=== PATIENT | male | born 1970 | race Caucasian/White ===

== ENCOUNTER 2018-08-07 02:50 | Inpatient (IN) ==
[2018-08-07] MEDS ORDERED: Dextrose 50% in Water Syringe 50 ML ONE ×6 (02:55→18:10)
[2018-08-07] MEDS ORDERED: Dextrose 50% in Water 50 ML Vial IV.PUSH ONE (02:56)
[2018-08-07] MEDS: Dextrose 5%/NaCl 0.9% Inj 1,000 ML IV.SIG SCH ×3 (03:00→18:09)
[2018-08-07] MEDS ORDERED: Propofol 1000 mg/100 ml Inj 1,000 MG/100 ML BOTTLE ONE (03:05)
[2018-08-07 03:17] LABS: ABG Base Excess 0.8 mmol/L (-2-2); ABG PCO2 49 mmHg (38-42); ABG PO2 417 mmHg (61-120); Baso # (Auto) 0.1 th/mm3 (0.0-0.2); Baso % (Auto) 0.4 % (0.0-2.0); Eos % (Auto) 0.1 % (0.0-4.0); Hematocrit 39.5 % (39.0-51.0); Hemoglobin 13.7 gm/dL (13.0-17.0); Lymph # (Auto) 0.9 th/mm3 (1.0-4.8); Lymph % (Auto) 4.7 % (9.0-44.0); Mean Corpuscular HGB Conc 34.7 % (32.0-36.0); Mean Corpuscular Hemoglobin 34.9 pg (27.0-34.0); Mean Corpuscular Volume 100.6 fL (80.0-100.0); Mean Platelet Volume 7.6 fL (7.0-11.0); Mono # (Auto) 1.9 th/mm3 (0.0-0.9); Mono % (Auto) 10.1 % (0.0-8.0); Neut # (Auto) 15.8 th/mm3 (1.8-7.7); Neut % (Auto) 84.7 % (16.0-70.0); Platelet Count 362 th/mm3 (150-450); Red Blood Count 3.93 mil/mm3 (4.50-5.90); Red Cell Distribution Width 12.7 % (11.6-17.2); White Blood Count 18.6 th/mm3 (4.0-11.0)
[2018-08-07 03:29] LABS: Prothrombin Time 9.9 sec (9.8-11.6)
--- NOTE | 2018-08-07 03:35 | XR ---
EXAM DATE: 08/07/2018 3:28 AM EST AGE/SEX: 89 years / Male INDICATIONS: ET tube placement. CLINICAL DATA: This is the patient's initial encounter. Patient reports that signs and symptoms have been present for 1 day and indicates a pain score of Nonresponsive. MEDICAL/SURGICAL HISTORY: Non-responsive. Non-responsive. COMPARISON: No prior exams available for comparison. FINDINGS: Single AP view the chest. Endotracheal tube is in place with the tip 4 to 5 cm above the justin. Naso gastric tube is in place with the tip in the proximal stomach. Lungs are clear. Cardiomediastinal rafael houette is within normal limits. No evidence of pleural effusion or pneumothorax. CONCLUSION: Endotracheal tube and nasogastric tube in place. No acute cardiopulmonary disease identified. Electronically signed by: Bala Caban MD 08/07/2018 3:34 AM EST
[2018-08-07 03:37] LABS: Alanine Aminotransferase 24 U/L (12-78); Albumin 3.4 g/dL (3.4-5.0); Alkaline Phosphatase 57 U/L (45-117); Anion Gap 11 meq/L (5-15); Aspartate Aminotransferase 20 U/L (15-37); Blood Urea Nitrogen 19 mg/dL (7-18); Calcium 8.8 mg/dL (8.5-10.1); Carbon Dioxide 26.8 meq/L (21.0-32.0); Chloride 104 meq/L (98-107); Glomerular Filtration Rate 55 mL/min (>89); Magnesium 1.8 mg/dL (1.5-2.5); Sodium 142 meq/L (136-145); Total Protein 7.3 g/dL (6.4-8.2)
[2018-08-07] MEDS ORDERED: Piperacil/Tazo 4.5 GM Premix 4.5 GM/100 ML BAG IV.SIG ONE (03:41)
[2018-08-07 03:42] LABS: Potassium 2.8 meq/L (3.5-5.1)
[2018-08-07] MEDS ORDERED: Vancomycin Inj 1,000 MG in Sodium Chlor 0.9% Inj 250 ML IV.SIG ONE (03:42)
--- NOTE | 2018-08-07 03:42 | CT ---
EXAM DATE: 08/07/2018 3:27 AM EST AGE/SEX: 89 years / Male INDICATIONS: Found unresponsive. CLINICAL DATA: This is the patient's initial encounter. Patient reports that signs and symptoms have been present for 1 day and indicates a pain score of Nonresponsive. MEDICAL/SURGICAL HISTORY: Non-responsive. Non-responsive. RADIATION DOSE: 56.34 CTDI (mGy) COMPARISON: No prior exams available for comparison. TECHNIQUE: CT of the head without contrast. Using automated exposure control and adjustment of the mA and/or kV according to patient size, radiation dose was kept as low as reasonably achievable to ob tain optimal diagnostic quality images. DICOM format image data is available electronically for revi ew and comparison. FINDINGS: Cerebrum: Mild motion artifact noted. The flores matter-white matter differentiation of the cerebral h emispheres is somewhat decreased diffusely. No focal mass lesion or acute intracranial hemorrhage george ntified. No extra-axial fluid collections. Posterior Fossa: The cerebellum and brainstem are intact. The 4th ventricle is midline. The cerebe llopontine angle is unremarkable. Extracranial: The visualized portion of the orbits is intact. Skull: The calvaria is intact. No evidence of skull fracture. CONCLUSION: 1. Somewhat decreased flores matter-white matter differentiation diffusely. This finding can be seen w ith diffuse anoxic/hypoxic injury. 2. Motion artifact. . Electronically signed by: Bala Caban MD 08/07/2018 3:40 AM EST
[2018-08-07 03:43] LABS: Glucose,Random 27 mg/dL (74-106)
[2018-08-07] MEDS ORDERED: Potassium Chlor 20 mEq Premix 20 MEQ/100 ML PIGGYBACK IV.SIG ONE (03:43)
--- NOTE | 2018-08-07 03:49 | ED ---
HPI General Chief Complaint: Diabetic Stated Complaint: Medical Time Seen by Provider: 08/07/18 02:56 Source: EMS Mode of arrival: EMS Limitations: altered mental status and other (Intubated) History of Present Illness HPI narrative: Patient of unknown identity was brought in by EMS emergently. [place] him. Blood sugar was checked and it was 14. Patient was given 1 amp of D50 but did not wake up. He was given IV Narcan with no change. Patient was intubated at the scene by EMS. He was brought in being bagged by positive pressure ventilation. As per EMS patient never lost his pulse. Vital signs were otherwise stable. Upon arrival patient had no purposeful movement and was obviously no condition to give any meaningful history. Blood sugar upon arrival was 38. Related Data Home Medications Medication Instructions Recorded Confirmed Unable to Obtain Home Meds 08/07/18 08/07/18 Allergies Allergy/AdvReac Type Severity Reaction Status Date / Time No Known Allergies Allergy Verified 08/07/18 03:43 Review of Systems ROS Unobtainable ROS Unobtainable: unobtainable due to endotracheal tube and unobtainable due to mental status ROS: all other systems reviewed are negative PMFSH History History Provided By: Mask Design Engineer / EMT Medical History Medical History Medical history unknown (Acute) Surgical history unknown (Acute) Social History Social History Smoking Status: Unknown if ever smoked How Often Do You Have a Drink Containing Alcohol: Unable to Obtain Recent Travel in [facility] within the Last 8 Weeks: No Recent Out of Country Travel within the Last 8 Weeks: No Exam Narrative Exam Narrative: GENERAL: Intubated, unresponsive SKIN: Focused skin assessment warm/dry. Covered in sand HEAD: Atraumatic. Normocephalic. EYES: Right pupil is 4 mm in left 3 mm. No scleral icterus. No injection or drainage. ENT: No nasal bleeding or discharge. Mucous membranes pink and moist. NECK: Trachea midline. No JVD. ET tube CARDIOVASCULAR: Regular rate and rhythm. No murmur appreciated. RESPIRATORY: No accessory muscle use. Clear to auscultation. Breath sounds equal bilaterally. GASTROINTESTINAL: Abdomen soft, non-tender, nondistended. Hepatic and splenic margins not palpable. MUSCULOSKELETAL: No obvious deformities. No clubbing. No cyanosis. No edema. NEUROLOGICAL: GCS of 3 PSYCHIATRIC: Unable to assess Course Initial Documented Vital Signs Temperature 95.8 F L 08/07/18 02:50 Pulse Rate 107 H 08/07/18 02:50 Respiratory Rate 14 08/07/18 02:50 Blood Pressure 176/80 H 08/07/18 02:50 Pulse Oximetry 100 08/07/18 02:50 Last Documented Vital Signs Temperature 97.9 F 08/10/18 05:00 Pulse Rate 81 08/10/18 06:59 Respiratory Rate 21 08/10/18 06:59 Blood Pressure 186/96 H 08/10/18 06:59 Pulse Oximetry 99 08/10/18 06:59 Critical Care Time Critical Care Time: Yes Total Critical Care Time: 60 Attestation: Aggregate critical care time was 60 minutes. Time to perform other separately billable procedures was not included in the critical care time. My time did not include minutes spent treating any other patients simultaneously or on activities that did not directly contribute to the patient's treatment. The services I provided to this patient were to treat and/or prevent clinically significant deterioration that could result in: Unresponsive, respiratory failure, intubated, persistent hypoglycemia I provided critical care services requiring my management, as noted below: Chart data review, documentation time, medication orders and management, vital sign assessments/reviewing monitor data, ordering and reviewing lab tests, ordering and interpreting/reviewing x-rays and diagnostic studies, care of the patient and discussion of the patient with the admitting physicians. Medical Decision Making MDM Narrative Medical decision making narrative: 3:56 AM patient was given an amp of D50 followed by D5 normal saline drip at 150 cc an hour. Head CT was negative. Chest x-ray shows the ET tube in the OG tube in good position. Lactic acid is elevated. I have ordered an robotic as per sepsis protocol. Repeat blood glucose is 48 and another amp of D50 has been ordered. I just discussed the case with Dr. Tony from ICU who was admitted the patient Medical Screen Exam Complete: Yes Emergency Medical Condition: Yes Lab Data Result diagrams: 08/10/18 04:33 08/10/18 04:33 Lab Results 08/07/18 08/07/18 08/07/18 Range/Units 02:54 03:05 03:05 WBC 18.6 H (4.0-11.0) th/mm3 RBC 3.93 L (4.50-5.90) mil/mm3 Hgb 13.7 (13.0-17.0) gm/dL Hct 39.5 (39.0-51.0) % MCV 100.6 H (80.0-100.0) fL MCH 34.9 H (27.0-34.0) pg MCHC 34.7 (32.0-36.0) % RDW 12.7 (11.6-17.2) % Plt Count 362 (150-450) th/mm3 MPV 7.6 (7.0-11.0) fL Neut % (Auto) 84.7 H (16.0-70.0) % Lymph % (Auto) 4.7 L (9.0-44.0) % [place] % (Auto) 10.1 H (0.0-8.0) % Eos % (Auto) 0.1 (0.0-4.0) % Baso % (Auto) 0.4 (0.0-2.0) % Neut # (Auto) 15.8 H (1.8-7.7) th/mm3 Lymph # (Auto) 0.9 L (1.0-4.8) th/mm3 [place] # (Auto) 1.9 H (0.0-0.9) th/mm3 Eos # (Auto) 0.0 (0.0-0.4) th/mm3 Baso # (Auto) 0.1 (0.0-0.2) th/mm3 WBC Differential . Differential Comment Auto diff final PT (9.8-11.6) sec INR Ratio APTT (23.4-31.7) sec Puncture Site Patient Temperature O2 Saturation (90-100) % ABG pH (7.380-7.420) ABG pCO2 (38-42) mmHg ABG pO2 (61-120) mmHg ABG HCO3 (22-26) mmol/L ABG O2 Content (12.0-20.0) Vol % ABG Base Excess (-2-2) mmol/L ABG Methemoglobin (0-2) % Long Test Hemoglobin (12.0-16.0) G/DL Carboxyhemoglobin (0-4) % O2 Delivery Device Liter Flow L/M Vent Setting Inspired O2 % Critical Value Sodium 142 (136-145) meq/L Potassium 2.8 L* (3.5-5.1) meq/L Chloride 104 (98-107) meq/L Carbon Dioxide 26.8 (21.0-32.0) meq/L Anion Gap 11 (5-15) meq/L BUN 19 H (7-18) mg/dL Creatinine 1.14 (0.60-1.30) mg/dL Estimated GFR 55 L (>89) mL/min POC Glucose 32 L* (68-110) mg/dl Random Glucose 27 L* (74-106) mg/dL Lactic Acid (0.4-2.0) mmol/L Calcium 8.8 (8.5-10.1) mg/dL Phosphorus (2.5-4.9) mg/dL Magnesium 1.8 (1.5-2.5) mg/dL Total Bilirubin 0.3 (0.2-1.0) mg/dL AST 20 (15-37) U/L ALT 24 (12-78) U/L Alkaline Phosphatase 57 (45-117) U/L Ammonia (11-32) mcmol/L Troponin I Less than 0.02 L (0.02-0.05) ng/mL Total Protein 7.3 (6.4-8.2) g/dL Albumin 3.4 (3.4-5.0) g/dL Prealbumin (20-40) mg/dL Urine Color (Yellw/Straw) Urine Clarity (Clear) Urine pH (5.0-8.5) Ur Specific [place] (1.002-1.035) Urine Protein (Neg-Trace) mg/dL Urine Glucose (UA) (Negative) mg/dL Urine Ketones (Negative) mg/dL Urine Occult Blood (Negative) Urine Nitrate (Negative) Urine Bilirubin (Negative) Urine Urobilinogen (Less than 2) mg/dL Ur Leukocyte Esterase (Negative) Urine RBC (0-3) /hpf Urine WBC (0-5) /hpf Ur Squamous Epith Cells (0-5) /hpf Hyaline Casts (0-3) /lpf Urine Mucus (Occasional) /lpf Micro UA Comment Ur Microscopic Review Urine Culture Comments Nasal Screen MRSA (PCR) (Negative) Urine Opiates Screen (Neg) Ur Barbiturates Screen (Neg) Ur Amphetamines Screen (Neg) U Benzodiazepines Scrn (Neg) Urine Cocaine Screen (Neg) U Cannabinoids Screen (Neg) 08/07/18 08/07/18 08/07/18 Range/Units 03:05 03:05 03:05 WBC (4.0-11.0) th/mm3 RBC (4.50-5.90) mil/mm3 Hgb (13.0-17.0) gm/dL Hct (39.0-51.0) % MCV (80.0-100.0) fL MCH (27.0-34.0) pg MCHC (32.0-36.0) % RDW (11.6-17.2) % Plt Count (150-450) th/mm3 MPV (7.0-11.0) fL Neut % (Auto) (16.0-70.0) % Lymph % (Auto) (9.0-44.0) % [place] % (Auto) (0.0-8.0) % Eos % (Auto) (0.0-4.0) % Baso % (Auto) (0.0-2.0) % Neut # (Auto) (1.8-7.7) th/mm3 Lymph # (Auto) (1.0-4.8) th/mm3 [place] # (Auto) (0.0-0.9) th/mm3 Eos # (Auto) (0.0-0.4) th/mm3 Baso # (Auto) (0.0-0.2) th/mm3 WBC Differential Differential Comment PT 9.9 (9.8-11.6) sec INR 1.0 Ratio APTT (23.4-31.7) sec Puncture Site Patient Temperature O2 Saturation (90-100) % ABG pH (7.380-7.420) ABG pCO2 (38-42) mmHg ABG pO2 (61-120) mmHg ABG HCO3 (22-26) mmol/L ABG O2 Content (12.0-20.0) Vol % ABG Base Excess (-2-2) mmol/L ABG Methemoglobin (0-2) % Long Test Hemoglobin (12.0-16.0) G/DL Carboxyhemoglobin (0-4) % O2 Delivery Device Liter Flow L/M Vent Setting Inspired O2 % Critical Value Sodium (136-145) meq/L Potassium (3.5-5.1) meq/L Chloride (98-107) meq/L Carbon Dioxide (21.0-32.0) meq/L Anion Gap (5-15) meq/L BUN (7-18) mg/dL Creatinine (0.60-1.30) mg/dL Estimated GFR (>89) mL/min POC Glucose (68-110) mg/dl Random Glucose (74-106) mg/dL Lactic Acid 3.8 H (0.4-2.0) mmol/L Calcium (8.5-10.1) mg/dL Phosphorus (2.5-4.9) mg/dL Magnesium (1.5-2.5) mg/dL Total Bilirubin (0.2-1.0) mg/dL AST (15-37) U/L ALT (12-78) U/L Alkaline Phosphatase (45-117) U/L Ammonia 36 H (11-32) mcmol/L Troponin I (0.02-0.05) ng/mL Total Protein (6.4-8.2) g/dL Albumin (3.4-5.0) g/dL Prealbumin (20-40) mg/dL Urine Color (Yellw/Straw) Urine Clarity (Clear) Urine pH (5.0-8.5) Ur Specific [place] (1.002-1.035) Urine Protein (Neg-Trace) mg/dL Urine Glucose (UA) (Negative) mg/dL Urine Ketones (Negative) mg/dL Urine Occult Blood (Negative) Urine Nitrate (Negative) Urine Bilirubin (Negative) Urine Urobilinogen (Less than 2) mg/dL Ur Leukocyte Esterase (Negative) Urine RBC (0-3) /hpf Urine WBC (0-5) /hpf Ur Squamous Epith Cells (0-5) /hpf Hyaline Casts (0-3) /lpf Urine Mucus (Occasional) /lpf Micro UA Comment Ur Microscopic Review Urine Culture Comments Nasal Screen MRSA (PCR) (Negative) Urine Opiates Screen (Neg) Ur Barbiturates Screen (Neg) Ur Amphetamines Screen (Neg) U Benzodiazepines Scrn (Neg) Urine Cocaine Screen (Neg) U Cannabinoids Screen (Neg) 08/07/18 08/07/18 08/07/18 Range/Units 03:05 03:09 03:50 WBC (4.0-11.0) th/mm3 RBC (4.50-5.90) mil/mm3 Hgb (13.0-17.0) gm/dL Hct (39.0-51.0) % MCV (80.0-100.0) fL MCH (27.0-34.0) pg MCHC (32.0-36.0) % RDW (11.6-17.2) % Plt Count (150-450) th/mm3 MPV (7.0-11.0) fL Neut % (Auto) (16.0-70.0) % Lymph % (Auto) (9.0-44.0) % [place] % (Auto) (0.0-8.0) % Eos % (Auto) (0.0-4.0) % Baso % (Auto) (0.0-2.0) % Neut # (Auto) (1.8-7.7) th/mm3 Lymph # (Auto) (1.0-4.8) th/mm3 [place] # (Auto) (0.0-0.9) th/mm3 Eos # (Auto) (0.0-0.4) th/mm3 Baso # (Auto) (0.0-0.2) th/mm3 WBC Differential Differential Comment PT (9.8-11.6) sec INR Ratio APTT (23.4-31.7) sec Puncture Site Right radial Patient Temperature 98.6 O2 Saturation 98 (90-100) % ABG pH 7.35 L (7.380-7.420) ABG pCO2 49 H (38-42) mmHg ABG pO2 417 H (61-120) mmHg ABG HCO3 26 (22-26) mmol/L ABG O2 Content 19.3 (12.0-20.0) Vol % ABG Base Excess 0.8 (-2-2) mmol/L ABG Methemoglobin 0.7 (0-2) % Long Test Present Hemoglobin 13.2 (12.0-16.0) G/DL Carboxyhemoglobin 1.2 (0-4) % O2 Delivery Device Ambu bag Liter Flow 15.00 L/M Vent Setting Inspired O2 100 % Critical Value No Sodium (136-145) meq/L Potassium (3.5-5.1) meq/L Chloride (98-107) meq/L Carbon Dioxide (21.0-32.0) meq/L Anion Gap (5-15) meq/L BUN (7-18) mg/dL Creatinine (0.60-1.30) mg/dL Estimated GFR (>89) mL/min POC Glucose 148 H 46 L* (68-110) mg/dl Random Glucose (74-106) mg/dL Lactic Acid (0.4-2.0) mmol/L Calcium (8.5-10.1) mg/dL Phosphorus (2.5-4.9) mg/dL Magnesium (1.5-2.5) mg/dL Total Bilirubin (0.2-1.0) mg/dL AST (15-37) U/L ALT (12-78) U/L Alkaline Phosphatase (45-117) U/L Ammonia (11-32) mcmol/L Troponin I (0.02-0.05) ng/mL Total Protein (6.4-8.2) g/dL Albumin (3.4-5.0) g/dL Prealbumin (20-40) mg/dL Urine Color (Yellw/Straw) Urine Clarity (Clear) Urine pH (5.0-8.5) Ur Specific [place] (1.002-1.035) Urine Protein (Neg-Trace) mg/dL Urine Glucose (UA) (Negative) mg/dL Urine Ketones (Negative) mg/dL Urine Occult Blood (Negative) Urine Nitrate (Negative) Urine Bilirubin (Negative) Urine Urobilinogen (Less than 2) mg/dL Ur Leukocyte Esterase (Negative) Urine RBC (0-3) /hpf Urine WBC (0-5) /hpf Ur Squamous Epith Cells (0-5) /hpf Hyaline Casts (0-3) /lpf Urine Mucus (Occasional) /lpf Micro UA Comment Ur Microscopic Review Urine Culture Comments Nasal Screen MRSA (PCR) (Negative) Urine Opiates Screen (Neg) Ur Barbiturates Screen (Neg) Ur Amphetamines Screen (Neg) U Benzodiazepines Scrn (Neg) Urine Cocaine Screen (Neg) U Cannabinoids Screen (Neg) 08/07/18 08/07/18 08/07/18 Range/Units 04:16 04:16 04:45 WBC (4.0-11.0) th/mm3 RBC (4.50-5.90) mil/mm3 Hgb (13.0-17.0) gm/dL Hct (39.0-51.0) % MCV (80.0-100.0) fL MCH (27.0-34.0) pg MCHC (32.0-36.0) % RDW (11.6-17.2) % Plt Count (150-450) th/mm3 MPV (7.0-11.0) fL Neut % (Auto) (16.0-70.0) % Lymph % (Auto) (9.0-44.0) % [place] % (Auto) (0.0-8.0) % Eos % (Auto) (0.0-4.0) % Baso % (Auto) (0.0-2.0) % Neut # (Auto) (1.8-7.7) th/mm3 Lymph # (Auto) (1.0-4.8) th/mm3 [place] # (Auto) (0.0-0.9) th/mm3 Eos # (Auto) (0.0-0.4) th/mm3 Baso # (Auto) (0.0-0.2) th/mm3 WBC Differential Differential Comment PT (9.8-11.6) sec INR Ratio APTT (23.4-31.7) sec Puncture Site Right radial Patient Temperature 98.6 O2 Saturation 97 (90-100) % ABG pH 7.40 (7.380-7.420) ABG pCO2 45 H (38-42) mmHg ABG pO2 110 (61-120) mmHg ABG HCO3 27 H (22-26) mmol/L ABG O2 Content 18.6 (12.0-20.0) Vol % ABG Base Excess 2.9 H (-2-2) mmol/L ABG Methemoglobin 0.7 (0-2) % Long Test Present Hemoglobin 13.6 (12.0-16.0) G/DL Carboxyhemoglobin 1.0 (0-4) % O2 Delivery Device Ventilator Liter Flow L/M Vent Setting Prvc / ac / Inspired O2 80 % Critical Value No Sodium (136-145) meq/L Potassium (3.5-5.1) meq/L Chloride (98-107) meq/L Carbon Dioxide (21.0-32.0) meq/L Anion Gap (5-15) meq/L BUN (7-18) mg/dL Creatinine (0.60-1.30) mg/dL Estimated GFR (>89) mL/min POC Glucose (68-110) mg/dl Random Glucose (74-106) mg/dL Lactic Acid (0.4-2.0) mmol/L Calcium (8.5-10.1) mg/dL Phosphorus (2.5-4.9) mg/dL Magnesium (1.5-2.5) mg/dL Total Bilirubin (0.2-1.0) mg/dL AST (15-37) U/L ALT (12-78) U/L Alkaline Phosphatase (45-117) U/L Ammonia (11-32) mcmol/L Troponin I (0.02-0.05) ng/mL Total Protein (6.4-8.2) g/dL Albumin (3.4-5.0) g/dL Prealbumin (20-40) mg/dL Urine Color Yellow (Yellw/Straw) Urine Clarity Hazy H (Clear) Urine pH 6.0 (5.0-8.5) Ur Specific [place] 1.022 (1.002-1.035) Urine Protein 30 H (Neg-Trace) mg/dL Urine Glucose (UA) 500 or greater (Negative) mg/dL Urine Ketones 20 (Negative) mg/dL Urine Occult Blood Large H (Negative) Urine Nitrate Negative (Negative) Urine Bilirubin Negative (Negative) Urine Urobilinogen Less than 2 (Less than 2) mg/dL Ur Leukocyte Esterase Negative (Negative) Urine RBC 29 H (0-3) /hpf Urine WBC 6 H (0-5) /hpf Ur Squamous Epith Cells <1 (0-5) /hpf Hyaline Casts 8 (0-3) /lpf Urine Mucus Few H (Occasional) /lpf Micro UA Comment Cath-culture not ind Ur Microscopic Review Not Reportable Urine Culture Comments Cath-cult not ind Nasal Screen MRSA (PCR) (Negative) Urine Opiates Screen Neg (Neg) Ur Barbiturates Screen Neg (Neg) Ur Amphetamines Screen Neg (Neg) U Benzodiazepines Scrn Pos H (Neg) Urine Cocaine Screen Pos H (Neg) U Cannabinoids Screen Pos H (Neg) 08/07/18 08/07/18 08/07/18 Range/Units 04:53 06:00 06:40 WBC (4.0-11.0) th/mm3 RBC (4.50-5.90) mil/mm3 Hgb (13.0-17.0) gm/dL Hct (39.0-51.0) % MCV (80.0-100.0) fL MCH (27.0-34.0) pg MCHC (32.0-36.0) % RDW (11.6-17.2) % Plt Count (150-450) th/mm3 MPV (7.0-11.0) fL Neut % (Auto) (16.0-70.0) % Lymph % (Auto) (9.0-44.0) % [place] % (Auto) (0.0-8.0) % Eos % (Auto) (0.0-4.0) % Baso % (Auto) (0.0-2.0) % Neut # (Auto) (1.8-7.7) th/mm3 Lymph # (Auto) (1.0-4.8) th/mm3 [place] # (Auto) (0.0-0.9) th/mm3 Eos # (Auto) (0.0-0.4) th/mm3 Baso # (Auto) (0.0-0.2) th/mm3 WBC Differential Differential Comment PT (9.8-11.6) sec INR Ratio APTT (23.4-31.7) sec Puncture Site Patient Temperature O2 Saturation (90-100) % ABG pH (7.380-7.420) ABG pCO2 (38-42) mmHg ABG pO2 (61-120) mmHg ABG HCO3 (22-26) mmol/L ABG O2 Content (12.0-20.0) Vol % ABG Base Excess (-2-2) mmol/L ABG Methemoglobin (0-2) % Long Test Hemoglobin (12.0-16.0) G/DL Carboxyhemoglobin (0-4) % O2 Delivery Device Liter Flow L/M Vent Setting Inspired O2 % Critical Value Sodium (136-145) meq/L Potassium (3.5-5.1) meq/L Chloride (98-107) meq/L Carbon Dioxide (21.0-32.0) meq/L Anion Gap (5-15) meq/L BUN (7-18) mg/dL Creatinine (0.60-1.30) mg/dL Estimated GFR (>89) mL/min POC Glucose 101 21 L* (68-110) mg/dl Random Glucose (74-106) mg/dL Lactic Acid (0.4-2.0) mmol/L Calcium (8.5-10.1) mg/dL Phosphorus (2.5-4.9) mg/dL Magnesium (1.5-2.5) mg/dL Total Bilirubin (0.2-1.0) mg/dL AST (15-37) U/L ALT (12-78) U/L Alkaline Phosphatase (45-117) U/L Ammonia (11-32) mcmol/L Troponin I (0.02-0.05) ng/mL Total Protein (6.4-8.2) g/dL Albumin (3.4-5.0) g/dL Prealbumin (20-40) mg/dL Urine Color (Yellw/Straw) Urine Clarity (Clear) Urine pH (5.0-8.5) Ur Specific [place] (1.002-1.035) Urine Protein (Neg-Trace) mg/dL Urine Glucose (UA) (Negative) mg/dL Urine Ketones (Negative) mg/dL Urine Occult Blood (Negative) Urine Nitrate (Negative) Urine Bilirubin (Negative) Urine Urobilinogen (Less than 2) mg/dL Ur Leukocyte Esterase (Negative) Urine RBC (0-3) /hpf Urine WBC (0-5) /hpf Ur Squamous Epith Cells (0-5) /hpf Hyaline Casts (0-3) /lpf Urine Mucus (Occasional) /lpf Micro UA Comment Ur Microscopic Review Urine Culture Comments Nasal Screen MRSA (PCR) Not detected (Negative) Urine Opiates Screen (Neg) Ur Barbiturates Screen (Neg) Ur Amphetamines Screen (Neg) U Benzodiazepines Scrn (Neg) Urine Cocaine Screen (Neg) U Cannabinoids Screen (Neg) 08/07/18 08/07/18 08/07/18 Range/Units 07:23 09:20 09:22 WBC (4.0-11.0) th/mm3 RBC (4.50-5.90) mil/mm3 Hgb (13.0-17.0) gm/dL Hct (39.0-51.0) % MCV (80.0-100.0) fL MCH (27.0-34.0) pg MCHC (32.0-36.0) % RDW (11.6-17.2) % Plt Count (150-450) th/mm3 MPV (7.0-11.0) fL Neut % (Auto) (16.0-70.0) % Lymph % (Auto) (9.0-44.0) % [place] % (Auto) (0.0-8.0) % Eos % (Auto) (0.0-4.0) % Baso % (Auto) (0.0-2.0) % Neut # (Auto) (1.8-7.7) th/mm3 Lymph # (Auto) (1.0-4.8) th/mm3 [place] # (Auto) (0.0-0.9) th/mm3 Eos # (Auto) (0.0-0.4) th/mm3 Baso # (Auto) (0.0-0.2) th/mm3 WBC Differential Differential Comment PT (9.8-11.6) sec INR Ratio APTT (23.4-31.7) sec Puncture Site Patient Temperature O2 Saturation (90-100) % ABG pH (7.380-7.420) ABG pCO2 (38-42) mmHg ABG pO2 (61-120) mmHg ABG HCO3 (22-26) mmol/L ABG O2 Content (12.0-20.0) Vol % ABG Base Excess (-2-2) mmol/L ABG Methemoglobin (0-2) % Long Test Hemoglobin (12.0-16.0) G/DL Carboxyhemoglobin (0-4) % O2 Delivery Device Liter Flow L/M Vent Setting Inspired O2 % Critical Value Sodium (136-145) meq/L Potassium (3.5-5.1) meq/L Chloride (98-107) meq/L Carbon Dioxide (21.0-32.0) meq/L Anion Gap (5-15) meq/L BUN (7-18) mg/dL Creatinine (0.60-1.30) mg/dL Estimated GFR (>89) mL/min POC Glucose 173 H 21 L* 20 L* (68-110) mg/dl Random Glucose (74-106) mg/dL Lactic Acid (0.4-2.0) mmol/L Calcium (8.5-10.1) mg/dL Phosphorus (2.5-4.9) mg/dL Magnesium (1.5-2.5) mg/dL Total Bilirubin (0.2-1.0) mg/dL AST (15-37) U/L ALT (12-78) U/L Alkaline Phosphatase (45-117) U/L Ammonia (11-32) mcmol/L Troponin I (0.02-0.05) ng/mL Total Protein (6.4-8.2) g/dL Albumin (3.4-5.0) g/dL Prealbumin (20-40) mg/dL Urine Color (Yellw/Straw) Urine Clarity (Clear) Urine pH (5.0-8.5) Ur Specific [place] (1.002-1.035) Urine Protein (Neg-Trace) mg/dL Urine Glucose (UA) (Negative) mg/dL Urine Ketones (Negative) mg/dL Urine Occult Blood (Negative) Urine Nitrate (Negative) Urine Bilirubin (Negative) Urine Urobilinogen (Less than 2) mg/dL Ur Leukocyte Esterase (Negative) Urine RBC (0-3) /hpf Urine WBC (0-5) /hpf Ur Squamous Epith Cells (0-5) /hpf Hyaline Casts (0-3) /lpf Urine Mucus (Occasional) /lpf Micro UA Comment Ur Microscopic Review Urine Culture Comments Nasal Screen MRSA (PCR) (Negative) Urine Opiates Screen (Neg) Ur Barbiturates Screen (Neg) Ur Amphetamines Screen (Neg) U Benzodiazepines Scrn (Neg) Urine Cocaine Screen (Neg) U Cannabinoids Screen (Neg) 08/07/18 08/07/18 08/07/18 Range/Units 09:33 10:15 11:16 WBC (4.0-11.0) th/mm3 RBC (4.50-5.90) mil/mm3 Hgb (13.0-17.0) gm/dL Hct (39.0-51.0) % MCV (80.0-100.0) fL MCH (27.0-34.0) pg MCHC (32.0-36.0) % RDW (11.6-17.2) % Plt Count (150-450) th/mm3 MPV (7.0-11.0) fL Neut % (Auto) (16.0-70.0) % Lymph % (Auto) (9.0-44.0) % [place] % (Auto) (0.0-8.0) % Eos % (Auto) (0.0-4.0) % Baso % (Auto) (0.0-2.0) % Neut # (Auto) (1.8-7.7) th/mm3 Lymph # (Auto) (1.0-4.8) th/mm3 [place] # (Auto) (0.0-0.9) th/mm3 Eos # (Auto) (0.0-0.4) th/mm3 Baso # (Auto) (0.0-0.2) th/mm3 WBC Differential Differential Comment PT (9.8-11.6) sec INR Ratio APTT (23.4-31.7) sec Puncture Site Patient Temperature O2 Saturation (90-100) % ABG pH (7.380-7.420) ABG pCO2 (38-42) mmHg ABG pO2 (61-120) mmHg ABG HCO3 (22-26) mmol/L ABG O2 Content (12.0-20.0) Vol % ABG Base Excess (-2-2) mmol/L ABG Methemoglobin (0-2) % Long Test Hemoglobin (12.0-16.0) G/DL Carboxyhemoglobin (0-4) % O2 Delivery Device Liter Flow L/M Vent Setting Inspired O2 % Critical Value Sodium (136-145) meq/L Potassium (3.5-5.1) meq/L Chloride (98-107) meq/L Carbon Dioxide (21.0-32.0) meq/L Anion Gap (5-15) meq/L BUN (7-18) mg/dL Creatinine (0.60-1.30) mg/dL Estimated GFR (>89) mL/min POC Glucose 133 H 43 L* 66 L (68-110) mg/dl Random Glucose (74-106) mg/dL Lactic Acid (0.4-2.0) mmol/L Calcium (8.5-10.1) mg/dL Phosphorus (2.5-4.9) mg/dL Magnesium (1.5-2.5) mg/dL Total Bilirubin (0.2-1.0) mg/dL AST (15-37) U/L ALT (12-78) U/L Alkaline Phosphatase (45-117) U/L Ammonia (11-32) mcmol/L Troponin I (0.02-0.05) ng/mL Total Protein (6.4-8.2) g/dL Albumin (3.4-5.0) g/dL Prealbumin (20-40) mg/dL Urine Color (Yellw/Straw) Urine Clarity (Clear) Urine pH (5.0-8.5) Ur Specific [place] (1.002-1.035) Urine Protein (Neg-Trace) mg/dL Urine Glucose (UA) (Negative) mg/dL Urine Ketones (Negative) mg/dL Urine Occult Blood (Negative) Urine Nitrate (Negative) Urine Bilirubin (Negative) Urine Urobilinogen (Less than 2) mg/dL Ur Leukocyte Esterase (Negative) Urine RBC (0-3) /hpf Urine WBC (0-5) /hpf Ur Squamous Epith Cells (0-5) /hpf Hyaline Casts (0-3) /lpf Urine Mucus (Occasional) /lpf Micro UA Comment Ur Microscopic Review Urine Culture Comments Nasal Screen MRSA (PCR) (Negative) Urine Opiates Screen (Neg) Ur Barbiturates Screen (Neg) Ur Amphetamines Screen (Neg) U Benzodiazepines Scrn (Neg) Urine Cocaine Screen (Neg) U Cannabinoids Screen (Neg) 08/07/18 08/07/18 08/07/18 Range/Units 11:41 11:41 11:51 WBC (4.0-11.0) th/mm3 RBC (4.50-5.90) mil/mm3 Hgb (13.0-17.0) gm/dL Hct (39.0-51.0) % MCV (80.0-100.0) fL MCH (27.0-34.0) pg MCHC (32.0-36.0) % RDW (11.6-17.2) % Plt Count (150-450) th/mm3 MPV (7.0-11.0) fL Neut % (Auto) (16.0-70.0) % Lymph % (Auto) (9.0-44.0) % [place] % (Auto) (0.0-8.0) % Eos % (Auto) (0.0-4.0) % Baso % (Auto) (0.0-2.0) % Neut # (Auto) (1.8-7.7) th/mm3 Lymph # (Auto) (1.0-4.8) th/mm3 [place] # (Auto) (0.0-0.9) th/mm3 Eos # (Auto) (0.0-0.4) th/mm3 Baso # (Auto) (0.0-0.2) th/mm3 WBC Differential Differential Comment PT (9.8-11.6) sec INR Ratio APTT (23.4-31.7) sec Puncture Site Patient Temperature O2 Saturation (90-100) % ABG pH (7.380-7.420) ABG pCO2 (38-42) mmHg ABG pO2 (61-120) mmHg ABG HCO3 (22-26) mmol/L ABG O2 Content (12.0-20.0) Vol % ABG Base Excess (-2-2) mmol/L ABG Methemoglobin (0-2) % Long Test Hemoglobin (12.0-16.0) G/DL Carboxyhemoglobin (0-4) % O2 Delivery Device Liter Flow L/M Vent Setting Inspired O2 % Critical Value Sodium 140 (136-145) meq/L Potassium 3.2 L (3.5-5.1) meq/L Chloride 101 (98-107) meq/L Carbon Dioxide 26.6 (21.0-32.0) meq/L Anion Gap 12 (5-15) meq/L BUN 16 (7-18) mg/dL Creatinine 1.06 (0.60-1.30) mg/dL Estimated GFR 60 L (>89) mL/min POC Glucose 163 H (68-110) mg/dl Random Glucose 182 H D (74-106) mg/dL Lactic Acid (0.4-2.0) mmol/L Calcium 8.3 L (8.5-10.1) mg/dL Phosphorus (2.5-4.9) mg/dL Magnesium (1.5-2.5) mg/dL Total Bilirubin 0.7 (0.2-1.0) mg/dL AST 25 (15-37) U/L ALT 20 (12-78) U/L Alkaline Phosphatase 50 (45-117) U/L Ammonia (11-32) mcmol/L Troponin I Less than 0.02 L (0.02-0.05) ng/mL Total Protein 6.6 D (6.4-8.2) g/dL Albumin 3.2 L (3.4-5.0) g/dL Prealbumin (20-40) mg/dL Urine Color (Yellw/Straw) Urine Clarity (Clear) Urine pH (5.0-8.5) Ur Specific [place] (1.002-1.035) Urine Protein (Neg-Trace) mg/dL Urine Glucose (UA) (Negative) mg/dL Urine Ketones (Negative) mg/dL Urine Occult Blood (Negative) Urine Nitrate (Negative) Urine Bilirubin (Negative) Urine Urobilinogen (Less than 2) mg/dL Ur Leukocyte Esterase (Negative) Urine RBC (0-3) /hpf Urine WBC (0-5) /hpf Ur Squamous Epith Cells (0-5) /hpf Hyaline Casts (0-3) /lpf Urine Mucus (Occasional) /lpf Micro UA Comment Ur Microscopic Review Urine Culture Comments Nasal Screen MRSA (PCR) (Negative) Urine Opiates Screen (Neg) Ur Barbiturates Screen (Neg) Ur Amphetamines Screen (Neg) U Benzodiazepines Scrn (Neg) Urine Cocaine Screen (Neg) U Cannabinoids Screen (Neg) 08/07/18 08/07/18 08/07/18 Range/Units 12:25 13:19 14:04 WBC 19.9 H (4.0-11.0) th/mm3 RBC 3.87 L (4.50-5.90) mil/mm3 Hgb 13.7 (13.0-17.0) gm/dL Hct 39.5 (39.0-51.0) % MCV 101.9 H (80.0-100.0) fL MCH 35.3 H (27.0-34.0) pg MCHC 34.7 (32.0-36.0) % RDW 13.1 (11.6-17.2) % Plt Count 309 (150-450) th/mm3 MPV 7.5 (7.0-11.0) fL Neut % (Auto) (16.0-70.0) % Lymph % (Auto) (9.0-44.0) % [place] % (Auto) (0.0-8.0) % Eos % (Auto) (0.0-4.0) % Baso % (Auto) (0.0-2.0) % Neut # (Auto) (1.8-7.7) th/mm3 Lymph # (Auto) (1.0-4.8) th/mm3 [place] # (Auto) (0.0-0.9) th/mm3 Eos # (Auto) (0.0-0.4) th/mm3 Baso # (Auto) (0.0-0.2) th/mm3 WBC Differential Differential Comment PT (9.8-11.6) sec INR Ratio APTT (23.4-31.7) sec Puncture Site Patient Temperature O2 Saturation (90-100) % ABG pH (7.380-7.420) ABG pCO2 (38-42) mmHg ABG pO2 (61-120) mmHg ABG HCO3 (22-26) mmol/L ABG O2 Content (12.0-20.0) Vol % ABG Base Excess (-2-2) mmol/L ABG Methemoglobin (0-2) % Long Test Hemoglobin (12.0-16.0) G/DL Carboxyhemoglobin (0-4) % O2 Delivery Device Liter Flow L/M Vent Setting Inspired O2 % Critical Value Sodium (136-145) meq/L Potassium (3.5-5.1) meq/L Chloride (98-107) meq/L Carbon Dioxide (21.0-32.0) meq/L Anion Gap (5-15) meq/L BUN (7-18) mg/dL Creatinine (0.60-1.30) mg/dL Estimated GFR (>89) mL/min POC Glucose 128 H 52 L (68-110) mg/dl Random Glucose (74-106) mg/dL Lactic Acid (0.4-2.0) mmol/L Calcium (8.5-10.1) mg/dL Phosphorus (2.5-4.9) mg/dL Magnesium (1.5-2.5) mg/dL Total Bilirubin (0.2-1.0) mg/dL AST (15-37) U/L ALT (12-78) U/L Alkaline Phosphatase (45-117) U/L Ammonia (11-32) mcmol/L Troponin I (0.02-0.05) ng/mL Total Protein (6.4-8.2) g/dL Albumin (3.4-5.0) g/dL Prealbumin (20-40) mg/dL Urine Color (Yellw/Straw) Urine Clarity (Clear) Urine pH (5.0-8.5) Ur Specific [place] (1.002-1.035) Urine Protein (Neg-Trace) mg/dL Urine Glucose (UA) (Negative) mg/dL Urine Ketones (Negative) mg/dL Urine Occult Blood (Negative) Urine Nitrate (Negative) Urine Bilirubin (Negative) Urine Urobilinogen (Less than 2) mg/dL Ur Leukocyte Esterase (Negative) Urine RBC (0-3) /hpf Urine WBC (0-5) /hpf Ur Squamous Epith Cells (0-5) /hpf Hyaline Casts (0-3) /lpf Urine Mucus (Occasional) /lpf Micro UA Comment Ur Microscopic Review Urine Culture Comments Nasal Screen MRSA (PCR) (Negative) Urine Opiates Screen (Neg) Ur Barbiturates Screen (Neg) Ur Amphetamines Screen (Neg) U Benzodiazepines Scrn (Neg) Urine Cocaine Screen (Neg) U Cannabinoids Screen (Neg) 08/07/18 08/07/18 08/07/18 Range/Units 14:33 15:42 15:44 WBC (4.0-11.0) th/mm3 RBC (4.50-5.90) mil/mm3 Hgb (13.0-17.0) gm/dL Hct (39.0-51.0) % MCV (80.0-100.0) fL MCH (27.0-34.0) pg MCHC (32.0-36.0) % RDW (11.6-17.2) % Plt Count (150-450) th/mm3 MPV (7.0-11.0) fL Neut % (Auto) (16.0-70.0) % Lymph % (Auto) (9.0-44.0) % [place] % (Auto) (0.0-8.0) % Eos % (Auto) (0.0-4.0) % Baso % (Auto) (0.0-2.0) % Neut # (Auto) (1.8-7.7) th/mm3 Lymph # (Auto) (1.0-4.8) th/mm3 [place] # (Auto) (0.0-0.9) th/mm3 Eos # (Auto) (0.0-0.4) th/mm3 Baso # (Auto) (0.0-0.2) th/mm3 WBC Differential Differential Comment PT (9.8-11.6) sec INR Ratio APTT (23.4-31.7) sec Puncture Site Patient Temperature O2 Saturation (90-100) % ABG pH (7.380-7.420) ABG pCO2 (38-42) mmHg ABG pO2 (61-120) mmHg ABG HCO3 (22-26) mmol/L ABG O2 Content (12.0-20.0) Vol % ABG Base Excess (-2-2) mmol/L ABG Methemoglobin (0-2) % Long Test Hemoglobin (12.0-16.0) G/DL Carboxyhemoglobin (0-4) % O2 Delivery Device Liter Flow L/M Vent Setting Inspired O2 % Critical Value Sodium (136-145) meq/L Potassium (3.5-5.1) meq/L Chloride (98-107) meq/L Carbon Dioxide (21.0-32.0) meq/L Anion Gap (5-15) meq/L BUN (7-18) mg/dL Creatinine (0.60-1.30) mg/dL Estimated GFR (>89) mL/min POC Glucose 141 H 36 L* 41 L* (68-110) mg/dl Random Glucose (74-106) mg/dL Lactic Acid (0.4-2.0) mmol/L Calcium (8.5-10.1) mg/dL Phosphorus (2.5-4.9) mg/dL Magnesium (1.5-2.5) mg/dL Total Bilirubin (0.2-1.0) mg/dL AST (15-37) U/L ALT (12-78) U/L Alkaline Phosphatase (45-117) U/L Ammonia (11-32) mcmol/L Troponin I (0.02-0.05) ng/mL Total Protein (6.4-8.2) g/dL Albumin (3.4-5.0) g/dL Prealbumin (20-40) mg/dL Urine Color (Yellw/Straw) Urine Clarity (Clear) Urine pH (5.0-8.5) Ur Specific [place] (1.002-1.035) Urine Protein (Neg-Trace) mg/dL Urine Glucose (UA) (Negative) mg/dL Urine Ketones (Negative) mg/dL Urine Occult Blood (Negative) Urine Nitrate (Negative) Urine Bilirubin (Negative) Urine Urobilinogen (Less than 2) mg/dL Ur Leukocyte Esterase (Negative) Urine RBC (0-3) /hpf Urine WBC (0-5) /hpf Ur Squamous Epith Cells (0-5) /hpf Hyaline Casts (0-3) /lpf Urine Mucus (Occasional) /lpf Micro UA Comment Ur Microscopic Review Urine Culture Comments Nasal Screen MRSA (PCR) (Negative) Urine Opiates Screen (Neg) Ur Barbiturates Screen (Neg) Ur Amphetamines Screen (Neg) U Benzodiazepines Scrn (Neg) Urine Cocaine Screen (Neg) U Cannabinoids Screen (Neg) 08/07/18 08/07/18 08/07/18 Range/Units 17:09 17:11 17:35 WBC (4.0-11.0) th/mm3 RBC (4.50-5.90) mil/mm3 Hgb (13.0-17.0) gm/dL Hct (39.0-51.0) % MCV (80.0-100.0) fL MCH (27.0-34.0) pg MCHC (32.0-36.0) % RDW (11.6-17.2) % Plt Count (150-450) th/mm3 MPV (7.0-11.0) fL Neut % (Auto) (16.0-70.0) % Lymph % (Auto) (9.0-44.0) % [place] % (Auto) (0.0-8.0) % Eos % (Auto) (0.0-4.0) % Baso % (Auto) (0.0-2.0) % Neut # (Auto) (1.8-7.7) th/mm3 Lymph # (Auto) (1.0-4.8) th/mm3 [place] # (Auto) (0.0-0.9) th/mm3 Eos # (Auto) (0.0-0.4) th/mm3 Baso # (Auto) (0.0-0.2) th/mm3 WBC Differential Differential Comment PT (9.8-11.6) sec INR Ratio APTT (23.4-31.7) sec Puncture Site Patient Temperature O2 Saturation (90-100) % ABG pH (7.380-7.420) ABG pCO2 (38-42) mmHg ABG pO2 (61-120) mmHg ABG HCO3 (22-26) mmol/L ABG O2 Content (12.0-20.0) Vol % ABG Base Excess (-2-2) mmol/L ABG Methemoglobin (0-2) % Long Test Hemoglobin (12.0-16.0) G/DL Carboxyhemoglobin (0-4) % O2 Delivery Device Liter Flow L/M Vent Setting Inspired O2 % Critical Value Sodium (136-145) meq/L Potassium (3.5-5.1) meq/L Chloride (98-107) meq/L Carbon Dioxide (21.0-32.0) meq/L Anion Gap (5-15) meq/L BUN (7-18) mg/dL Creatinine (0.60-1.30) mg/dL Estimated GFR (>89) mL/min POC Glucose 74 76 (68-110) mg/dl Random Glucose (74-106) mg/dL Lactic Acid (0.4-2.0) mmol/L Calcium (8.5-10.1) mg/dL Phosphorus (2.5-4.9) mg/dL Magnesium (1.5-2.5) mg/dL Total Bilirubin (0.2-1.0) mg/dL AST (15-37) U/L ALT (12-78) U/L Alkaline Phosphatase (45-117) U/L Ammonia (11-32) mcmol/L Troponin I Less than 0.02 L (0.02-0.05) ng/mL Total Protein (6.4-8.2) g/dL Albumin (3.4-5.0) g/dL Prealbumin (20-40) mg/dL Urine Color (Yellw/Straw) Urine Clarity (Clear) Urine pH (5.0-8.5) Ur Specific [place] (1.002-1.035) Urine Protein (Neg-Trace) mg/dL Urine Glucose (UA) (Negative) mg/dL Urine Ketones (Negative) mg/dL Urine Occult Blood (Negative) Urine Nitrate (Negative) Urine Bilirubin (Negative) Urine Urobilinogen (Less than 2) mg/dL Ur Leukocyte Esterase (Negative) Urine RBC (0-3) /hpf Urine WBC (0-5) /hpf Ur Squamous Epith Cells (0-5) /hpf Hyaline Casts (0-3) /lpf Urine Mucus (Occasional) /lpf Micro UA Comment Ur Microscopic Review Urine Culture Comments Nasal Screen MRSA (PCR) (Negative) Urine Opiates Screen (Neg) Ur Barbiturates Screen (Neg) Ur Amphetamines Screen (Neg) U Benzodiazepines Scrn (Neg) Urine Cocaine Screen (Neg) U Cannabinoids Screen (Neg) 08/07/18 08/07/18 08/07/18 Range/Units 18:05 19:02 19:50 WBC (4.0-11.0) th/mm3 RBC (4.50-5.90) mil/mm3 Hgb (13.0-17.0) gm/dL Hct (39.0-51.0) % MCV (80.0-100.0) fL MCH (27.0-34.0) pg MCHC (32.0-36.0) % RDW (11.6-17.2) % Plt Count (150-450) th/mm3 MPV (7.0-11.0) fL Neut % (Auto) (16.0-70.0) % Lymph % (Auto) (9.0-44.0) % [place] % (Auto) (0.0-8.0) % Eos % (Auto) (0.0-4.0) % Baso % (Auto) (0.0-2.0) % Neut # (Auto) (1.8-7.7) th/mm3 Lymph # (Auto) (1.0-4.8) th/mm3 [place] # (Auto) (0.0-0.9) th/mm3 Eos # (Auto) (0.0-0.4) th/mm3 Baso # (Auto) (0.0-0.2) th/mm3 WBC Differential Differential Comment PT (9.8-11.6) sec INR Ratio APTT (23.4-31.7) sec Puncture Site Patient Temperature O2 Saturation (90-100) % ABG pH (7.380-7.420) ABG pCO2 (38-42) mmHg ABG pO2 (61-120) mmHg ABG HCO3 (22-26) mmol/L ABG O2 Content (12.0-20.0) Vol % ABG Base Excess (-2-2) mmol/L ABG Methemoglobin (0-2) % Long Test Hemoglobin (12.0-16.0) G/DL Carboxyhemoglobin (0-4) % O2 Delivery Device Liter Flow L/M Vent Setting Inspired O2 % Critical Value Sodium (136-145) meq/L Potassium (3.5-5.1) meq/L Chloride (98-107) meq/L Carbon Dioxide (21.0-32.0) meq/L Anion Gap (5-15) meq/L BUN (7-18) mg/dL Creatinine (0.60-1.30) mg/dL Estimated GFR (>89) mL/min POC Glucose 68 137 H 117 H (68-110) mg/dl Random Glucose (74-106) mg/dL Lactic Acid (0.4-2.0) mmol/L Calcium (8.5-10.1) mg/dL Phosphorus (2.5-4.9) mg/dL Magnesium (1.5-2.5) mg/dL Total Bilirubin (0.2-1.0) mg/dL AST (15-37) U/L ALT (12-78) U/L Alkaline Phosphatase (45-117) U/L Ammonia (11-32) mcmol/L Troponin I (0.02-0.05) ng/mL Total Protein (6.4-8.2) g/dL Albumin (3.4-5.0) g/dL Prealbumin (20-40) mg/dL Urine Color (Yellw/Straw) Urine Clarity (Clear) Urine pH (5.0-8.5) Ur Specific [place] (1.002-1.035) Urine Protein (Neg-Trace) mg/dL Urine Glucose (UA) (Negative) mg/dL Urine Ketones (Negative) mg/dL Urine Occult Blood (Negative) Urine Nitrate (Negative) Urine Bilirubin (Negative) Urine Urobilinogen (Less than 2) mg/dL Ur Leukocyte Esterase (Negative) Urine RBC (0-3) /hpf Urine WBC (0-5) /hpf Ur Squamous Epith Cells (0-5) /hpf Hyaline Casts (0-3) /lpf Urine Mucus (Occasional) /lpf Micro UA Comment Ur Microscopic Review Urine Culture Comments Nasal Screen MRSA (PCR) (Negative) Urine Opiates Screen (Neg) Ur Barbiturates Screen (Neg) Ur Amphetamines Screen (Neg) U Benzodiazepines Scrn (Neg) Urine Cocaine Screen (Neg) U Cannabinoids Screen (Neg) 08/07/18 08/07/18 08/07/18 Range/Units 21:10 22:19 23:00 WBC (4.0-11.0) th/mm3 RBC (4.50-5.90) mil/mm3 Hgb (13.0-17.0) gm/dL Hct (39.0-51.0) % MCV (80.0-100.0) fL MCH (27.0-34.0) pg MCHC (32.0-36.0) % RDW (11.6-17.2) % Plt Count (150-450) th/mm3 MPV (7.0-11.0) fL Neut % (Auto) (16.0-70.0) % Lymph % (Auto) (9.0-44.0) % [place] % (Auto) (0.0-8.0) % Eos % (Auto) (0.0-4.0) % Baso % (Auto) (0.0-2.0) % Neut # (Auto) (1.8-7.7) th/mm3 Lymph # (Auto) (1.0-4.8) th/mm3 [place] # (Auto) (0.0-0.9) th/mm3 Eos # (Auto) (0.0-0.4) th/mm3 Baso # (Auto) (0.0-0.2) th/mm3 WBC Differential Differential Comment PT (9.8-11.6) sec INR Ratio APTT (23.4-31.7) sec Puncture Site Patient Temperature O2 Saturation (90-100) % ABG pH (7.380-7.420) ABG pCO2 (38-42) mmHg ABG pO2 (61-120) mmHg ABG HCO3 (22-26) mmol/L ABG O2 Content (12.0-20.0) Vol % ABG Base Excess (-2-2) mmol/L ABG Methemoglobin (0-2) % Long Test Hemoglobin (12.0-16.0) G/DL Carboxyhemoglobin (0-4) % O2 Delivery Device Liter Flow L/M Vent Setting Inspired O2 % Critical Value Sodium (136-145) meq/L Potassium (3.5-5.1) meq/L Chloride (98-107) meq/L Carbon Dioxide (21.0-32.0) meq/L Anion Gap (5-15) meq/L BUN (7-18) mg/dL Creatinine (0.60-1.30) mg/dL Estimated GFR (>89) mL/min POC Glucose 106 150 H 142 H (68-110) mg/dl Random Glucose (74-106) mg/dL Lactic Acid (0.4-2.0) mmol/L Calcium (8.5-10.1) mg/dL Phosphorus (2.5-4.9) mg/dL Magnesium (1.5-2.5) mg/dL Total Bilirubin (0.2-1.0) mg/dL AST (15-37) U/L ALT (12-78) U/L Alkaline Phosphatase (45-117) U/L Ammonia (11-32) mcmol/L Troponin I (0.02-0.05) ng/mL Total Protein (6.4-8.2) g/dL Albumin (3.4-5.0) g/dL Prealbumin (20-40) mg/dL Urine Color (Yellw/Straw) Urine Clarity (Clear) Urine pH (5.0-8.5) Ur Specific [place] (1.002-1.035) Urine Protein (Neg-Trace) mg/dL Urine Glucose (UA) (Negative) mg/dL Urine Ketones (Negative) mg/dL Urine Occult Blood (Negative) Urine Nitrate (Negative) Urine Bilirubin (Negative) Urine Urobilinogen (Less than 2) mg/dL Ur Leukocyte Esterase (Negative) Urine RBC (0-3) /hpf Urine WBC (0-5) /hpf Ur Squamous Epith Cells (0-5) /hpf Hyaline Casts (0-3) /lpf Urine Mucus (Occasional) /lpf Micro UA Comment Ur Microscopic Review Urine Culture Comments Nasal Screen MRSA (PCR) (Negative) Urine Opiates Screen (Neg) Ur Barbiturates Screen (Neg) Ur Amphetamines Screen (Neg) U Benzodiazepines Scrn (Neg) Urine Cocaine Screen (Neg) U Cannabinoids Screen (Neg) 08/08/18 08/08/18 08/08/18 Range/Units 00:00 00:51 01:56 WBC (4.0-11.0) th/mm3 RBC (4.50-5.90) mil/mm3 Hgb (13.0-17.0) gm/dL Hct (39.0-51.0) % MCV (80.0-100.0) fL MCH (27.0-34.0) pg MCHC (32.0-36.0) % RDW (11.6-17.2) % Plt Count (150-450) th/mm3 MPV (7.0-11.0) fL Neut % (Auto) (16.0-70.0) % Lymph % (Auto) (9.0-44.0) % [place] % (Auto) (0.0-8.0) % Eos % (Auto) (0.0-4.0) % Baso % (Auto) (0.0-2.0) % Neut # (Auto) (1.8-7.7) th/mm3 Lymph # (Auto) (1.0-4.8) th/mm3 [place] # (Auto) (0.0-0.9) th/mm3 Eos # (Auto) (0.0-0.4) th/mm3 Baso # (Auto) (0.0-0.2) th/mm3 WBC Differential Differential Comment PT (9.8-11.6) sec INR Ratio APTT (23.4-31.7) sec Puncture Site Patient Temperature O2 Saturation (90-100) % ABG pH (7.380-7.420) ABG pCO2 (38-42) mmHg ABG pO2 (61-120) mmHg ABG HCO3 (22-26) mmol/L ABG O2 Content (12.0-20.0) Vol % ABG Base Excess (-2-2) mmol/L ABG Methemoglobin (0-2) % Long Test Hemoglobin (12.0-16.0) G/DL Carboxyhemoglobin (0-4) % O2 Delivery Device Liter Flow L/M Vent Setting Inspired O2 % Critical Value Sodium (136-145) meq/L Potassium (3.5-5.1) meq/L Chloride (98-107) meq/L Carbon Dioxide (21.0-32.0) meq/L Anion Gap (5-15) meq/L BUN (7-18) mg/dL Creatinine (0.60-1.30) mg/dL Estimated GFR (>89) mL/min POC Glucose 171 H 179 H 210 H (68-110) mg/dl Random Glucose (74-106) mg/dL Lactic Acid (0.4-2.0) mmol/L Calcium (8.5-10.1) mg/dL Phosphorus (2.5-4.9) mg/dL Magnesium (1.5-2.5) mg/dL Total Bilirubin (0.2-1.0) mg/dL AST (15-37) U/L ALT (12-78) U/L Alkaline Phosphatase (45-117) U/L Ammonia (11-32) mcmol/L Troponin I (0.02-0.05) ng/mL Total Protein (6.4-8.2) g/dL Albumin (3.4-5.0) g/dL Prealbumin (20-40) mg/dL Urine Color (Yellw/Straw) Urine Clarity (Clear) Urine pH (5.0-8.5) Ur Specific [place] (1.002-1.035) Urine Protein (Neg-Trace) mg/dL Urine Glucose (UA) (Negative) mg/dL Urine Ketones (Negative) mg/dL Urine Occult Blood (Negative) Urine Nitrate (Negative) Urine Bilirubin (Negative) Urine Urobilinogen (Less than 2) mg/dL Ur Leukocyte Esterase (Negative) Urine RBC (0-3) /hpf Urine WBC (0-5) /hpf Ur Squamous Epith Cells (0-5) /hpf Hyaline Casts (0-3) /lpf Urine Mucus (Occasional) /lpf Micro UA Comment Ur Microscopic Review Urine Culture Comments Nasal Screen MRSA (PCR) (Negative) Urine Opiates Screen (Neg) Ur Barbiturates Screen (Neg) Ur Amphetamines Screen (Neg) U Benzodiazepines Scrn (Neg) Urine Cocaine Screen (Neg) U Cannabinoids Screen (Neg) 08/08/18 08/08/18 08/08/18 Range/Units 03:02 04:11 05:13 WBC (4.0-11.0) th/mm3 RBC (4.50-5.90) mil/mm3 Hgb (13.0-17.0) gm/dL Hct (39.0-51.0) % MCV (80.0-100.0) fL MCH (27.0-34.0) pg MCHC (32.0-36.0) % RDW (11.6-17.2) % Plt Count (150-450) th/mm3 MPV (7.0-11.0) fL Neut % (Auto) (16.0-70.0) % Lymph % (Auto) (9.0-44.0) % [place] % (Auto) (0.0-8.0) % Eos % (Auto) (0.0-4.0) % Baso % (Auto) (0.0-2.0) % Neut # (Auto) (1.8-7.7) th/mm3 Lymph # (Auto) (1.0-4.8) th/mm3 [place] # (Auto) (0.0-0.9) th/mm3 Eos # (Auto) (0.0-0.4) th/mm3 Baso # (Auto) (0.0-0.2) th/mm3 WBC Differential Differential Comment PT (9.8-11.6) sec INR Ratio APTT (23.4-31.7) sec Puncture Site Patient Temperature O2 Saturation (90-100) % ABG pH (7.380-7.420) ABG pCO2 (38-42) mmHg ABG pO2 (61-120) mmHg ABG HCO3 (22-26) mmol/L ABG O2 Content (12.0-20.0) Vol % ABG Base Excess (-2-2) mmol/L ABG Methemoglobin (0-2) % Long Test Hemoglobin (12.0-16.0) G/DL Carboxyhemoglobin (0-4) % O2 Delivery Device Liter Flow L/M Vent Setting Inspired O2 % Critical Value Sodium (136-145) meq/L Potassium (3.5-5.1) meq/L Chloride (98-107) meq/L Carbon Dioxide (21.0-32.0) meq/L Anion Gap (5-15) meq/L BUN (7-18) mg/dL Creatinine (0.60-1.30) mg/dL Estimated GFR (>89) mL/min POC Glucose 286 H 327 H 356 H (68-110) mg/dl Random Glucose (74-106) mg/dL Lactic Acid (0.4-2.0) mmol/L Calcium (8.5-10.1) mg/dL Phosphorus (2.5-4.9) mg/dL Magnesium (1.5-2.5) mg/dL Total Bilirubin (0.2-1.0) mg/dL AST (15-37) U/L ALT (12-78) U/L Alkaline Phosphatase (45-117) U/L Ammonia (11-32) mcmol/L Troponin I (0.02-0.05) ng/mL Total Protein (6.4-8.2) g/dL Albumin (3.4-5.0) g/dL Prealbumin (20-40) mg/dL Urine Color (Yellw/Straw) Urine Clarity (Clear) Urine pH (5.0-8.5) Ur Specific [place] (1.002-1.035) Urine Protein (Neg-Trace) mg/dL Urine Glucose (UA) (Negative) mg/dL Urine Ketones (Negative) mg/dL Urine Occult Blood (Negative) Urine Nitrate (Negative) Urine Bilirubin (Negative) Urine Urobilinogen (Less than 2) mg/dL Ur Leukocyte Esterase (Negative) Urine RBC (0-3) /hpf Urine WBC (0-5) /hpf Ur Squamous Epith Cells (0-5) /hpf Hyaline Casts (0-3) /lpf Urine Mucus (Occasional) /lpf Micro UA Comment Ur Microscopic Review Urine Culture Comments Nasal Screen MRSA (PCR) (Negative) Urine Opiates Screen (Neg) Ur Barbiturates Screen (Neg) Ur Amphetamines Screen (Neg) U Benzodiazepines Scrn (Neg) Urine Cocaine Screen (Neg) U Cannabinoids Screen (Neg) 08/08/18 08/08/18 08/08/18 Range/Units 06:17 06:39 06:39 WBC 15.6 H (4.0-11.0) th/mm3 RBC 3.91 L (4.50-5.90) mil/mm3 Hgb 13.7 (13.0-17.0) gm/dL Hct 40.2 (39.0-51.0) % MCV 102.9 H (80.0-100.0) fL MCH 35.0 H (27.0-34.0) pg MCHC 34.0 (32.0-36.0) % RDW 12.9 (11.6-17.2) % Plt Count 273 (150-450) th/mm3 MPV 8.8 (7.0-11.0) fL Neut % (Auto) 90.6 H (16.0-70.0) % Lymph % (Auto) 3.4 L (9.0-44.0) % [place] % (Auto) 6.0 (0.0-8.0) % Eos % (Auto) 0.0 (0.0-4.0) % Baso % (Auto) 0.0 (0.0-2.0) % Neut # (Auto) 14.1 H (1.8-7.7) th/mm3 Lymph # (Auto) 0.5 L (1.0-4.8) th/mm3 [place] # (Auto) 0.9 (0.0-0.9) th/mm3 Eos # (Auto) 0.0 (0.0-0.4) th/mm3 Baso # (Auto) 0.0 (0.0-0.2) th/mm3 WBC Differential . Differential Comment Auto diff final PT 10.0 (9.8-11.6) sec INR 1.0 Ratio APTT 29.4 (23.4-31.7) sec Puncture Site Patient Temperature O2 Saturation (90-100) % ABG pH (7.380-7.420) ABG pCO2 (38-42) mmHg ABG pO2 (61-120) mmHg ABG HCO3 (22-26) mmol/L ABG O2 Content (12.0-20.0) Vol % ABG Base Excess (-2-2) mmol/L ABG Methemoglobin (0-2) % Long Test Hemoglobin (12.0-16.0) G/DL Carboxyhemoglobin (0-4) % O2 Delivery Device Liter Flow L/M Vent Setting Inspired O2 % Critical Value Sodium (136-145) meq/L Potassium (3.5-5.1) meq/L Chloride (98-107) meq/L Carbon Dioxide (21.0-32.0) meq/L Anion Gap (5-15) meq/L BUN (7-18) mg/dL Creatinine (0.60-1.30) mg/dL Estimated GFR (>89) mL/min POC Glucose 332 H (68-110) mg/dl Random Glucose (74-106) mg/dL Lactic Acid (0.4-2.0) mmol/L Calcium (8.5-10.1) mg/dL Phosphorus (2.5-4.9) mg/dL Magnesium (1.5-2.5) mg/dL Total Bilirubin (0.2-1.0) mg/dL AST (15-37) U/L ALT (12-78) U/L Alkaline Phosphatase (45-117) U/L Ammonia (11-32) mcmol/L Troponin I (0.02-0.05) ng/mL Total Protein (6.4-8.2) g/dL Albumin (3.4-5.0) g/dL Prealbumin (20-40) mg/dL Urine Color (Yellw/Straw) Urine Clarity (Clear) Urine pH (5.0-8.5) Ur Specific [place] (1.002-1.035) Urine Protein (Neg-Trace) mg/dL Urine Glucose (UA) (Negative) mg/dL Urine Ketones (Negative) mg/dL Urine Occult Blood (Negative) Urine Nitrate (Negative) Urine Bilirubin (Negative) Urine Urobilinogen (Less than 2) mg/dL Ur Leukocyte Esterase (Negative) Urine RBC (0-3) /hpf Urine WBC (0-5) /hpf Ur Squamous Epith Cells (0-5) /hpf Hyaline Casts (0-3) /lpf Urine Mucus (Occasional) /lpf Micro UA Comment Ur Microscopic Review Urine Culture Comments Nasal Screen MRSA (PCR) (Negative) Urine Opiates Screen (Neg) Ur Barbiturates Screen (Neg) Ur Amphetamines Screen (Neg) U Benzodiazepines Scrn (Neg) Urine Cocaine Screen (Neg) U Cannabinoids Screen (Neg) 08/08/18 08/08/18 08/08/18 Range/Units 06:39 06:41 08:12 WBC (4.0-11.0) th/mm3 RBC (4.50-5.90) mil/mm3 Hgb (13.0-17.0) gm/dL Hct (39.0-51.0) % MCV (80.0-100.0) fL MCH (27.0-34.0) pg MCHC (32.0-36.0) % RDW (11.6-17.2) % Plt Count (150-450) th/mm3 MPV (7.0-11.0) fL Neut % (Auto) (16.0-70.0) % Lymph % (Auto) (9.0-44.0) % [place] % (Auto) (0.0-8.0) % Eos % (Auto) (0.0-4.0) % Baso % (Auto) (0.0-2.0) % Neut # (Auto) (1.8-7.7) th/mm3 Lymph # (Auto) (1.0-4.8) th/mm3 [place] # (Auto) (0.0-0.9) th/mm3 Eos # (Auto) (0.0-0.4) th/mm3 Baso # (Auto) (0.0-0.2) th/mm3 WBC Differential Differential Comment PT (9.8-11.6) sec INR Ratio APTT (23.4-31.7) sec Puncture Site Patient Temperature O2 Saturation (90-100) % ABG pH (7.380-7.420) ABG pCO2 (38-42) mmHg ABG pO2 (61-120) mmHg ABG HCO3 (22-26) mmol/L ABG O2 Content (12.0-20.0) Vol % ABG Base Excess (-2-2) mmol/L ABG Methemoglobin (0-2) % Long Test Hemoglobin (12.0-16.0) G/DL Carboxyhemoglobin (0-4) % O2 Delivery Device Liter Flow L/M Vent Setting Inspired O2 % Critical Value Sodium 137 (136-145) meq/L Potassium 4.8 D (3.5-5.1) meq/L Chloride 102 (98-107) meq/L Carbon Dioxide 23.0 (21.0-32.0) meq/L Anion Gap 12 (5-15) meq/L BUN 11 (7-18) mg/dL Creatinine 1.18 (0.60-1.30) mg/dL Estimated GFR 66 L (>89) mL/min POC Glucose 358 H 381 H (68-110) mg/dl Random Glucose 352 H D (74-106) mg/dL Lactic Acid (0.4-2.0) mmol/L Calcium 9.2 D (8.5-10.1) mg/dL Phosphorus 2.4 L (2.5-4.9) mg/dL Magnesium 1.7 (1.5-2.5) mg/dL Total Bilirubin 0.4 (0.2-1.0) mg/dL AST 34 (15-37) U/L ALT 21 (12-78) U/L Alkaline Phosphatase 67 (45-117) U/L Ammonia (11-32) mcmol/L Troponin I (0.02-0.05) ng/mL Total Protein 7.7 D (6.4-8.2) g/dL Albumin 3.3 L (3.4-5.0) g/dL Prealbumin (20-40) mg/dL Urine Color (Yellw/Straw) Urine Clarity (Clear) Urine pH (5.0-8.5) Ur Specific [place] (1.002-1.035) Urine Protein (Neg-Trace) mg/dL Urine Glucose (UA) (Negative) mg/dL Urine Ketones (Negative) mg/dL Urine Occult Blood (Negative) Urine Nitrate (Negative) Urine Bilirubin (Negative) Urine Urobilinogen (Less than 2) mg/dL Ur Leukocyte Esterase (Negative) Urine RBC (0-3) /hpf Urine WBC (0-5) /hpf Ur Squamous Epith Cells (0-5) /hpf Hyaline Casts (0-3) /lpf Urine Mucus (Occasional) /lpf Micro UA Comment Ur Microscopic Review Urine Culture Comments Nasal Screen MRSA (PCR) (Negative) Urine Opiates Screen (Neg) Ur Barbiturates Screen (Neg) Ur Amphetamines Screen (Neg) U Benzodiazepines Scrn (Neg) Urine Cocaine Screen (Neg) U Cannabinoids Screen (Neg) 08/08/18 08/08/1818 Range/Units 09:14 11:21 13:04 WBC (4.0-11.0) th/mm3 RBC (4.50-5.90) mil/mm3 Hgb (13.0-17.0) gm/dL Hct (39.0-51.0) % MCV (80.0-100.0) fL MCH (27.0-34.0) pg MCHC (32.0-36.0) % RDW (11.6-17.2) % Plt Count (150-450) th/mm3 MPV (7.0-11.0) fL Neut % (Auto) (16.0-70.0) % Lymph % (Auto) (9.0-44.0) % [place] % (Auto) (0.0-8.0) % Eos % (Auto) (0.0-4.0) % Baso % (Auto) (0.0-2.0) % Neut # (Auto) (1.8-7.7) th/mm3 Lymph # (Auto) (1.0-4.8) th/mm3 [place] # (Auto) (0.0-0.9) th/mm3 Eos # (Auto) (0.0-0.4) th/mm3 Baso # (Auto) (0.0-0.2) th/mm3 WBC Differential Differential Comment PT (9.8-11.6) sec INR Ratio APTT (23.4-31.7) sec Puncture Site Patient Temperature O2 Saturation (90-100) % ABG pH (7.380-7.420) ABG pCO2 (38-42) mmHg ABG pO2 (61-120) mmHg ABG HCO3 (22-26) mmol/L ABG O2 Content (12.0-20.0) Vol % ABG Base Excess (-2-2) mmol/L ABG Methemoglobin (0-2) % Long Test Hemoglobin (12.0-16.0) G/DL Carboxyhemoglobin (0-4) % O2 Delivery Device Liter Flow L/M Vent Setting Inspired O2 % Critical Value Sodium (136-145) meq/L Potassium (3.5-5.1) meq/L Chloride (98-107) meq/L Carbon Dioxide (21.0-32.0) meq/L Anion Gap (5-15) meq/L BUN (7-18) mg/dL Creatinine (0.60-1.30) mg/dL Estimated GFR (>89) mL/min POC Glucose 399 H 442 H 305 H (68-110) mg/dl Random Glucose (74-106) mg/dL Lactic Acid (0.4-2.0) mmol/L Calcium (8.5-10.1) mg/dL Phosphorus (2.5-4.9) mg/dL Magnesium (1.5-2.5) mg/dL Total Bilirubin (0.2-1.0) mg/dL AST (15-37) U/L ALT (12-78) U/L Alkaline Phosphatase (45-117) U/L Ammonia (11-32) mcmol/L Troponin I (0.02-0.05) ng/mL Total Protein (6.4-8.2) g/dL Albumin (3.4-5.0) g/dL Prealbumin (20-40) mg/dL Urine Color (Yellw/Straw) Urine Clarity (Clear) Urine pH (5.0-8.5) Ur Specific [place] (1.002-1.035) Urine Protein (Neg-Trace) mg/dL Urine Glucose (UA) (Negative) mg/dL Urine Ketones (Negative) mg/dL Urine Occult Blood (Negative) Urine Nitrate (Negative) Urine Bilirubin (Negative) Urine Urobilinogen (Less than 2) mg/dL Ur Leukocyte Esterase (Negative) Urine RBC (0-3) /hpf Urine WBC (0-5) /hpf Ur Squamous Epith Cells (0-5) /hpf Hyaline Casts (0-3) /lpf Urine Mucus (Occasional) /lpf Micro UA Comment Ur Microscopic Review Urine Culture Comments Nasal Screen MRSA (PCR) (Negative) Urine Opiates Screen (Neg) Ur Barbiturates Screen (Neg) Ur Amphetamines Screen (Neg) U Benzodiazepines Scrn (Neg) Urine Cocaine Screen (Neg) U Cannabinoids Screen (Neg) 08/08/18 08/08/18 08/08/18 Range/Units 17:07 19:53 21:02 WBC (4.0-11.0) th/mm3 RBC (4.50-5.90) mil/mm3 Hgb (13.0-17.0) gm/dL Hct (39.0-51.0) % MCV (80.0-100.0) fL MCH (27.0-34.0) pg MCHC (32.0-36.0) % RDW (11.6-17.2) % Plt Count (150-450) th/mm3 MPV (7.0-11.0) fL Neut % (Auto) (16.0-70.0) % Lymph % (Auto) (9.0-44.0) % [place] % (Auto) (0.0-8.0) % Eos % (Auto) (0.0-4.0) % Baso % (Auto) (0.0-2.0) % Neut # (Auto) (1.8-7.7) th/mm3 Lymph # (Auto) (1.0-4.8) th/mm3 [place] # (Auto) (0.0-0.9) th/mm3 Eos # (Auto) (0.0-0.4) th/mm3 Baso # (Auto) (0.0-0.2) th/mm3 WBC Differential Differential Comment PT (9.8-11.6) sec INR Ratio APTT (23.4-31.7) sec Puncture Site Patient Temperature O2 Saturation (90-100) % ABG pH (7.380-7.420) ABG pCO2 (38-42) mmHg ABG pO2 (61-120) mmHg ABG HCO3 (22-26) mmol/L ABG O2 Content (12.0-20.0) Vol % ABG Base Excess (-2-2) mmol/L ABG Methemoglobin (0-2) % Long Test Hemoglobin (12.0-16.0) G/DL Carboxyhemoglobin (0-4) % O2 Delivery Device Liter Flow L/M Vent Setting Inspired O2 % Critical Value Sodium (136-145) meq/L Potassium (3.5-5.1) meq/L Chloride (98-107) meq/L Carbon Dioxide (21.0-32.0) meq/L Anion Gap (5-15) meq/L BUN (7-18) mg/dL Creatinine (0.60-1.30) mg/dL Estimated GFR (>89) mL/min POC Glucose 150 H 331 H 298 H (68-110) mg/dl Random Glucose (74-106) mg/dL Lactic Acid (0.4-2.0) mmol/L Calcium (8.5-10.1) mg/dL Phosphorus (2.5-4.9) mg/dL Magnesium (1.5-2.5) mg/dL Total Bilirubin (0.2-1.0) mg/dL AST (15-37) U/L ALT (12-78) U/L Alkaline Phosphatase (45-117) U/L Ammonia (11-32) mcmol/L Troponin I (0.02-0.05) ng/mL Total Protein (6.4-8.2) g/dL Albumin (3.4-5.0) g/dL Prealbumin (20-40) mg/dL Urine Color (Yellw/Straw) Urine Clarity (Clear) Urine pH (5.0-8.5) Ur Specific [place] (1.002-1.035) Urine Protein (Neg-Trace) mg/dL Urine Glucose (UA) (Negative) mg/dL Urine Ketones (Negative) mg/dL Urine Occult Blood (Negative) Urine Nitrate (Negative) Urine Bilirubin (Negative) Urine Urobilinogen (Less than 2) mg/dL Ur Leukocyte Esterase (Negative) Urine RBC (0-3) /hpf Urine WBC (0-5) /hpf Ur Squamous Epith Cells (0-5) /hpf Hyaline Casts (0-3) /lpf Urine Mucus (Occasional) /lpf Micro UA Comment Ur Microscopic Review Urine Culture Comments Nasal Screen MRSA (PCR) (Negative) Urine Opiates Screen (Neg) Ur Barbiturates Screen (Neg) Ur Amphetamines Screen (Neg) U Benzodiazepines Scrn (Neg) Urine Cocaine Screen (Neg) U Cannabinoids Screen (Neg) 08/08/18 08/09/18 08/09/18 Range/Units 23:15 00:59 02:57 WBC (4.0-11.0) th/mm3 RBC (4.50-5.90) mil/mm3 Hgb (13.0-17.0) gm/dL Hct (39.0-51.0) % MCV (80.0-100.0) fL MCH (27.0-34.0) pg MCHC (32.0-36.0) % RDW (11.6-17.2) % Plt Count (150-450) th/mm3 MPV (7.0-11.0) fL Neut % (Auto) (16.0-70.0) % Lymph % (Auto) (9.0-44.0) % [place] % (Auto) (0.0-8.0) % Eos % (Auto) (0.0-4.0) % Baso % (Auto) (0.0-2.0) % Neut # (Auto) (1.8-7.7) th/mm3 Lymph # (Auto) (1.0-4.8) th/mm3 [place] # (Auto) (0.0-0.9) th/mm3 Eos # (Auto) (0.0-0.4) th/mm3 Baso # (Auto) (0.0-0.2) th/mm3 WBC Differential Differential Comment PT (9.8-11.6) sec INR Ratio APTT (23.4-31.7) sec Puncture Site Patient Temperature O2 Saturation (90-100) % ABG pH (7.380-7.420) ABG pCO2 (38-42) mmHg ABG pO2 (61-120) mmHg ABG HCO3 (22-26) mmol/L ABG O2 Content (12.0-20.0) Vol % ABG Base Excess (-2-2) mmol/L ABG Methemoglobin (0-2) % Long Test Hemoglobin (12.0-16.0) G/DL Carboxyhemoglobin (0-4) % O2 Delivery Device Liter Flow L/M Vent Setting Inspired O2 % Critical Value Sodium (136-145) meq/L Potassium (3.5-5.1) meq/L Chloride (98-107) meq/L Carbon Dioxide (21.0-32.0) meq/L Anion Gap (5-15) meq/L BUN (7-18) mg/dL Creatinine (0.60-1.30) mg/dL Estimated GFR (>89) mL/min POC Glucose 222 H 204 H 154 H (68-110) mg/dl Random Glucose (74-106) mg/dL Lactic Acid (0.4-2.0) mmol/L Calcium (8.5-10.1) mg/dL Phosphorus (2.5-4.9) mg/dL Magnesium (1.5-2.5) mg/dL Total Bilirubin (0.2-1.0) mg/dL AST (15-37) U/L ALT (12-78) U/L Alkaline Phosphatase (45-117) U/L Ammonia (11-32) mcmol/L Troponin I (0.02-0.05) ng/mL Total Protein (6.4-8.2) g/dL Albumin (3.4-5.0) g/dL Prealbumin (20-40) mg/dL Urine Color (Yellw/Straw) Urine Clarity (Clear) Urine pH (5.0-8.5) Ur Specific [place] (1.002-1.035) Urine Protein (Neg-Trace) mg/dL Urine Glucose (UA) (Negative) mg/dL Urine Ketones (Negative) mg/dL Urine Occult Blood (Negative) Urine Nitrate (Negative) Urine Bilirubin (Negative) Urine Urobilinogen (Less than 2) mg/dL Ur Leukocyte Esterase (Negative) Urine RBC (0-3) /hpf Urine WBC (0-5) /hpf Ur Squamous Epith Cells (0-5) /hpf Hyaline Casts (0-3) /lpf Urine Mucus (Occasional) /lpf Micro UA Comment Ur Microscopic Review Urine Culture Comments Nasal Screen MRSA (PCR) (Negative) Urine Opiates Screen (Neg) Ur Barbiturates Screen (Neg) Ur Amphetamines Screen (Neg) U Benzodiazepines Scrn (Neg) Urine Cocaine Screen (Neg) U Cannabinoids Screen (Neg) 08/09/18 08/09/18 08/09/18 Range/Units 04:53 06:21 06:21 WBC 8.5 (4.0-11.0) th/mm3 RBC 3.68 L (4.50-5.90) mil/mm3 Hgb 13.1 (13.0-17.0) gm/dL Hct 38.4 L (39.0-51.0) % MCV 104.2 H (80.0-100.0) fL MCH 35.5 H (27.0-34.0) pg MCHC 34.0 (32.0-36.0) % RDW 13.3 (11.6-17.2) % Plt Count 226 (150-450) th/mm3 MPV 9.0 (7.0-11.0) fL Neut % (Auto) 76.8 H (16.0-70.0) % Lymph % (Auto) 13.8 (9.0-44.0) % [place] % (Auto) 8.7 H (0.0-8.0) % Eos % (Auto) 0.3 (0.0-4.0) % Baso % (Auto) 0.4 (0.0-2.0) % Neut # (Auto) 6.5 (1.8-7.7) th/mm3 Lymph # (Auto) 1.2 (1.0-4.8) th/mm3 [place] # (Auto) 0.7 (0.0-0.9) th/mm3 Eos # (Auto) 0.0 (0.0-0.4) th/mm3 Baso # (Auto) 0.0 (0.0-0.2) th/mm3 WBC Differential . Differential Comment Auto diff final PT (9.8-11.6) sec INR Ratio APTT (23.4-31.7) sec Puncture Site Patient Temperature O2 Saturation (90-100) % ABG pH (7.380-7.420) ABG pCO2 (38-42) mmHg ABG pO2 (61-120) mmHg ABG HCO3 (22-26) mmol/L ABG O2 Content (12.0-20.0) Vol % ABG Base Excess (-2-2) mmol/L ABG Methemoglobin (0-2) % Long Test Hemoglobin (12.0-16.0) G/DL Carboxyhemoglobin (0-4) % O2 Delivery Device Liter Flow L/M Vent Setting Inspired O2 % Critical Value Sodium 147 H D (136-145) meq/L Potassium 4.0 D (3.5-5.1) meq/L Chloride 113 H D (98-107) meq/L Carbon Dioxide 26.4 (21.0-32.0) meq/L Anion Gap 8 (5-15) meq/L BUN 21 H (7-18) mg/dL Creatinine 0.89 (0.60-1.30) mg/dL Estimated GFR Greater than 89 (>89) mL/min POC Glucose 82 (68-110) mg/dl Random Glucose 86 D (74-106) mg/dL Lactic Acid (0.4-2.0) mmol/L Calcium 9.1 (8.5-10.1) mg/dL Phosphorus 3.2 (2.5-4.9) mg/dL Magnesium 2.1 (1.5-2.5) mg/dL Total Bilirubin 0.4 (0.2-1.0) mg/dL AST 25 (15-37) U/L ALT 21 (12-78) U/L Alkaline Phosphatase 63 (45-117) U/L Ammonia (11-32) mcmol/L Troponin I (0.02-0.05) ng/mL Total Protein 6.7 D (6.4-8.2) g/dL Albumin 2.5 L D (3.4-5.0) g/dL Prealbumin (20-40) mg/dL Urine Color (Yellw/Straw) Urine Clarity (Clear) Urine pH (5.0-8.5) Ur Specific [place] (1.002-1.035) Urine Protein (Neg-Trace) mg/dL Urine Glucose (UA) (Negative) mg/dL Urine Ketones (Negative) mg/dL Urine Occult Blood (Negative) Urine Nitrate (Negative) Urine Bilirubin (Negative) Urine Urobilinogen (Less than 2) mg/dL Ur Leukocyte Esterase (Negative) Urine RBC (0-3) /hpf Urine WBC (0-5) /hpf Ur Squamous Epith Cells (0-5) /hpf Hyaline Casts (0-3) /lpf Urine Mucus (Occasional) /lpf Micro UA Comment Ur Microscopic Review Urine Culture Comments Nasal Screen MRSA (PCR) (Negative) Urine Opiates Screen (Neg) Ur Barbiturates Screen (Neg) Ur Amphetamines Screen (Neg) U Benzodiazepines Scrn (Neg) Urine Cocaine Screen (Neg) U Cannabinoids Screen (Neg) 08/09/18 08/09/18 08/09/18 Range/Units 06:45 08:02 10:27 WBC (4.0-11.0) th/mm3 RBC (4.50-5.90) mil/mm3 Hgb (13.0-17.0) gm/dL Hct (39.0-51.0) % MCV (80.0-100.0) fL MCH (27.0-34.0) pg MCHC (32.0-36.0) % RDW (11.6-17.2) % Plt Count (150-450) th/mm3 MPV (7.0-11.0) fL Neut % (Auto) (16.0-70.0) % Lymph % (Auto) (9.0-44.0) % [place] % (Auto) (0.0-8.0) % Eos % (Auto) (0.0-4.0) % Baso % (Auto) (0.0-2.0) % Neut # (Auto) (1.8-7.7) th/mm3 Lymph # (Auto) (1.0-4.8) th/mm3 [place] # (Auto) (0.0-0.9) th/mm3 Eos # (Auto) (0.0-0.4) th/mm3 Baso # (Auto) (0.0-0.2) th/mm3 WBC Differential Differential Comment PT (9.8-11.6) sec INR Ratio APTT (23.4-31.7) sec Puncture Site Patient Temperature O2 Saturation (90-100) % ABG pH (7.380-7.420) ABG pCO2 (38-42) mmHg ABG pO2 (61-120) mmHg ABG HCO3 (22-26) mmol/L ABG O2 Content (12.0-20.0) Vol % ABG Base Excess (-2-2) mmol/L ABG Methemoglobin (0-2) % Long Test Hemoglobin (12.0-16.0) G/DL Carboxyhemoglobin (0-4) % O2 Delivery Device Liter Flow L/M Vent Setting Inspired O2 % Critical Value Sodium (136-145) meq/L Potassium (3.5-5.1) meq/L Chloride (98-107) meq/L Carbon Dioxide (21.0-32.0) meq/L Anion Gap (5-15) meq/L BUN (7-18) mg/dL Creatinine (0.60-1.30) mg/dL Estimated GFR (>89) mL/min POC Glucose 106 165 H 364 H (68-110) mg/dl Random Glucose (74-106) mg/dL Lactic Acid (0.4-2.0) mmol/L Calcium (8.5-10.1) mg/dL Phosphorus (2.5-4.9) mg/dL Magnesium (1.5-2.5) mg/dL Total Bilirubin (0.2-1.0) mg/dL AST (15-37) U/L ALT (12-78) U/L Alkaline Phosphatase (45-117) U/L Ammonia (11-32) mcmol/L Troponin I (0.02-0.05) ng/mL Total Protein (6.4-8.2) g/dL Albumin (3.4-5.0) g/dL Prealbumin (20-40) mg/dL Urine Color (Yellw/Straw) Urine Clarity (Clear) Urine pH (5.0-8.5) Ur Specific [place] (1.002-1.035) Urine Protein (Neg-Trace) mg/dL Urine Glucose (UA) (Negative) mg/dL Urine Ketones (Negative) mg/dL Urine Occult Blood (Negative) Urine Nitrate (Negative) Urine Bilirubin (Negative) Urine Urobilinogen (Less than 2) mg/dL Ur Leukocyte Esterase (Negative) Urine RBC (0-3) /hpf Urine WBC (0-5) /hpf Ur Squamous Epith Cells (0-5) /hpf Hyaline Casts (0-3) /lpf Urine Mucus (Occasional) /lpf Micro UA Comment Ur Microscopic Review Urine Culture Comments Nasal Screen MRSA (PCR) (Negative) Urine Opiates Screen (Neg) Ur Barbiturates Screen (Neg) Ur Amphetamines Screen (Neg) U Benzodiazepines Scrn (Neg) Urine Cocaine Screen (Neg) U Cannabinoids Screen (Neg) 08/09/18 08/09/18 08/09/18 Range/Units 11:44 14:47 17:40 WBC (4.0-11.0) th/mm3 RBC (4.50-5.90) mil/mm3 Hgb (13.0-17.0) gm/dL Hct (39.0-51.0) % MCV (80.0-100.0) fL MCH (27.0-34.0) pg MCHC (32.0-36.0) % RDW (11.6-17.2) % Plt Count (150-450) th/mm3 MPV (7.0-11.0) fL Neut % (Auto) (16.0-70.0) % Lymph % (Auto) (9.0-44.0) % [place] % (Auto) (0.0-8.0) % Eos % (Auto) (0.0-4.0) % Baso % (Auto) (0.0-2.0) % Neut # (Auto) (1.8-7.7) th/mm3 Lymph # (Auto) (1.0-4.8) th/mm3 [place] # (Auto) (0.0-0.9) th/mm3 Eos # (Auto) (0.0-0.4) th/mm3 Baso # (Auto) (0.0-0.2) th/mm3 WBC Differential Differential Comment PT (9.8-11.6) sec INR Ratio APTT (23.4-31.7) sec Puncture Site Patient Temperature O2 Saturation (90-100) % ABG pH (7.380-7.420) ABG pCO2 (38-42) mmHg ABG pO2 (61-120) mmHg ABG HCO3 (22-26) mmol/L ABG O2 Content (12.0-20.0) Vol % ABG Base Excess (-2-2) mmol/L ABG Methemoglobin (0-2) % Long Test Hemoglobin (12.0-16.0) G/DL Carboxyhemoglobin (0-4) % O2 Delivery Device Liter Flow L/M Vent Setting Inspired O2 % Critical Value Sodium (136-145) meq/L Potassium (3.5-5.1) meq/L Chloride (98-107) meq/L Carbon Dioxide (21.0-32.0) meq/L Anion Gap (5-15) meq/L BUN (7-18) mg/dL Creatinine (0.60-1.30) mg/dL Estimated GFR (>89) mL/min POC Glucose 363 H 139 H 130 H (68-110) mg/dl Random Glucose (74-106) mg/dL Lactic Acid (0.4-2.0) mmol/L Calcium (8.5-10.1) mg/dL Phosphorus (2.5-4.9) mg/dL Magnesium (1.5-2.5) mg/dL Total Bilirubin (0.2-1.0) mg/dL AST (15-37) U/L ALT (12-78) U/L Alkaline Phosphatase (45-117) U/L Ammonia (11-32) mcmol/L Troponin I (0.02-0.05) ng/mL Total Protein (6.4-8.2) g/dL Albumin (3.4-5.0) g/dL Prealbumin (20-40) mg/dL Urine Color (Yellw/Straw) Urine Clarity (Clear) Urine pH (5.0-8.5) Ur Specific [place] (1.002-1.035) Urine Protein (Neg-Trace) mg/dL Urine Glucose (UA) (Negative) mg/dL Urine Ketones (Negative) mg/dL Urine Occult Blood (Negative) Urine Nitrate (Negative) Urine Bilirubin (Negative) Urine Urobilinogen (Less than 2) mg/dL Ur Leukocyte Esterase (Negative) Urine RBC (0-3) /hpf Urine WBC (0-5) /hpf Ur Squamous Epith Cells (0-5) /hpf Hyaline Casts (0-3) /lpf Urine Mucus (Occasional) /lpf Micro UA Comment Ur Microscopic Review Urine Culture Comments Nasal Screen MRSA (PCR) (Negative) Urine Opiates Screen (Neg) Ur Barbiturates Screen (Neg) Ur Amphetamines Screen (Neg) U Benzodiazepines Scrn (Neg) Urine Cocaine Screen (Neg) U Cannabinoids Screen (Neg) 08/09/18 08/09/18 08/09/18 Range/Units 19:35 21:18 23:03 WBC (4.0-11.0) th/mm3 RBC (4.50-5.90) mil/mm3 Hgb (13.0-17.0) gm/dL Hct (39.0-51.0) % MCV (80.0-100.0) fL MCH (27.0-34.0) pg MCHC (32.0-36.0) % RDW (11.6-17.2) % Plt Count (150-450) th/mm3 MPV (7.0-11.0) fL Neut % (Auto) (16.0-70.0) % Lymph % (Auto) (9.0-44.0) % [place] % (Auto) (0.0-8.0) % Eos % (Auto) (0.0-4.0) % Baso % (Auto) (0.0-2.0) % Neut # (Auto) (1.8-7.7) th/mm3 Lymph # (Auto) (1.0-4.8) th/mm3 [place] # (Auto) (0.0-0.9) th/mm3 Eos # (Auto) (0.0-0.4) th/mm3 Baso # (Auto) (0.0-0.2) th/mm3 WBC Differential Differential Comment PT (9.8-11.6) sec INR Ratio APTT (23.4-31.7) sec Puncture Site Patient Temperature O2 Saturation (90-100) % ABG pH (7.380-7.420) ABG pCO2 (38-42) mmHg ABG pO2 (61-120) mmHg ABG HCO3 (22-26) mmol/L ABG O2 Content (12.0-20.0) Vol % ABG Base Excess (-2-2) mmol/L ABG Methemoglobin (0-2) % Long Test Hemoglobin (12.0-16.0) G/DL Carboxyhemoglobin (0-4) % O2 Delivery Device Liter Flow L/M Vent Setting Inspired O2 % Critical Value Sodium (136-145) meq/L Potassium (3.5-5.1) meq/L Chloride (98-107) meq/L Carbon Dioxide (21.0-32.0) meq/L Anion Gap (5-15) meq/L BUN (7-18) mg/dL Creatinine (0.60-1.30) mg/dL Estimated GFR (>89) mL/min POC Glucose 271 H 257 H 278 H (68-110) mg/dl Random Glucose (74-106) mg/dL Lactic Acid (0.4-2.0) mmol/L Calcium (8.5-10.1) mg/dL Phosphorus (2.5-4.9) mg/dL Magnesium (1.5-2.5) mg/dL Total Bilirubin (0.2-1.0) mg/dL AST (15-37) U/L ALT (12-78) U/L Alkaline Phosphatase (45-117) U/L Ammonia (11-32) mcmol/L Troponin I (0.02-0.05) ng/mL Total Protein (6.4-8.2) g/dL Albumin (3.4-5.0) g/dL Prealbumin (20-40) mg/dL Urine Color (Yellw/Straw) Urine Clarity (Clear) Urine pH (5.0-8.5) Ur Specific [place] (1.002-1.035) Urine Protein (Neg-Trace) mg/dL Urine Glucose (UA) (Negative) mg/dL Urine Ketones (Negative) mg/dL Urine Occult Blood (Negative) Urine Nitrate (Negative) Urine Bilirubin (Negative) Urine Urobilinogen (Less than 2) mg/dL Ur Leukocyte Esterase (Negative) Urine RBC (0-3) /hpf Urine WBC (0-5) /hpf Ur Squamous Epith Cells (0-5) /hpf Hyaline Casts (0-3) /lpf Urine Mucus (Occasional) /lpf Micro UA Comment Ur Microscopic Review Urine Culture Comments Nasal Screen MRSA (PCR) (Negative) Urine Opiates Screen (Neg) Ur Barbiturates Screen (Neg) Ur Amphetamines Screen (Neg) U Benzodiazepines Scrn (Neg) Urine Cocaine Screen (Neg) U Cannabinoids Screen (Neg) 08/10/18 08/10/18 08/10/18 Range/Units 01:09 03:04 04:33 WBC (4.0-11.0) th/mm3 RBC (4.50-5.90) mil/mm3 Hgb (13.0-17.0) gm/dL Hct (39.0-51.0) % MCV (80.0-100.0) fL MCH (27.0-34.0) pg MCHC (32.0-36.0) % RDW (11.6-17.2) % Plt Count (150-450) th/mm3 MPV (7.0-11.0) fL Neut % (Auto) (16.0-70.0) % Lymph % (Auto) (9.0-44.0) % [place] % (Auto) (0.0-8.0) % Eos % (Auto) (0.0-4.0) % Baso % (Auto) (0.0-2.0) % Neut # (Auto) (1.8-7.7) th/mm3 Lymph # (Auto) (1.0-4.8) th/mm3 [place] # (Auto) (0.0-0.9) th/mm3 Eos # (Auto) (0.0-0.4) th/mm3 Baso # (Auto) (0.0-0.2) th/mm3 WBC Differential Differential Comment PT (9.8-11.6) sec INR Ratio APTT (23.4-31.7) sec Puncture Site Patient Temperature O2 Saturation (90-100) % ABG pH (7.380-7.420) ABG pCO2 (38-42) mmHg ABG pO2 (61-120) mmHg ABG HCO3 (22-26) mmol/L ABG O2 Content (12.0-20.0) Vol % ABG Base Excess (-2-2) mmol/L ABG Methemoglobin (0-2) % Long Test Hemoglobin (12.0-16.0) G/DL Carboxyhemoglobin (0-4) % O2 Delivery Device Liter Flow L/M Vent Setting Inspired O2 % Critical Value Sodium 147 H (136-145) meq/L Potassium 3.6 (3.5-5.1) meq/L Chloride 111 H (98-107) meq/L Carbon Dioxide 27.6 (21.0-32.0) meq/L Anion Gap 8 (5-15) meq/L BUN 26 H (7-18) mg/dL Creatinine 0.82 (0.60-1.30) mg/dL Estimated GFR Greater than 89 (>89) mL/min POC Glucose 192 H 186 H (68-110) mg/dl Random Glucose 262 H D (74-106) mg/dL Lactic Acid (0.4-2.0) mmol/L Calcium 9.7 (8.5-10.1) mg/dL Phosphorus 3.6 (2.5-4.9) mg/dL Magnesium 1.9 (1.5-2.5) mg/dL Total Bilirubin 0.4 (0.2-1.0) mg/dL AST 20 (15-37) U/L ALT 20 (12-78) U/L Alkaline Phosphatase 73 (45-117) U/L Ammonia (11-32) mcmol/L Troponin I (0.02-0.05) ng/mL Total Protein 6.9 (6.4-8.2) g/dL Albumin 2.5 L (3.4-5.0) g/dL Prealbumin 16 L (20-40) mg/dL Urine Color (Yellw/Straw) Urine Clarity (Clear) Urine pH (5.0-8.5) Ur Specific [place] (1.002-1.035) Urine Protein (Neg-Trace) mg/dL Urine Glucose (UA) (Negative) mg/dL Urine Ketones (Negative) mg/dL Urine Occult Blood (Negative) Urine Nitrate (Negative) Urine Bilirubin (Negative) Urine Urobilinogen (Less than 2) mg/dL Ur Leukocyte Esterase (Negative) Urine RBC (0-3) /hpf Urine WBC (0-5) /hpf Ur Squamous Epith Cells (0-5) /hpf Hyaline Casts (0-3) /lpf Urine Mucus (Occasional) /lpf Micro UA Comment Ur Microscopic Review Urine Culture Comments Nasal Screen MRSA (PCR) (Negative) Urine Opiates Screen (Neg) Ur Barbiturates Screen (Neg) Ur Amphetamines Screen (Neg) U Benzodiazepines Scrn (Neg) Urine Cocaine Screen (Neg) U Cannabinoids Screen (Neg) 08/10/18 08/10/18 08/10/18 Range/Units 04:33 05:07 06:57 WBC 8.8 (4.0-11.0) th/mm3 RBC 3.81 L (4.50-5.90) mil/mm3 Hgb 13.1 (13.0-17.0) gm/dL Hct 39.4 (39.0-51.0) % MCV 103.2 H (80.0-100.0) fL MCH 34.5 H (27.0-34.0) pg MCHC 33.4 (32.0-36.0) % RDW 12.8 (11.6-17.2) % Plt Count 240 (150-450) th/mm3 MPV 8.7 (7.0-11.0) fL Neut % (Auto) 79.7 H (16.0-70.0) % Lymph % (Auto) 11.3 (9.0-44.0) % [place] % (Auto) 8.2 H (0.0-8.0) % Eos % (Auto) 0.3 (0.0-4.0) % Baso % (Auto) 0.5 (0.0-2.0) % Neut # (Auto) 7.0 (1.8-7.7) th/mm3 Lymph # (Auto) 1.0 (1.0-4.8) th/mm3 [place] # (Auto) 0.7 (0.0-0.9) th/mm3 Eos # (Auto) 0.0 (0.0-0.4) th/mm3 Baso # (Auto) 0.0 (0.0-0.2) th/mm3 WBC Differential . Differential Comment Auto diff final PT (9.8-11.6) sec INR Ratio APTT (23.4-31.7) sec Puncture Site Patient Temperature O2 Saturation (90-100) % ABG pH (7.380-7.420) ABG pCO2 (38-42) mmHg ABG pO2 (61-120) mmHg ABG HCO3 (22-26) mmol/L ABG O2 Content (12.0-20.0) Vol % ABG Base Excess (-2-2) mmol/L ABG Methemoglobin (0-2) % Long Test Hemoglobin (12.0-16.0) G/DL Carboxyhemoglobin (0-4) % O2 Delivery Device Liter Flow L/M Vent Setting Inspired O2 % Critical Value Sodium (136-145) meq/L Potassium (3.5-5.1) meq/L Chloride (98-107) meq/L Carbon Dioxide (21.0-32.0) meq/L Anion Gap (5-15) meq/L BUN (7-18) mg/dL Creatinine (0.60-1.30) mg/dL Estimated GFR (>89) mL/min POC Glucose 261 H 295 H (68-110) mg/dl Random Glucose (74-106) mg/dL Lactic Acid (0.4-2.0) mmol/L Calcium (8.5-10.1) mg/dL Phosphorus (2.5-4.9) mg/dL Magnesium (1.5-2.5) mg/dL Total Bilirubin (0.2-1.0) mg/dL AST (15-37) U/L ALT (12-78) U/L Alkaline Phosphatase (45-117) U/L Ammonia (11-32) mcmol/L Troponin I (0.02-0.05) ng/mL Total Protein (6.4-8.2) g/dL Albumin (3.4-5.0) g/dL Prealbumin (20-40) mg/dL Urine Color (Yellw/Straw) Urine Clarity (Clear) Urine pH (5.0-8.5) Ur Specific [place] (1.002-1.035) Urine Protein (Neg-Trace) mg/dL Urine Glucose (UA) (Negative) mg/dL Urine Ketones (Negative) mg/dL Urine Occult Blood (Negative) Urine Nitrate (Negative) Urine Bilirubin (Negative) Urine Urobilinogen (Less than 2) mg/dL Ur Leukocyte Esterase (Negative) Urine RBC (0-3) /hpf Urine WBC (0-5) /hpf Ur Squamous Epith Cells (0-5) /hpf Hyaline Casts (0-3) /lpf Urine Mucus (Occasional) /lpf Micro UA Comment Ur Microscopic Review Urine Culture Comments Nasal Screen MRSA (PCR) (Negative) Urine Opiates Screen (Neg) Ur Barbiturates Screen (Neg) Ur Amphetamines Screen (Neg) U Benzodiazepines Scrn (Neg) Urine Cocaine Screen (Neg) U Cannabinoids Screen (Neg) Imaging Data Radiologist's impression: Chest X-Ray 08/07/18 02:56 CONCLUSION: Endotracheal tube and nasogastric tube in place. No acute cardiopulmonary disease identified. Head CT 08/07/18 02:56 CONCLUSION: 1. Somewhat decreased flores matter-white matter differentiation diffusely. This finding can be seen with diffuse anoxic/hypoxic injury. 2. Motion artifact. . Head MRI 08/07/18 09:53 CONCLUSION: 1. Minimal increased signal in the flores matter of the cerebral cortex seen on the diffusion imaging could be subtle evidence for anoxia. 2. No other significant amount is appreciated. Chest X-Ray 08/10/18 05:00 CONCLUSION: Stable appearance with no acute cardiopulmonary disease. ECG Data Attestation: I personally reviewed and interpreted this ECG as follows: Interpretation: Twelve-lead EKG was reviewed by me. Normal sinus rhythm, left axis deviation, tachycardia,thick ST-T wave changes. Heart rate of 103 bpm Discharge Plan Discharge Disposition Patient Disposition: 30 Still Patient Physicians Team ED Provider: Anam Chin Primary Care Provider: UNKNOWN, Attending Provider: Elbert Tony Other Providers: Anita Weir ; Debora Zamudio Status ED Status: Left Department Discharge Information Discharge Date/Time: 08/07/18 06:34
[2018-08-07 04:53] LABS: Bilirubin,Urine Negative (Negative); Clarity,Urine Hazy (Clear); Color,Urine Yellow (Yellw/Straw); Glucose,Urine (UA) 500 or Greater mg/dL (Negative); Hyaline Casts,Urine 8 /lpf (0-3); Leukocyte Esterase,Urine Negative (Negative); Mucus,Urine Few /lpf (Occasional); Nitrite,Urine Negative (Negative); Specific Gravity,Urine 1.022 (1.002-1.035); Squamous Epithelial Cell,Urine <1 /hpf (0-5)
[2018-08-07 05:12] LABS: ABG Base Excess 2.9 mmol/L (-2-2); ABG PCO2 45 mmHg (38-42); ABG PO2 110 mmHg (61-120)
[2018-08-07] MEDS ORDERED: Morphine Sulfate Inj 2 MG/ML Vial IV.PUSH PRN (05:22)
[2018-08-07] MEDS ORDERED: Bisacodyl 10 MG Supp RECTAL PRN (05:22)
[2018-08-07] MEDS ORDERED: Dextrose 50% in Water 50 ML Vial IV.PUSH PRN ×2 (05:27→16:47)
[2018-08-07] MEDS ORDERED: Potassium Phosphate Inj 30 MMOL in Sodium Chlor 0.9% Inj 250 ML IV.SIG PRN (05:42)
[2018-08-07] MEDS ORDERED: Potassium Chlor 20 mEq Premix 20 MEQ/100 ML PIGGYBACK IV.SIG PRN (05:42)
[2018-08-07] MEDS ORDERED: Potassium Chloride 25 MEQ Effervescent Tablet PO PRN (05:42)
[2018-08-07] MEDS ORDERED: Magnesium Oxide 400 MG Tablet PO PRN (05:42)
[2018-08-07] MEDS ORDERED: Potassium Chlor 40 mEq Premix 40 MEQ/100 ML PIGGYBACK IV.SIG PRN ×2 (05:42)
[2018-08-07] MEDS ORDERED: Magnesium Sulfate Inj 4 GM in Sodium Chlor 0.9% Inj 92 ML IV.SIG PRN (05:42)
[2018-08-07] MEDS ORDERED: Sodium Phosphate Inj 30 MMOL in Sodium Chlor 0.9% Inj 250 ML IV.SIG PRN (05:42)
[2018-08-07] MEDS ORDERED: Potassium Phosphate 500 MG Soluble Tablet PO PRN ×2 (05:42)
[2018-08-07] MEDS ORDERED: Magnesium Sulfate Inj 2 GM in Sodium Chlor 0.9% Inj 96 ML IV.SIG PRN (05:42)
--- NOTE | 2018-08-07 05:49 | P.HPCC ---
History of Present Illness Primary Care Physician: UNKNOWN History of Present Illness: Late 30s/early [id number] patient of unknown identity was brought in by EMS emergently. [place] him. Blood sugar was checked and it was 14. Patient was given 1 amp of D50 but did not wake up. He was given IV Narcan with no change. Patient was intubated at the scene by EMS for an airway protection. He was brought in being bagged by positive pressure ventilation. As per EMS patient never lost his pulse. Vital signs were otherwise stable. Upon arrival patient had no purposeful movement and was obviously no condition to give any meaningful history. Blood sugar upon arrival was 38. Inpatient Certification: I certify that the inpatient services were ordered in accordance with Medicare regulations governing the order. This includes certification that hospital inpatient services are reasonable and necessary and in the case of services not specified as inpatient-only under 42 CFR 419.22(n), that they are appropriately provided as inpatient services in accordance to with the 2-midnight benchmark under 43 CFR 412.3(e) Estimated Total Length of Stay (Days): 5 Plans for Post Hospital Care: Not yet determined Review of Systems unobtainable due to endotracheal tube, unobtainable due to mental condition PMFSH - History History Provided By: [employer] Analyst / EMT - Medical / Surgical Hx Neg / Unobtainable Medical Problems Denied: Unable to Obtain - Medical History Medical History: Medical History (Last Updated 08/07/18 @ 03:52 by Eve Griffith) Medical history unknown Surgical history unknown - Tobacco History Smoking Status: Unknown if ever smoked - Alcohol History How Often Do You Have a Drink Containing Alcohol: Unable to Obtain - Travel History Recent Travel in the [place] Within the Last 8 Weeks: No Recent Travel Out of the Country Within the Last 8 Weeks: No - Immunization History Tetanus Immunization: Unable to Assess Medications and Allergies Active Medications: Active Medications Acetaminophen (Tylenol) 650 mg PO Q6H PRN PRN Reason: PAIN 1-10 AND/OR FEVER >101F Al Hydroxide/Mg Hydroxide (Milk Of Magnesia Liq) 30 ml PO Q12H PRN PRN Reason: Mild Constipation Albuterol (Duoneb Neb (Prn)) 1 ampul NEB Q2HR NEB PRN PRN Reason: WHEEZING Bisacodyl (Dulcolax Supp) 10 mg RECTAL DAILY PRN PRN Reason: SEVERE CONSITIPATION Chlorhexidine Gluconate (Peridex 0.12% Oral Kit) 15 ml OROPHARYNG BID@0800, 2000 [facility] Chlorhexidine Gluconate (Chlorhexidine 2% Cloth) 3 pack TOPICAL DAILY@0400 MAGDA Stop: 08/13/18 03:59 Chlorhexidine Gluconate (Chlorhexidine 2% Cloth) 3 pack TOPICAL DAILY@0400 PRN PRN Reason: Extra cloth needed Stop: 08/13/18 03:59 Dextrose (D50w Vial) 50 ml IV.PUSH UNSCH PRN PRN Reason: PER HYPOGLYCEMIA PROTOCOL Famotidine (Pepcid) 20 mg PO BID [facility] Famotidine (Pepcid Pf Inj) 20 mg IV.PUSH Q12HR [facility] Glucagon (Glucagon Inj) 1 mg OTHER PRN PRN PRN Reason: for Hypoglycemia Protocol Heparin Sodium (Porcine) (Heparin Inj) 5,000 units SQ Q8H [facility] Dextrose/Sodium Chloride (D5w/Normal Saline Inj) 1,000 mls @ 150 mls/hr IV.SIG .Q6H40M [facility] Last Admin: 08/07/18 03:00 Dose: 150 mls/hr Propofol (Diprivan 1000 Mg/100 Ml Inj) 1,000 mg in 100 mls @ 1.905 mls/hr IV.CONT TITRATE PRN; Protocol PRN Reason: Per Protocol Dextrose/Sodium Chloride (D5w/1/2 Ns Inj) 1,000 mls @ 100 mls/hr IV.CONT .Q10H [facility] Magnesium Sulfate 4 gm/ Sodium (Chloride) 100 mls @ 50 mls/hr IV.SIG UNSCH PRN PRN Reason: For Magnesium 0.9 - 1.1 mg/dL Magnesium Sulfate 2 gm/ Sodium (Chloride) 100 mls @ 50 mls/hr IV.SIG UNSCH PRN PRN Reason: For Magnesium 1.2 - 1.6 mg/dL Potassium Chloride (Kcl 40 Meq Premix Inj) 40 meq in 100 mls @ 25 mls/hr IV.SIG Q2H PRN PRN Reason: For Potassium 2.8 - 3.2 mEq/L Potassium Chloride (Kcl 20 Meq Premix Inj) 20 meq in 100 mls @ 50 mls/hr IV.SIG Q2H PRN PRN Reason: For Potassium 3.3 - 3.5 mEq/L Potassium Chloride (Kcl 40 Meq Premix Inj) 40 meq in 100 mls @ 25 mls/hr IV.SIG UNSCH PRN PRN Reason: For Potassium 3.3 - 3.5 mEq/L Potassium Chloride (Kcl 20 Meq Premix Inj) 20 meq in 100 mls @ 50 mls/hr IV.SIG Q2H PRN PRN Reason: For Potassium 2.8 - 3.2 mEq/L Potassium Phosphate 30 mmol/ (Sodium Chloride) 260 mls @ 42 mls/hr IV.SIG UNSCH PRN PRN Reason: SEE LABEL COMMENTS Sodium Phosphate 30 mmol/ (Sodium Chloride) 260 mls @ 42 mls/hr IV.SIG UNSCH PRN PRN Reason: For Phosphorus < 2.5 mg/dL Lactulose (Lactulose Liq) 30 ml PO DAILY PRN PRN Reason: SEVERE CONSITIPATION Magnesium Oxide (Mag-Ox) 800 mg PO UNSCH PRN PRN Reason: For Magnesium 1.2 - 1.6 mg/dL Miscellaneous Medication () 1 each OROPHARYNG 0000,0400,1200,1600 MAGDA Morphine Sulfate (Morphine Inj) 2 mg IV.PUSH Q2H PRN PRN Reason: PAIN SCALE 6 TO 10 Ondansetron HCl (Zofran Inj) 4 mg IV.PUSH Q6H PRN PRN Reason: NAUSEA OR VOMITING Potassium Bicarb/Potassium Chloride (K-Lyte Cl Eff) 50 meq PO UNSCH PRN PRN Reason: For Potassium 3.3 - 3.5 mEq/L Potassium Phosphate (K-Phos Original) 2,000 mg PO Q4H PRN PRN Reason: Phosphorus Less Than 2.5 mg/dL Potassium Phosphate (K-Phos Original) 2,000 mg PO UNSCH PRN PRN Reason: SEE LABEL COMMENTS Senna/Docusate Sodium (Marleny-Colace) 1 tab PO BID [facility] Sennosides (Senokot) 17.2 mg PO Q12H PRN PRN Reason: Moderate Constipation Sodium Chloride (Ns Flush) 2 ml IV.FLUSH PRN PRN PRN Reason: FLUSH AFTER USING IV ACCESS Sodium Chloride (Ns Flush) 2 ml IV.FLUSH BID MAGDA Sodium Chloride (Ns Flush) 2 ml IV.FLUSH PRN PRN PRN Reason: FLUSH AFTER USING IV ACCESS Allergies Allergy/AdvReac Type Severity Reaction Status Date / Time No Known Allergies Allergy Verified 11/12/18 03:43 Home Medications Medication Instructions Recorded Confirmed Type Unable to Obtain Home Meds 08/07/18 08/07/18 History Results - Labs CBC & Chem 7: 08/07/18 13:19 08/07/18 11:41 Labs: Short CBC 08/07/18 Range/Units 03:05 WBC 18.6 H (4.0-11.0) th/mm3 Hgb 13.7 (13.0-17.0) gm/dL Hct 39.5 (39.0-51.0) % Plt Count 362 (150-450) th/mm3 BMP 08/07/18 03:05 Sodium 142 Potassium 2.8 L* Chloride 104 Carbon Dioxide 26.8 BUN 19 H Creatinine 1.14 Calcium 8.8 Cardiac Enzymes 08/07/18 Range/Units 03:05 Troponin I Less than 0.02 L (0.02-0.05) ng/mL Liver Function 08/07/18 Range/Units 03:05 Total Bilirubin 0.3 (0.2-1.0) mg/dL AST 20 (15-37) U/L ALT 24 (12-78) U/L Alkaline Phosphatase 57 (45-117) U/L Albumin 3.4 (3.4-5.0) g/dL Urine 08/07/18 Range/Units 04:16 Urine Color Yellow (Yellw/Straw) Urine Clarity Hazy H (Clear) Urine pH 6.0 (5.0-8.5) Ur Specific [place] 1.022 (1.002-1.035) Urine Protein 30 H (Neg-Trace) mg/dL Urine Glucose (UA) 500 or greater (Negative) mg/dL - Imaging Impressions Chest X-Ray 08/07/18 02:56 CONCLUSION: Endotracheal tube and nasogastric tube in place. No acute cardiopulmonary disease identified. Head CT 08/07/18 02:56 CONCLUSION: 1. Somewhat decreased flores matter-white matter differentiation diffusely. This finding can be seen with diffuse anoxic/hypoxic injury. 2. Motion artifact. . Exam Vital signs: Vital Signs 08/07/18 02:50 08/07/18 02:56 08/07/18 03:00 Temperature 95.8 F L Pulse Rate 107 H 107 H 100 H Respiratory Rate 14 16 Blood Pressure 176/80 H 170/95 H Pulse Oximetry 100 100 100 11/12/18 03:15 08/07/18 03:30 08/07/18 03:40 Temperature Pulse Rate 112 H 110 H 100 H Respiratory Rate 16 16 16 Blood Pressure 168/97 H 202/112 H 146/88 H Pulse Oximetry 100 100 100 08/07/18 04:00 08/07/18 04:10 08/07/18 05:00 Temperature 96.4 F L Pulse Rate 102 H 102 H 102 H Respiratory Rate 16 16 16 Blood Pressure 139/80 140/84 146/88 H Pulse Oximetry 100 100 99 Intake & Output 08/06/18 08/06/18 08/07/18 06:59 18:59 06:59 Intake Total 150 / 150 Balance 150 / 150 Weight 63.503 kg Intake: IV 150 / 150 D50W Syringe 50 ML @ 0 mls/hr . 50 / 50 ROUTE .STK-MED ONE Rx#:[id number] Zosyn 4.5 GM Premix 4.5 gm In 100 / 100 100 ml @ 200 mls/hr IV.SIG ONCE ONE Rx#:[id number] - Constitutional moderate distress - Routine HEENT Exam Head: Present: normocephalic Eye: Absent: scleral injection ENT: Present: mucous membranes moist - Routine Neck Exam Absent: JVD, carotid bruit - Routine Respiratory Exam Present: patient mechanically ventilated. Absent: accessory muscle use, rhonchi , stridor, wheezes - Routine Cardiovascular Exam Present: RRR, S1, S2. Absent: murmur, gallop, rubs - Routine Abdominal Exam Present: soft, normoactive bowel sounds. Absent: tenderness, distended - Routine Extremities Exam Absent: cyanosis, clubbing, edema - Routine Skin Exam Present: intact. Absent: cyanosis, erythema - Routine Neurological Exam Present: altered mental status - Detailed Neurological Exam: Coma Scale Eye Opening: None Verbal Response: None Motor Response: None [place] Coma Scale Total: 3 Septic Shock Reassessment Septic shock perfusion: reassessment completed Caprini VTE Risk Assessment Caprini VTE Risk Assessment: Moderate/High Risk (score >= 2) Caprini Risk Assessment Model: Point Value = 1 Point Value = 2 Point Value = 3 Point Value = 5 Age 41-60 Minor surgery BMI > 25 kg/m2 Swollen legs Varicose veins or History of unexplained or recurrent spontaneous Oral contraceptives or hormone replacement Sepsis (< 1 month) Serious lung disease, including pneumonia (< 1 month) Abnormal pulmonary function Acute myocardial infarction Congestive heart failure (< 1 month) History of inflammatory bowel disease Medical patient at bed rest Age 61-74 Arthroscopic surgery Major open surgery (> 45 min) Laparoscopic surgery (> 45 min) Malignancy Confined to bed (> 72 hours) Immobilizing plaster cast Central venous access Age >= 75 History of VTE Family history of VTE Factor V Leiden Prothrombin [id number] Lupus anticoagulant Anticardiolipin antibodies Elevated serum homocysteine Heparin-induced thrombocytopenia Other congenital or acquired thrombophilia Stroke (< 1 month) Elective arthroplasty Hip, pelvis, or leg fracture Acute spinal cord injury (< 1 month) Prophylaxis Regimen: Total Risk Factor Score Risk Level Prophylaxis Regimen 0-1 Low Early ambulation 2 Moderate Order ONE of the following: *Sequential Compression Device (SCD) *Heparin 5000 units SQ BID 3-4 Higher Order ONE of the following medications: *Heparin 5000 units SQ TID *Enoxaparin/Lovenox 40 mg SQ daily (WT < 150 kg, CrCl > 30 mL/min) *Enoxaparin/Lovenox 30 mg SQ daily (WT < 150 kg, CrCl > 10-29 mL/min) *Enoxaparin/Lovenox 30 mg SQ BID (WT < 150 kg, CrCl > 30 mL/min) AND/OR *Sequential Compression Device (SCD) 5 or more Highest Order ONE of the following medications: *Heparin 5000 units SQ TID (Preferred with Epidurals) *Enoxaparin/Lovenox 40 mg SQ daily (WT < 150 kg, CrCl > 30 mL/min) *Enoxaparin/Lovenox 30 mg SQ daily (WT < 150 kg, CrCl > 10-29 mL/min) *Enoxaparin/Lovenox 30 mg SQ BID (WT < 150 kg, CrCl > 30 mL/min) AND *Sequential Compression Device (SCD) Assessment and Plan - Assessment and Plan Plan: Respiratory failure -Intubated for an airway protection -No weaning until neurologically improve -Mechanical ventilation -Vent bundle Altered mental status -CT head suspicious for anoxic/hypoglycemic brain damage -EEG pending -Urine drug screen pending -Neurology consultation -Consider MRI Hypoglycemia -Questionable intentional insulin overdose -D5W infusion -D50 if indicated per hypoglycemia protocol Hypokalemia -Electrolyte replacement per ICU protocol DVT GI prophylaxis -Teds SCDs -Subcu heparin -Pepcid 35 minutes of critical care
[2018-08-07] MEDS: Dextrose 5%/NaCl 0.45% Inj 1,000 ML IV.CONT SCH ×2 (06:29→15:53)
[2018-08-07] MEDS: Heparin - SQ 10,000 UNITS/ML Vial SQ SCH ×3 (06:30→20:57)
[2018-08-07] MEDS: Famotidine PF Inj 20 MG/2 ML Vial IV.PUSH SCH ×2 (08:11→20:57)
[2018-08-07 08:29] LABS: Amphetamine Screen,Urine Neg (Neg); Barbiturate Screen,Urine Neg (Neg); Cannabinoid Screen,Urine Pos (Neg); Cocaine Screen,Urine Pos (Neg)
[2018-08-07 08:32] LABS: Opiate Screen,Urine Neg (Neg)
[2018-08-07] MEDS ORDERED: Famotidine PF Inj 20 MG/2 ML Vial IV.PUSH SCH (09:00)
[2018-08-07] MEDS: Chlorhexidine 0.12% Oral Kit 15 ML UDC OROPHARYNG SCH ×2 (09:07→20:57)
[2018-08-07] MEDS: Famotidine 20 MG Tablet PO SCH ×2 (09:07→20:56)
[2018-08-07] MEDS: Senna/Docusate Sodium 8.6/50 MG Tablet PO SCH ×2 (09:08→20:57)
--- NOTE | 2018-08-07 10:25 | MB ---
cc: Anita Weir MD DATE: 08/07/2018 HISTORY OF PRESENT ILLNESS: The patient is a middle-aged gentleman with unknown identity comes in to the ER via EMS emergently, [place] insulin and syringe next to him. Blood sugar was checked there. It was 14. Given an amp of D50. He did not wake up. Given some Narcan, no change. Intubated on the scene, currently on Diprivan. PAST MEDICAL HISTORY, SOCIAL HISTORY, FAMILY HISTORY, ALLERGIES, MEDICATIONS: Unknown. PHYSICAL EXAMINATION: VITAL SIGNS: His temperature is 98.1, heart rate 114, respiratory rate 25, blood pressure 120/95, saturating 100%. NEUROLOGIC: He is intubated on a ventilator. His pupils are reactive. There is no gaze preference. Face looks symmetrical. Tone is decreased. He does not withdraw to any painful stimuli. He does not follow any commands. DTRs are trace to absent. Toes are silent. Again, no withdrawal in any extremities to pain. LABORATORY DATA: White count 18.6, MCV 100.6, platelets 362,000. Coag panel is unremarkable. Chemistries: His glucose is 133 currently, but he was as low as 21. Sodium is 142, potassium is 2.8, CO2 is 26.8, creatinine is 1.14, GFR is 55. Lactic acid 3.8. ALT 24, AST 20. His ammonia 36. Albumin 3.4. Urine hazy, 30 protein, large blood, 500 or more glucose, WBC 6. Tox screen positive for benzos, cocaine, and cannabinoids. IMAGING: CT head did show some decrease in the flores-white matter, possibly seen with anoxic hypoxic injury. This was performed on this morning at 2:56 a.m. Chest x-ray: No acute disease. ET tube and NG tube in place. IMPRESSION: Middle-aged man found to be severely hypoglycemic with altered mental status. CT suspicious for possible hypoglycemic anoxic injury. Recommend getting an EEG. Hold sedation during that study if possible. Also, I will repeat another CT tomorrow. Consider an MRI; however, will need to be MRI cleared and that would probably be better at this point if possible. Continue current care and further recommendations will be made accordingly. EEG is already in order, so I will not order that. As far as medications, unless we see any signs of epileptic activity, I would not put him on any antiseizure medication at this point. MD ETELVINA Molina/randall , 09:44 AM , 09:51 AM
[2018-08-07] MEDS: Dextrose 10% in Water Inj 1,000 ML IV.CONT SCH ×2 (10:26→20:40)
--- NOTE | 2018-08-07 12:14 | ECG ---
Date Performed: 08/07/2018 Time Performed: 03:03:55 PTAGE: 89 years EKG: SINUS TACHYCARDIA LEFT ANTERIOR FASCICULAR BLOCK ABNORMAL ECG NO PREVIOUS TRACING DOCTOR: Roger Gomez Interpretating Date/Time 08/07/2018 12:09:17
[2018-08-07 12:51] LABS: Alanine Aminotransferase 20 U/L (12-78); Albumin 3.2 g/dL (3.4-5.0); Alkaline Phosphatase 50 U/L (45-117); Anion Gap 12 meq/L (5-15); Aspartate Aminotransferase 25 U/L (15-37); Blood Urea Nitrogen 16 mg/dL (7-18); Calcium 8.3 mg/dL (8.5-10.1); Carbon Dioxide 26.6 meq/L (21.0-32.0); Chloride 101 meq/L (98-107); Glomerular Filtration Rate 60 mL/min (>89); Glucose,Random 182 mg/dL (74-106); Potassium 3.2 meq/L (3.5-5.1); Sodium 140 meq/L (136-145); Total Protein 6.6 g/dL (6.4-8.2)
--- NOTE | 2018-08-07 12:52 | P.DIET ---
Nutritional Evaluation Type of nutrition evaluation: initial Nutrition consult regarding: Tube Feeding Screening comments: TF review Objective - Diagnosis unresponsive, respiratory failure, hypoglycemia - Objective Body Mass Index: 19.5 % IBW: 82 (IBW = 160lb) Body Weight Used for Calculations: Actual Energy Needs - Lower Range (kCal/kg): 30 Energy Needs - Upper Range (kCal/kg): 35 Lower Limit kCal/kg (kCals): 1,797 Upper Limit kCal/kg (kCals): 2,097 Lower Limit Protein Factor (Grams per Kg): 1.2 Upper Limit Protein Factor (Grams per Kg): 1.5 Lower Protein Needs (Protein): 72 Upper Protein Needs (Protein): 90 Dietitian Reviewed in Medical Record: Current diet, Curent medications, Intake & Output, Labs, Medical history Diet Order: NPO, TF Objective Comments: PMH: unknown Labs: K 2.8, BUN 19, GFR 55, POC glucose 163 Assessment Assessment: Pt currently intubated, sedated w/ propofol and on mech vent. Pt receiving TF Glucerna 1.5 @ 50mL/hr. RD agree w/ TF Glucerna 1.5 @ 50mL/hr to provide 1800kcal, 99g of protien, and 911 mL of free water to meet pts assessed nutritional needs. Additional kcal (1.1 kcal/mL) provided by propofol when running. Monitor TF tolerance and glucose labs. Labs reviewed, dietitian following. Recommendations: 1. RD agree w/ TF Glucerna 1.5 @ 50mL/hr to meet pts assessed nutritional needs 2. Additional kcal (1.1 kcal/mL) provided by propofol when running 3. Monitor TF tolerance and glucose labs 4. Dietitian following Dietitian to Monitor: Lab values, Glucose level, Intake & Output, Tube feeding tolerance, Medical course
[2018-08-07] MEDS: Hydrocortisone Sod Succinate 100 MG Vial IV.PUSH SCH ×2 (13:07→18:07)
[2018-08-07] MEDS: Oral Hygiene Kit OROPHARYNG SCH ×2 (13:08→16:02)
[2018-08-07 13:39] LABS: Hematocrit 39.5 % (39.0-51.0); Hemoglobin 13.7 gm/dL (13.0-17.0); Mean Corpuscular HGB Conc 34.7 % (32.0-36.0); Mean Corpuscular Hemoglobin 35.3 pg (27.0-34.0); Mean Corpuscular Volume 101.9 fL (80.0-100.0); Mean Platelet Volume 7.5 fL (7.0-11.0); Platelet Count 309 th/mm3 (150-450); Red Blood Count 3.87 mil/mm3 (4.50-5.90); Red Cell Distribution Width 13.1 % (11.6-17.2); White Blood Count 19.9 th/mm3 (4.0-11.0)
--- NOTE | 2018-08-07 15:42 | MR ---
EXAM DATE: 08/07/2018 3:30 PM EST AGE/SEX: 47 years / Male INDICATIONS: . Anoxic injury CLINICAL DATA: This is the patient's initial encounter. Patient reports that signs and symptoms have been present for 1 day and indicates a pain score of Nonresponsive. MEDICAL/SURGICAL HISTORY: Diabetes mellitus type II. None. [place] [facility] [place]. . TECHNIQUE: Multiplanar, multisequence examination of the brain was performed without contrast. FINDINGS: Cerebrum: Mild periventricular white matter changes. Ventricles are of normal size. There is no pare nchymal hemorrhage. There are no extra-axial fluid collections appreciated. There is very minimal inc reased signal in the cortical flores matter of both hemispheres on the diffusion imaging. This can be e vidence for anoxia Posterior Fossa: The cerebellum and brainstem are intact. The 4th ventricle is midline. The cerebel lopontine angle is unremarkable. The cerebellar tonsils are normal in position. Extracranial: The visualized portions of the orbits and paranasal sinuses are unremarkable. CONCLUSION: 1. Minimal increased signal in the flores matter of the cerebral cortex seen on the diffusion imaging could be subtle evidence for anoxia. 2. No other significant amount is appreciated. Electronically signed by: Marito Gil MD 08/07/2018 3:40 PM EST
[2018-08-07] MEDS: Potassium Chlor 20 mEq Premix 20 MEQ/100 ML PIGGYBACK IV.SIG PRN ×2 (18:06→20:59)
--- NOTE | 2018-08-07 20:46 | MG ---
cc: Santosh Maguire MD ELECTROENCEPHALOGRAM RECORD NUMBER: [id number] DESCRIPTION: A generalized 1-3 Hz delta activity noted, 10-30 microvolts with a lot of frontal myogenic artifact. Some theta bursts. A lot of frontal artifact and almost continuous throughout the recording. Limited driving with photic stimulation. Single-lead EKG showing sinus rhythm. INTERPRETATION: Moderate encephalopathy with frontal myogenic artifact. Clinical correlation. MD REHANA Munoz/lv , 08:03 PM , 08:09 PM
[2018-08-07] MEDS: Insulin NovoLOG Aspart Correctional Sugar Inj SQ SCH (21:41)
[2018-08-07] MEDS: Propofol 1000 mg/100 ml Inj 1,000 MG/100 ML BOTTLE IV.CONT PRN (22:49)
[2018-08-08] MEDS: Oral Hygiene Kit OROPHARYNG SCH ×5 (00:09→23:27)
[2018-08-08] MEDS: Dextrose 5%/NaCl 0.9% Inj 1,000 ML IV.SIG SCH ×2 (00:10→07:08)
[2018-08-08] MEDS: Dextrose 5%/NaCl 0.45% Inj 1,000 ML IV.CONT SCH ×3 (00:54→21:14)
[2018-08-08] MEDS: Potassium Chlor 20 mEq Premix 20 MEQ/100 ML PIGGYBACK IV.SIG PRN ×2 (00:55→03:13)
[2018-08-08] MEDS: Hydrocortisone Sod Succinate 100 MG Vial IV.PUSH SCH (02:06)
[2018-08-08] MEDS: Chlorhexidine Gluconate 2% 1 Pack (2 Cloths) TOPICAL SCH (03:14)
[2018-08-08] MEDS ORDERED: Chlorhexidine Gluconate 2% 1 Pack (2 Cloths) TOPICAL PRN (04:00)
[2018-08-08] MEDS: Heparin - SQ 10,000 UNITS/ML Vial SQ SCH ×3 (04:58→21:14)
[2018-08-08] MEDS: Propofol 1000 mg/100 ml Inj 1,000 MG/100 ML BOTTLE IV.CONT PRN (06:38)
[2018-08-08 08:34] LABS: Activated Partial Thrombo Time 29.4 sec (23.4-31.7)
[2018-08-08 08:44] LABS: Hematocrit 40.2 % (39.0-51.0); Hemoglobin 13.7 gm/dL (13.0-17.0); Lymph # (Auto) 0.5 th/mm3 (1.0-4.8); Lymph % (Auto) 3.4 % (9.0-44.0); Mean Corpuscular Volume 102.9 fL (80.0-100.0); Mean Platelet Volume 8.8 fL (7.0-11.0); Mono # (Auto) 0.9 th/mm3 (0.0-0.9); Neut # (Auto) 14.1 th/mm3 (1.8-7.7); Neut % (Auto) 90.6 % (16.0-70.0); Platelet Count 273 th/mm3 (150-450); Red Blood Count 3.91 mil/mm3 (4.50-5.90); Red Cell Distribution Width 12.9 % (11.6-17.2); White Blood Count 15.6 th/mm3 (4.0-11.0)
[2018-08-08 09:03] LABS: Alanine Aminotransferase 21 U/L (12-78); Albumin 3.3 g/dL (3.4-5.0); Alkaline Phosphatase 67 U/L (45-117); Anion Gap 12 meq/L (5-15); Aspartate Aminotransferase 34 U/L (15-37); Blood Urea Nitrogen 11 mg/dL (7-18); Calcium 9.2 mg/dL (8.5-10.1); Chloride 102 meq/L (98-107); Glomerular Filtration Rate 66 mL/min (>89); Glucose,Random 352 mg/dL (74-106); Magnesium 1.7 mg/dL (1.5-2.5); Phosphorus 2.4 mg/dL (2.5-4.9); Potassium 4.8 meq/L (3.5-5.1); Sodium 137 meq/L (136-145); Total Protein 7.7 g/dL (6.4-8.2)
[2018-08-08] MEDS ORDERED: Dextrose 50% in Water 50 ML Vial IV.PUSH PRN (09:07)
--- NOTE | 2018-08-08 09:09 | P.PNCC ---
Subjective Subjective Remarks/Hospital Course: Late 30s/early [id number] patient of unknown identity was brought in by EMS emergently. [place]. Blood sugar was checked and it was 14. Patient was given 1 amp of D50 but did not wake up. He was given IV Narcan with no change. Patient was intubated at the scene by EMS for an airway protection. He was brought in being bagged by positive pressure ventilation. As per EMS patient never lost his pulse. Vital signs were otherwise stable. Upon arrival patient had no purposeful movement and was obviously no condition to give any meaningful history. Blood sugar upon arrival was 38. 08/08 Patient remains sedated and intubated. Afebrile. Objective Vital Signs / I&O: Vital Signs 08/07/18 09:00 08/07/18 09:15 08/07/18 09:30 Temperature 98.2 F 98.4 F 98.4 F Pulse Rate 111 H 103 H 100 H Respiratory Rate 16 16 17 Blood Pressure 132/76 104/63 102/62 Pulse Oximetry 100 100 99 08/07/18 09:45 08/07/18 10:00 08/07/18 10:15 Temperature 98.4 F 98.6 F 98.4 F Pulse Rate 95 H 111 H 116 H Respiratory Rate 16 16 29 H Blood Pressure 104/65 135/83 150/86 H Pulse Oximetry 100 99 93 L 08/07/18 10:30 08/07/18 10:45 08/07/18 11:00 Temperature 98.4 F 98.4 F 98.4 F Pulse Rate 99 H 117 H 123 H Respiratory Rate 19 27 H 26 H Blood Pressure 120/71 152/97 H 153/99 H Pulse Oximetry 98 78 L 86 L 08/07/18 11:16 08/07/18 11:30 08/07/18 11:45 Temperature 98.8 F 99.0 F 99.1 F Pulse Rate 120 H 123 H 125 H Respiratory Rate 26 H 47 H 24 Blood Pressure 121/78 152/86 H 142/71 H Pulse Oximetry 71 L 97 70 L 08/07/18 12:00 08/07/18 12:15 08/07/18 12:30 Temperature 99.5 F 99.7 F H 99.5 F Pulse Rate 109 H 103 H 104 H Respiratory Rate 23 19 20 Blood Pressure 102/61 108/69 111/66 Pulse Oximetry 98 99 99 08/07/18 12:45 08/07/18 13:00 08/07/18 13:15 Temperature 99.5 F 99.5 F 99.5 F Pulse Rate 111 H 114 H 114 H Respiratory Rate 31 H 20 22 Blood Pressure 107/71 110/69 115/71 Pulse Oximetry 100 100 100 08/07/18 13:16 08/07/18 13:30 08/07/18 13:45 Temperature 99.5 F 99.5 F Pulse Rate 113 H 115 H Respiratory Rate 22 21 22 Blood Pressure 121/73 112/72 Pulse Oximetry 99 100 99 08/07/18 14:00 08/07/18 14:15 08/07/18 14:30 Temperature 99.7 F H 99.5 F 99.5 F Pulse Rate 115 H 101 H 100 H Respiratory Rate 20 18 18 Blood Pressure 122/76 96/52 L 96/59 L Pulse Oximetry 100 98 99 08/07/18 15:33 08/07/18 15:45 08/07/18 16:00 Temperature 99.3 F 99.3 F Pulse Rate 110 H 101 H Respiratory Rate 21 Blood Pressure 125/82 Pulse Oximetry 100 100 94 L 08/07/18 16:10 08/07/18 17:00 08/07/18 18:00 Temperature 99.3 F 99.3 F Pulse Rate 92 H 109 H Respiratory Rate 17 16 16 Blood Pressure Pulse Oximetry 94 L 94 L 99 08/07/18 19:00 08/07/18 19:27 08/07/18 19:30 Temperature 99.7 F H 99.7 F H 99.5 F Pulse Rate 104 H 104 H 107 H Respiratory Rate 16 16 16 Blood Pressure 101/70 105/74 Pulse Oximetry 96 97 97 08/07/18 20:00 08/07/18 20:21 08/07/18 20:30 Temperature 99.5 F 99.3 F Pulse Rate 101 H 106 H Respiratory Rate 16 16 16 Blood Pressure 99/68 L 113/79 Pulse Oximetry 97 98 100 08/07/18 21:00 08/07/18 21:30 08/07/18 22:00 Temperature 99.7 F H 99.7 F H 99.5 F Pulse Rate 104 H 101 H 105 H Respiratory Rate 16 16 16 Blood Pressure 109/74 101/72 111/78 Pulse Oximetry 100 100 100 08/07/18 22:30 08/07/18 23:00 08/07/18 23:30 Temperature 99.3 F 99.3 F 99.1 F Pulse Rate 94 H 93 H 101 H Respiratory Rate 16 16 16 Blood Pressure 95/65 L 101/69 120/83 Pulse Oximetry 100 100 100 08/08/18 00:00 08/08/18 00:11 08/08/18 00:30 Temperature 99.3 F 99.3 F Pulse Rate 91 H 102 H Respiratory Rate 16 16 16 Blood Pressure 114/76 117/81 Pulse Oximetry 100 100 100 08/08/18 01:00 08/08/18 01:30 08/08/18 02:00 Temperature 99.7 F H 99.7 F H 99.7 F H Pulse Rate 97 H 95 H 100 H Respiratory Rate 16 16 16 Blood Pressure 106/69 109/72 115/77 Pulse Oximetry 100 100 100 08/08/18 02:30 08/08/18 03:00 08/08/18 03:30 Temperature 99.7 F H 99.9 F H 99.9 F H Pulse Rate 104 H 107 H 92 H Respiratory Rate 16 16 16 Blood Pressure 112/71 123/77 97/68 L Pulse Oximetry 100 100 99 08/08/18 03:35 08/08/18 03:59 08/08/18 04:00 Temperature 99.9 F H 99.9 F H Pulse Rate 90 90 Respiratory Rate 16 16 16 Blood Pressure 104/71 Pulse Oximetry 99 100 99 08/08/18 04:30 08/08/18 05:00 08/08/18 05:02 Temperature 99.5 F 99.1 F 99.1 F Pulse Rate 104 H 124 H 125 H Respiratory Rate 35 H 31 H 61 H Blood Pressure 138/96 H 146/84 H Pulse Oximetry 97 96 93 L 08/08/18 05:30 08/08/18 06:00 08/08/18 07:31 Temperature 99.3 F 99.3 F Pulse Rate 108 H 103 H Respiratory Rate 22 24 22 Blood Pressure 114/73 113/68 Pulse Oximetry 89 L 92 L 94 L Intake & Output 08/07/18 08/08/18 08/08/18 18:59 06:59 18:59 Intake Total 850 / 850 1750 / 1750 774 / 774 Output Total 2250 / 2250 Balance 850 / 850 -500 / -500 774 / 774 Intake: IV 850 / 850 1400 / 1400 774 / 774 D50W Syringe 50 ML @ 0 mls/hr . 250 / 250 ROUTE .STK-MED ONE Rx#:[id number] Diprivan 1000 mg/100 ml Inj 1, 100 / 100 000 mg In 100 ml @ 0 mls/hr . ROUTE .STK-MED ONE Rx#:[id number] D10W Inj 1,000 ML @ 50 mls/hr 1000 / 1000 774 / 774 IV.CONT .Q20H MAGDA Rx#:[id number] D5W/1/2 NS Inj 1,000 ML @ 100 500 / 500 mls/hr IV.CONT .Q10H MAGDA Rx#: [id number] KCl 20 mEq Premix Inj 20 meq In 400 / 400 100 ml @ 50 mls/hr IV.SIG Q2H PRN Rx#:[id number] Tube Feeding 290 / 290 Tube Irrigant 60 / 60 Output: Urine Amount (Catheter) 2250 / 2250 Indwelling Temp Sensing 2250 / 2250 Catheter Result Diagrams: 08/08/18 06:39 08/08/18 06:39 Other Results: Laboratory Results - last 12 hr 08/07/18 08/07/18 08/07/18 21:10 22:19 23:00 WBC RBC Hgb Hct MCV MCH MCHC RDW Plt Count MPV Neut % (Auto) Lymph % (Auto) Mitchell % (Auto) Eos % (Auto) Baso % (Auto) Neut # (Auto) Lymph # (Auto) Mitchell # (Auto) Eos # (Auto) Baso # (Auto) WBC Differential Differential Comment PT INR APTT POC Glucose 106 150 H 142 H 08/08/18 08/08/18 08/08/18 00:00 00:51 01:56 WBC RBC Hgb Hct MCV MCH MCHC RDW Plt Count MPV Neut % (Auto) Lymph % (Auto) Mitchell % (Auto) Eos % (Auto) Baso % (Auto) Neut # (Auto) Lymph # (Auto) Mitchell # (Auto) Eos # (Auto) Baso # (Auto) WBC Differential Differential Comment PT INR APTT POC Glucose 171 H 179 H 210 H 1108/08/18 08/08/18 03:02 04:11 05:13 WBC RBC Hgb Hct MCV MCH MCHC RDW Plt Count MPV Neut % (Auto) Lymph % (Auto) Mitchell % (Auto) Eos % (Auto) Baso % (Auto) Neut # (Auto) Lymph # (Auto) Mitchell # (Auto) Eos # (Auto) Baso # (Auto) WBC Differential Differential Comment PT INR APTT POC Glucose 286 H 327 H 356 H 08/08/18 08/08/18 08/08/18 06:17 06:39 06:39 WBC 15.6 H RBC 3.91 L Hgb 13.7 Hct 40.2 MCV 102.9 H MCH 35.0 H MCHC 34.0 RDW 12.9 Plt Count 273 MPV 8.8 Neut % (Auto) 90.6 H Lymph % (Auto) 3.4 L Mitchell % (Auto) 6.0 Eos % (Auto) 0.0 Baso % (Auto) 0.0 Neut # (Auto) 14.1 H Lymph # (Auto) 0.5 L Mitchell # (Auto) 0.9 Eos # (Auto) 0.0 Baso # (Auto) 0.0 WBC Differential . Differential Comment Auto diff final PT 10.0 INR 1.0 APTT 29.4 POC Glucose 332 H 08/08/18 08/08/18 06:41 08:12 WBC RBC Hgb Hct MCV MCH MCHC RDW Plt Count MPV Neut % (Auto) Lymph % (Auto) Mitchell % (Auto) Eos % (Auto) Baso % (Auto) Neut # (Auto) Lymph # (Auto) Mitchell # (Auto) Eos # (Auto) Baso # (Auto) WBC Differential Differential Comment PT INR APTT POC Glucose 358 H 381 H Imaging: Chest X-Ray 08/07/18 02:56 CONCLUSION: Endotracheal tube and nasogastric tube in place. No acute cardiopulmonary disease identified. Head CT 08/07/18 02:56 CONCLUSION: 1. Somewhat decreased flores matter-white matter differentiation diffusely. This finding can be seen with diffuse anoxic/hypoxic injury. 2. Motion artifact. . Head MRI 08/07/18 09:53 CONCLUSION: 1. Minimal increased signal in the flores matter of the cerebral cortex seen on the diffusion imaging could be subtle evidence for anoxia. 2. No other significant amount is appreciated. Objective Remarks: GENERAL: Patient is 47 yo intubated and sedated SKIN: Warm and dry. HEAD: Normocephalic. EYES: No scleral icterus. No injection or drainage. NECK: Supple, trachea midline. No JVD or lymphadenopathy. CARDIOVASCULAR: Regular rate and rhythm without murmurs, gallops, or rubs. RESPIRATORY: Breath sounds equal bilaterally. No accessory muscle use. GASTROINTESTINAL: Abdomen soft, non-tender, nondistended. MUSCULOSKELETAL: No cyanosis, or edema. Neuro: Sedated, intubated Assessment and Plan - Assessment and Plan Plan: VDRF Encephalopathy Likely Anoxic brain injury Suicide attempt Hypoglycemic episodes Polysubstance abuse (UDS + Cocaine, cannabinoids, Benzo) Leukocytosis Plan Neuro: On Diprivan infusion for sedation. Daily sedation vacation. MRI brain: Minimal increased signal in the flores matter of the cerebral cortex seen on the diffusion imaging could be subtle evidence for anoxia. No other significant amount is appreciated. CT brain: Somewhat decreased flores matter-white matter differentiation diffusely. This finding can be seen with diffuse anoxic/hypoxic injury. EEG: Moderate encephalopathy Neuro is following Dr. eDstin Bee: Continue with vent support keep sats >92% Bronchodilators, ICU vent bundle. CV: Monitor HR and BP keep MAP>65mmHg : Monitor renal function, electrolytes replacement as needed GI: On Pepcid for GI prophylaxis Continue tube feeds- Glucerna 1.5@50ml/hr ID: Place on Vanco 1gram Iv Q12. Monitor for signs of infections ( fever, WBC) BC 11/12: GPR, check BC x 2sets today Endo: SSI with accuchecks d/c steroids and D5NS as his BS now in high 300's. Patient was hypoglycemic yesterday. Heme: Monitor CBC DVT GI prophylaxis -Teds SCDs -Subcu heparin -Pepcid Palliative care eval to asses with goals of care Level 3
[2018-08-08] MEDS: Chlorhexidine 0.12% Oral Kit 15 ML UDC OROPHARYNG SCH ×2 (09:12→20:10)
[2018-08-08] MEDS: Senna/Docusate Sodium 8.6/50 MG Tablet PO SCH ×2 (09:12→20:11)
[2018-08-08] MEDS ORDERED: Hydrocortisone Sod Succinate 100 MG Vial IV.PUSH SCH (10:00)
[2018-08-08] MEDS: Insulin NovoLIN Regular Correctional Sugar Inj SQ SCH ×8 (10:23→23:27)
[2018-08-08] MEDS: Famotidine PF Inj 20 MG/2 ML Vial IV.PUSH SCH ×2 (10:24→20:11)
[2018-08-08] MEDS: Insulin NovoLOG Aspart Correctional Sugar Inj SQ SCH (10:52)
[2018-08-08] MEDS: Famotidine 20 MG Tablet PO SCH (10:52)
--- NOTE | 2018-08-08 10:55 | P.CONPAL ---
Consult Service: Palliative Care Requesting Physician: Slime Calabrese Reason for Consult: a. To assist with evaluation and management of symptoms including: Encephalopathy, pain b. To assist medical decision maker(s) with: better understanding of current medical conditions; weighing benefits/burdens of medical treatment options; making medical treatment decisions. Primary Care Provider: UNKNOWN History of Present Illness History of Present Illness: This is a 47-year old male [place] in by EMS [place] him. Blood sugar at the time was 14 and he was given 1 amp of D50 with no change in mentation. He was then given IV Narcan with no change in mentation. He was emergently intubated at the scene by EMS for airway protection and brought in being bagged by positive pressure ventilation. No cardiac arrest was noted. Vital signs were stable. Presenting blood sugar at the ED was 38. He was admitted as a Roger Hernandez under hospital record number [id number], however after being identified as Jeremy Murrieta a previous record was located under . Neurology consultation was obtained recommending MRI of the brain, EEG. He was empirically placed on vancomycin, 1 g IV every 12 after blood cultures were drawn. Diagnostic data on admission * WBC 15.6, Hgb 13.7, HCT 40.2, platelets 273, PT 10.0, INR 1.0, APTT 29.4, sodium 142, potassium 2.8 BUN 19, creatinine 1.14, normal transaminase, troponin less than 0.02, lactic acid 3.8, ammonia 36. * ABG pH 7.35, PCO2 49 PaO2 417, HCO3 26, base excess is +0.8 on 15 L ambu bag. * Urinalysis shows a hazy yellow specimen with a pH of 6.0, specific gravity of 1.022, urine protein 30, urine glucose 500 or greater, large occult blood, culture not indicated. * Urine toxicology is positive for benzodiazepines, cocaine and cannabinoids. * Chest x-ray shows ET tube and NG tube appropriately placed with no acute cardiopulmonary disease. * Head CT shows somewhat decreased flores matter-white matter differentiation diffusely. This finding can be seen with diffuse anoxic/hypoxic injury, motion artifact. * Head MRI shows minimal increased signal in the flores matter of the cerebral cortex seen on the diffusion imaging which could be subtle evidence for anoxia. * EEG showed moderate encephalopathy with frontal myogenic artifact. * EKG shows sinus tachycardia with left anterior fascicular block. He was seen in [place] January 25, 2018 under a Thomas act after [place] while intoxicated with alcohol. He was admitted to psychiatry and subsequently referred to [facility]. He had a history of medical noncompliance with therapy, complicated by a poor social situation. He was approaching homelessness when his cousin, Alberto, allowed him to stay at his home, with the caveat of no drug abuse. Alberto states that he did fairly well for about 18 months before relapsing. Per my discussion with his cousin, Alberto, the insulin syringe he was [place] with on the beach was a long acting insulin syringe of Alberto's. The patient had been using 70/30 insulin due to financial constraints making him unable to afford his Lantus. He is seen in the intensive medical care unit, intubated, on a sedation vacation, spontaneous movement seen, none to command. Positive reflexes noted were pupil, corneal, gag and withdrawal to pain. In spite of ventilator support, he is exhibiting Kussmaul's respiration pattern and breathing over the vent. He is not following commands nor opening his eyes spontaneously. Past medical history IDDM type I Diabetic gastroparesis Diabetic neuropathy Bipolar disorder Polysubstance abuse Hepatitis C GERD Esophagitis Generalized anxiety disorder Depression with suicidal ideation Kidney stones Hypertension Recurrent DKA Past surgical history EGD Past social history Positive for polysubstance abuse Positive for tobacco abuse Positive for alcohol abuse Positive for both prescription and illicit substance abuse. Past family history Mother is with a history of bipolar disorder and diabetes. Father's history is unknown. Sister with history of bipolar disorder, current status unknown, missing over 10 years. Positive for heart disease. . 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 This is an acute physical decline. He does have a long history of mental illness to include bipolar disorder, depression and anxiety these had been worsening according to his cousin. . Review of Systems Patient is nonverbal and unable to provide their own ROS. A 12 part ROS taken as best as possible from medical record and available family. Neurologic: Reports other (Encephalopathy) Psychiatric: Reports anxiety, Reports depression PMFSH - History History Provided By: Multifocal Lens Assembler / EMT - Medical / Surgical Hx Neg / Unobtainable Medical Problems Denied: Unable to Obtain - Medical History Medical History: Medical History (Last Updated 08/07/18 @ 03:52 by Eve Griffith) Medical history unknown Surgical history unknown - Tobacco History Smoking Status: Unknown if ever smoked - Alcohol History How Often Do You Have a Drink Containing Alcohol: Unable to Obtain - Travel History Recent Travel in the [place] Within the Last 8 Weeks: No Recent Travel Out of the Country Within the Last 8 Weeks: No - Immunization History Tetanus Immunization: Unable to Assess Medications and Allergies Active Medications: Active Medications Acetaminophen (Tylenol) 650 mg PO Q6H PRN PRN Reason: PAIN 1-10 AND/OR FEVER >101F Al Hydroxide/Mg Hydroxide (Milk Of [place]) 30 ml PO Q12H PRN PRN Reason: Mild Constipation Albuterol (Duoneb Neb (Prn)) 1 ampul NEB Q2HR NEB PRN PRN Reason: WHEEZING Bisacodyl (Dulcolax Supp) 10 mg RECTAL DAILY PRN PRN Reason: SEVERE CONSITIPATION Chlorhexidine Gluconate (Peridex 0.12% Oral Kit) 15 ml OROPHARYNG BID@0800, 2000 [facility] Last Admin: 08/08/18 09:12 Dose: 15 ml Chlorhexidine Gluconate (Chlorhexidine 2% Cloth) 3 pack TOPICAL DAILY@0400 MAGDA Stop: 08/13/18 03:59 Last Admin: 08/08/18 03:14 Dose: 3 pack Chlorhexidine Gluconate (Chlorhexidine 2% Cloth) 3 pack TOPICAL DAILY@0400 PRN PRN Reason: Extra cloth needed Stop: 08/13/18 03:59 Dextrose (D50w Vial) 50 ml IV.PUSH UNSCH PRN PRN Reason: PER HYPOGLYCEMIA PROTOCOL Last Admin: 08/07/18 06:50 Dose: 50 ml Dextrose (D50w Vial) 50 ml IV.PUSH UNSCH PRN PRN Reason: PER HYPOGLYCEMIA PROTOCOL Famotidine (Pepcid Pf Inj) 20 mg IV.PUSH Q12HR [facility] Last Admin: 08/08/18 10:24 Dose: 20 mg Glucagon (Glucagon Inj) 1 mg OTHER PRN PRN PRN Reason: for Hypoglycemia Protocol Glucagon (Glucagon Inj) 1 mg OTHER PRN PRN PRN Reason: for Hypoglycemia Protocol Heparin Sodium (Porcine) (Heparin Inj) 5,000 units SQ Q8H [facility] Last Admin: 08/08/18 04:58 Dose: 5,000 units Hydrocortisone Sodium Succinate (Solucortef Inj) 50 mg IV.PUSH Q6H [facility] Last Admin: 08/08/18 10:24 Dose: 50 mg Dextrose/Sodium Chloride (D5w/Normal Saline Inj) 1,000 mls @ 75 mls/hr IV.SIG .[id number] [facility] Last Admin: 08/08/18 07:08 Dose: 75 mls/hr Propofol (Diprivan 1000 Mg/100 Ml Inj) 1,000 mg in 100 mls @ 1.905 mls/hr IV.CONT TITRATE PRN; Protocol PRN Reason: Per Protocol Last Admin: 08/08/18 06:38 Dose: 30 mcg/kg/min, 11.43 mls/hr Dextrose/Sodium Chloride (D5w/1/2 Ns Inj) 1,000 mls @ 100 mls/hr IV.CONT .Q10H [facility] Last Admin: 08/08/18 00:54 Dose: Not Given Magnesium Sulfate 4 gm/ Sodium (Chloride) 100 mls @ 50 mls/hr IV.SIG UNSCH PRN PRN Reason: For Magnesium 0.9 - 1.1 mg/dL Magnesium Sulfate 2 gm/ Sodium (Chloride) 100 mls @ 50 mls/hr IV.SIG UNSCH PRN PRN Reason: For Magnesium 1.2 - 1.6 mg/dL Potassium Chloride (Kcl 40 Meq Premix Inj) 40 meq in 100 mls @ 25 mls/hr IV.SIG Q2H PRN PRN Reason: For Potassium 2.8 - 3.2 mEq/L Potassium Chloride (Kcl 20 Meq Premix Inj) 20 meq in 100 mls @ 50 mls/hr IV.SIG Q2H PRN PRN Reason: For Potassium 3.3 - 3.5 mEq/L Potassium Chloride (Kcl 40 Meq Premix Inj) 40 meq in 100 mls @ 25 mls/hr IV.SIG UNSCH PRN PRN Reason: For Potassium 3.3 - 3.5 mEq/L Potassium Chloride (Kcl 20 Meq Premix Inj) 20 meq in 100 mls @ 50 mls/hr IV.SIG Q2H PRN PRN Reason: For Potassium 2.8 - 3.2 mEq/L Last Infusion: 08/08/18 05:26 Dose: Infused Potassium Phosphate 30 mmol/ (Sodium Chloride) 260 mls @ 42 mls/hr IV.SIG UNSCH PRN PRN Reason: SEE LABEL COMMENTS Sodium Phosphate 30 mmol/ (Sodium Chloride) 260 mls @ 42 mls/hr IV.SIG UNSCH PRN PRN Reason: For Phosphorus < 2.5 mg/dL Vancomycin HCl 1,000 mg/ (Sodium Chloride) 250 mls @ 250 mls/hr IV.SIG Q12H MAGDA Insulin Human Regular (Novolin R Correctional Sugar Inj) 0 units SQ Q2H MAGDA; Protocol Last Admin: 08/08/18 10:23 Dose: 9 units Lactulose (Lactulose Liq) 30 ml PO DAILY PRN PRN Reason: SEVERE CONSITIPATION Magnesium Oxide (Mag-Ox) 800 mg PO UNSCH PRN PRN Reason: For Magnesium 1.2 - 1.6 mg/dL Miscellaneous Medication () 1 each OROPHARYNG 0000,0400,1200,1600 [facility] Last Admin: 08/08/18 03:13 Dose: 1 each Morphine Sulfate (Morphine Inj) 2 mg IV.PUSH Q2H PRN PRN Reason: PAIN SCALE 6 TO 10 Ondansetron HCl (Zofran Inj) 4 mg IV.PUSH Q6H PRN PRN Reason: NAUSEA OR VOMITING Potassium Bicarb/Potassium Chloride (K-Lyte Cl Eff) 50 meq PO UNSCH PRN PRN Reason: For Potassium 3.3 - 3.5 mEq/L Potassium Phosphate (K-Phos Original) 2,000 mg PO Q4H PRN PRN Reason: Phosphorus Less Than 2.5 mg/dL Potassium Phosphate (K-Phos Original) 2,000 mg PO UNSCH PRN PRN Reason: SEE LABEL COMMENTS Senna/Docusate Sodium (Marleny-Colace) 1 tab PO BID [facility] Last Admin: 08/08/18 09:12 Dose: Not Given Sennosides (Senokot) 17.2 mg PO Q12H PRN PRN Reason: Moderate Constipation Sodium Chloride (Ns Flush) 2 ml IV.FLUSH BID [facility] Last Admin: 08/08/18 09:12 Dose: 2 ml Sodium Chloride (Ns Flush) 2 ml IV.FLUSH PRN PRN PRN Reason: FLUSH AFTER USING IV ACCESS Allergies Allergy/AdvReac Type Severity Reaction Status Date / Time No Known Allergies Allergy Verified 08/07/18 03:43 Home Medications Medication Instructions Recorded Confirmed Type Unable to Obtain Home Meds 08/07/18 08/07/18 History Advance Directives Living Will: No Healthcare Surrogate: No Power of Pin Drafting Machine Tender: No Physical Exam Vital Signs: Vital Signs - 24 hr 08/07/18 10:45 08/07/18 11:00 08/07/18 11:16 Temperature 98.4 F 98.4 F 98.8 F Pulse Rate 117 H 123 H 120 H Respiratory Rate 27 H 26 H 26 H Blood Pressure 152/97 H 153/99 H 121/78 Pulse Oximetry 78 L 86 L 71 L 08/07/18 11:30 08/07/18 11:45 08/07/18 12:00 Temperature 99.0 F 99.1 F 99.5 F Pulse Rate 123 H 125 H 109 H Respiratory Rate 47 H 24 23 Blood Pressure 152/86 H 142/71 H 102/61 Pulse Oximetry 97 70 L 98 08/07/18 12:15 08/07/18 12:30 08/07/18 12:45 Temperature 99.7 F H 99.5 F 99.5 F Pulse Rate 103 H 104 H 111 H Respiratory Rate 19 20 31 H Blood Pressure 108/69 111/66 107/71 Pulse Oximetry 99 99 100 08/07/18 13:00 08/07/18 13:15 08/07/18 13:16 Temperature 99.5 F 99.5 F Pulse Rate 114 H 114 H Respiratory Rate 20 22 22 Blood Pressure 110/69 115/71 Pulse Oximetry 100 100 99 08/07/18 13:30 08/07/18 13:45 08/07/18 14:00 Temperature 99.5 F 99.5 F 99.7 F H Pulse Rate 113 H 115 H 115 H Respiratory Rate 21 22 20 Blood Pressure 121/73 112/72 122/76 Pulse Oximetry 100 99 100 08/07/18 14:15 08/07/18 14:30 08/07/18 15:33 Temperature 99.5 F 99.5 F 99.3 F Pulse Rate 101 H 100 H 110 H Respiratory Rate 18 18 Blood Pressure 96/52 L 96/59 L Pulse Oximetry 98 99 100 08/07/18 15:45 08/07/18 16:00 08/07/18 16:10 Temperature 99.3 F Pulse Rate 101 H Respiratory Rate 21 17 Blood Pressure 125/82 Pulse Oximetry 100 94 L 94 L 08/07/18 17:00 08/07/18 18:00 08/07/18 19:00 Temperature 99.3 F 99.3 F 99.7 F H Pulse Rate 92 H 109 H 104 H Respiratory Rate 16 16 16 Blood Pressure Pulse Oximetry 94 L 99 96 08/07/18 19:27 08/07/18 19:30 08/07/18 20:00 Temperature 99.7 F H 99.5 F 99.5 F Pulse Rate 104 H 107 H 101 H Respiratory Rate 16 16 16 Blood Pressure 101/70 105/74 99/68 L Pulse Oximetry 97 97 97 08/07/18 20:21 08/07/18 20:30 08/07/18 21:00 Temperature 99.3 F 99.7 F H Pulse Rate 106 H 104 H Respiratory Rate 16 16 16 Blood Pressure 113/79 109/74 Pulse Oximetry 98 100 100 08/07/18 21:30 08/07/18 22:00 08/07/18 22:30 Temperature 99.7 F H 99.5 F 99.3 F Pulse Rate 101 H 105 H 94 H Respiratory Rate 16 16 16 Blood Pressure 101/72 111/78 95/65 L Pulse Oximetry 100 100 100 08/07/18 23:00 08/07/18 23:30 08/08/18 00:00 Temperature 99.3 F 99.1 F 99.3 F Pulse Rate 93 H 101 H 91 H Respiratory Rate 16 16 16 Blood Pressure 101/69 120/83 114/76 Pulse Oximetry 100 100 100 08/08/18 00:11 08/08/18 00:30 08/08/18 01:00 Temperature 99.3 F 99.7 F H Pulse Rate 102 H 97 H Respiratory Rate 16 16 16 Blood Pressure 117/81 106/69 Pulse Oximetry 100 100 100 08/08/18 01:30 08/08/18 02:00 08/08/18 02:30 Temperature 99.7 F H 99.7 F H 99.7 F H Pulse Rate 95 H 100 H 104 H Respiratory Rate 16 16 16 Blood Pressure 109/72 115/77 112/71 Pulse Oximetry 100 100 100 08/08/18 03:00 08/08/18 03:30 08/08/18 03:35 Temperature 99.9 F H 99.9 F H Pulse Rate 107 H 92 H Respiratory Rate 16 16 16 Blood Pressure 123/77 97/68 L Pulse Oximetry 100 99 99 08/08/18 03:59 08/08/18 04:00 08/08/18 04:30 Temperature 99.9 F H 99.9 F H 99.5 F Pulse Rate 90 90 104 H Respiratory Rate 16 16 35 H Blood Pressure 104/71 138/96 H Pulse Oximetry 100 99 97 08/08/18 05:00 08/08/18 05:02 08/08/18 05:30 Temperature 99.1 F 99.1 F 99.3 F Pulse Rate 124 H 125 H 108 H Respiratory Rate 31 H 61 H 22 Blood Pressure 146/84 H 114/73 Pulse Oximetry 96 93 L 89 L 08/08/18 06:00 08/08/18 07:31 Temperature 99.3 F Pulse Rate 103 H Respiratory Rate 24 22 Blood Pressure 113/68 Pulse Oximetry 92 L 94 L I&O: Intake & Output 08/06/18 08/07/18 08/08/18 08/09/18 06:59 06:59 06:59 06:59 Intake Total 1000 / 1000 2600 / 2600 774 / 774 Output Total 780 / 780 2250 / 2250 Balance 220 / 220 350 / 350 774 / 774 Weight 132 lb 0.91 oz Physical Exam: CONSTITUTIONAL/GENERAL: This is an adequately nourished patient, intubated, off sedation, in mild distress. TUBES/LINES/DRAINS: Left IJ, PIV x2, ETT, OGT, Caro, SKIN: No jaundice, rashes, or lesions. Ecchymoses on upper extremities. No wounds seen anteriorly. Skin temperature appropriate. Not diaphoretic. HEAD: Atraumatic. Normocephalic. EYES: Pupils equal and round and reactive. No scleral icterus. No injection or drainage. Fundi not examined. ENT: Hearing cannot be assessed. Nose without bleeding or purulent drainage. Orally intubated. NECK: Trachea midline. Supple, nontender. No palpable thyroid enlargement or nodularity. CARDIOVASCULAR: S1, S2, tachycardic rate, regular rhythm without murmurs, gallops, or rubs. No JVD. Peripheral pulses symmetric. RESPIRATORY/CHEST: Lung sounds coarse throughout all lung hurst, symmetric expansion, Kussmal's respiration pattern. GASTROINTESTINAL: Abdomen soft, non-tender, nondistended. No hepato-splenomegaly , or palpable masses. No guarding. Bowel sounds present. GENITOURINARY: Without palpable bladder distension. Caro catheter in place. MUSCULOSKELETAL: Extremities without clubbing, cyanosis, or edema. No joint tenderness or effusion noted. No calf tenderness. No mottling or clubbing. LYMPHATICS: No palpable cervical or supraclavicular adenopathy. NEUROLOGICAL:Moves all extremities spontaneously, not to command. Not opening eyes spontaneously, positive pupillary, corneal, gag, withdrawal to pain, no posturing seen. PSYCHIATRIC: Agitated on vent, off sedation. . Diagnostic Tests Laboratory: Laboratory Results - last 72 hr 08/07/18 08/07/18 08/07/18 02:54 03:05 03:05 WBC 18.6 H RBC 3.93 L Hgb 13.7 Hct 39.5 MCV 100.6 H MCH 34.9 H MCHC 34.7 RDW 12.7 Plt Count 362 MPV 7.6 Neut % (Auto) 84.7 H Lymph % (Auto) 4.7 L [place] % (Auto) 10.1 H Eos % (Auto) 0.1 Baso % (Auto) 0.4 Neut # (Auto) 15.8 H Lymph # (Auto) 0.9 L [place] # (Auto) 1.9 H Eos # (Auto) 0.0 Baso # (Auto) 0.1 WBC Differential . Differential Comment Auto diff final PT INR APTT Puncture Site Patient Temperature O2 Saturation ABG pH ABG pCO2 ABG pO2 ABG HCO3 ABG O2 Content ABG Base Excess ABG Methemoglobin Long Test Hemoglobin Carboxyhemoglobin O2 Delivery Device Liter Flow Vent Setting Inspired O2 Critical Value Sodium 142 Potassium 2.8 L* Chloride 104 Carbon Dioxide 26.8 Anion Gap 11 BUN 19 H Creatinine 1.14 Estimated GFR 55 L POC Glucose 32 L* Random Glucose 27 L* Lactic Acid Calcium 8.8 Phosphorus Magnesium 1.8 Total Bilirubin 0.3 AST 20 ALT 24 Alkaline Phosphatase 57 Ammonia Troponin I Less than 0.02 L Total Protein 7.3 Albumin 3.4 Urine Color Urine Clarity Urine pH Ur Specific [place] Urine Protein Urine Glucose (UA) Urine Ketones Urine Occult Blood Urine Nitrate Urine Bilirubin Urine Urobilinogen Ur Leukocyte Esterase Urine RBC Urine WBC Ur Squamous Epith Cells Hyaline Casts Urine Mucus Micro UA Comment Ur Microscopic Review Urine Culture Comments Nasal Screen MRSA (PCR) Urine Opiates Screen Ur Barbiturates Screen Ur Amphetamines Screen U Benzodiazepines Scrn Urine Cocaine Screen U Cannabinoids Screen 08/07/18 08/07/18 08/07/18 03:05 03:05 03:05 WBC RBC Hgb Hct MCV MCH MCHC RDW Plt Count MPV Neut % (Auto) Lymph % (Auto) [place] % (Auto) Eos % (Auto) Baso % (Auto) Neut # (Auto) Lymph # (Auto) [place] # (Auto) Eos # (Auto) Baso # (Auto) WBC Differential Differential Comment PT 9.9 INR 1.0 APTT Puncture Site Patient Temperature O2 Saturation ABG pH ABG pCO2 ABG pO2 ABG HCO3 ABG O2 Content ABG Base Excess ABG Methemoglobin Long Test Hemoglobin Carboxyhemoglobin O2 Delivery Device Liter Flow Vent Setting Inspired O2 Critical Value Sodium Potassium Chloride Carbon Dioxide Anion Gap BUN Creatinine Estimated GFR POC Glucose Random Glucose Lactic Acid 3.8 H Calcium Phosphorus Magnesium Total Bilirubin AST ALT Alkaline Phosphatase Ammonia 36 H Troponin I Total Protein Albumin Urine Color Urine Clarity Urine pH Ur Specific [place] Urine Protein Urine Glucose (UA) Urine Ketones Urine Occult Blood Urine Nitrate Urine Bilirubin Urine Urobilinogen Ur Leukocyte Esterase Urine RBC Urine WBC Ur Squamous Epith Cells Hyaline Casts Urine Mucus Micro UA Comment Ur Microscopic Review Urine Culture Comments Nasal Screen MRSA (PCR) Urine Opiates Screen Ur Barbiturates Screen Ur Amphetamines Screen U Benzodiazepines Scrn Urine Cocaine Screen U Cannabinoids Screen 08/07/18 08/07/18 08/07/18 03:05 03:09 03:50 WBC RBC Hgb Hct MCV MCH MCHC RDW Plt Count MPV Neut % (Auto) Lymph % (Auto) [place] % (Auto) Eos % (Auto) Baso % (Auto) Neut # (Auto) Lymph # (Auto) [place] # (Auto) Eos # (Auto) Baso # (Auto) WBC Differential Differential Comment PT INR APTT Puncture Site Right radial Patient Temperature 98.6 O2 Saturation 98 ABG pH 7.35 L ABG pCO2 49 H ABG pO2 417 H ABG HCO3 26 ABG O2 Content 19.3 ABG Base Excess 0.8 ABG Methemoglobin 0.7 Long Test Present Hemoglobin 13.2 Carboxyhemoglobin 1.2 O2 Delivery Device Ambu bag Liter Flow 15.00 Vent Setting Inspired O2 100 Critical Value No Sodium Potassium Chloride Carbon Dioxide Anion Gap BUN Creatinine Estimated GFR POC Glucose 148 H 46 L* Random Glucose Lactic Acid Calcium Phosphorus Magnesium Total Bilirubin AST ALT Alkaline Phosphatase Ammonia Troponin I Total Protein Albumin Urine Color Urine Clarity Urine pH Ur Specific [place] Urine Protein Urine Glucose (UA) Urine Ketones Urine Occult Blood Urine Nitrate Urine Bilirubin Urine Urobilinogen Ur Leukocyte Esterase Urine RBC Urine WBC Ur Squamous Epith Cells Hyaline Casts Urine Mucus Micro UA Comment Ur Microscopic Review Urine Culture Comments Nasal Screen MRSA (PCR) Urine Opiates Screen Ur Barbiturates Screen Ur Amphetamines Screen U Benzodiazepines Scrn Urine Cocaine Screen U Cannabinoids Screen 08/07/18 08/07/18 08/07/18 04:16 04:16 04:45 WBC RBC Hgb Hct MCV MCH MCHC RDW Plt Count MPV Neut % (Auto) Lymph % (Auto) [place] % (Auto) Eos % (Auto) Baso % (Auto) Neut # (Auto) Lymph # (Auto) [place] # (Auto) Eos # (Auto) Baso # (Auto) WBC Differential Differential Comment PT INR APTT Puncture Site Right radial Patient Temperature 98.6 O2 Saturation 97 ABG pH 7.40 ABG pCO2 45 H ABG pO2 110 ABG HCO3 27 H ABG O2 Content 18.6 ABG Base Excess 2.9 H ABG Methemoglobin 0.7 Long Test Present Hemoglobin 13.6 Carboxyhemoglobin 1.0 O2 Delivery Device Ventilator Liter Flow Vent Setting Prvc / ac / Inspired O2 80 Critical Value No Sodium Potassium Chloride Carbon Dioxide Anion Gap BUN Creatinine Estimated GFR POC Glucose Random Glucose Lactic Acid Calcium Phosphorus Magnesium Total Bilirubin AST ALT Alkaline Phosphatase Ammonia Troponin I Total Protein Albumin Urine Color Yellow Urine Clarity Hazy H Urine pH 6.0 Ur Specific [place] 1.022 Urine Protein 30 H Urine Glucose (UA) 500 or greater Urine Ketones 20 Urine Occult Blood Large H Urine Nitrate Negative Urine Bilirubin Negative Urine Urobilinogen Less than 2 Ur Leukocyte Esterase Negative Urine RBC 29 H Urine WBC 6 H Ur Squamous Epith Cells <1 Hyaline Casts 8 Urine Mucus Few H Micro UA Comment Cath-culture not ind Ur Microscopic Review Not Reportable Urine Culture Comments Cath-cult not ind Nasal Screen MRSA (PCR) Urine Opiates Screen Neg Ur Barbiturates Screen Neg Ur Amphetamines Screen Neg U Benzodiazepines Scrn Pos H Urine Cocaine Screen Pos H U Cannabinoids Screen Pos H 08/07/18 08/07/18 08/07/18 04:53 06:00 06:40 WBC RBC Hgb Hct MCV MCH MCHC RDW Plt Count MPV Neut % (Auto) Lymph % (Auto) [place] % (Auto) Eos % (Auto) Baso % (Auto) Neut # (Auto) Lymph # (Auto) [place] # (Auto) Eos # (Auto) Baso # (Auto) WBC Differential Differential Comment PT INR APTT Puncture Site Patient Temperature O2 Saturation ABG pH ABG pCO2 ABG pO2 ABG HCO3 ABG O2 Content ABG Base Excess ABG Methemoglobin Long Test Hemoglobin Carboxyhemoglobin O2 Delivery Device Liter Flow Vent Setting Inspired O2 Critical Value Sodium Potassium Chloride Carbon Dioxide Anion Gap BUN Creatinine Estimated GFR POC Glucose 101 21 L* Random Glucose Lactic Acid Calcium Phosphorus Magnesium Total Bilirubin AST ALT Alkaline Phosphatase Ammonia Troponin I Total Protein Albumin Urine Color Urine Clarity Urine pH Ur Specific [place] Urine Protein Urine Glucose (UA) Urine Ketones Urine Occult Blood Urine Nitrate Urine Bilirubin Urine Urobilinogen Ur Leukocyte Esterase Urine RBC Urine WBC Ur Squamous Epith Cells Hyaline Casts Urine Mucus Micro UA Comment Ur Microscopic Review Urine Culture Comments Nasal Screen MRSA (PCR) Not detected Urine Opiates Screen Ur Barbiturates Screen Ur Amphetamines Screen U Benzodiazepines Scrn Urine Cocaine Screen U Cannabinoids Screen 08/07/18 08/07/18 08/07/18 07:23 09:20 09:22 WBC RBC Hgb Hct MCV MCH MCHC RDW Plt Count MPV Neut % (Auto) Lymph % (Auto) [place] % (Auto) Eos % (Auto) Baso % (Auto) Neut # (Auto) Lymph # (Auto) [place] # (Auto) Eos # (Auto) Baso # (Auto) WBC Differential Differential Comment PT INR APTT Puncture Site Patient Temperature O2 Saturation ABG pH ABG pCO2 ABG pO2 ABG HCO3 ABG O2 Content ABG Base Excess ABG Methemoglobin Long Test Hemoglobin Carboxyhemoglobin O2 Delivery Device Liter Flow Vent Setting Inspired O2 Critical Value Sodium Potassium Chloride Carbon Dioxide Anion Gap BUN Creatinine Estimated GFR POC Glucose 173 H 21 L* 20 L* Random Glucose Lactic Acid Calcium Phosphorus Magnesium Total Bilirubin AST ALT Alkaline Phosphatase Ammonia Troponin I Total Protein Albumin Urine Color Urine Clarity Urine pH Ur Specific [place] Urine Protein Urine Glucose (UA) Urine Ketones Urine Occult Blood Urine Nitrate Urine Bilirubin Urine Urobilinogen Ur Leukocyte Esterase Urine RBC Urine WBC Ur Squamous Epith Cells Hyaline Casts Urine Mucus Micro UA Comment Ur Microscopic Review Urine Culture Comments Nasal Screen MRSA (PCR) Urine Opiates Screen Ur Barbiturates Screen Ur Amphetamines Screen U Benzodiazepines Scrn Urine Cocaine Screen U Cannabinoids Screen 08/07/18 08/07/18 08/07/18 09:33 10:15 11:16 WBC RBC Hgb Hct MCV MCH MCHC RDW Plt Count MPV Neut % (Auto) Lymph % (Auto) [place] % (Auto) Eos % (Auto) Baso % (Auto) Neut # (Auto) Lymph # (Auto) [place] # (Auto) Eos # (Auto) Baso # (Auto) WBC Differential Differential Comment PT INR APTT Puncture Site Patient Temperature O2 Saturation ABG pH ABG pCO2 ABG pO2 ABG HCO3 ABG O2 Content ABG Base Excess ABG Methemoglobin Long Test Hemoglobin Carboxyhemoglobin O2 Delivery Device Liter Flow Vent Setting Inspired O2 Critical Value Sodium Potassium Chloride Carbon Dioxide Anion Gap BUN Creatinine Estimated GFR POC Glucose 133 H 43 L* 66 L Random Glucose Lactic Acid Calcium Phosphorus Magnesium Total Bilirubin AST ALT Alkaline Phosphatase Ammonia Troponin I Total Protein Albumin Urine Color Urine Clarity Urine pH Ur Specific [place] Urine Protein Urine Glucose (UA) Urine Ketones Urine Occult Blood Urine Nitrate Urine Bilirubin Urine Urobilinogen Ur Leukocyte Esterase Urine RBC Urine WBC Ur Squamous Epith Cells Hyaline Casts Urine Mucus Micro UA Comment Ur Microscopic Review Urine Culture Comments Nasal Screen MRSA (PCR) Urine Opiates Screen Ur Barbiturates Screen Ur Amphetamines Screen U Benzodiazepines Scrn Urine Cocaine Screen U Cannabinoids Screen 08/07/18 08/07/18 08/07/18 11:41 11:41 11:51 WBC RBC Hgb Hct MCV MCH MCHC RDW Plt Count MPV Neut % (Auto) Lymph % (Auto) [place] % (Auto) Eos % (Auto) Baso % (Auto) Neut # (Auto) Lymph # (Auto) [place] # (Auto) Eos # (Auto) Baso # (Auto) WBC Differential Differential Comment PT INR APTT Puncture Site Patient Temperature O2 Saturation ABG pH ABG pCO2 ABG pO2 ABG HCO3 ABG O2 Content ABG Base Excess ABG Methemoglobin Long Test Hemoglobin Carboxyhemoglobin O2 Delivery Device Liter Flow Vent Setting Inspired O2 Critical Value Sodium 140 Potassium 3.2 L Chloride 101 Carbon Dioxide 26.6 Anion Gap 12 BUN 16 Creatinine 1.06 Estimated GFR 60 L POC Glucose 163 H Random Glucose 182 H D Lactic Acid Calcium 8.3 L Phosphorus Magnesium Total Bilirubin 0.7 AST 25 ALT 20 Alkaline Phosphatase 50 Ammonia Troponin I Less than 0.02 L Total Protein 6.6 D Albumin 3.2 L Urine Color Urine Clarity Urine pH Ur Specific [place] Urine Protein Urine Glucose (UA) Urine Ketones Urine Occult Blood Urine Nitrate Urine Bilirubin Urine Urobilinogen Ur Leukocyte Esterase Urine RBC Urine WBC Ur Squamous Epith Cells Hyaline Casts Urine Mucus Micro UA Comment Ur Microscopic Review Urine Culture Comments Nasal Screen MRSA (PCR) Urine Opiates Screen Ur Barbiturates Screen Ur Amphetamines Screen U Benzodiazepines Scrn Urine Cocaine Screen U Cannabinoids Screen 08/07/18 08/07/18 08/07/18 12:25 13:19 14:04 WBC 19.9 H RBC 3.87 L Hgb 13.7 Hct 39.5 MCV 101.9 H MCH 35.3 H MCHC 34.7 RDW 13.1 Plt Count 309 MPV 7.5 Neut % (Auto) Lymph % (Auto) [place] % (Auto) Eos % (Auto) Baso % (Auto) Neut # (Auto) Lymph # (Auto) [place] # (Auto) Eos # (Auto) Baso # (Auto) WBC Differential Differential Comment PT INR APTT Puncture Site Patient Temperature O2 Saturation ABG pH ABG pCO2 ABG pO2 ABG HCO3 ABG O2 Content ABG Base Excess ABG Methemoglobin Long Test Hemoglobin Carboxyhemoglobin O2 Delivery Device Liter Flow Vent Setting Inspired O2 Critical Value Sodium Potassium Chloride Carbon Dioxide Anion Gap BUN Creatinine Estimated GFR POC Glucose 128 H 52 L Random Glucose Lactic Acid Calcium Phosphorus Magnesium Total Bilirubin AST ALT Alkaline Phosphatase Ammonia Troponin I Total Protein Albumin Urine Color Urine Clarity Urine pH Ur Specific [place] Urine Protein Urine Glucose (UA) Urine Ketones Urine Occult Blood Urine Nitrate Urine Bilirubin Urine Urobilinogen Ur Leukocyte Esterase Urine RBC Urine WBC Ur Squamous Epith Cells Hyaline Casts Urine Mucus Micro UA Comment Ur Microscopic Review Urine Culture Comments Nasal Screen MRSA (PCR) Urine Opiates Screen Ur Barbiturates Screen Ur Amphetamines Screen U Benzodiazepines Scrn Urine Cocaine Screen U Cannabinoids Screen 08/07/18 08/07/18 08/07/18 14:33 15:42 15:44 WBC RBC Hgb Hct MCV MCH MCHC RDW Plt Count MPV Neut % (Auto) Lymph % (Auto) [place] % (Auto) Eos % (Auto) Baso % (Auto) Neut # (Auto) Lymph # (Auto) [place] # (Auto) Eos # (Auto) Baso # (Auto) WBC Differential Differential Comment PT INR APTT Puncture Site Patient Temperature O2 Saturation ABG pH ABG pCO2 ABG pO2 ABG HCO3 ABG O2 Content ABG Base Excess ABG Methemoglobin Long Test Hemoglobin Carboxyhemoglobin O2 Delivery Device Liter Flow Vent Setting Inspired O2 Critical Value Sodium Potassium Chloride Carbon Dioxide Anion Gap BUN Creatinine Estimated GFR POC Glucose 141 H 36 L* 41 L* Random Glucose Lactic Acid Calcium Phosphorus Magnesium Total Bilirubin AST ALT Alkaline Phosphatase Ammonia Troponin I Total Protein Albumin Urine Color Urine Clarity Urine pH Ur Specific [place] Urine Protein Urine Glucose (UA) Urine Ketones Urine Occult Blood Urine Nitrate Urine Bilirubin Urine Urobilinogen Ur Leukocyte Esterase Urine RBC Urine WBC Ur Squamous Epith Cells Hyaline Casts Urine Mucus Micro UA Comment Ur Microscopic Review Urine Culture Comments Nasal Screen MRSA (PCR) Urine Opiates Screen Ur Barbiturates Screen Ur Amphetamines Screen U Benzodiazepines Scrn Urine Cocaine Screen U Cannabinoids Screen 08/07/18 08/07/18 08/07/18 17:09 17:11 17:35 WBC RBC Hgb Hct MCV MCH MCHC RDW Plt Count MPV Neut % (Auto) Lymph % (Auto) [place] % (Auto) Eos % (Auto) Baso % (Auto) Neut # (Auto) Lymph # (Auto) [place] # (Auto) Eos # (Auto) Baso # (Auto) WBC Differential Differential Comment PT INR APTT Puncture Site Patient Temperature O2 Saturation ABG pH ABG pCO2 ABG pO2 ABG HCO3 ABG O2 Content ABG Base Excess ABG Methemoglobin Long Test Hemoglobin Carboxyhemoglobin O2 Delivery Device Liter Flow Vent Setting Inspired O2 Critical Value Sodium Potassium Chloride Carbon Dioxide Anion Gap BUN Creatinine Estimated GFR POC Glucose 74 76 Random Glucose Lactic Acid Calcium Phosphorus Magnesium Total Bilirubin AST ALT Alkaline Phosphatase Ammonia Troponin I Less than 0.02 L Total Protein Albumin Urine Color Urine Clarity Urine pH Ur Specific [place] Urine Protein Urine Glucose (UA) Urine Ketones Urine Occult Blood Urine Nitrate Urine Bilirubin Urine Urobilinogen Ur Leukocyte Esterase Urine RBC Urine WBC Ur Squamous Epith Cells Hyaline Casts Urine Mucus Micro UA Comment Ur Microscopic Review Urine Culture Comments Nasal Screen MRSA (PCR) Urine Opiates Screen Ur Barbiturates Screen Ur Amphetamines Screen U Benzodiazepines Scrn Urine Cocaine Screen U Cannabinoids Screen 08/07/18 08/07/18 08/07/18 18:05 19:02 19:50 WBC RBC Hgb Hct MCV MCH MCHC RDW Plt Count MPV Neut % (Auto) Lymph % (Auto) [place] % (Auto) Eos % (Auto) Baso % (Auto) Neut # (Auto) Lymph # (Auto) [place] # (Auto) Eos # (Auto) Baso # (Auto) WBC Differential Differential Comment PT INR APTT Puncture Site Patient Temperature O2 Saturation ABG pH ABG pCO2 ABG pO2 ABG HCO3 ABG O2 Content ABG Base Excess ABG Methemoglobin Long Test Hemoglobin Carboxyhemoglobin O2 Delivery Device Liter Flow Vent Setting Inspired O2 Critical Value Sodium Potassium Chloride Carbon Dioxide Anion Gap BUN Creatinine Estimated GFR POC Glucose 68 137 H 117 H Random Glucose Lactic Acid Calcium Phosphorus Magnesium Total Bilirubin AST ALT Alkaline Phosphatase Ammonia Troponin I Total Protein Albumin Urine Color Urine Clarity Urine pH Ur Specific [place] Urine Protein Urine Glucose (UA) Urine Ketones Urine Occult Blood Urine Nitrate Urine Bilirubin Urine Urobilinogen Ur Leukocyte Esterase Urine RBC Urine WBC Ur Squamous Epith Cells Hyaline Casts Urine Mucus Micro UA Comment Ur Microscopic Review Urine Culture Comments Nasal Screen MRSA (PCR) Urine Opiates Screen Ur Barbiturates Screen Ur Amphetamines Screen U Benzodiazepines Scrn Urine Cocaine Screen U Cannabinoids Screen 08/07/18 08/07/18 08/07/18 21:10 22:19 23:00 WBC RBC Hgb Hct MCV MCH MCHC RDW Plt Count MPV Neut % (Auto) Lymph % (Auto) [place] % (Auto) Eos % (Auto) Baso % (Auto) Neut # (Auto) Lymph # (Auto) [place] # (Auto) Eos # (Auto) Baso # (Auto) WBC Differential Differential Comment PT INR APTT Puncture Site Patient Temperature O2 Saturation ABG pH ABG pCO2 ABG pO2 ABG HCO3 ABG O2 Content ABG Base Excess ABG Methemoglobin Long Test Hemoglobin Carboxyhemoglobin O2 Delivery Device Liter Flow Vent Setting Inspired O2 Critical Value Sodium Potassium Chloride Carbon Dioxide Anion Gap BUN Creatinine Estimated GFR POC Glucose 106 150 H 142 H Random Glucose Lactic Acid Calcium Phosphorus Magnesium Total Bilirubin AST ALT Alkaline Phosphatase Ammonia Troponin I Total Protein Albumin Urine Color Urine Clarity Urine pH Ur Specific [place] Urine Protein Urine Glucose (UA) Urine Ketones Urine Occult Blood Urine Nitrate Urine Bilirubin Urine Urobilinogen Ur Leukocyte Esterase Urine RBC Urine WBC Ur Squamous Epith Cells Hyaline Casts Urine Mucus Micro UA Comment Ur Microscopic Review Urine Culture Comments Nasal Screen MRSA (PCR) Urine Opiates Screen Ur Barbiturates Screen Ur Amphetamines Screen U Benzodiazepines Scrn Urine Cocaine Screen U Cannabinoids Screen 1108/08/18 08/08/18 00:00 00:51 01:56 WBC RBC Hgb Hct MCV MCH MCHC RDW Plt Count MPV Neut % (Auto) Lymph % (Auto) [place] % (Auto) Eos % (Auto) Baso % (Auto) Neut # (Auto) Lymph # (Auto) [place] # (Auto) Eos # (Auto) Baso # (Auto) WBC Differential Differential Comment PT INR APTT Puncture Site Patient Temperature O2 Saturation ABG pH ABG pCO2 ABG pO2 ABG HCO3 ABG O2 Content ABG Base Excess ABG Methemoglobin Long Test Hemoglobin Carboxyhemoglobin O2 Delivery Device Liter Flow Vent Setting Inspired O2 Critical Value Sodium Potassium Chloride Carbon Dioxide Anion Gap BUN Creatinine Estimated GFR POC Glucose 171 H 179 H 210 H Random Glucose Lactic Acid Calcium Phosphorus Magnesium Total Bilirubin AST ALT Alkaline Phosphatase Ammonia Troponin I Total Protein Albumin Urine Color Urine Clarity Urine pH Ur Specific [place] Urine Protein Urine Glucose (UA) Urine Ketones Urine Occult Blood Urine Nitrate Urine Bilirubin Urine Urobilinogen Ur Leukocyte Esterase Urine RBC Urine WBC Ur Squamous Epith Cells Hyaline Casts Urine Mucus Micro UA Comment Ur Microscopic Review Urine Culture Comments Nasal Screen MRSA (PCR) Urine Opiates Screen Ur Barbiturates Screen Ur Amphetamines Screen U Benzodiazepines Scrn Urine Cocaine Screen U Cannabinoids Screen 08/08/18 08/08/18 08/08/18 03:02 04:11 05:13 WBC RBC Hgb Hct MCV MCH MCHC RDW Plt Count MPV Neut % (Auto) Lymph % (Auto) [place] % (Auto) Eos % (Auto) Baso % (Auto) Neut # (Auto) Lymph # (Auto) [place] # (Auto) Eos # (Auto) Baso # (Auto) WBC Differential Differential Comment PT INR APTT Puncture Site Patient Temperature O2 Saturation ABG pH ABG pCO2 ABG pO2 ABG HCO3 ABG O2 Content ABG Base Excess ABG Methemoglobin Long Test Hemoglobin Carboxyhemoglobin O2 Delivery Device Liter Flow Vent Setting Inspired O2 Critical Value Sodium Potassium Chloride Carbon Dioxide Anion Gap BUN Creatinine Estimated GFR POC Glucose 286 H 327 H 356 H Random Glucose Lactic Acid Calcium Phosphorus Magnesium Total Bilirubin AST ALT Alkaline Phosphatase Ammonia Troponin I Total Protein Albumin Urine Color Urine Clarity Urine pH Ur Specific [place] Urine Protein Urine Glucose (UA) Urine Ketones Urine Occult Blood Urine Nitrate Urine Bilirubin Urine Urobilinogen Ur Leukocyte Esterase Urine RBC Urine WBC Ur Squamous Epith Cells Hyaline Casts Urine Mucus Micro UA Comment Ur Microscopic Review Urine Culture Comments Nasal Screen MRSA (PCR) Urine Opiates Screen Ur Barbiturates Screen Ur Amphetamines Screen U Benzodiazepines Scrn Urine Cocaine Screen U Cannabinoids Screen 08/08/18 08/08/18 08/08/18 06:17 06:39 06:39 WBC 15.6 H RBC 3.91 L Hgb 13.7 Hct 40.2 MCV 102.9 H MCH 35.0 H MCHC 34.0 RDW 12.9 Plt Count 273 MPV 8.8 Neut % (Auto) 90.6 H Lymph % (Auto) 3.4 L [place] % (Auto) 6.0 Eos % (Auto) 0.0 Baso % (Auto) 0.0 Neut # (Auto) 14.1 H Lymph # (Auto) 0.5 L [place] # (Auto) 0.9 Eos # (Auto) 0.0 Baso # (Auto) 0.0 WBC Differential . Differential Comment Auto diff final PT 10.0 INR 1.0 APTT 29.4 Puncture Site Patient Temperature O2 Saturation ABG pH ABG pCO2 ABG pO2 ABG HCO3 ABG O2 Content ABG Base Excess ABG Methemoglobin Long Test Hemoglobin Carboxyhemoglobin O2 Delivery Device Liter Flow Vent Setting Inspired O2 Critical Value Sodium Potassium Chloride Carbon Dioxide Anion Gap BUN Creatinine Estimated GFR POC Glucose 332 H Random Glucose Lactic Acid Calcium Phosphorus Magnesium Total Bilirubin AST ALT Alkaline Phosphatase Ammonia Troponin I Total Protein Albumin Urine Color Urine Clarity Urine pH Ur Specific [place] Urine Protein Urine Glucose (UA) Urine Ketones Urine Occult Blood Urine Nitrate Urine Bilirubin Urine Urobilinogen Ur Leukocyte Esterase Urine RBC Urine WBC Ur Squamous Epith Cells Hyaline Casts Urine Mucus Micro UA Comment Ur Microscopic Review Urine Culture Comments Nasal Screen MRSA (PCR) Urine Opiates Screen Ur Barbiturates Screen Ur Amphetamines Screen U Benzodiazepines Scrn Urine Cocaine Screen U Cannabinoids Screen 08/08/18 08/08/18 08/08/18 06:39 06:41 08:12 WBC RBC Hgb Hct MCV MCH MCHC RDW Plt Count MPV Neut % (Auto) Lymph % (Auto) [place] % (Auto) Eos % (Auto) Baso % (Auto) Neut # (Auto) Lymph # (Auto) [place] # (Auto) Eos # (Auto) Baso # (Auto) WBC Differential Differential Comment PT INR APTT Puncture Site Patient Temperature O2 Saturation ABG pH ABG pCO2 ABG pO2 ABG HCO3 ABG O2 Content ABG Base Excess ABG Methemoglobin Long Test Hemoglobin Carboxyhemoglobin O2 Delivery Device Liter Flow Vent Setting Inspired O2 Critical Value Sodium 137 Potassium 4.8 D Chloride 102 Carbon Dioxide 23.0 Anion Gap 12 BUN 11 Creatinine 1.18 Estimated GFR 66 L POC Glucose 358 H 381 H Random Glucose 352 H D Lactic Acid Calcium 9.2 D Phosphorus 2.4 L Magnesium 1.7 Total Bilirubin 0.4 AST 34 ALT 21 Alkaline Phosphatase 67 Ammonia Troponin I Total Protein 7.7 D Albumin 3.3 L Urine Color Urine Clarity Urine pH Ur Specific [place] Urine Protein Urine Glucose (UA) Urine Ketones Urine Occult Blood Urine Nitrate Urine Bilirubin Urine Urobilinogen Ur Leukocyte Esterase Urine RBC Urine WBC Ur Squamous Epith Cells Hyaline Casts Urine Mucus Micro UA Comment Ur Microscopic Review Urine Culture Comments Nasal Screen MRSA (PCR) Urine Opiates Screen Ur Barbiturates Screen Ur Amphetamines Screen U Benzodiazepines Scrn Urine Cocaine Screen U Cannabinoids Screen 08/08/18 09:14 WBC RBC Hgb Hct MCV MCH MCHC RDW Plt Count MPV Neut % (Auto) Lymph % (Auto) [place] % (Auto) Eos % (Auto) Baso % (Auto) Neut # (Auto) Lymph # (Auto) [place] # (Auto) Eos # (Auto) Baso # (Auto) WBC Differential Differential Comment PT INR APTT Puncture Site Patient Temperature O2 Saturation ABG pH ABG pCO2 ABG pO2 ABG HCO3 ABG O2 Content ABG Base Excess ABG Methemoglobin Long Test Hemoglobin Carboxyhemoglobin O2 Delivery Device Liter Flow Vent Setting Inspired O2 Critical Value Sodium Potassium Chloride Carbon Dioxide Anion Gap BUN Creatinine Estimated GFR POC Glucose 399 H Random Glucose Lactic Acid Calcium Phosphorus Magnesium Total Bilirubin AST ALT Alkaline Phosphatase Ammonia Troponin I Total Protein Albumin Urine Color Urine Clarity Urine pH Ur Specific [place] Urine Protein Urine Glucose (UA) Urine Ketones Urine Occult Blood Urine Nitrate Urine Bilirubin Urine Urobilinogen Ur Leukocyte Esterase Urine RBC Urine WBC Ur Squamous Epith Cells Hyaline Casts Urine Mucus Micro UA Comment Ur Microscopic Review Urine Culture Comments Nasal Screen MRSA (PCR) Urine Opiates Screen Ur Barbiturates Screen Ur Amphetamines Screen U Benzodiazepines Scrn Urine Cocaine Screen U Cannabinoids Screen Result Diagrams: 08/08/18 06:39 08/08/18 06:39 Microbiology: Microbiology 08/07/18 03:06 Aerobic Blood Culture - Preliminary Blood - Peripheral gram positive rods Imaging: Chest X-Ray 08/07/18 02:56 CONCLUSION: Endotracheal tube and nasogastric tube in place. No acute cardiopulmonary disease identified. Head CT 08/07/18 02:56 CONCLUSION: 1. Somewhat decreased flores matter-white matter differentiation diffusely. This finding can be seen with diffuse anoxic/hypoxic injury. 2. Motion artifact. . Head MRI 08/07/18 09:53 CONCLUSION: 1. Minimal increased signal in the flores matter of the cerebral cortex seen on the diffusion imaging could be subtle evidence for anoxia. 2. No other significant amount is appreciated. Procedures: 08/07: Intubation in the field. . Patient/Family Conference Present at Family Conference: Spoke with patient's cousin, Alberto, at length. Explored other family connections to determine appropriate decision maker. Patient's mother is , as are her siblings. Patient's father is unknown but reportedly has had no connection with the patient since he was a very young child. Patient has 1 sister who has been on a missing persons list for over 10 years. Patient has never been and has no known children. Patient and his cousin grew up together and have been close lifelong friends. His cousin has been providing him support to prevent him from becoming homeless. Discussed palliative care purpose and focus as well as the below listed items. Reviewed patient's early prognosis pending further workup. Reviewed CODE STATUS decisions which will need to be addressed as well as goals of care. As cousin appears to be the only living relative at this time, is readily available and willing to serve, at this time he will be the patient's healthcare decision maker, pending completion of [employer], Internet search and due diligence in attempting to locate his father and sister. . Family Conference Location: Telephone Issues Discussed: * Palliative care role, purpose, approach * Additional medical, psychosocial, and spiritual history * Patients general health, functional status, and cognitive changes in the months leading up to the current hospitalization * Patient/family understanding of the current medical problems * Patient/family understanding of prognosis * Patients goals of care as best understood from advance directives and/or conversations and/or values * Current medical treatment options and benefits/burdens of those options * Likely scenarios comparing ongoing aggressive care with a transition to comfort measures only * Questions answered to the best of my ability * Palliative care contact information provided Assessment and Plan Pertinent Non-Medical Issues: Psychosocial: He was born in [place] but moved to [place] as a young child with his mother. He began attending college to earn his degree in [x+1] , however never completed that. He has not been nor had any known children. Spiritual: Raised in the Taoist shyla but was exploring conversion to Catholicism at one time. 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 Legal: No advance directive paperwork completed. Ethical issues impacting care: Patient's only known family is his cousin, who will serve as his decision maker, pending completion of other modalities to attempt to locate family. . Important Contacts: Cousin: Alberto Rey . Prognosis: Prognosis is guarded. This is a 47-year-old [place] blood sugar of 14 and an insulin needle lying next to him. It appeared he had injected himself with an entire syringe of long-acting insulin which she had taken from his cousin. He had an unknown downtime. Urine toxicology was positive for benzodiazepines, cocaine and cannabinoids. His presenting blood sugar at the hospital was 38. He remains encephalopathic. Imaging studies are indicative of a possible anoxic brain injury. He is at elevated risk for continued complications and decline. . . Code Status: Full Code (By default) Plan: PLAN: Legal decision maker: The patient at this time is not capacitated for decision-making as he is unresponsive on a ventilator. [employer] has been initiated to try to locate his sister, who has been missing for at least 10 years, and his father, who has had no contact with the patient since he was a very young child. At this time his cousin, Alberto, is readily available and willing to serve and to his knowledge the only remaining family member. Goals: To be determined CODE STATUS: FULL CODE (by default) SYMPTOMS: * Encephalopathy: Multifactorial to include likely hypoxic and hypoglycemic injury, metabolic acidosis, extended downtime without cardiac arrest. Imaging studies initially indicate likely an anoxic/hypoxic brain injury. Attempted sedation vacation was unsuccessful due to patient agitation, tachycardia, tachypnea, thrashing and hypertension. we will continue to discuss goals of care with his cousin. * Pain: Multifactorial to include chronic disease, peripheral neuropathy, history of gastroparesis, previous injuries, bedbound status, invasive lines and tubes. Currently patient on Precedex, however does have morphine available if needed. Attempting to minimize sedation for neurological evaluation SUMMARY This is a 47-year-old [place] with a blood sugar of 14, unresponsive for an unknown length of time. He was emergently intubated in the field but has not regained consciousness. Suspect severe anoxic injury. At this time he is agitated off sedation, but not following commands. Cousin is currently his healthcare proxy decision-maker pending further investigation with [employer] and Google search for any other family members. At this time the patient is considered to have an anoxic injury and would be at elevated risk of continued complications and decline. Palliative care will continue to follow the patient during hospital course as condition evolves, to assist patient/decision-maker with understanding of their medical conditions, weighing benefits/burdens of treatment options, for clarification of goals of treatment. Additionally will assist with any symptoms of palliative concern. . Appreciation Thank you for the opportunity to participate in the care of Jeremy Murrieta. Attestation Attestation: To help prompt me to consider important information that might be impacting today's encounter and assessment, information from prior notes written by myself or my colleagues may have been "brought forward" into today's note. My signature on this note, however, is an attestation that I personally performed the exam, history, and/or decision-making noted today, and, unless otherwise indicated, the interactions with patient, family, and staff as well as the review of records all occurred today. I also attest that the listed assessment and stated plan reflect my best clinical judgment today based on the combination of historical information, prior notes, and today's exam/ interactions. When time spent is documented, it refers only to time spent today by the signer, or if indicated, combined time spent today by collaborating physician/nurse practitioner. .
[2018-08-08] MEDS: Dexmedetomidine Inj 200 MCG in Sodium Chlor 0.9% Inj 48 ML IV.CONT PRN ×2 (12:17→20:12)
--- NOTE | 2018-08-08 12:54 | ECG ---
Date Performed: 08/07/2018 Time Performed: 12:20:15 PTAGE: 89 years EKG: SINUS TACHYCARDIA MARKED LEFT AXIS DEVIATION POSSIBLE RIGHT VENTRICULAR CONDUCTION DELAY SE PTAL MYOCARDIAL INFARCTION , PROBABLY OLD ABNORMAL ECG Since the PREVIOUS TRACING , no significant change noted PREVIOUS TRACIN08/07/2018 03.03 DOCTOR: Jasmyne Rosas Interpretating Date/Time 08/08/2018 12:50:53
[2018-08-08] MEDS: Vancomycin Inj 1,000 MG in Sodium Chlor 0.9% Inj 250 ML IV.SIG SCH (17:46)
[2018-08-09] MEDS: Insulin NovoLIN Regular Correctional Sugar Inj SQ SCH ×12 (01:17→23:10)
[2018-08-09] MEDS: Dexmedetomidine Inj 200 MCG in Sodium Chlor 0.9% Inj 48 ML IV.CONT PRN ×2 (01:26→08:27)
[2018-08-09] MEDS: Chlorhexidine Gluconate 2% 1 Pack (2 Cloths) TOPICAL SCH (03:20)
[2018-08-09] MEDS: Oral Hygiene Kit OROPHARYNG SCH ×4 (03:20→23:10)
[2018-08-09] MEDS: Vancomycin Inj 1,000 MG in Sodium Chlor 0.9% Inj 250 ML IV.SIG SCH ×2 (03:21→16:30)
[2018-08-09] MEDS: Heparin - SQ 10,000 UNITS/ML Vial SQ SCH ×3 (04:57→21:30)
[2018-08-09 08:02] LABS: Baso % (Auto) 0.4 % (0.0-2.0); Eos % (Auto) 0.3 % (0.0-4.0); Hematocrit 38.4 % (39.0-51.0); Hemoglobin 13.1 gm/dL (13.0-17.0); Lymph # (Auto) 1.2 th/mm3 (1.0-4.8); Lymph % (Auto) 13.8 % (9.0-44.0); Mean Corpuscular Hemoglobin 35.5 pg (27.0-34.0); Mean Corpuscular Volume 104.2 fL (80.0-100.0); Mono # (Auto) 0.7 th/mm3 (0.0-0.9); Mono % (Auto) 8.7 % (0.0-8.0); Neut # (Auto) 6.5 th/mm3 (1.8-7.7); Neut % (Auto) 76.8 % (16.0-70.0); Platelet Count 226 th/mm3 (150-450); Red Blood Count 3.68 mil/mm3 (4.50-5.90); Red Cell Distribution Width 13.3 % (11.6-17.2); White Blood Count 8.5 th/mm3 (4.0-11.0)
[2018-08-09] MEDS: Dextrose 5%/NaCl 0.45% Inj 1,000 ML IV.CONT SCH ×2 (08:29→17:37)
[2018-08-09] MEDS: Chlorhexidine 0.12% Oral Kit 15 ML UDC OROPHARYNG SCH ×2 (08:30→20:04)
[2018-08-09 08:36] LABS: Alanine Aminotransferase 21 U/L (12-78); Albumin 2.5 g/dL (3.4-5.0); Alkaline Phosphatase 63 U/L (45-117); Anion Gap 8 meq/L (5-15); Aspartate Aminotransferase 25 U/L (15-37); Blood Urea Nitrogen 21 mg/dL (7-18); Calcium 9.1 mg/dL (8.5-10.1); Carbon Dioxide 26.4 meq/L (21.0-32.0); Chloride 113 meq/L (98-107); Glomerular Filtration Rate Greater Than 89 mL/min (>89); Glucose,Random 86 mg/dL (74-106); Magnesium 2.1 mg/dL (1.5-2.5); Phosphorus 3.2 mg/dL (2.5-4.9); Sodium 147 meq/L (136-145); Total Protein 6.7 g/dL (6.4-8.2)
[2018-08-09] MEDS: Senna/Docusate Sodium 8.6/50 MG Tablet PO SCH ×2 (10:06→20:12)
--- NOTE | 2018-08-09 10:34 | P.PNPAL ---
[employer] results obtained. Possible father, Jeremy Kumar [Tanski] no phone number, address [address] [place] [address]. Left message with [employer] [employer]- police officer booking Jona for wellness check to determine if this is patient's father and if he still lives at this address. Awaiting call back. Possible relative to Jeremy Kumar, Anival Ellsworth, no phone number. At this time patient's cousin remains only reachable and confirmed family, would proceed with utilizing him as health care proxy until other family identified/confirmed. Cousin: Alberto Rey
[2018-08-09] MEDS: Famotidine PF Inj 20 MG/2 ML Vial IV.PUSH SCH ×2 (10:35→20:11)
--- NOTE | 2018-08-09 12:27 | P.PNCC ---
Subjective Subjective Remarks/Hospital Course: Late 30s/early [id number] patient of unknown identity was brought in by EMS emergently. [place]. Blood sugar was checked and it was 14. Patient was given 1 amp of D50 but did not wake up. He was given IV Narcan with no change. Patient was intubated at the scene by EMS for an airway protection. He was brought in being bagged by positive pressure ventilation. As per EMS patient never lost his pulse. Vital signs were otherwise stable. Upon arrival patient had no purposeful movement and was obviously no condition to give any meaningful history. Blood sugar upon arrival was 38. 08/08 Patient remains sedated and intubated. Afebrile. 08/09: neuro exam extremely poor. MRI suggestive of anoxic injury secondary to profound hypoglycemia. prognosis very poor for meaningful neurologic recovery. on precedex to facilitate vent synchrony. appears to posture with the upper extremities. blood sugar has now stabilized out. Objective Vital Signs / I&O: Vital Signs 08/08/18 12:30 08/08/18 13:00 08/08/18 13:30 Temperature 37.2 C 37.0 C 37.2 C Pulse Rate 95 H 96 H 105 H Respiratory Rate 21 34 H 23 Blood Pressure 102/68 123/86 115/84 Pulse Oximetry 98 100 100 08/08/18 14:00 08/08/18 14:30 08/08/18 15:00 Temperature 37.4 C 37.6 C H 37.4 C Pulse Rate 101 H 97 H 104 H Respiratory Rate 22 21 19 Blood Pressure 102/69 102/66 105/75 Pulse Oximetry 99 98 99 08/08/18 15:30 08/08/18 16:00 08/08/18 16:11 Temperature 37.4 C 37.4 C 37.3 C Pulse Rate 92 H 90 103 H Respiratory Rate 21 21 29 H Blood Pressure 97/60 L 91/63 L 135/81 Pulse Oximetry 97 97 100 08/08/18 16:27 08/08/18 16:30 08/08/18 17:00 Temperature 37.4 C 37.4 C Pulse Rate 86 84 Respiratory Rate 18 19 19 Blood Pressure 95/63 L 96/65 L Pulse Oximetry 99 99 100 08/08/18 17:21 08/08/18 17:30 08/08/18 18:00 Temperature 37.3 C 37.3 C 37.4 C Pulse Rate 80 80 79 Respiratory Rate 19 19 19 Blood Pressure 109/75 86/57 L 90/63 L Pulse Oximetry 100 99 99 08/08/18 18:30 08/08/18 19:00 08/08/18 19:30 Temperature 37.3 C 37.2 C 37.2 C Pulse Rate 75 74 72 Respiratory Rate 19 18 18 Blood Pressure 95/63 L 96/62 L 97/63 L Pulse Oximetry 99 99 99 08/08/18 19:56 08/08/18 20:00 08/08/18 20:30 Temperature 37.1 C 37.1 C Pulse Rate 73 71 Respiratory Rate 16 16 16 Blood Pressure 98/65 L 102/67 Pulse Oximetry 99 99 99 08/08/18 21:00 08/08/18 21:30 08/08/18 22:00 Temperature 37.1 C 37.1 C 37.2 C Pulse Rate 75 74 74 Respiratory Rate 17 17 16 Blood Pressure 105/72 103/74 105/75 Pulse Oximetry 100 99 99 08/08/18 22:30 08/08/18 23:00 08/08/18 23:30 Temperature 37.2 C 37.2 C 37.2 C Pulse Rate 74 71 72 Respiratory Rate 16 16 16 Blood Pressure 117/83 116/79 121/82 Pulse Oximetry 100 100 100 08/09/18 00:00 08/09/18 00:30 08/09/18 00:53 Temperature 37.2 C 37.2 C Pulse Rate 68 67 Respiratory Rate 16 16 16 Blood Pressure 108/74 109/75 Pulse Oximetry 100 100 100 08/09/18 01:00 08/09/18 01:30 08/09/18 02:00 Temperature 37.2 C 37.1 C 37.0 C Pulse Rate 67 66 67 Respiratory Rate 16 16 16 Blood Pressure 110/76 107/73 102/70 Pulse Oximetry 100 100 100 08/09/18 02:30 08/09/18 03:00 08/09/18 03:30 Temperature 36.9 C 36.9 C 36.9 C Pulse Rate 79 67 75 Respiratory Rate 16 16 17 Blood Pressure 111/81 100/68 130/86 Pulse Oximetry 100 100 100 08/09/18 04:00 08/09/18 04:30 08/09/18 04:47 Temperature 36.9 C 36.9 C Pulse Rate 69 68 Respiratory Rate 16 16 16 Blood Pressure 88/61 L 90/64 L Pulse Oximetry 100 100 100 08/09/18 05:00 08/09/18 05:30 08/09/18 06:00 Temperature 36.8 C 36.7 C 36.9 C Pulse Rate 69 69 75 Respiratory Rate 16 16 16 Blood Pressure 91/66 L 93/64 L 87/60 L Pulse Oximetry 100 100 100 08/09/18 06:30 08/09/18 07:00 08/09/18 07:30 Temperature 36.5 C 37.0 C 37.2 C Pulse Rate 73 69 71 Respiratory Rate 16 16 16 Blood Pressure 92/63 L 106/72 110/76 Pulse Oximetry 100 100 100 08/09/18 07:49 08/09/18 11:11 Temperature Pulse Rate Respiratory Rate 16 17 Blood Pressure Pulse Oximetry 99 99 Intake & Output 08/08/18 08/09/18 08/09/18 18:59 06:59 18:59 Intake Total 2660 / 2660 98 / 98 896 / 896 Output Total 4030 / 4030 350 / 350 Balance -1370 / -1370 98 / 98 546 / 546 Intake: IV 1574 / 1574 98 / 98 300 / 300 Precedex Inj 200 MCG In NS Inj 98 / 98 50 / 50 48 ML @ 0.2 MCG/KG/HR 2.99 mls/ hr IV.CONT TITRATE PRN Rx#: [id number] D10W Inj 1,000 ML @ 50 mls/hr 774 / 774 IV.CONT .Q20H [facility] Rx#:[id number] Diprivan 1000 mg/100 ml Inj 1, 50 / 50 000 mg In 100 ml @ 5 MCG/KG/MIN 1.905 mls/hr IV.CONT TITRATE PRN Rx#:[id number] D5W/Normal Saline Inj 1,000 ML 500 / 500 @ 75 mls/hr IV.SIG .[id number] [facility] Rx#:[id number] Vancomycin Inj 1,000 MG In NS 250 / 250 250 / 250 Inj 250 ML @ 250 mls/hr IV.SIG Q12H [facility] Rx#:[id number] Tube Feeding 966 / 966 536 / 536 Tube Irrigant 120 / 120 60 / 60 Output: Urine 1600 / 1600 Urine Amount (Catheter) 2250 / 2250 350 / 350 Indwelling Temp Sensing 2250 / 2250 350 / 350 Catheter Gastric Drainage 180 / 180 Orogastric Tube 180 / 180 Other: Date of Last Bowel Movement 08/08/18 08/09/18 # Bowel Movements 1 # Incontinent Bowel Movements 1 Result Diagrams: 08/09/18 06:21 08/09/18 06:21 Objective Remarks: GENERAL: middle aged male, lying in bed, intubated, critically ill. SKIN: Warm and dry. HEAD: Normocephalic. EYES: No scleral icterus. No injection or drainage. NECK: trachea midline. No JVD CARDIOVASCULAR: normal rate, regular rhythm. sinus. RESPIRATORY: Equal chest rise. fio2 40%. peep 5. GASTROINTESTINAL: Abdomen soft, non-tender, nondistended. no guarding. MUSCULOSKELETAL: No cyanosis, or edema. Neuro: pupils are 3mm, conjugate, equal, reactive. intermittent roving eye movements. +cough. +gag. extensor posturing of the bilateral upper extremities. the bilateral lower extremities move spontaneously, but do not withdraw to pain or follow commands. not purposeful. appears to have myoclonus with ventilator firing. Assessment and Plan - Assessment and Plan Plan: Assessment: 47yM s/p long-acting insulin overdose with associated severe hypoxic /ischemic encephalopathy. Tomorrow will be 72h post-event, and if we do not have return of at least purposeful/localizing movements by then, it is unlikely he will ever have meaningful neurologic recovery. remains critically ill. Closest relative is cousin as best as we can tell-- palliative involved and continued discussions over long-term goals of care. If family wishes to be aggressive, then early trach/peg to facilitate weaning from sedation is most appropriate. Plan Neuro: Hypoxic-Ischemic Encephalopathy Overdose of long-acting insulin Suicide Attempt Polysubstance abuse - secondary to profound hypoglycemia - frequent neuro - precedex for vent synchrony. goal RASS -1/-2. - Daily sedation vacation. - MRI brain: Minimal increased signal in the flores matter of the cerebral cortex seen on the diffusion imaging could be subtle evidence for anoxia. - CT brain: Somewhat decreased flores matter-white matter differentiation diffusely. This finding can be seen with diffuse anoxic/hypoxic injury. - EEG: Moderate encephalopathy - Neuro is following Dr. Destin Thomas Act and psych consult if any return of neurologic function. - UDS + cocaine, cannabinoids, benzos Pulm: Acute Hypoxic and Hypercarbic Respiratory Failure - no weaning of mechanical ventilation until neurologic exam improves - wean fio2 for goal spo2 > 90% - prn nebs - hob elevated - vent bundle CV: - keep on telemetry - goal map > 65 mmHg : - no indication for freitas catheter - daily bmp - strict i/o's GI: Acute protein calorie malnutrition- moderate - tube feeds - OG tube - daily bmp,mg,phos - On Pepcid for GI prophylaxis - Continue tube feeds- Glucerna 1.5@50ml/hr ID: Bacteremia Leukocytosis - on vanc - BC 08/07: GPR - daily cbc Endo: Intentional long-acting insulin overdose Profound hypoglycemia- resolving - SSI with accuchecks - s/p steroids and D5NS as his BS now in high 300's. Patient was hypoglycemic . Heme: - Monitor CBC DVT GI prophylaxis -Teds SCDs -Subcu heparin -Pepcid Palliative care eval to asses with goals of care Critical care time: 32 minutes, exclusive of separately billable procedures.
[2018-08-09] MEDS: Dexmedetomidine Inj 1,000 MCG in Sodium Chlor 0.9% Inj 240 ML IV.CONT PRN (15:55)
[2018-08-09] MEDS: Acetaminophen 325 MG Tablet PO PRN (16:30)
--- NOTE | 2018-08-09 19:21 | P.PNPAL ---
Reason for Visit Reason for visit: a. To assist with evaluation and management of symptoms including: Encephalopathy, pain b. To assist medical decision maker(s) with: better understanding of current medical conditions; weighing benefits/burdens of medical treatment options; making medical treatment decisions. Subjective Subjective/Interval History: Patient seen and examined in ICU. Discussed with Dr. Hooks and nursing staff. Patient remains on mechanical ventilation, on Precedex to facilitate vent synchrony. Unresponsive to voice, exam or painful stimuli. No evidence of neurologic improvement. MRI suggestive of anoxic injury secondary to profound hypoglycemia. Prognosis poor for meaningful neurologic recovery. Posturing noted with upper extremity painful stimuli. . Family/Friend Interactions: Will attempt to meet with cousinAlberto on 08/10/18 to further clarify goals of medical treatment. Advance Directives Health Care Surrogate Name and Number: At this time patient's cousinAlberto is the only identified family. Documented care wishes:: No known written advanced directives. Significant change in goals:: Will attempt to meet/ discuss with cousin Alberto Rey on 08/10/18 to further clarify goals of medical treatment. Objective Vital Signs: Vital Signs 08/08/18 19:30 08/08/18 19:56 08/08/18 20:00 Temperature 99.0 F 98.8 F Pulse Rate 72 73 Respiratory Rate 18 16 16 Blood Pressure 97/63 L 98/65 L Pulse Oximetry 99 99 99 08/08/18 20:30 08/08/18 21:00 08/08/18 21:30 Temperature 98.8 F 98.8 F 98.8 F Pulse Rate 71 75 74 Respiratory Rate 16 17 17 Blood Pressure 102/67 105/72 103/74 Pulse Oximetry 99 100 99 08/08/18 22:00 08/08/18 22:30 08/08/18 23:00 Temperature 99.0 F 99.0 F 99.0 F Pulse Rate 74 74 71 Respiratory Rate 16 16 16 Blood Pressure 105/75 117/83 116/79 Pulse Oximetry 99 100 100 08/08/18 23:30 08/09/18 00:00 08/09/18 00:30 Temperature 99.0 F 99.0 F 99.0 F Pulse Rate 72 68 67 Respiratory Rate 16 16 16 Blood Pressure 121/82 108/74 109/75 Pulse Oximetry 100 100 100 08/09/18 00:53 08/09/18 01:00 08/09/18 01:30 Temperature 99.0 F 98.8 F Pulse Rate 67 66 Respiratory Rate 16 16 16 Blood Pressure 110/76 107/73 Pulse Oximetry 100 100 100 08/09/18 02:00 08/09/18 02:30 08/09/18 03:00 Temperature 98.6 F 98.4 F 98.4 F Pulse Rate 67 79 67 Respiratory Rate 16 16 16 Blood Pressure 102/70 111/81 100/68 Pulse Oximetry 100 100 100 08/09/18 03:30 08/09/18 04:00 08/09/18 04:30 Temperature 98.4 F 98.4 F 98.4 F Pulse Rate 75 69 68 Respiratory Rate 17 16 16 Blood Pressure 130/86 88/61 L 90/64 L Pulse Oximetry 100 100 100 08/09/18 04:47 08/09/18 05:00 08/09/18 05:30 Temperature 98.2 F 98.1 F Pulse Rate 69 69 Respiratory Rate 16 16 16 Blood Pressure 91/66 L 93/64 L Pulse Oximetry 100 100 100 08/09/18 06:00 08/09/18 06:30 08/09/18 07:00 Temperature 98.4 F 97.7 F 98.6 F Pulse Rate 75 73 69 Respiratory Rate 16 16 16 Blood Pressure 87/60 L 92/63 L 106/72 Pulse Oximetry 100 100 100 08/09/18 07:30 08/09/18 07:49 08/09/18 08:00 Temperature 99.0 F 99.3 F Pulse Rate 71 79 Respiratory Rate 16 16 16 Blood Pressure 110/76 110/68 Pulse Oximetry 100 99 99 08/09/18 08:30 08/09/18 09:00 08/09/18 09:30 Temperature 98.8 F 99.7 F H 99.9 F H Pulse Rate 82 71 90 Respiratory Rate 18 16 17 Blood Pressure 110/76 116/74 120/70 Pulse Oximetry 100 100 100 08/09/18 10:00 08/09/18 10:30 08/09/18 11:00 Temperature 99.7 F H 99.9 F H 99.7 F H Pulse Rate 75 93 H 115 H Respiratory Rate 16 19 37 H Blood Pressure 133/81 137/84 Pulse Oximetry 99 100 100 08/09/18 11:01 08/09/18 11:11 08/09/18 11:30 Temperature 99.7 F H 99.9 F H Pulse Rate 112 H 86 Respiratory Rate 45 H 17 18 Blood Pressure 170/98 H 130/85 Pulse Oximetry 100 99 100 08/09/18 12:00 08/09/18 12:30 08/09/18 13:00 Temperature 100.0 F H 100.0 F H 99.9 F H Pulse Rate 84 84 100 H Respiratory Rate 18 18 18 Blood Pressure 132/86 139/89 109/75 Pulse Oximetry 100 99 97 08/09/18 13:30 08/09/18 13:46 08/09/18 14:00 Temperature 100.0 F H 100.0 F H 100.0 F H Pulse Rate 87 86 83 Respiratory Rate 16 16 16 Blood Pressure 114/82 121/83 130/87 Pulse Oximetry 99 08/09/18 14:30 08/09/18 15:00 08/09/18 15:11 Temperature 100.2 F H 100.2 F H Pulse Rate 79 77 Respiratory Rate 16 16 16 Blood Pressure 141/90 H 150/92 H Pulse Oximetry 100 100 100 08/09/18 15:30 08/09/18 16:00 08/09/18 16:30 Temperature 100.2 F H 100.4 F H 100.6 F H Pulse Rate 78 71 71 Respiratory Rate 16 16 16 Blood Pressure 151/94 H 152/93 H 158/96 H Pulse Oximetry 100 100 100 08/09/18 17:00 08/09/18 17:30 08/09/18 18:00 Temperature 100.6 F H 100.9 F H 100.9 F H Pulse Rate 68 67 83 Respiratory Rate 16 16 28 H Blood Pressure 161/96 H 164/95 H 144/87 H Pulse Oximetry 100 100 92 L 08/09/18 18:30 Temperature 100.8 F H Pulse Rate 72 Respiratory Rate 16 Blood Pressure 150/98 H Pulse Oximetry 100 Intake & Output 08/09/18 08/09/18 08/10/18 06:59 18:59 06:59 Intake Total 98 / 98 1792 / 1792 Output Total 2480 / 2480 Balance 98 / -688 / -688 Intake: IV 98 / 98 600 / 600 Precedex Inj 200 MCG In NS Inj 98 100 / 100 48 ML @ 0.2 MCG/KG/HR 2.99 mls/ hr IV.CONT TITRATE PRN Rx#: [id number] Vancomycin Inj 1,000 MG In NS 500 / 500 Inj 250 ML @ 250 mls/hr IV.SIG Q12H MAGDA Rx#:[id number] Tube Feeding 1072 / 1072 Tube Irrigant 120 / 120 Output: Urine 1600 / 1600 Urine Amount (Catheter) 700 / 700 Indwelling Temp Sensing 700 / 700 Catheter Gastric Drainage 180 / 180 Orogastric Tube 180 / 180 Other: Date of Last Bowel Movement 08/09/18 08/09/18 # Bowel Movements 1 1 # Incontinent Bowel Movements 1 1 Physical Exam: CONSTITUTIONAL/GENERAL: This is an adequately nourished patient, intubated, off sedation, in mild distress. TUBES/LINES/DRAINS: Left IJ, PIV x2, ETT, OGT, Caro, SKIN: No jaundice, rashes, or lesions. Ecchymoses on upper extremities. No wounds seen anteriorly. Skin temperature appropriate. Not diaphoretic. ENT: Hearing cannot be assessed. Nose without bleeding or purulent drainage. Orally intubated. NECK: Trachea midline. Supple, nontender. No palpable thyroid enlargement or nodularity. CARDIOVASCULAR: S1, S2, tachycardic rate, regular rhythm without murmurs. RESPIRATORY/CHEST: Lung sounds coarse throughout all lung hurst. GASTROINTESTINAL: Abdomen soft, nondistended. No guarding. Bowel sounds present. GENITOURINARY: Without palpable bladder distension. Caro catheter in place. MUSCULOSKELETAL: Extremities without clubbing, cyanosis, or edema. No joint tenderness or effusion noted. No calf tenderness. No mottling or clubbing. NEUROLOGICAL: Not following commands. No purposeful movements noted. Not opening eyes spontaneously, positive pupillary, corneal, gag, extensor posturing of bilateral upper extremities to pain. PSYCHIATRIC: On Precedex for vent synchrony. . Diagnostic Tests Laboratory: Laboratory Results - last 72 hr 08/07/18 08/07/18 08/07/18 02:54 03:05 03:05 WBC 18.6 H RBC 3.93 L Hgb 13.7 Hct 39.5 MCV 100.6 H MCH 34.9 H MCHC 34.7 RDW 12.7 Plt Count 362 MPV 7.6 Neut % (Auto) 84.7 H Lymph % (Auto) 4.7 L [place] % (Auto) 10.1 H Eos % (Auto) 0.1 Baso % (Auto) 0.4 Neut # (Auto) 15.8 H Lymph # (Auto) 0.9 L [place] # (Auto) 1.9 H Eos # (Auto) 0.0 Baso # (Auto) 0.1 WBC Differential . Differential Comment Auto diff final PT INR APTT Puncture Site Patient Temperature O2 Saturation ABG pH ABG pCO2 ABG pO2 ABG HCO3 ABG O2 Content ABG Base Excess ABG Methemoglobin Long Test Hemoglobin Carboxyhemoglobin O2 Delivery Device Liter Flow Vent Setting Inspired O2 Critical Value Sodium 142 Potassium 2.8 L* Chloride 104 Carbon Dioxide 26.8 Anion Gap 11 BUN 19 H Creatinine 1.14 Estimated GFR 55 L POC Glucose 32 L* Random Glucose 27 L* Lactic Acid Calcium 8.8 Phosphorus Magnesium 1.8 Total Bilirubin 0.3 AST 20 ALT 24 Alkaline Phosphatase 57 Ammonia Troponin I Less than 0.02 L Total Protein 7.3 Albumin 3.4 Urine Color Urine Clarity Urine pH Ur Specific [place] Urine Protein Urine Glucose (UA) Urine Ketones Urine Occult Blood Urine Nitrate Urine Bilirubin Urine Urobilinogen Ur Leukocyte Esterase Urine RBC Urine WBC Ur Squamous Epith Cells Hyaline Casts Urine Mucus Micro UA Comment Ur Microscopic Review Urine Culture Comments Nasal Screen MRSA (PCR) Urine Opiates Screen Ur Barbiturates Screen Ur Amphetamines Screen U Benzodiazepines Scrn Urine Cocaine Screen U Cannabinoids Screen 08/07/18 08/07/18 08/07/18 03:05 03:05 03:05 WBC RBC Hgb Hct MCV MCH MCHC RDW Plt Count MPV Neut % (Auto) Lymph % (Auto) [place] % (Auto) Eos % (Auto) Baso % (Auto) Neut # (Auto) Lymph # (Auto) [place] # (Auto) Eos # (Auto) Baso # (Auto) WBC Differential Differential Comment PT 9.9 INR 1.0 APTT Puncture Site Patient Temperature O2 Saturation ABG pH ABG pCO2 ABG pO2 ABG HCO3 ABG O2 Content ABG Base Excess ABG Methemoglobin Long Test Hemoglobin Carboxyhemoglobin O2 Delivery Device Liter Flow Vent Setting Inspired O2 Critical Value Sodium Potassium Chloride Carbon Dioxide Anion Gap BUN Creatinine Estimated GFR POC Glucose Random Glucose Lactic Acid 3.8 H Calcium Phosphorus Magnesium Total Bilirubin AST ALT Alkaline Phosphatase Ammonia 36 H Troponin I Total Protein Albumin Urine Color Urine Clarity Urine pH Ur Specific [place] Urine Protein Urine Glucose (UA) Urine Ketones Urine Occult Blood Urine Nitrate Urine Bilirubin Urine Urobilinogen Ur Leukocyte Esterase Urine RBC Urine WBC Ur Squamous Epith Cells Hyaline Casts Urine Mucus Micro UA Comment Ur Microscopic Review Urine Culture Comments Nasal Screen MRSA (PCR) Urine Opiates Screen Ur Barbiturates Screen Ur Amphetamines Screen U Benzodiazepines Scrn Urine Cocaine Screen U Cannabinoids Screen 08/07/18 08/07/18 08/07/18 03:05 03:09 03:50 WBC RBC Hgb Hct MCV MCH MCHC RDW Plt Count MPV Neut % (Auto) Lymph % (Auto) [place] % (Auto) Eos % (Auto) Baso % (Auto) Neut # (Auto) Lymph # (Auto) [place] # (Auto) Eos # (Auto) Baso # (Auto) WBC Differential Differential Comment PT INR APTT Puncture Site Right radial Patient Temperature 98.6 O2 Saturation 98 ABG pH 7.35 L ABG pCO2 49 H ABG pO2 417 H ABG HCO3 26 ABG O2 Content 19.3 ABG Base Excess 0.8 ABG Methemoglobin 0.7 Long Test Present Hemoglobin 13.2 Carboxyhemoglobin 1.2 O2 Delivery Device Ambu bag Liter Flow 15.00 Vent Setting Inspired O2 100 Critical Value No Sodium Potassium Chloride Carbon Dioxide Anion Gap BUN Creatinine Estimated GFR POC Glucose 148 H 46 L* Random Glucose Lactic Acid Calcium Phosphorus Magnesium Total Bilirubin AST ALT Alkaline Phosphatase Ammonia Troponin I Total Protein Albumin Urine Color Urine Clarity Urine pH Ur Specific [place] Urine Protein Urine Glucose (UA) Urine Ketones Urine Occult Blood Urine Nitrate Urine Bilirubin Urine Urobilinogen Ur Leukocyte Esterase Urine RBC Urine WBC Ur Squamous Epith Cells Hyaline Casts Urine Mucus Micro UA Comment Ur Microscopic Review Urine Culture Comments Nasal Screen MRSA (PCR) Urine Opiates Screen Ur Barbiturates Screen Ur Amphetamines Screen U Benzodiazepines Scrn Urine Cocaine Screen U Cannabinoids Screen 08/07/18 08/07/18 08/07/18 04:16 04:16 04:45 WBC RBC Hgb Hct MCV MCH MCHC RDW Plt Count MPV Neut % (Auto) Lymph % (Auto) [place] % (Auto) Eos % (Auto) Baso % (Auto) Neut # (Auto) Lymph # (Auto) [place] # (Auto) Eos # (Auto) Baso # (Auto) WBC Differential Differential Comment PT INR APTT Puncture Site Right radial Patient Temperature 98.6 O2 Saturation 97 ABG pH 7.40 ABG pCO2 45 H ABG pO2 110 ABG HCO3 27 H ABG O2 Content 18.6 ABG Base Excess 2.9 H ABG Methemoglobin 0.7 Long Test Present Hemoglobin 13.6 Carboxyhemoglobin 1.0 O2 Delivery Device Ventilator Liter Flow Vent Setting Prvc / ac / Inspired O2 80 Critical Value No Sodium Potassium Chloride Carbon Dioxide Anion Gap BUN Creatinine Estimated GFR POC Glucose Random Glucose Lactic Acid Calcium Phosphorus Magnesium Total Bilirubin AST ALT Alkaline Phosphatase Ammonia Troponin I Total Protein Albumin Urine Color Yellow Urine Clarity Hazy H Urine pH 6.0 Ur Specific [place] 1.022 Urine Protein 30 H Urine Glucose (UA) 500 or greater Urine Ketones 20 Urine Occult Blood Large H Urine Nitrate Negative Urine Bilirubin Negative Urine Urobilinogen Less than 2 Ur Leukocyte Esterase Negative Urine RBC 29 H Urine WBC 6 H Ur Squamous Epith Cells <1 Hyaline Casts 8 Urine Mucus Few H Micro UA Comment Cath-culture not ind Ur Microscopic Review Not Reportable Urine Culture Comments Cath-cult not ind Nasal Screen MRSA (PCR) Urine Opiates Screen Neg Ur Barbiturates Screen Neg Ur Amphetamines Screen Neg U Benzodiazepines Scrn Pos H Urine Cocaine Screen Pos H U Cannabinoids Screen Pos H 08/07/18 08/07/18 08/07/18 04:53 06:00 06:40 WBC RBC Hgb Hct MCV MCH MCHC RDW Plt Count MPV Neut % (Auto) Lymph % (Auto) [place] % (Auto) Eos % (Auto) Baso % (Auto) Neut # (Auto) Lymph # (Auto) [place] # (Auto) Eos # (Auto) Baso # (Auto) WBC Differential Differential Comment PT INR APTT Puncture Site Patient Temperature O2 Saturation ABG pH ABG pCO2 ABG pO2 ABG HCO3 ABG O2 Content ABG Base Excess ABG Methemoglobin Long Test Hemoglobin Carboxyhemoglobin O2 Delivery Device Liter Flow Vent Setting Inspired O2 Critical Value Sodium Potassium Chloride Carbon Dioxide Anion Gap BUN Creatinine Estimated GFR POC Glucose 101 21 L* Random Glucose Lactic Acid Calcium Phosphorus Magnesium Total Bilirubin AST ALT Alkaline Phosphatase Ammonia Troponin I Total Protein Albumin Urine Color Urine Clarity Urine pH Ur Specific [place] Urine Protein Urine Glucose (UA) Urine Ketones Urine Occult Blood Urine Nitrate Urine Bilirubin Urine Urobilinogen Ur Leukocyte Esterase Urine RBC Urine WBC Ur Squamous Epith Cells Hyaline Casts Urine Mucus Micro UA Comment Ur Microscopic Review Urine Culture Comments Nasal Screen MRSA (PCR) Not detected Urine Opiates Screen Ur Barbiturates Screen Ur Amphetamines Screen U Benzodiazepines Scrn Urine Cocaine Screen U Cannabinoids Screen 08/07/18 08/07/18 08/07/18 07:23 09:20 09:22 WBC RBC Hgb Hct MCV MCH MCHC RDW Plt Count MPV Neut % (Auto) Lymph % (Auto) [place] % (Auto) Eos % (Auto) Baso % (Auto) Neut # (Auto) Lymph # (Auto) [place] # (Auto) Eos # (Auto) Baso # (Auto) WBC Differential Differential Comment PT INR APTT Puncture Site Patient Temperature O2 Saturation ABG pH ABG pCO2 ABG pO2 ABG HCO3 ABG O2 Content ABG Base Excess ABG Methemoglobin Long Test Hemoglobin Carboxyhemoglobin O2 Delivery Device Liter Flow Vent Setting Inspired O2 Critical Value Sodium Potassium Chloride Carbon Dioxide Anion Gap BUN Creatinine Estimated GFR POC Glucose 173 H 21 L* 20 L* Random Glucose Lactic Acid Calcium Phosphorus Magnesium Total Bilirubin AST ALT Alkaline Phosphatase Ammonia Troponin I Total Protein Albumin Urine Color Urine Clarity Urine pH Ur Specific [place] Urine Protein Urine Glucose (UA) Urine Ketones Urine Occult Blood Urine Nitrate Urine Bilirubin Urine Urobilinogen Ur Leukocyte Esterase Urine RBC Urine WBC Ur Squamous Epith Cells Hyaline Casts Urine Mucus Micro UA Comment Ur Microscopic Review Urine Culture Comments Nasal Screen MRSA (PCR) Urine Opiates Screen Ur Barbiturates Screen Ur Amphetamines Screen U Benzodiazepines Scrn Urine Cocaine Screen U Cannabinoids Screen 08/07/18 08/07/18 08/07/18 09:33 10:15 11:16 WBC RBC Hgb Hct MCV MCH MCHC RDW Plt Count MPV Neut % (Auto) Lymph % (Auto) [place] % (Auto) Eos % (Auto) Baso % (Auto) Neut # (Auto) Lymph # (Auto) [place] # (Auto) Eos # (Auto) Baso # (Auto) WBC Differential Differential Comment PT INR APTT Puncture Site Patient Temperature O2 Saturation ABG pH ABG pCO2 ABG pO2 ABG HCO3 ABG O2 Content ABG Base Excess ABG Methemoglobin Long Test Hemoglobin Carboxyhemoglobin O2 Delivery Device Liter Flow Vent Setting Inspired O2 Critical Value Sodium Potassium Chloride Carbon Dioxide Anion Gap BUN Creatinine Estimated GFR POC Glucose 133 H 43 L* 66 L Random Glucose Lactic Acid Calcium Phosphorus Magnesium Total Bilirubin AST ALT Alkaline Phosphatase Ammonia Troponin I Total Protein Albumin Urine Color Urine Clarity Urine pH Ur Specific [place] Urine Protein Urine Glucose (UA) Urine Ketones Urine Occult Blood Urine Nitrate Urine Bilirubin Urine Urobilinogen Ur Leukocyte Esterase Urine RBC Urine WBC Ur Squamous Epith Cells Hyaline Casts Urine Mucus Micro UA Comment Ur Microscopic Review Urine Culture Comments Nasal Screen MRSA (PCR) Urine Opiates Screen Ur Barbiturates Screen Ur Amphetamines Screen U Benzodiazepines Scrn Urine Cocaine Screen U Cannabinoids Screen 08/07/18 08/07/18 08/07/18 11:41 11:41 11:51 WBC RBC Hgb Hct MCV MCH MCHC RDW Plt Count MPV Neut % (Auto) Lymph % (Auto) [place] % (Auto) Eos % (Auto) Baso % (Auto) Neut # (Auto) Lymph # (Auto) [place] # (Auto) Eos # (Auto) Baso # (Auto) WBC Differential Differential Comment PT INR APTT Puncture Site Patient Temperature O2 Saturation ABG pH ABG pCO2 ABG pO2 ABG HCO3 ABG O2 Content ABG Base Excess ABG Methemoglobin Long Test Hemoglobin Carboxyhemoglobin O2 Delivery Device Liter Flow Vent Setting Inspired O2 Critical Value Sodium 140 Potassium 3.2 L Chloride 101 Carbon Dioxide 26.6 Anion Gap 12 BUN 16 Creatinine 1.06 Estimated GFR 60 L POC Glucose 163 H Random Glucose 182 H D Lactic Acid Calcium 8.3 L Phosphorus Magnesium Total Bilirubin 0.7 AST 25 ALT 20 Alkaline Phosphatase 50 Ammonia Troponin I Less than 0.02 L Total Protein 6.6 D Albumin 3.2 L Urine Color Urine Clarity Urine pH Ur Specific [place] Urine Protein Urine Glucose (UA) Urine Ketones Urine Occult Blood Urine Nitrate Urine Bilirubin Urine Urobilinogen Ur Leukocyte Esterase Urine RBC Urine WBC Ur Squamous Epith Cells Hyaline Casts Urine Mucus Micro UA Comment Ur Microscopic Review Urine Culture Comments Nasal Screen MRSA (PCR) Urine Opiates Screen Ur Barbiturates Screen Ur Amphetamines Screen U Benzodiazepines Scrn Urine Cocaine Screen U Cannabinoids Screen 08/07/18 08/07/18 08/07/18 12:25 13:19 14:04 WBC 19.9 H RBC 3.87 L Hgb 13.7 Hct 39.5 MCV 101.9 H MCH 35.3 H MCHC 34.7 RDW 13.1 Plt Count 309 MPV 7.5 Neut % (Auto) Lymph % (Auto) [place] % (Auto) Eos % (Auto) Baso % (Auto) Neut # (Auto) Lymph # (Auto) [place] # (Auto) Eos # (Auto) Baso # (Auto) WBC Differential Differential Comment PT INR APTT Puncture Site Patient Temperature O2 Saturation ABG pH ABG pCO2 ABG pO2 ABG HCO3 ABG O2 Content ABG Base Excess ABG Methemoglobin Long Test Hemoglobin Carboxyhemoglobin O2 Delivery Device Liter Flow Vent Setting Inspired O2 Critical Value Sodium Potassium Chloride Carbon Dioxide Anion Gap BUN Creatinine Estimated GFR POC Glucose 128 H 52 L Random Glucose Lactic Acid Calcium Phosphorus Magnesium Total Bilirubin AST ALT Alkaline Phosphatase Ammonia Troponin I Total Protein Albumin Urine Color Urine Clarity Urine pH Ur Specific [place] Urine Protein Urine Glucose (UA) Urine Ketones Urine Occult Blood Urine Nitrate Urine Bilirubin Urine Urobilinogen Ur Leukocyte Esterase Urine RBC Urine WBC Ur Squamous Epith Cells Hyaline Casts Urine Mucus Micro UA Comment Ur Microscopic Review Urine Culture Comments Nasal Screen MRSA (PCR) Urine Opiates Screen Ur Barbiturates Screen Ur Amphetamines Screen U Benzodiazepines Scrn Urine Cocaine Screen U Cannabinoids Screen 08/07/18 08/07/18 08/07/18 14:33 15:42 15:44 WBC RBC Hgb Hct MCV MCH MCHC RDW Plt Count MPV Neut % (Auto) Lymph % (Auto) [place] % (Auto) Eos % (Auto) Baso % (Auto) Neut # (Auto) Lymph # (Auto) [place] # (Auto) Eos # (Auto) Baso # (Auto) WBC Differential Differential Comment PT INR APTT Puncture Site Patient Temperature O2 Saturation ABG pH ABG pCO2 ABG pO2 ABG HCO3 ABG O2 Content ABG Base Excess ABG Methemoglobin Long Test Hemoglobin Carboxyhemoglobin O2 Delivery Device Liter Flow Vent Setting Inspired O2 Critical Value Sodium Potassium Chloride Carbon Dioxide Anion Gap BUN Creatinine Estimated GFR POC Glucose 141 H 36 L* 41 L* Random Glucose Lactic Acid Calcium Phosphorus Magnesium Total Bilirubin AST ALT Alkaline Phosphatase Ammonia Troponin I Total Protein Albumin Urine Color Urine Clarity Urine pH Ur Specific [place] Urine Protein Urine Glucose (UA) Urine Ketones Urine Occult Blood Urine Nitrate Urine Bilirubin Urine Urobilinogen Ur Leukocyte Esterase Urine RBC Urine WBC Ur Squamous Epith Cells Hyaline Casts Urine Mucus Micro UA Comment Ur Microscopic Review Urine Culture Comments Nasal Screen MRSA (PCR) Urine Opiates Screen Ur Barbiturates Screen Ur Amphetamines Screen U Benzodiazepines Scrn Urine Cocaine Screen U Cannabinoids Screen 08/07/18 08/07/18 08/07/18 17:09 17:11 17:35 WBC RBC Hgb Hct MCV MCH MCHC RDW Plt Count MPV Neut % (Auto) Lymph % (Auto) [place] % (Auto) Eos % (Auto) Baso % (Auto) Neut # (Auto) Lymph # (Auto) [place] # (Auto) Eos # (Auto) Baso # (Auto) WBC Differential Differential Comment PT INR APTT Puncture Site Patient Temperature O2 Saturation ABG pH ABG pCO2 ABG pO2 ABG HCO3 ABG O2 Content ABG Base Excess ABG Methemoglobin Long Test Hemoglobin Carboxyhemoglobin O2 Delivery Device Liter Flow Vent Setting Inspired O2 Critical Value Sodium Potassium Chloride Carbon Dioxide Anion Gap BUN Creatinine Estimated GFR POC Glucose 74 76 Random Glucose Lactic Acid Calcium Phosphorus Magnesium Total Bilirubin AST ALT Alkaline Phosphatase Ammonia Troponin I Less than 0.02 L Total Protein Albumin Urine Color Urine Clarity Urine pH Ur Specific [place] Urine Protein Urine Glucose (UA) Urine Ketones Urine Occult Blood Urine Nitrate Urine Bilirubin Urine Urobilinogen Ur Leukocyte Esterase Urine RBC Urine WBC Ur Squamous Epith Cells Hyaline Casts Urine Mucus Micro UA Comment Ur Microscopic Review Urine Culture Comments Nasal Screen MRSA (PCR) Urine Opiates Screen Ur Barbiturates Screen Ur Amphetamines Screen U Benzodiazepines Scrn Urine Cocaine Screen U Cannabinoids Screen 08/07/18 08/07/18 08/07/18 18:05 19:02 19:50 WBC RBC Hgb Hct MCV MCH MCHC RDW Plt Count MPV Neut % (Auto) Lymph % (Auto) [place] % (Auto) Eos % (Auto) Baso % (Auto) Neut # (Auto) Lymph # (Auto) [place] # (Auto) Eos # (Auto) Baso # (Auto) WBC Differential Differential Comment PT INR APTT Puncture Site Patient Temperature O2 Saturation ABG pH ABG pCO2 ABG pO2 ABG HCO3 ABG O2 Content ABG Base Excess ABG Methemoglobin Long Test Hemoglobin Carboxyhemoglobin O2 Delivery Device Liter Flow Vent Setting Inspired O2 Critical Value Sodium Potassium Chloride Carbon Dioxide Anion Gap BUN Creatinine Estimated GFR POC Glucose 68 137 H 117 H Random Glucose Lactic Acid Calcium Phosphorus Magnesium Total Bilirubin AST ALT Alkaline Phosphatase Ammonia Troponin I Total Protein Albumin Urine Color Urine Clarity Urine pH Ur Specific [place] Urine Protein Urine Glucose (UA) Urine Ketones Urine Occult Blood Urine Nitrate Urine Bilirubin Urine Urobilinogen Ur Leukocyte Esterase Urine RBC Urine WBC Ur Squamous Epith Cells Hyaline Casts Urine Mucus Micro UA Comment Ur Microscopic Review Urine Culture Comments Nasal Screen MRSA (PCR) Urine Opiates Screen Ur Barbiturates Screen Ur Amphetamines Screen U Benzodiazepines Scrn Urine Cocaine Screen U Cannabinoids Screen 08/07/18 08/07/18 08/07/18 21:10 22:19 23:00 WBC RBC Hgb Hct MCV MCH MCHC RDW Plt Count MPV Neut % (Auto) Lymph % (Auto) [place] % (Auto) Eos % (Auto) Baso % (Auto) Neut # (Auto) Lymph # (Auto) [place] # (Auto) Eos # (Auto) Baso # (Auto) WBC Differential Differential Comment PT INR APTT Puncture Site Patient Temperature O2 Saturation ABG pH ABG pCO2 ABG pO2 ABG HCO3 ABG O2 Content ABG Base Excess ABG Methemoglobin Long Test Hemoglobin Carboxyhemoglobin O2 Delivery Device Liter Flow Vent Setting Inspired O2 Critical Value Sodium Potassium Chloride Carbon Dioxide Anion Gap BUN Creatinine Estimated GFR POC Glucose 106 150 H 142 H Random Glucose Lactic Acid Calcium Phosphorus Magnesium Total Bilirubin AST ALT Alkaline Phosphatase Ammonia Troponin I Total Protein Albumin Urine Color Urine Clarity Urine pH Ur Specific [place] Urine Protein Urine Glucose (UA) Urine Ketones Urine Occult Blood Urine Nitrate Urine Bilirubin Urine Urobilinogen Ur Leukocyte Esterase Urine RBC Urine WBC Ur Squamous Epith Cells Hyaline Casts Urine Mucus Micro UA Comment Ur Microscopic Review Urine Culture Comments Nasal Screen MRSA (PCR) Urine Opiates Screen Ur Barbiturates Screen Ur Amphetamines Screen U Benzodiazepines Scrn Urine Cocaine Screen U Cannabinoids Screen 08/08/18 08/08/18 08/08/18 00:00 00:51 01:56 WBC RBC Hgb Hct MCV MCH MCHC RDW Plt Count MPV Neut % (Auto) Lymph % (Auto) [place] % (Auto) Eos % (Auto) Baso % (Auto) Neut # (Auto) Lymph # (Auto) Trinity # (Auto) Eos # (Auto) Baso # (Auto) WBC Differential Differential Comment PT INR APTT Puncture Site Patient Temperature O2 Saturation ABG pH ABG pCO2 ABG pO2 ABG HCO3 ABG O2 Content ABG Base Excess ABG Methemoglobin Long Test Hemoglobin Carboxyhemoglobin O2 Delivery Device Liter Flow Vent Setting Inspired O2 Critical Value Sodium Potassium Chloride Carbon Dioxide Anion Gap BUN Creatinine Estimated GFR POC Glucose 171 H 179 H 210 H Random Glucose Lactic Acid Calcium Phosphorus Magnesium Total Bilirubin AST ALT Alkaline Phosphatase Ammonia Troponin I Total Protein Albumin Urine Color Urine Clarity Urine pH Ur Specific [place] Urine Protein Urine Glucose (UA) Urine Ketones Urine Occult Blood Urine Nitrate Urine Bilirubin Urine Urobilinogen Ur Leukocyte Esterase Urine RBC Urine WBC Ur Squamous Epith Cells Hyaline Casts Urine Mucus Micro UA Comment Ur Microscopic Review Urine Culture Comments Nasal Screen MRSA (PCR) Urine Opiates Screen Ur Barbiturates Screen Ur Amphetamines Screen U Benzodiazepines Scrn Urine Cocaine Screen U Cannabinoids Screen 08/08/18 08/08/18 08/08/18 03:02 04:11 05:13 WBC RBC Hgb Hct MCV MCH MCHC RDW Plt Count MPV Neut % (Auto) Lymph % (Auto) Trinity % (Auto) Eos % (Auto) Baso % (Auto) Neut # (Auto) Lymph # (Auto) Trinity # (Auto) Eos # (Auto) Baso # (Auto) WBC Differential Differential Comment PT INR APTT Puncture Site Patient Temperature O2 Saturation ABG pH ABG pCO2 ABG pO2 ABG HCO3 ABG O2 Content ABG Base Excess ABG Methemoglobin Long Test Hemoglobin Carboxyhemoglobin O2 Delivery Device Liter Flow Vent Setting Inspired O2 Critical Value Sodium Potassium Chloride Carbon Dioxide Anion Gap BUN Creatinine Estimated GFR POC Glucose 286 H 327 H 356 H Random Glucose Lactic Acid Calcium Phosphorus Magnesium Total Bilirubin AST ALT Alkaline Phosphatase Ammonia Troponin I Total Protein Albumin Urine Color Urine Clarity Urine pH Ur Specific [place] Urine Protein Urine Glucose (UA) Urine Ketones Urine Occult Blood Urine Nitrate Urine Bilirubin Urine Urobilinogen Ur Leukocyte Esterase Urine RBC Urine WBC Ur Squamous Epith Cells Hyaline Casts Urine Mucus Micro UA Comment Ur Microscopic Review Urine Culture Comments Nasal Screen MRSA (PCR) Urine Opiates Screen Ur Barbiturates Screen Ur Amphetamines Screen U Benzodiazepines Scrn Urine Cocaine Screen U Cannabinoids Screen 08/08/18 08/08/18 08/08/18 06:17 06:39 06:39 WBC 15.6 H RBC 3.91 L Hgb 13.7 Hct 40.2 MCV 102.9 H MCH 35.0 H MCHC 34.0 RDW 12.9 Plt Count 273 MPV 8.8 Neut % (Auto) 90.6 H Lymph % (Auto) 3.4 L Trinity % (Auto) 6.0 Eos % (Auto) 0.0 Baso % (Auto) 0.0 Neut # (Auto) 14.1 H Lymph # (Auto) 0.5 L Trinity # (Auto) 0.9 Eos # (Auto) 0.0 Baso # (Auto) 0.0 WBC Differential . Differential Comment Auto diff final PT 10.0 INR 1.0 APTT 29.4 Puncture Site Patient Temperature O2 Saturation ABG pH ABG pCO2 ABG pO2 ABG HCO3 ABG O2 Content ABG Base Excess ABG Methemoglobin Long Test Hemoglobin Carboxyhemoglobin O2 Delivery Device Liter Flow Vent Setting Inspired O2 Critical Value Sodium Potassium Chloride Carbon Dioxide Anion Gap BUN Creatinine Estimated GFR POC Glucose 332 H Random Glucose Lactic Acid Calcium Phosphorus Magnesium Total Bilirubin AST ALT Alkaline Phosphatase Ammonia Troponin I Total Protein Albumin Urine Color Urine Clarity Urine pH Ur Specific [place] Urine Protein Urine Glucose (UA) Urine Ketones Urine Occult Blood Urine Nitrate Urine Bilirubin Urine Urobilinogen Ur Leukocyte Esterase Urine RBC Urine WBC Ur Squamous Epith Cells Hyaline Casts Urine Mucus Micro UA Comment Ur Microscopic Review Urine Culture Comments Nasal Screen MRSA (PCR) Urine Opiates Screen Ur Barbiturates Screen Ur Amphetamines Screen U Benzodiazepines Scrn Urine Cocaine Screen U Cannabinoids Screen 08/08/18 08/08/18 08/08/18 06:39 06:41 08:12 WBC RBC Hgb Hct MCV MCH MCHC RDW Plt Count MPV Neut % (Auto) Lymph % (Auto) Trinity % (Auto) Eos % (Auto) Baso % (Auto) Neut # (Auto) Lymph # (Auto) Trinity # (Auto) Eos # (Auto) Baso # (Auto) WBC Differential Differential Comment PT INR APTT Puncture Site Patient Temperature O2 Saturation ABG pH ABG pCO2 ABG pO2 ABG HCO3 ABG O2 Content ABG Base Excess ABG Methemoglobin Long Test Hemoglobin Carboxyhemoglobin O2 Delivery Device Liter Flow Vent Setting Inspired O2 Critical Value Sodium 137 Potassium 4.8 D Chloride 102 Carbon Dioxide 23.0 Anion Gap 12 BUN 11 Creatinine 1.18 Estimated GFR 66 L POC Glucose 358 H 381 H Random Glucose 352 H D Lactic Acid Calcium 9.2 D Phosphorus 2.4 L Magnesium 1.7 Total Bilirubin 0.4 AST 34 ALT 21 Alkaline Phosphatase 67 Ammonia Troponin I Total Protein 7.7 D Albumin 3.3 L Urine Color Urine Clarity Urine pH Ur Specific [place] Urine Protein Urine Glucose (UA) Urine Ketones Urine Occult Blood Urine Nitrate Urine Bilirubin Urine Urobilinogen Ur Leukocyte Esterase Urine RBC Urine WBC Ur Squamous Epith Cells Hyaline Casts Urine Mucus Micro UA Comment Ur Microscopic Review Urine Culture Comments Nasal Screen MRSA (PCR) Urine Opiates Screen Ur Barbiturates Screen Ur Amphetamines Screen U Benzodiazepines Scrn Urine Cocaine Screen U Cannabinoids Screen 08/08/18 08/08/18 08/08/18 09:14 11:21 13:04 WBC RBC Hgb Hct MCV MCH MCHC RDW Plt Count MPV Neut % (Auto) Lymph % (Auto) Trinity % (Auto) Eos % (Auto) Baso % (Auto) Neut # (Auto) Lymph # (Auto) Trinity # (Auto) Eos # (Auto) Baso # (Auto) WBC Differential Differential Comment PT INR APTT Puncture Site Patient Temperature O2 Saturation ABG pH ABG pCO2 ABG pO2 ABG HCO3 ABG O2 Content ABG Base Excess ABG Methemoglobin Long Test Hemoglobin Carboxyhemoglobin O2 Delivery Device Liter Flow Vent Setting Inspired O2 Critical Value Sodium Potassium Chloride Carbon Dioxide Anion Gap BUN Creatinine Estimated GFR POC Glucose 399 H 442 H 305 H Random Glucose Lactic Acid Calcium Phosphorus Magnesium Total Bilirubin AST ALT Alkaline Phosphatase Ammonia Troponin I Total Protein Albumin Urine Color Urine Clarity Urine pH Ur Specific [place] Urine Protein Urine Glucose (UA) Urine Ketones Urine Occult Blood Urine Nitrate Urine Bilirubin Urine Urobilinogen Ur Leukocyte Esterase Urine RBC Urine WBC Ur Squamous Epith Cells Hyaline Casts Urine Mucus Micro UA Comment Ur Microscopic Review Urine Culture Comments Nasal Screen MRSA (PCR) Urine Opiates Screen Ur Barbiturates Screen Ur Amphetamines Screen U Benzodiazepines Scrn Urine Cocaine Screen U Cannabinoids Screen 08/08/18 08/08/18 08/08/18 17:07 19:53 21:02 WBC RBC Hgb Hct MCV MCH MCHC RDW Plt Count MPV Neut % (Auto) Lymph % (Auto) Trinity % (Auto) Eos % (Auto) Baso % (Auto) Neut # (Auto) Lymph # (Auto) Trinity # (Auto) Eos # (Auto) Baso # (Auto) WBC Differential Differential Comment PT INR APTT Puncture Site Patient Temperature O2 Saturation ABG pH ABG pCO2 ABG pO2 ABG HCO3 ABG O2 Content ABG Base Excess ABG Methemoglobin Long Test Hemoglobin Carboxyhemoglobin O2 Delivery Device Liter Flow Vent Setting Inspired O2 Critical Value Sodium Potassium Chloride Carbon Dioxide Anion Gap BUN Creatinine Estimated GFR POC Glucose 150 H 331 H 298 H Random Glucose Lactic Acid Calcium Phosphorus Magnesium Total Bilirubin AST ALT Alkaline Phosphatase Ammonia Troponin I Total Protein Albumin Urine Color Urine Clarity Urine pH Ur Specific [place] Urine Protein Urine Glucose (UA) Urine Ketones Urine Occult Blood Urine Nitrate Urine Bilirubin Urine Urobilinogen Ur Leukocyte Esterase Urine RBC Urine WBC Ur Squamous Epith Cells Hyaline Casts Urine Mucus Micro UA Comment Ur Microscopic Review Urine Culture Comments Nasal Screen MRSA (PCR) Urine Opiates Screen Ur Barbiturates Screen Ur Amphetamines Screen U Benzodiazepines Scrn Urine Cocaine Screen U Cannabinoids Screen 08/08/18 08/09/18 08/09/18 23:15 00:59 02:57 WBC RBC Hgb Hct MCV MCH MCHC RDW Plt Count MPV Neut % (Auto) Lymph % (Auto) Trinity % (Auto) Eos % (Auto) Baso % (Auto) Neut # (Auto) Lymph # (Auto) Trinity # (Auto) Eos # (Auto) Baso # (Auto) WBC Differential Differential Comment PT INR APTT Puncture Site Patient Temperature O2 Saturation ABG pH ABG pCO2 ABG pO2 ABG HCO3 ABG O2 Content ABG Base Excess ABG Methemoglobin Long Test Hemoglobin Carboxyhemoglobin O2 Delivery Device Liter Flow Vent Setting Inspired O2 Critical Value Sodium Potassium Chloride Carbon Dioxide Anion Gap BUN Creatinine Estimated GFR POC Glucose 222 H 204 H 154 H Random Glucose Lactic Acid Calcium Phosphorus Magnesium Total Bilirubin AST ALT Alkaline Phosphatase Ammonia Troponin I Total Protein Albumin Urine Color Urine Clarity Urine pH Ur Specific [place] Urine Protein Urine Glucose (UA) Urine Ketones Urine Occult Blood Urine Nitrate Urine Bilirubin Urine Urobilinogen Ur Leukocyte Esterase Urine RBC Urine WBC Ur Squamous Epith Cells Hyaline Casts Urine Mucus Micro UA Comment Ur Microscopic Review Urine Culture Comments Nasal Screen MRSA (PCR) Urine Opiates Screen Ur Barbiturates Screen Ur Amphetamines Screen U Benzodiazepines Scrn Urine Cocaine Screen U Cannabinoids Screen 08/09/18 08/09/18 08/09/18 04:53 06:21 06:21 WBC 8.5 RBC 3.68 L Hgb 13.1 Hct 38.4 L MCV 104.2 H MCH 35.5 H MCHC 34.0 RDW 13.3 Plt Count 226 MPV 9.0 Neut % (Auto) 76.8 H Lymph % (Auto) 13.8 Trinity % (Auto) 8.7 H Eos % (Auto) 0.3 Baso % (Auto) 0.4 Neut # (Auto) 6.5 Lymph # (Auto) 1.2 Trinity # (Auto) 0.7 Eos # (Auto) 0.0 Baso # (Auto) 0.0 WBC Differential . Differential Comment Auto diff final PT INR APTT Puncture Site Patient Temperature O2 Saturation ABG pH ABG pCO2 ABG pO2 ABG HCO3 ABG O2 Content ABG Base Excess ABG Methemoglobin Long Test Hemoglobin Carboxyhemoglobin O2 Delivery Device Liter Flow Vent Setting Inspired O2 Critical Value Sodium 147 H D Potassium 4.0 D Chloride 113 H D Carbon Dioxide 26.4 Anion Gap 8 BUN 21 H Creatinine 0.89 Estimated GFR Greater than 89 POC Glucose 82 Random Glucose 86 D Lactic Acid Calcium 9.1 Phosphorus 3.2 Magnesium 2.1 Total Bilirubin 0.4 AST 25 ALT 21 Alkaline Phosphatase 63 Ammonia Troponin I Total Protein 6.7 D Albumin 2.5 L D Urine Color Urine Clarity Urine pH Ur Specific [place] Urine Protein Urine Glucose (UA) Urine Ketones Urine Occult Blood Urine Nitrate Urine Bilirubin Urine Urobilinogen Ur Leukocyte Esterase Urine RBC Urine WBC Ur Squamous Epith Cells Hyaline Casts Urine Mucus Micro UA Comment Ur Microscopic Review Urine Culture Comments Nasal Screen MRSA (PCR) Urine Opiates Screen Ur Barbiturates Screen Ur Amphetamines Screen U Benzodiazepines Scrn Urine Cocaine Screen U Cannabinoids Screen 08/09/18 08/09/18 08/09/18 06:45 08:02 10:27 WBC RBC Hgb Hct MCV MCH MCHC RDW Plt Count MPV Neut % (Auto) Lymph % (Auto) Trinity % (Auto) Eos % (Auto) Baso % (Auto) Neut # (Auto) Lymph # (Auto) Trinity # (Auto) Eos # (Auto) Baso # (Auto) WBC Differential Differential Comment PT INR APTT Puncture Site Patient Temperature O2 Saturation ABG pH ABG pCO2 ABG pO2 ABG HCO3 ABG O2 Content ABG Base Excess ABG Methemoglobin Long Test Hemoglobin Carboxyhemoglobin O2 Delivery Device Liter Flow Vent Setting Inspired O2 Critical Value Sodium Potassium Chloride Carbon Dioxide Anion Gap BUN Creatinine Estimated GFR POC Glucose 106 165 H 364 H Random Glucose Lactic Acid Calcium Phosphorus Magnesium Total Bilirubin AST ALT Alkaline Phosphatase Ammonia Troponin I Total Protein Albumin Urine Color Urine Clarity Urine pH Ur Specific [place] Urine Protein Urine Glucose (UA) Urine Ketones Urine Occult Blood Urine Nitrate Urine Bilirubin Urine Urobilinogen Ur Leukocyte Esterase Urine RBC Urine WBC Ur Squamous Epith Cells Hyaline Casts Urine Mucus Micro UA Comment Ur Microscopic Review Urine Culture Comments Nasal Screen MRSA (PCR) Urine Opiates Screen Ur Barbiturates Screen Ur Amphetamines Screen U Benzodiazepines Scrn Urine Cocaine Screen U Cannabinoids Screen 08/09/18 08/09/18 08/09/18 11:44 14:47 17:40 WBC RBC Hgb Hct MCV MCH MCHC RDW Plt Count MPV Neut % (Auto) Lymph % (Auto) Trinity % (Auto) Eos % (Auto) Baso % (Auto) Neut # (Auto) Lymph # (Auto) Trinity # (Auto) Eos # (Auto) Baso # (Auto) WBC Differential Differential Comment PT INR APTT Puncture Site Patient Temperature O2 Saturation ABG pH ABG pCO2 ABG pO2 ABG HCO3 ABG O2 Content ABG Base Excess ABG Methemoglobin Long Test Hemoglobin Carboxyhemoglobin O2 Delivery Device Liter Flow Vent Setting Inspired O2 Critical Value Sodium Potassium Chloride Carbon Dioxide Anion Gap BUN Creatinine Estimated GFR POC Glucose 363 H 139 H 130 H Random Glucose Lactic Acid Calcium Phosphorus Magnesium Total Bilirubin AST ALT Alkaline Phosphatase Ammonia Troponin I Total Protein Albumin Urine Color Urine Clarity Urine pH Ur Specific [place] Urine Protein Urine Glucose (UA) Urine Ketones Urine Occult Blood Urine Nitrate Urine Bilirubin Urine Urobilinogen Ur Leukocyte Esterase Urine RBC Urine WBC Ur Squamous Epith Cells Hyaline Casts Urine Mucus Micro UA Comment Ur Microscopic Review Urine Culture Comments Nasal Screen MRSA (PCR) Urine Opiates Screen Ur Barbiturates Screen Ur Amphetamines Screen U Benzodiazepines Scrn Urine Cocaine Screen U Cannabinoids Screen Result Diagrams: 08/09/18 06:21 08/09/18 06:21 Microbiology: Microbiology 08/08/18 11:27 Aerobic Blood Culture - Preliminary Blood - Peripheral No growth in 1 day Anaerobic Blood Culture - Final QNS - See aerobic report. 08/08/18 11:17 Aerobic Blood Culture - Preliminary Blood - Peripheral No growth in 1 day Anaerobic Blood Culture - Preliminary No growth in 1 day 08/07/18 03:01 Aerobic Blood Culture - Preliminary Blood - Peripheral Corynebacterium species gram positive cocci Anaerobic Blood Culture - Preliminary No growth in 2 days 08/07/18 03:06 Aerobic Blood Culture - Final Blood - Peripheral Bacillus species not anthracis Anaerobic Blood Culture - Preliminary No growth in 2 days Imaging: Chest X-Ray 08/07/18 02:56 CONCLUSION: Endotracheal tube and nasogastric tube in place. No acute cardiopulmonary disease identified. Head CT 08/07/18 02:56 CONCLUSION: 1. Somewhat decreased flores matter-white matter differentiation diffusely. This finding can be seen with diffuse anoxic/hypoxic injury. 2. Motion artifact. . Head MRI 08/07/18 09:53 CONCLUSION: 1. Minimal increased signal in the flores matter of the cerebral cortex seen on the diffusion imaging could be subtle evidence for anoxia. 2. No other significant amount is appreciated. Procedures: 08/07: Intubation in the field. . Assessment and Plan Pertinent Non-Medical Issues: Psychosocial: He was born in [place] but moved to [place] as a young child with his mother. He began attending college to earn his degree in architecture , however never completed that. He has not been nor had any known children. Spiritual: Raised in the Church shyla but was exploring conversion to Catholicism at one time. 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 Legal: No advance directive paperwork completed. Ethical issues impacting care: Patient's only known family is his cousin, who will serve as his decision maker, pending completion of other modalities to attempt to locate family. . Important Contacts: Cousin: Alberto Rey . Prognosis: Prognosis is guarded. This is a 47-year-old [place] blood sugar of 14 and an insulin needle lying next to him. It appeared he had injected himself with an entire syringe of long-acting insulin which she had taken from his cousin. He had an unknown downtime. Urine toxicology was positive for benzodiazepines, cocaine and cannabinoids. His presenting blood sugar at the hospital was 38. He remains encephalopathic. Imaging studies are indicative of a possible anoxic brain injury. He is at elevated risk for continued complications and decline. . . Code Status: Full Code (By default) Plan: * Legal decision maker: The patient at this time is not capacitated for decision -making as he is unresponsive on a ventilator. Accurints has been initiated to try to locate his sister, who has been missing for at least 10 years, and his father, who has had no contact with the patient since he was a very young child. At this time his cousin, Alberto, is readily available and willing to serve and to his knowledge the only remaining family member. * Accurint results obtained. Possible father, Jeremy Kumar [Glenny] no phone number, address [address] [place] [address]. Left message with [place] [employer]- chief sales officer Jona for wellness check to determine if this is patient's father and if he still lives at this address. Awaiting call back. * Goals: Will atetmpt to speak with cousin Alberto on 08/10/18 to further clarify goals of medical treatment as this will be 72 hours. * CODE STATUS: FULL CODE (by default) SYMPTOMS: * Encephalopathy: Multifactorial to include likely hypoxic and hypoglycemic injury, metabolic acidosis, extended downtime without cardiac arrest. Imaging studies initially indicate likely an anoxic/hypoxic brain injury. Attempted sedation vacation was unsuccessful due to patient agitation, tachycardia, tachypnea, thrashing and hypertension. we will continue to discuss goals of care with his cousin. * Pain: Multifactorial to include chronic disease, peripheral neuropathy, history of gastroparesis, previous injuries, bedbound status, invasive lines and tubes. Currently patient on Precedex, however does have morphine available if needed. Attempting to minimize sedation for neurological evaluation * Palliative care will continue to follow the patient during hospital course as condition evolves, to assist patient/decision-maker with understanding of their medical conditions, weighing benefits/burdens of treatment options, for clarification of goals of treatment. Additionally will assist with any symptoms of palliative concern. . Attestation Attestation: To help prompt me to consider important information that might be impacting today's encounter and assessment, information from prior notes written by myself or my colleagues may have been "brought forward" into today's note. My signature on this note, however, is an attestation that I personally performed the exam, history, and/or decision-making noted today, and, unless otherwise indicated, the interactions with patient, family, and staff as well as the review of records all occurred today. I also attest that the listed assessment and stated plan reflect my best clinical judgment today based on the combination of historical information, prior notes, and today's exam/ interactions. When time spent is documented, it refers only to time spent today by the signer, or if indicated, combined time spent today by collaborating physician/nurse practitioner.
[2018-08-09] MEDS ORDERED: *Labetalol HCl Inj 100 MG/20 ML Vial PERIprocedural Use ONLY IV.PUSH PRN (20:44)
[2018-08-09] MEDS ORDERED: Labetalol HCl Inj 100 MG/20 ML Vial IV.PUSH PRN (20:51)
[2018-08-09] MEDS: hydrALAZINE HCl Inj 20 MG/ML Vial IV.PUSH PRN (21:12)
[2018-08-10] MEDS: Insulin NovoLIN Regular Correctional Sugar Inj SQ SCH ×8 (01:25→17:16)
[2018-08-10] MEDS: Dextrose 5%/NaCl 0.45% Inj 1,000 ML IV.CONT SCH (04:46)
[2018-08-10] MEDS: Dexmedetomidine Inj 1,000 MCG in Sodium Chlor 0.9% Inj 240 ML IV.CONT PRN (04:47)
--- NOTE | 2018-08-10 04:55 | XR ---
EXAM DATE: 08/10/2018 4:17 AM EST AGE/SEX: 47 years / Male INDICATIONS: Shortness of breath, painful respirations. CLINICAL DATA: This is the patient's subsequent encounter. Patient reports that signs and symptoms h ave been present for 4 - 6 days and indicates a pain score of Nonresponsive. MEDICAL/SURGICAL HISTORY: Non-responsive. Non-responsive. COMPARISON: [facility] [place] 1V SINGLE AP, 08/07/2018. . FINDINGS: A single AP view of the chest demonstrates the lungs to be symmetrically aerated without evidence of mass, infiltrate or effusion. The cardiomediastinal contours are unremarkable. Osseous structures a re intact. The endotracheal tube remains in place with tip 3 cm above the justin. A nasogastric tube is again seen coursing through the esophagus into the stomach. CONCLUSION: Stable appearance with no acute cardiopulmonary disease. Electronically signed by: Elia Kathleen MD 08/10/2018 4:53 AM EST
[2018-08-10] MEDS: Chlorhexidine Gluconate 2% 1 Pack (2 Cloths) TOPICAL SCH (05:09)
[2018-08-10] MEDS: Vancomycin Inj 1,000 MG in Sodium Chlor 0.9% Inj 250 ML IV.SIG SCH ×2 (05:09→16:15)
[2018-08-10] MEDS: Oral Hygiene Kit OROPHARYNG SCH ×3 (05:09→16:16)
[2018-08-10] MEDS: Heparin - SQ 10,000 UNITS/ML Vial SQ SCH ×3 (05:10→21:12)
[2018-08-10 05:18] LABS: Baso % (Auto) 0.5 % (0.0-2.0); Eos % (Auto) 0.3 % (0.0-4.0); Hematocrit 39.4 % (39.0-51.0); Hemoglobin 13.1 gm/dL (13.0-17.0); Lymph % (Auto) 11.3 % (9.0-44.0); Mean Corpuscular HGB Conc 33.4 % (32.0-36.0); Mean Corpuscular Hemoglobin 34.5 pg (27.0-34.0); Mean Corpuscular Volume 103.2 fL (80.0-100.0); Mean Platelet Volume 8.7 fL (7.0-11.0); Mono # (Auto) 0.7 th/mm3 (0.0-0.9); Mono % (Auto) 8.2 % (0.0-8.0); Neut % (Auto) 79.7 % (16.0-70.0); Platelet Count 240 th/mm3 (150-450); Red Blood Count 3.81 mil/mm3 (4.50-5.90); Red Cell Distribution Width 12.8 % (11.6-17.2); White Blood Count 8.8 th/mm3 (4.0-11.0)
[2018-08-10 05:54] LABS: Alanine Aminotransferase 20 U/L (12-78); Albumin 2.5 g/dL (3.4-5.0); Alkaline Phosphatase 73 U/L (45-117); Anion Gap 8 meq/L (5-15); Aspartate Aminotransferase 20 U/L (15-37); Blood Urea Nitrogen 26 mg/dL (7-18); Calcium 9.7 mg/dL (8.5-10.1); Carbon Dioxide 27.6 meq/L (21.0-32.0); Chloride 111 meq/L (98-107); Glomerular Filtration Rate Greater Than 89 mL/min (>89); Glucose,Random 262 mg/dL (74-106); Magnesium 1.9 mg/dL (1.5-2.5); Phosphorus 3.6 mg/dL (2.5-4.9); Potassium 3.6 meq/L (3.5-5.1); Prealbumin 16 mg/dL (20-40); Sodium 147 meq/L (136-145); Total Protein 6.9 g/dL (6.4-8.2)
[2018-08-10] MEDS: Famotidine PF Inj 20 MG/2 ML Vial IV.PUSH SCH ×2 (08:47→21:11)
[2018-08-10] MEDS: Senna/Docusate Sodium 8.6/50 MG Tablet PO SCH ×2 (08:47→21:12)
[2018-08-10] MEDS: Chlorhexidine 0.12% Oral Kit 15 ML UDC OROPHARYNG SCH ×2 (08:48→21:11)
--- NOTE | 2018-08-10 13:01 | P.PNPAL ---
Spoke with police department non-emergent dispatch [phone] option 5. They will conduct "attempt to contact"/wellness check. Palliative care number provided should father be found at [address] [place] [address]. Palliative care will continue to follow throughout hospitalization.
--- NOTE | 2018-08-10 13:28 | P.PNCC ---
Subjective Subjective Remarks/Hospital Course: Late 30s/early [id number] patient of unknown identity was brought in by EMS emergently. [place]. Blood sugar was checked and it was 14. Patient was given 1 amp of D50 but did not wake up. He was given IV Narcan with no change. Patient was intubated at the scene by EMS for an airway protection. He was brought in being bagged by positive pressure ventilation. As per EMS patient never lost his pulse. Vital signs were otherwise stable. Upon arrival patient had no purposeful movement and was obviously no condition to give any meaningful history. Blood sugar upon arrival was 38. 08/08 Patient remains sedated and intubated. Afebrile. 08/09: neuro exam extremely poor. MRI suggestive of anoxic injury secondary to profound hypoglycemia. prognosis very poor for meaningful neurologic recovery. on precedex to facilitate vent synchrony. appears to posture with the upper extremities. blood sugar has now stabilized out. 08/10: Remains encephalopathic, no purposeful movements during my exam today but RN reports that the patient has spontaneously moved his legs earlier today. Objective Vital Signs / I&O: Vital Signs 08/09/18 13:30 08/09/18 13:46 08/09/18 14:00 Temperature 100.0 F H 100.0 F H 100.0 F H Pulse Rate 87 86 83 Respiratory Rate 16 16 16 Blood Pressure 114/82 121/83 130/87 Pulse Oximetry 99 08/09/18 14:30 08/09/18 15:00 08/09/18 15:11 Temperature 100.2 F H 100.2 F H Pulse Rate 79 77 Respiratory Rate 16 16 16 Blood Pressure 141/90 H 150/92 H Pulse Oximetry 100 100 100 08/09/18 15:30 08/09/18 16:00 08/09/18 16:30 Temperature 100.2 F H 100.4 F H 100.6 F H Pulse Rate 78 71 71 Respiratory Rate 16 16 16 Blood Pressure 151/94 H 152/93 H 158/96 H Pulse Oximetry 100 100 100 08/09/18 17:00 08/09/18 17:30 08/09/18 18:00 Temperature 100.6 F H 100.9 F H 100.9 F H Pulse Rate 68 67 83 Respiratory Rate 16 16 28 H Blood Pressure 161/96 H 164/95 H 144/87 H Pulse Oximetry 100 100 92 L 08/09/18 18:30 08/09/18 19:00 08/09/18 19:39 Temperature 100.8 F H 98.7 F Pulse Rate 72 68 Respiratory Rate 16 16 16 Blood Pressure 150/98 H 166/98 H Pulse Oximetry 100 100 100 08/09/18 20:00 08/09/18 21:00 08/09/18 22:00 Temperature 98.7 F 101.3 F H 100.9 F H Pulse Rate 64 67 81 Respiratory Rate 22 21 16 Blood Pressure 171/100 H 207/98 H 114/60 Pulse Oximetry 100 100 99 08/09/18 22:30 08/09/18 23:00 08/09/18 23:30 Temperature 100.6 F H 100.6 F H 100.2 F H Pulse Rate 80 79 78 Respiratory Rate 16 16 16 Blood Pressure 131/71 126/67 130/69 Pulse Oximetry 100 100 100 08/10/18 00:00 08/10/18 00:30 08/10/18 01:00 Temperature 100.2 F H 100.4 F H 100.4 F H Pulse Rate 74 76 75 Respiratory Rate 16 16 16 Blood Pressure 148/75 H 147/71 H 149/71 H Pulse Oximetry 100 100 100 08/10/18 01:14 08/10/18 01:30 08/10/18 02:00 Temperature 100.2 F H 99.9 F H Pulse Rate 76 77 Respiratory Rate 16 16 16 Blood Pressure 152/74 H 119/57 L Pulse Oximetry 100 100 100 08/10/18 02:30 08/10/18 03:00 08/10/18 03:30 Temperature 100.2 F H 100.2 F H 100.0 F H Pulse Rate 76 79 79 Respiratory Rate 16 15 16 Blood Pressure 130/70 134/67 135/69 Pulse Oximetry 100 100 100 08/10/18 04:00 08/10/18 04:30 08/10/18 04:53 Temperature 100.4 F H 100.4 F H Pulse Rate 76 83 Respiratory Rate 16 16 16 Blood Pressure 150/77 H 149/71 H Pulse Oximetry 100 100 100 08/10/18 05:00 08/10/18 05:30 08/10/18 06:00 Temperature 100.8 F H 100.8 F H 100.8 F H Pulse Rate 74 78 81 Respiratory Rate 16 16 21 Blood Pressure 181/86 H 162/74 H 169/122 H Pulse Oximetry 100 100 99 08/10/18 06:08 08/10/18 06:30 08/10/18 06:59 Temperature 100.9 F H 100.8 F H Pulse Rate 71 74 81 Respiratory Rate 32 H 23 21 Blood Pressure 174/85 H 186/96 H 186/96 H Pulse Oximetry 100 100 99 08/10/18 07:00 08/10/18 07:30 08/10/18 08:00 Temperature 100.9 F H 100.9 F H 100.9 F H Pulse Rate 72 81 70 Respiratory Rate 16 16 16 Blood Pressure 181/92 H 165/90 H 183/95 H Pulse Oximetry 100 100 100 08/10/18 08:30 08/10/18 09:00 08/10/18 09:30 Temperature 101.1 F H 101.1 F H 101.1 F H Pulse Rate 81 80 83 Respiratory Rate 16 16 16 Blood Pressure 144/82 H 161/85 H 159/83 H Pulse Oximetry 100 100 100 08/10/18 09:45 08/10/18 10:00 08/10/18 10:30 Temperature 101.1 F H 101.1 F H Pulse Rate 81 80 Respiratory Rate 16 16 16 Blood Pressure 153/76 H 182/90 H Pulse Oximetry 100 100 100 08/10/18 11:00 08/10/18 11:30 08/10/18 12:00 Temperature 101.1 F H 100.9 F H 101.1 F H Pulse Rate 79 79 Respiratory Rate 17 16 16 Blood Pressure 185/84 H 176/87 H 177/84 H Pulse Oximetry 100 100 100 08/10/18 12:30 08/10/18 13:00 Temperature 101.3 F H 101.3 F H Pulse Rate 80 77 Respiratory Rate 16 16 Blood Pressure 167/82 H 179/87 H Pulse Oximetry 100 100 Intake & Output 08/09/18 08/10/18 08/10/18 18:59 06:59 18:59 Intake Total 1792 / 1792 850 / 850 250 / 250 Output Total 2480 / 2480 750 / 750 Balance -688 / -688 100 / 100 250 / 250 Weight 58.5 kg Intake: IV 600 / 600 250 / 250 250 / 250 Precedex Inj 1,000 MCG In NS 250 / 250 Inj 240 ML @ 0.2 MCG/KG/HR 2.99 mls/hr IV.CONT TITRATE PRN Rx# :[id number] Precedex Inj 200 MCG In NS Inj 100 / 100 48 ML @ 0.2 MCG/KG/HR 2.99 mls/ hr IV.CONT TITRATE PRN Rx#: [id number] Vancomycin Inj 1,000 MG In NS 500 / 500 250 / 250 Inj 250 ML @ 250 mls/hr IV.SIG Q12H MAGDA Rx#:[id number] Oral 0 / 0 Tube Feeding 1072 / 1072 600 / 600 Tube Irrigant 120 / 120 Output: Urine 1600 / 1600 Stool 0 / 0 Urine/Stool Mix 0 / 0 Urine Amount (Catheter) 700 / 700 750 / 750 Indwelling Temp Sensing 700 / 700 750 / 750 Catheter Gastric Drainage 180 / 180 Orogastric Tube 180 / 180 Other: Date of Last Bowel Movement 08/09/18 08/09/18 08/09/18 # Bowel Movements 1 0 # Incontinent Bowel Movements 1 0 Result Diagrams: 08/10/18 04:33 08/10/18 04:33 Objective Remarks: GENERAL: middle aged male, lying in bed, intubated, critically ill. SKIN: Warm and dry. HEAD: Normocephalic. EYES: Pupils 2 mm and minimally reactive NECK: trachea midline. No JVD CARDIOVASCULAR: normal rate, regular rhythm. sinus. RESPIRATORY: Equal chest rise. fio2 40%. peep 5. GASTROINTESTINAL: Abdomen soft, non-tender, nondistended. no guarding. MUSCULOSKELETAL: No cyanosis, or edema. Neuro: pupils are 2mm, conjugate, equal, minimally reactive. +cough. +gag. No posturing or spontaneous movements noted during my exam. Assessment and Plan - Assessment and Plan Plan: Assessment: 47yM s/p long-acting insulin overdose with associated severe hypoxic /ischemic encephalopathy. The patient is now 72h post-event, and as he has not had return of at least purposeful/localizing movements by now, it is unlikely he will ever have meaningful neurologic recovery. remains critically ill. Closest relative is cousin as best as we can tell (? wellness check requested to find patient's father)-- palliative involved and continued discussions over long-term goals of care. If family wishes to be aggressive, then early trach/ peg to facilitate weaning from sedation is most appropriate. Plan Neuro: Hypoxic-Ischemic Encephalopathy Overdose of long-acting insulin Suicide Attempt Polysubstance abuse - secondary to profound hypoglycemia - frequent neuro checks - precedex for vent synchrony. goal RASS -1/-2. - Daily sedation vacation. - MRI brain: Minimal increased signal in the flores matter of the cerebral cortex seen on the diffusion imaging could be subtle evidence for anoxia. - CT brain: Somewhat decreased flores matter-white matter differentiation diffusely. This finding can be seen with diffuse anoxic/hypoxic injury. - EEG: Moderate encephalopathy - Neuro is following Dr. Destin Thomas Act and psych consult if any return of neurologic function. - UDS + cocaine, cannabinoids, benzos Pulm: Acute Hypoxic and Hypercarbic Respiratory Failure - no weaning of mechanical ventilation until neurologic exam improves - wean fio2 for goal spo2 > 90% - prn nebs - hob elevated - vent bundle CV: - keep on telemetry - goal map > 65 mmHg : - no indication for freitas catheter - daily bmp - strict i/o's GI: Acute protein calorie malnutrition- moderate - tube feeds - OG tube - daily bmp,mg,phos - On Pepcid for GI prophylaxis - Continue tube feeds- Glucerna 1.5@50ml/hr - Add free H2O flushes ID: Bacteremia Leukocytosis - on vanc - BC 08/07: GPR - daily cbc Endo: Intentional long-acting insulin overdose Profound hypoglycemia- resolving - SSI with accuchecks - s/p steroids and D5NS as his BS now in high 300's. Patient was hypoglycemic . Heme: - Monitor CBC DVT GI prophylaxis -Teds SCDs -Subcu heparin -Pepcid Palliative care team attempting to find next of kin. Counseling/ Coordination of Care: This patient is critically ill with impairment of one or more vital organ systems with a high probability of imminent or life-threatening deterioration. High-complexity medical decision making was required to support vital organ function and/ or prevent deterioration in the patient's condition. Total critical care time spent is 35 minutes giving full attention to this patient. This includes examining the patient, gathering history from someone other than the patient (i.e. chart review), discussing the patient's care with other providers, managing the patient's blood pressure and ventilator settings, ordering and interpreting radiologic studies, ordering and interpreting laboratory values, managing the patient's sedation requirements, and documentation. Amount of time is separate from teaching, counseling the patient and/or family, and exclusive of procedures. To help prompt me to consider important information that might be impacting today's encounter and assessment, information from prior notes written by myself or my colleagues may have been "brought forward" into today's note. My signature on this note, however, is an attestation that I personally performed the exam, history, and/or decision-making noted today, and, unless otherwise indicated, the interactions with patient, family, and staff as well as the review of records all occurred today. I also attest that the listed assessment and stated plan reflect my best clinical judgment today based on the combination of historical information, prior notes, and today's exam/ interactions.
[2018-08-10] MEDS ORDERED: Dextrose 50% in Water 50 ML Vial IV.PUSH PRN (13:41)
[2018-08-10] MEDS: Acetaminophen 325 MG Tablet PO PRN (14:56)
--- NOTE | 2018-08-10 17:47 | P.PNPAL ---
Reason for Visit Reason for visit: a. To assist with evaluation and management of symptoms including: Encephalopathy, pain, dyspnea. b. To assist medical decision maker(s) with: better understanding of current medical conditions; weighing benefits/burdens of medical treatment options; making medical treatment decisions. Subjective Subjective/Interval History: Patient seen and examined in ICU. Discussed with Dr. Patten and nursing staff. Patient remains on mechanical ventilation. He is more responsive today. He opens eyes to voice on command. Squeezes hand on command, though slight delay in response noted. No obvious signs of pain. Still lethargic, slow to respond. Spoke with cousin and a friend at bedside. Medical update provided. We agreed to continue to monitor over the coming days to reevaluate neurologic status as he appears to have had some neurologic improvement in the past 24 hours. . Family/Friend Interactions: See interval note. Advance Directives Health Care Surrogate Name and Number: At this time patient's cousin, Alberto Rey is the only identified family. Documented care wishes:: No known written advanced directives. Significant change in goals:: FULL CODE. Goals remain aggressive at this time. Objective Vital Signs: Vital Signs 08/09/18 18:00 08/09/18 18:30 08/09/18 19:00 Temperature 100.9 F H 100.8 F H 98.7 F Pulse Rate 83 72 68 Respiratory Rate 28 H 16 16 Blood Pressure 144/87 H 150/98 H 166/98 H Pulse Oximetry 92 L 100 100 08/09/18 19:39 08/09/18 20:00 08/09/18 21:00 Temperature 98.7 F 101.3 F H Pulse Rate 64 67 Respiratory Rate 16 22 21 Blood Pressure 171/100 H 207/98 H Pulse Oximetry 100 100 100 08/09/18 22:00 08/09/18 22:30 08/09/18 23:00 Temperature 100.9 F H 100.6 F H 100.6 F H Pulse Rate 81 80 79 Respiratory Rate 16 16 16 Blood Pressure 114/60 131/71 126/67 Pulse Oximetry 99 100 100 08/09/18 23:30 08/10/18 00:00 08/10/18 00:30 Temperature 100.2 F H 100.2 F H 100.4 F H Pulse Rate 78 74 76 Respiratory Rate 16 16 16 Blood Pressure 130/69 148/75 H 147/71 H Pulse Oximetry 100 100 100 08/10/18 01:00 08/10/18 01:14 08/10/18 01:30 Temperature 100.4 F H 100.2 F H Pulse Rate 75 76 Respiratory Rate 16 16 16 Blood Pressure 149/71 H 152/74 H Pulse Oximetry 100 100 100 08/10/18 02:00 08/10/18 02:30 08/10/18 03:00 Temperature 99.9 F H 100.2 F H 100.2 F H Pulse Rate 77 76 79 Respiratory Rate 16 16 15 Blood Pressure 119/57 L 130/70 134/67 Pulse Oximetry 100 100 100 08/10/18 03:30 08/10/18 04:00 08/10/18 04:30 Temperature 100.0 F H 100.4 F H 100.4 F H Pulse Rate 79 76 83 Respiratory Rate 16 16 16 Blood Pressure 135/69 150/77 H 149/71 H Pulse Oximetry 100 100 100 08/10/18 04:53 08/10/18 05:00 08/10/18 05:30 Temperature 100.8 F H 100.8 F H Pulse Rate 74 78 Respiratory Rate 16 16 16 Blood Pressure 181/86 H 162/74 H Pulse Oximetry 100 100 100 08/10/18 06:00 08/10/18 06:08 08/10/18 06:30 Temperature 100.8 F H 100.9 F H 100.8 F H Pulse Rate 81 71 74 Respiratory Rate 21 32 H 23 Blood Pressure 169/122 H 174/85 H 186/96 H Pulse Oximetry 99 100 100 08/10/18 06:59 08/10/18 07:00 08/10/18 07:30 Temperature 100.9 F H 100.9 F H Pulse Rate 81 72 81 Respiratory Rate 21 16 16 Blood Pressure 186/96 H 181/92 H 165/90 H Pulse Oximetry 99 100 100 08/10/18 08:00 08/10/18 08:30 08/10/18 09:00 Temperature 100.9 F H 101.1 F H 101.1 F H Pulse Rate 70 81 80 Respiratory Rate 16 16 16 Blood Pressure 183/95 H 144/82 H 161/85 H Pulse Oximetry 100 100 100 08/10/18 09:30 08/10/18 09:45 08/10/18 10:00 Temperature 101.1 F H 101.1 F H Pulse Rate 83 81 Respiratory Rate 16 16 16 Blood Pressure 159/83 H 153/76 H Pulse Oximetry 100 100 100 08/10/18 10:30 08/10/18 11:00 08/10/18 11:30 Temperature 101.1 F H 101.1 F H 100.9 F H Pulse Rate 80 79 Respiratory Rate 16 17 16 Blood Pressure 182/90 H 185/84 H 176/87 H Pulse Oximetry 100 100 100 08/10/18 12:00 08/10/18 12:30 08/10/18 13:00 Temperature 101.1 F H 101.3 F H 101.3 F H Pulse Rate 79 80 77 Respiratory Rate 16 16 16 Blood Pressure 177/84 H 167/82 H 179/87 H Pulse Oximetry 100 100 100 08/10/18 13:30 08/10/18 14:00 08/10/18 14:30 Temperature 101.3 F H 101.1 F H 100.9 F H Pulse Rate 75 86 82 Respiratory Rate 16 16 16 Blood Pressure 169/79 H 140/61 175/78 H Pulse Oximetry 100 100 100 08/10/18 15:00 Temperature 100.9 F H Pulse Rate 80 Respiratory Rate 16 Blood Pressure 157/77 H Pulse Oximetry 100 Intake & Output 08/09/18 08/10/18 08/10/18 18:59 06:59 18:59 Intake Total 1792 / 1792 850 / 850 250 / 250 Output Total 2480 / 2480 750 / 750 Balance -688 / -688 100 / 100 250 / 250 Weight 58.5 kg Intake: IV 600 / 600 250 / 250 250 / 250 Precedex Inj 1,000 MCG In NS 250 / 250 Inj 240 ML @ 0.2 MCG/KG/HR 2.99 mls/hr IV.CONT TITRATE PRN Rx# :[id number] Precedex Inj 200 MCG In NS Inj 100 / 100 48 ML @ 0.2 MCG/KG/HR 2.99 mls/ hr IV.CONT TITRATE PRN Rx#: [id number] Vancomycin Inj 1,000 MG In NS 500 / 500 250 / 250 Inj 250 ML @ 250 mls/hr IV.SIG Q12H MAGDA Rx#:[id number] Oral 0 / 0 Tube Feeding 1072 / 1072 600 / 600 Tube Irrigant 120 / 120 Output: Urine 1600 / 1600 Stool 0 / 0 Urine/Stool Mix 0 / 0 Urine Amount (Catheter) 700 / 700 750 / 750 Indwelling Temp Sensing 700 / 700 750 / 750 Catheter Gastric Drainage 180 / 180 Orogastric Tube 180 / 180 Other: Date of Last Bowel Movement 08/09/18 08/09/18 08/09/18 # Bowel Movements 1 0 # Incontinent Bowel Movements 1 0 Physical Exam: CONSTITUTIONAL/GENERAL: This is an adequately nourished patient, intubated, off sedation, in mild distress. TUBES/LINES/DRAINS: Left IJ, PIV x2, ETT, OGT, Caro, SKIN: No jaundice, rashes, or lesions. Ecchymoses on upper extremities. No wounds seen anteriorly. Skin temperature appropriate. Not diaphoretic. ENT: Hearing cannot be assessed. Nose without bleeding or purulent drainage. Orally intubated. NECK: Trachea midline. Supple, nontender. No palpable thyroid enlargement or nodularity. CARDIOVASCULAR: S1, S2, tachycardic rate, regular rhythm without murmurs. RESPIRATORY/CHEST: Lung sounds coarse throughout all lung hurst. GASTROINTESTINAL: Abdomen soft, nondistended. No guarding. Bowel sounds present. GENITOURINARY: Without palpable bladder distension. Caro catheter in place. MUSCULOSKELETAL: Extremities without clubbing, cyanosis, or edema. No joint tenderness or effusion noted. No calf tenderness. No mottling or clubbing. NEUROLOGICAL: Not following commands. No purposeful movements noted. Not opening eyes spontaneously, positive pupillary, corneal, gag, extensor posturing of bilateral upper extremities to pain. PSYCHIATRIC: On Precedex for vent synchrony. . Diagnostic Tests Laboratory: Laboratory Results - last 72 hr 08/07/18 08/07/18 08/07/18 17:35 18:05 19:02 WBC RBC Hgb Hct MCV MCH MCHC RDW Plt Count MPV Neut % (Auto) Lymph % (Auto) S[place]ent % (Auto) Eos % (Auto) Baso % (Auto) Neut # (Auto) Lymph # (Auto) Sargent # (Auto) Eos # (Auto) Baso # (Auto) WBC Differential Differential Comment PT INR APTT Sodium Potassium Chloride Carbon Dioxide Anion Gap BUN Creatinine Estimated GFR POC Glucose 68 137 H Random Glucose Calcium Phosphorus Magnesium Total Bilirubin AST ALT Alkaline Phosphatase Troponin I Less than 0.02 L Total Protein Albumin Prealbumin 08/07/18 08/07/18 08/07/18 19:50 21:10 22:19 WBC RBC Hgb Hct MCV MCH MCHC RDW Plt Count MPV Neut % (Auto) Lymph % (Auto) S[place]ent % (Auto) Eos % (Auto) Baso % (Auto) Neut # (Auto) Lymph # (Auto) S[place]ent # (Auto) Eos # (Auto) Baso # (Auto) WBC Differential Differential Comment PT INR APTT Sodium Potassium Chloride Carbon Dioxide Anion Gap BUN Creatinine Estimated GFR POC Glucose 117 H 106 150 H Random Glucose Calcium Phosphorus Magnesium Total Bilirubin AST ALT Alkaline Phosphatase Troponin I Total Protein Albumin Prealbumin 08/07/18 08/08/18 08/08/18 23:00 00:00 00:51 WBC RBC Hgb Hct MCV MCH MCHC RDW Plt Count MPV Neut % (Auto) Lymph % (Auto) Sargent % (Auto) Eos % (Auto) Baso % (Auto) Neut # (Auto) Lymph # (Auto) S[place]ent # (Auto) Eos # (Auto) Baso # (Auto) WBC Differential Differential Comment PT INR APTT Sodium Potassium Chloride Carbon Dioxide Anion Gap BUN Creatinine Estimated GFR POC Glucose 142 H 171 H 179 H Random Glucose Calcium Phosphorus Magnesium Total Bilirubin AST ALT Alkaline Phosphatase Troponin I Total Protein Albumin Prealbumin 08/08/18 08/08/18 08/08/18 01:56 03:02 04:11 WBC RBC Hgb Hct MCV MCH MCHC RDW Plt Count MPV Neut % (Auto) Lymph % (Auto) Sargent % (Auto) Eos % (Auto) Baso % (Auto) Neut # (Auto) Lymph # (Auto) S[place]ent # (Auto) Eos # (Auto) Baso # (Auto) WBC Differential Differential Comment PT INR APTT Sodium Potassium Chloride Carbon Dioxide Anion Gap BUN Creatinine Estimated GFR POC Glucose 210 H 286 H 327 H Random Glucose Calcium Phosphorus Magnesium Total Bilirubin AST ALT Alkaline Phosphatase Troponin I Total Protein Albumin Prealbumin 08/08/18 08/08/18 08/08/18 05:13 06:17 06:39 WBC 15.6 H RBC 3.91 L Hgb 13.7 Hct 40.2 MCV 102.9 H MCH 35.0 H MCHC 34.0 RDW 12.9 Plt Count 273 MPV 8.8 Neut % (Auto) 90.6 H Lymph % (Auto) 3.4 L Sargent % (Auto) 6.0 Eos % (Auto) 0.0 Baso % (Auto) 0.0 Neut # (Auto) 14.1 H Lymph # (Auto) 0.5 L Sargent # (Auto) 0.9 Eos # (Auto) 0.0 Baso # (Auto) 0.0 WBC Differential . Differential Comment Auto diff final PT INR APTT Sodium Potassium Chloride Carbon Dioxide Anion Gap BUN Creatinine Estimated GFR POC Glucose 356 H 332 H Random Glucose Calcium Phosphorus Magnesium Total Bilirubin AST ALT Alkaline Phosphatase Troponin I Total Protein Albumin Prealbumin 08/08/18 08/08/18 08/08/18 06:39 06:39 06:41 WBC RBC Hgb Hct MCV MCH MCHC RDW Plt Count MPV Neut % (Auto) Lymph % (Auto) Sargent % (Auto) Eos % (Auto) Baso % (Auto) Neut # (Auto) Lymph # (Auto) Sargent # (Auto) Eos # (Auto) Baso # (Auto) WBC Differential Differential Comment PT 10.0 INR 1.0 APTT 29.4 Sodium 137 Potassium 4.8 D Chloride 102 Carbon Dioxide 23.0 Anion Gap 12 BUN 11 Creatinine 1.18 Estimated GFR 66 L POC Glucose 358 H Random Glucose 352 H D Calcium 9.2 D Phosphorus 2.4 L Magnesium 1.7 Total Bilirubin 0.4 AST 34 ALT 21 Alkaline Phosphatase 67 Troponin I Total Protein 7.7 D Albumin 3.3 L Prealbumin 08/08/18 08/08/18 08/08/18 08:12 09:14 11:21 WBC RBC Hgb Hct MCV MCH MCHC RDW Plt Count MPV Neut % (Auto) Lymph % (Auto) Sargent % (Auto) Eos % (Auto) Baso % (Auto) Neut # (Auto) Lymph # (Auto) Sargent # (Auto) Eos # (Auto) Baso # (Auto) WBC Differential Differential Comment PT INR APTT Sodium Potassium Chloride Carbon Dioxide Anion Gap BUN Creatinine Estimated GFR POC Glucose 381 H 399 H 442 H Random Glucose Calcium Phosphorus Magnesium Total Bilirubin AST ALT Alkaline Phosphatase Troponin I Total Protein Albumin Prealbumin 08/08/18 08/08/18 08/08/18 13:04 17:07 19:53 WBC RBC Hgb Hct MCV MCH MCHC RDW Plt Count MPV Neut % (Auto) Lymph % (Auto) Sargent % (Auto) Eos % (Auto) Baso % (Auto) Neut # (Auto) Lymph # (Auto) Sargent # (Auto) Eos # (Auto) Baso # (Auto) WBC Differential Differential Comment PT INR APTT Sodium Potassium Chloride Carbon Dioxide Anion Gap BUN Creatinine Estimated GFR POC Glucose 305 H 150 H 331 H Random Glucose Calcium Phosphorus Magnesium Total Bilirubin AST ALT Alkaline Phosphatase Troponin I Total Protein Albumin Prealbumin 08/08/18 08/08/18 08/09/18 21:02 23:15 00:59 WBC RBC Hgb Hct MCV MCH MCHC RDW Plt Count MPV Neut % (Auto) Lymph % (Auto) Sargent % (Auto) Eos % (Auto) Baso % (Auto) Neut # (Auto) Lymph # (Auto) Sargent # (Auto) Eos # (Auto) Baso # (Auto) WBC Differential Differential Comment PT INR APTT Sodium Potassium Chloride Carbon Dioxide Anion Gap BUN Creatinine Estimated GFR POC Glucose 298 H 222 H 204 H Random Glucose Calcium Phosphorus Magnesium Total Bilirubin AST ALT Alkaline Phosphatase Troponin I Total Protein Albumin Prealbumin 08/09/18 08/09/18 08/09/18 02:57 04:53 06:21 WBC 8.5 RBC 3.68 L Hgb 13.1 Hct 38.4 L MCV 104.2 H MCH 35.5 H MCHC 34.0 RDW 13.3 Plt Count 226 MPV 9.0 Neut % (Auto) 76.8 H Lymph % (Auto) 13.8 Sargent % (Auto) 8.7 H Eos % (Auto) 0.3 Baso % (Auto) 0.4 Neut # (Auto) 6.5 Lymph # (Auto) 1.2 Sargent # (Auto) 0.7 Eos # (Auto) 0.0 Baso # (Auto) 0.0 WBC Differential . Differential Comment Auto diff final PT INR APTT Sodium Potassium Chloride Carbon Dioxide Anion Gap BUN Creatinine Estimated GFR POC Glucose 154 H 82 Random Glucose Calcium Phosphorus Magnesium Total Bilirubin AST ALT Alkaline Phosphatase Troponin I Total Protein Albumin Prealbumin 08/09/18 08/09/18 08/09/18 06:21 06:45 08:02 WBC RBC Hgb Hct MCV MCH MCHC RDW Plt Count MPV Neut % (Auto) Lymph % (Auto) Sargent % (Auto) Eos % (Auto) Baso % (Auto) Neut # (Auto) Lymph # (Auto) S[place]ent # (Auto) Eos # (Auto) Baso # (Auto) WBC Differential Differential Comment PT INR APTT Sodium 147 H D Potassium 4.0 D Chloride 113 H D Carbon Dioxide 26.4 Anion Gap 8 BUN 21 H Creatinine 0.89 Estimated GFR Greater than 89 POC Glucose 106 165 H Random Glucose 86 D Calcium 9.1 Phosphorus 3.2 Magnesium 2.1 Total Bilirubin 0.4 AST 25 ALT 21 Alkaline Phosphatase 63 Troponin I Total Protein 6.7 D Albumin 2.5 L D Prealbumin 08/09/18 08/09/18 08/09/18 10:27 11:44 14:47 WBC RBC Hgb Hct MCV MCH MCHC RDW Plt Count MPV Neut % (Auto) Lymph % (Auto) Sargent % (Auto) Eos % (Auto) Baso % (Auto) Neut # (Auto) Lymph # (Auto) S[place]ent # (Auto) Eos # (Auto) Baso # (Auto) WBC Differential Differential Comment PT INR APTT Sodium Potassium Chloride Carbon Dioxide Anion Gap BUN Creatinine Estimated GFR POC Glucose 364 H 363 H 139 H Random Glucose Calcium Phosphorus Magnesium Total Bilirubin AST ALT Alkaline Phosphatase Troponin I Total Protein Albumin Prealbumin 08/09/18 08/09/18 08/09/18 17:40 19:35 21:18 WBC RBC Hgb Hct MCV MCH MCHC RDW Plt Count MPV Neut % (Auto) Lymph % (Auto) Sargent % (Auto) Eos % (Auto) Baso % (Auto) Neut # (Auto) Lymph # (Auto) S[place]ent # (Auto) Eos # (Auto) Baso # (Auto) WBC Differential Differential Comment PT INR APTT Sodium Potassium Chloride Carbon Dioxide Anion Gap BUN Creatinine Estimated GFR POC Glucose 130 H 271 H 257 H Random Glucose Calcium Phosphorus Magnesium Total Bilirubin AST ALT Alkaline Phosphatase Troponin I Total Protein Albumin Prealbumin 08/09/18 08/10/18 08/10/18 23:03 01:09 03:04 WBC RBC Hgb Hct MCV MCH MCHC RDW Plt Count MPV Neut % (Auto) Lymph % (Auto) Sargent % (Auto) Eos % (Auto) Baso % (Auto) Neut # (Auto) Lymph # (Auto) Sargent # (Auto) Eos # (Auto) Baso # (Auto) WBC Differential Differential Comment PT INR APTT Sodium Potassium Chloride Carbon Dioxide Anion Gap BUN Creatinine Estimated GFR POC Glucose 278 H 192 H 186 H Random Glucose Calcium Phosphorus Magnesium Total Bilirubin AST ALT Alkaline Phosphatase Troponin I Total Protein Albumin Prealbumin 08/10/18 08/10/18 08/10/18 04:33 04:33 05:07 WBC 8.8 RBC 3.81 L Hgb 13.1 Hct 39.4 MCV 103.2 H MCH 34.5 H MCHC 33.4 RDW 12.8 Plt Count 240 MPV 8.7 Neut % (Auto) 79.7 H Lymph % (Auto) 11.3 Sargent % (Auto) 8.2 H Eos % (Auto) 0.3 Baso % (Auto) 0.5 Neut # (Auto) 7.0 Lymph # (Auto) 1.0 Sargent # (Auto) 0.7 Eos # (Auto) 0.0 Baso # (Auto) 0.0 WBC Differential . Differential Comment Auto diff final PT INR APTT Sodium 147 H Potassium 3.6 Chloride 111 H Carbon Dioxide 27.6 Anion Gap 8 BUN 26 H Creatinine 0.82 Estimated GFR Greater than 89 POC Glucose 261 H Random Glucose 262 H D Calcium 9.7 Phosphorus 3.6 Magnesium 1.9 Total Bilirubin 0.4 AST 20 ALT 20 Alkaline Phosphatase 73 Troponin I Total Protein 6.9 Albumin 2.5 L Prealbumin 16 L 08/10/18 08/10/18 08/10/18 06:57 09:45 11:37 WBC RBC Hgb Hct MCV MCH MCHC RDW Plt Count MPV Neut % (Auto) Lymph % (Auto) Sargent % (Auto) Eos % (Auto) Baso % (Auto) Neut # (Auto) Lymph # (Auto) Sargent # (Auto) Eos # (Auto) Baso # (Auto) WBC Differential Differential Comment PT INR APTT Sodium Potassium Chloride Carbon Dioxide Anion Gap BUN Creatinine Estimated GFR POC Glucose 295 H 258 H 326 H Random Glucose Calcium Phosphorus Magnesium Total Bilirubin AST ALT Alkaline Phosphatase Troponin I Total Protein Albumin Prealbumin 08/10/18 13:12 WBC RBC Hgb Hct MCV MCH MCHC RDW Plt Count MPV Neut % (Auto) Lymph % (Auto) Sargent % (Auto) Eos % (Auto) Baso % (Auto) Neut # (Auto) Lymph # (Auto) Sargent # (Auto) Eos # (Auto) Baso # (Auto) WBC Differential Differential Comment PT INR APTT Sodium Potassium Chloride Carbon Dioxide Anion Gap BUN Creatinine Estimated GFR POC Glucose 277 H Random Glucose Calcium Phosphorus Magnesium Total Bilirubin AST ALT Alkaline Phosphatase Troponin I Total Protein Albumin Prealbumin Result Diagrams: 08/10/18 04:33 08/10/18 04:33 Microbiology: Microbiology 08/08/18 11:27 Aerobic Blood Culture - Preliminary Blood - Peripheral No growth in 2 days Anaerobic Blood Culture - Final QNS - See aerobic report. 08/08/18 11:17 Aerobic Blood Culture - Preliminary Blood - Peripheral No growth in 2 days Anaerobic Blood Culture - Preliminary No growth in 2 days 08/07/18 03:01 Aerobic Blood Culture - Final Blood - Peripheral Corynebacterium species Staphylococcus coag negative Anaerobic Blood Culture - Preliminary No growth in 3 days 08/07/18 03:06 Aerobic Blood Culture - Final Blood - Peripheral Bacillus species not anthracis Anaerobic Blood Culture - Preliminary No growth in 3 days Procedures: 08/07: Intubation in the field. . Assessment and Plan Pertinent Non-Medical Issues: Psychosocial: He was born in [place] but moved to [place] as a young child with his mother. He began attending college to earn his degree in architecture , however never completed that. He has not been nor had any known children. Spiritual: Raised in the Religion shyla but was exploring conversion to Catholicism at one time. [employer] available. Legal: No advance directive paperwork completed. Ethical issues impacting care: Patient's only known family is his cousin, who will serve as his decision maker, pending completion of other modalities to attempt to locate family. . Important Contacts: Cousin: Alberto Rey . Prognosis: Prognosis is guarded. This is a 47-year-[place] blood sugar of 14 and an insulin needle lying next to him. It appeared he had injected himself with an entire syringe of long-acting insulin which she had taken from his cousin. He had an unknown downtime. Urine toxicology was positive for benzodiazepines, cocaine and cannabinoids. His presenting blood sugar at the hospital was 38. He remains encephalopathic. Imaging studies are indicative of a possible anoxic brain injury. He is at elevated risk for continued complications and decline. . . Code Status: Full Code (By default) Plan: * Legal decision maker: The patient at this time is not capacitated for decision -making as he is unresponsive on a ventilator. [employer] has been initiated to try to locate his sister, who has been missing for at least 10 years, and his father, who has had no contact with the patient since he was a very young child. At this time his cousin, Alberto, is readily available and willing to serve and to his knowledge the only remaining family member. * ACCURINT results obtained. Possible father, Jeremy Kumar [Glenny] no phone number, address [address] [place] [address]. Left message with [facility]- interface control officer Jona for wellness check to determine if this is patient's father and if he still lives at this address. Awaiting call back. * Goals: FULL CODE. Goals remain aggressive at this time. * FULL CODE SYMPTOMS: * Encephalopathy: Multifactorial to include likely hypoxic and hypoglycemic injury, metabolic acidosis, extended downtime without cardiac arrest. Imaging studies initially indicate likely an anoxic/hypoxic brain injury. Attempted sedation vacation was unsuccessful due to patient agitation, tachycardia, tachypnea, thrashing and hypertension. we will continue to discuss goals of care with his cousin. * Pain: Multifactorial to include chronic disease, peripheral neuropathy, history of gastroparesis, previous injuries, bedbound status, invasive lines and tubes. Currently patient on Precedex, however does have morphine available if needed. Attempting to minimize sedation for neurological evaluation * Dyspnea: On mech vent. * Palliative care will continue to follow the patient during hospital course as condition evolves, to assist patient/decision-maker with understanding of their medical conditions, weighing benefits/burdens of treatment options, for clarification of goals of treatment. Additionally will assist with any symptoms of palliative concern. . Attestation Attestation: To help prompt me to consider important information that might be impacting today's encounter and assessment, information from prior notes written by myself or my colleagues may have been "brought forward" into today's note. My signature on this note, however, is an attestation that I personally performed the exam, history, and/or decision-making noted today, and, unless otherwise indicated, the interactions with patient, family, and staff as well as the review of records all occurred today. I also attest that the listed assessment and stated plan reflect my best clinical judgment today based on the combination of historical information, prior notes, and today's exam/ interactions. When time spent is documented, it refers only to time spent today by the signer, or if indicated, combined time spent today by collaborating physician/nurse practitioner.
[2018-08-10] MEDS: hydrALAZINE HCl Inj 20 MG/ML Vial IV.PUSH PRN (23:09)
[2018-08-11] MEDS: Oral Hygiene Kit OROPHARYNG SCH ×2 (04:45→13:16)
[2018-08-11] MEDS: Heparin - SQ 10,000 UNITS/ML Vial SQ SCH ×3 (04:45→21:42)
[2018-08-11] MEDS: Insulin NovoLIN Regular Correctional Sugar Inj SQ SCH ×3 (04:46→13:21)
[2018-08-11] MEDS: Vancomycin Inj 1,000 MG in Sodium Chlor 0.9% Inj 250 ML IV.SIG SCH ×2 (04:46→16:47)
[2018-08-11] MEDS: Chlorhexidine Gluconate 2% 1 Pack (2 Cloths) TOPICAL SCH (04:46)
[2018-08-11] MEDS: Dexmedetomidine Inj 1,000 MCG in Sodium Chlor 0.9% Inj 240 ML IV.CONT PRN (05:18)
[2018-08-11 07:14] LABS: Baso % (Auto) 0.2 % (0.0-2.0); Eos % (Auto) 0.5 % (0.0-4.0); Hematocrit 36.3 % (39.0-51.0); Hemoglobin 12.6 gm/dL (13.0-17.0); Lymph # (Auto) 1.1 th/mm3 (1.0-4.8); Lymph % (Auto) 11.2 % (9.0-44.0); Mean Corpuscular HGB Conc 34.8 % (32.0-36.0); Mean Corpuscular Hemoglobin 35.4 pg (27.0-34.0); Mean Corpuscular Volume 101.8 fL (80.0-100.0); Mean Platelet Volume 9.2 fL (7.0-11.0); Mono % (Auto) 10.3 % (0.0-8.0); Neut # (Auto) 7.6 th/mm3 (1.8-7.7); Neut % (Auto) 77.8 % (16.0-70.0); Platelet Count 219 th/mm3 (150-450); Red Blood Count 3.57 mil/mm3 (4.50-5.90); Red Cell Distribution Width 12.9 % (11.6-17.2); White Blood Count 9.8 th/mm3 (4.0-11.0)
[2018-08-11 07:44] LABS: Alanine Aminotransferase 27 U/L (12-78); Albumin 2.3 g/dL (3.4-5.0); Anion Gap 9 meq/L (5-15); Aspartate Aminotransferase 24 U/L (15-37); Blood Urea Nitrogen 24 mg/dL (7-18); Calcium 9.4 mg/dL (8.5-10.1); Carbon Dioxide 28.4 meq/L (21.0-32.0); Chloride 108 meq/L (98-107); Glomerular Filtration Rate Greater Than 89 mL/min (>89); Glucose,Random 239 mg/dL (74-106); Magnesium 1.8 mg/dL (1.5-2.5); Phosphorus 3.2 mg/dL (2.5-4.9); Potassium 3.4 meq/L (3.5-5.1); Sodium 145 meq/L (136-145)
[2018-08-11 07:47] LABS: Alkaline Phosphatase 66 U/L (45-117); Total Protein 6.9 g/dL (6.4-8.2)
[2018-08-11] MEDS: Chlorhexidine 0.12% Oral Kit 15 ML UDC OROPHARYNG SCH ×2 (09:19→21:41)
[2018-08-11] MEDS: Senna/Docusate Sodium 8.6/50 MG Tablet PO SCH ×2 (09:20→21:42)
[2018-08-11] MEDS: Famotidine PF Inj 20 MG/2 ML Vial IV.PUSH SCH ×2 (09:20→21:41)
[2018-08-11] MEDS: hydrALAZINE HCl Inj 20 MG/ML Vial IV.PUSH PRN (09:37)
--- NOTE | 2018-08-11 10:33 | P.PNPAL ---
Palliative care has not received call back regarding wellness check. Proceed with patient's son, Alberto as health care proxy as he is readily available and willing to serve.
--- NOTE | 2018-08-11 12:09 | P.PNCC ---
Subjective Subjective Remarks/Hospital Course: Late 30s/early [id number] patient of unknown identity was brought in by EMS emergently. [place]. Blood sugar was checked and it was 14. Patient was given 1 amp of D50 but did not wake up. He was given IV Narcan with no change. Patient was intubated at the scene by EMS for an airway protection. He was brought in being bagged by positive pressure ventilation. As per EMS patient never lost his pulse. Vital signs were otherwise stable. Upon arrival patient had no purposeful movement and was obviously no condition to give any meaningful history. Blood sugar upon arrival was 38. 08/08 Patient remains sedated and intubated. Afebrile. 08/09: neuro exam extremely poor. MRI suggestive of anoxic injury secondary to profound hypoglycemia. prognosis very poor for meaningful neurologic recovery. on precedex to facilitate vent synchrony. appears to posture with the upper extremities. blood sugar has now stabilized out. 08/10: Remains encephalopathic, no purposeful movements during my exam today but RN reports that the patient has spontaneously moved his legs earlier today. 08/11: Overnight, the patient appears to have had significant improvement in mental status. I was informed by the RN yesterday afternoon (after my morning exam) that the patient opened his eyes and tracked movements. Today, he opens his eyes to voice and follows simple commands. Objective Vital Signs / I&O: Vital Signs 08/10/18 12:30 08/10/18 13:00 08/10/18 13:30 Temperature 101.3 F H 101.3 F H 101.3 F H Pulse Rate 80 77 75 Respiratory Rate 16 16 16 Blood Pressure 167/82 H 179/87 H 169/79 H Pulse Oximetry 100 100 100 08/10/18 14:00 08/10/18 14:30 08/10/18 15:00 Temperature 101.1 F H 100.9 F H 100.9 F H Pulse Rate 86 82 80 Respiratory Rate 16 16 16 Blood Pressure 140/61 175/78 H 157/77 H Pulse Oximetry 100 100 100 08/10/18 15:30 08/10/18 16:00 08/10/18 16:30 Temperature 100.9 F H 100.6 F H 100.9 F H Pulse Rate 84 84 80 Respiratory Rate 16 16 16 Blood Pressure 136/64 146/74 H 126/66 Pulse Oximetry 100 100 99 08/10/18 17:00 08/10/18 17:30 08/10/18 18:00 Temperature 100.9 F H 100.8 F H 100.4 F H Pulse Rate 80 80 75 Respiratory Rate 16 16 16 Blood Pressure 129/63 131/68 143/76 H Pulse Oximetry 100 100 100 08/10/18 19:00 08/10/18 19:26 08/10/18 20:00 Temperature 99.0 F 99.0 F Pulse Rate 80 90 Respiratory Rate 16 16 16 Blood Pressure 157/77 H 157/77 H Pulse Oximetry 100 100 100 08/10/18 21:00 08/10/18 22:00 08/10/18 23:00 Temperature 99.0 F 99.0 F 101.3 F H Pulse Rate 72 63 60 Respiratory Rate 16 16 16 Blood Pressure 182/88 H 194/91 H 212/96 H Pulse Oximetry 100 100 100 08/11/18 00:00 08/11/18 00:02 08/11/18 01:00 Temperature 101.0 F H 100.9 F H Pulse Rate 79 80 Respiratory Rate 15 16 16 Blood Pressure 129/60 128/65 Pulse Oximetry 100 100 99 08/11/18 02:00 08/11/18 03:00 08/11/18 03:10 Temperature 101.1 F H 101.1 F H Pulse Rate 79 81 Respiratory Rate 16 16 16 Blood Pressure 133/64 118/60 Pulse Oximetry 100 100 100 08/11/18 04:00 08/11/18 05:00 08/11/18 06:00 Temperature 101.5 F H 101.5 F H 101 F H Pulse Rate 80 83 80 Respiratory Rate 16 16 16 Blood Pressure 130/66 190/90 H 190/90 H Pulse Oximetry 100 100 100 08/11/18 07:45 Temperature Pulse Rate Respiratory Rate 16 Blood Pressure Pulse Oximetry 100 Intake & Output 08/10/18 08/11/18 08/11/18 18:59 06:59 18:59 Intake Total 1135 / 1135 1750 / 1750 Output Total 950 / 950 700 / 700 Balance 185 / 185 1050 / 1050 Weight 60.1 kg Intake: IV 250 / 250 750 / 750 Precedex Inj 1,000 MCG In NS 250 / 250 Inj 240 ML @ 0.2 MCG/KG/HR 2.99 mls/hr IV.CONT TITRATE PRN Rx# :[id number] Vancomycin Inj 1,000 MG In NS 250 / 250 500 / 500 Inj 250 ML @ 250 mls/hr IV.SIG Q12H MAGDA Rx#:[id number] Tube Feeding 685 / 685 600 / 600 Water Bolus Amount 200 / 200 400 / 400 Output: Stool 0 / 0 Urine/Stool Mix 0 / 0 Urine Amount (Catheter) 950 / 950 700 / 700 Indwelling Temp Sensing 950 / 950 700 / 700 Catheter Other: Date of Last Bowel Movement 08/09/18 08/09/18 08/09/18 # Bowel Movements 0 # Incontinent Bowel Movements 0 Result Diagrams: 08/11/18 05:57 08/11/18 05:57 Objective Remarks: GENERAL: middle aged male, lying in bed, intubated, arousable. SKIN: Warm and dry. HEAD: Normocephalic. EYES: Pupils 3 mm and reactive NECK: trachea midline. No JVD CARDIOVASCULAR: normal rate, regular rhythm. sinus. RESPIRATORY: Equal chest rise. fio2 40%. peep 5. GASTROINTESTINAL: Abdomen soft, non-tender, nondistended. no guarding. MUSCULOSKELETAL: No cyanosis, or edema. Neuro: GCS 10T ([id number]), moves both feet and squeezes with both hands, will show me "thumbs up" on left hand but not on right. Assessment and Plan - Assessment and Plan Plan: Assessment: 47yM s/p long-acting insulin overdose with encephalopathy, improving. Plan Neuro: Hypoxic-Ischemic Encephalopathy Overdose of long-acting insulin Suicide Attempt Polysubstance abuse - secondary to profound hypoglycemia - low-dose precedex for vent synchrony, weaning down as tolerated. goal RASS -1/ -2. - MRI brain: Minimal increased signal in the flores matter of the cerebral cortex seen on the diffusion imaging could be subtle evidence for anoxia. - CT brain: Somewhat decreased flores matter-white matter differentiation diffusely. This finding can be seen with diffuse anoxic/hypoxic injury. - EEG: Moderate encephalopathy - Neuro is following Dr. Destin Thomas Act and psych consult if any return of neurologic function. - UDS + cocaine, cannabinoids, benzos - Mental status significantly improved this morning, unclear what, if any, long- term deficits the patient will have Pulm: Acute Hypoxic and Hypercarbic Respiratory Failure - spontaneous breathing trial this morning, wean to extubate if mental status remains as it is - prn nebs - hob elevated - vent bundle CV: - keep on telemetry - goal map > 65 mmHg : - no indication for freitas catheter - daily bmp - strict i/o's GI: Acute protein calorie malnutrition- moderate - tube feeds - OG tube - daily bmp,mg,phos - On Pepcid for GI prophylaxis - Continue tube feeds- Glucerna 1.5@50ml/hr-- currently on hold during SBT - Add free H2O flushes ID: Bacteremia Leukocytosis - on vanc - BC 08/07: GPR - daily cbc Endo: Intentional long-acting insulin overdose Profound hypoglycemia- resolving - SSI with accuchecks, change to high dosing Heme: - Monitor CBC DVT GI prophylaxis -Teds SCDs -Subcu heparin -Pepcid Counseling/ Coordination of Care: This patient is critically ill with impairment of one or more vital organ systems with a high probability of imminent or life-threatening deterioration. High-complexity medical decision making was required to support vital organ function and/ or prevent deterioration in the patient's condition. Total critical care time spent is 33 minutes giving full attention to this patient. This includes examining the patient, gathering history from someone other than the patient (i.e. chart review), discussing the patient's care with other providers, managing the patient's blood pressure and ventilator settings, ordering and interpreting radiologic studies, ordering and interpreting laboratory values, managing the patient's sedation requirements, and documentation. Amount of time is separate from teaching, counseling the patient and/or family, and exclusive of procedures. To help prompt me to consider important information that might be impacting today's encounter and assessment, information from prior notes written by myself or my colleagues may have been "brought forward" into today's note. My signature on this note, however, is an attestation that I personally performed the exam, history, and/or decision-making noted today, and, unless otherwise indicated, the interactions with patient, family, and staff as well as the review of records all occurred today. I also attest that the listed assessment and stated plan reflect my best clinical judgment today based on the combination of historical information, prior notes, and today's exam/ interactions. Code Status: Full
[2018-08-12] MEDS: hydrALAZINE HCl Inj 20 MG/ML Vial IV.PUSH PRN ×2 (00:37→20:04)
[2018-08-12] MEDS: Insulin NovoLIN Regular Correctional Sugar Inj SQ SCH ×5 (00:38→17:58)
[2018-08-12] MEDS: Oral Hygiene Kit OROPHARYNG SCH ×5 (00:39→16:22)
[2018-08-12] MEDS: Vancomycin Inj 1,000 MG in Sodium Chlor 0.9% Inj 250 ML IV.SIG SCH (04:55)
[2018-08-12] MEDS: Heparin - SQ 10,000 UNITS/ML Vial SQ SCH ×3 (04:56→21:26)
[2018-08-12] MEDS: Chlorhexidine Gluconate 2% 1 Pack (2 Cloths) TOPICAL SCH (05:08)
[2018-08-12 06:11] LABS: Baso % (Auto) 0.2 % (0.0-2.0); Eos % (Auto) 0.1 % (0.0-4.0); Hematocrit 37.6 % (39.0-51.0); Lymph # (Auto) 1.1 th/mm3 (1.0-4.8); Lymph % (Auto) 9.5 % (9.0-44.0); Mean Corpuscular HGB Conc 34.5 % (32.0-36.0); Mean Corpuscular Hemoglobin 35.1 pg (27.0-34.0); Mean Corpuscular Volume 101.7 fL (80.0-100.0); Mean Platelet Volume 9.2 fL (7.0-11.0); Mono % (Auto) 8.8 % (0.0-8.0); Neut # (Auto) 9.4 th/mm3 (1.8-7.7); Neut % (Auto) 81.4 % (16.0-70.0); Platelet Count 264 th/mm3 (150-450); Red Cell Distribution Width 12.9 % (11.6-17.2); White Blood Count 11.5 th/mm3 (4.0-11.0)
[2018-08-12 06:36] LABS: Alanine Aminotransferase 26 U/L (12-78); Albumin 2.5 g/dL (3.4-5.0); Anion Gap 11 meq/L (5-15); Aspartate Aminotransferase 16 U/L (15-37); Blood Urea Nitrogen 29 mg/dL (7-18); Calcium 9.4 mg/dL (8.5-10.1); Carbon Dioxide 27.7 meq/L (21.0-32.0); Chloride 111 meq/L (98-107); Glomerular Filtration Rate 78 mL/min (>89); Glucose,Random 234 mg/dL (74-106); Potassium 3.8 meq/L (3.5-5.1); Sodium 150 meq/L (136-145)
[2018-08-12 06:38] LABS: Alkaline Phosphatase 64 U/L (45-117); Total Protein 7.2 g/dL (6.4-8.2)
--- NOTE | 2018-08-12 08:02 | P.PNCC ---
Subjective Subjective Remarks/Hospital Course: Late 30s/early [id number] patient of unknown identity was brought in by EMS emergently. [place] him. Blood sugar was checked and it was 14. Patient was given 1 amp of D50 but did not wake up. He was given IV Narcan with no change. Patient was intubated at the scene by EMS for an airway protection. He was brought in being bagged by positive pressure ventilation. As per EMS patient never lost his pulse. Vital signs were otherwise stable. Upon arrival patient had no purposeful movement and was obviously no condition to give any meaningful history. Blood sugar upon arrival was 38. 08/08 Patient remains sedated and intubated. Afebrile. 08/09: neuro exam extremely poor. MRI suggestive of anoxic injury secondary to profound hypoglycemia. prognosis very poor for meaningful neurologic recovery. on precedex to facilitate vent synchrony. appears to posture with the upper extremities. blood sugar has now stabilized out. 08/10: Remains encephalopathic, no purposeful movements during my exam today but RN reports that the patient has spontaneously moved his legs earlier today. 08/11: Overnight, the patient appears to have had significant improvement in mental status. I was informed by the RN yesterday afternoon (after my morning exam) that the patient opened his eyes and tracked movements. Today, he opens his eyes to voice and follows simple commands. 08/12: Patient weaned off of sedation and tolerated PST yesterday, extubated. Failed bedside dysphagia screening. Remains encephalopathic and non-verbal but follows commands. Objective Vital Signs / I&O: Vital Signs 08/11/18 12:00 08/11/18 16:00 08/11/18 19:00 Temperature 99.8 F H 98.3 F 98.7 F Pulse Rate 85 119 H Respiratory Rate 16 16 18 Blood Pressure 115/58 L 100/55 L 129/67 Pulse Oximetry 100 100 99 08/11/18 20:00 08/12/18 00:00 08/12/18 04:00 Temperature 98 F 98.3 F 98.9 F Pulse Rate 119 H 112 H 113 H Respiratory Rate 17 21 20 Blood Pressure 146/76 H 172/79 H 127/72 Pulse Oximetry 97 100 93 L Intake & Output 08/11/18 08/12/18 08/12/18 18:59 06:59 18:59 Intake Total 460 / 460 780 / 780 Output Total 750 / 750 400 / 400 Balance -290 / -290 380 / 380 Weight 58.6 kg Intake: IV 600 / 600 KCl 20 mEq Premix Inj 20 meq In 100 / 100 100 ml @ 50 mls/hr IV.SIG Q2H PRN Rx#:[id number] Vancomycin Inj 1,000 MG In NS 500 / 500 Inj 250 ML @ 250 mls/hr IV.SIG Q12H MAGDA Rx#:[id number] Oral 0 / 0 0 / 0 Tube Feeding 180 / 180 Tube Irrigant 60 / 60 Water Bolus Amount 400 / 400 Output: Stool 0 / 0 0 / 0 Urine/Stool Mix 0 / 0 0 / 0 Urine Amount (Catheter) 750 / 750 400 / 400 Indwelling Temp Sensing 750 / 750 Catheter Straight 400 / 400 Other: Date of Last Bowel Movement 08/09/18 08/09/18 # Bowel Movements 0 0 # Incontinent Bowel Movements 0 0 Result Diagrams: 08/12/18 05:21 08/12/18 05:21 Objective Remarks: GENERAL: Awake and alert, non-verbal, appears confused SKIN: Warm and dry. HEAD: Normocephalic. EYES: Pupils 3 mm and reactive NECK: trachea midline. No JVD CARDIOVASCULAR: normal rate, regular rhythm. sinus. RESPIRATORY: Clear to auscultation bilaterally GASTROINTESTINAL: Abdomen soft, non-tender, nondistended. no guarding. MUSCULOSKELETAL: No cyanosis, or edema. Neuro: Awake, makes good eye contact, follows commands but is non-verbal and does not nod or shake his head in response to questions Assessment and Plan - Assessment and Plan Plan: Assessment: 47yM s/p long-acting insulin overdose with encephalopathy, improving. Plan Neuro/ Psych: Hypoxic-Ischemic Encephalopathy Overdose of long-acting insulin Suicide Attempt Polysubstance abuse - Remains encephalopathic secondary to profound hypoglycemia/ hypoxia - MRI brain: Minimal increased signal in the flores matter of the cerebral cortex seen on the diffusion imaging could be subtle evidence for anoxia. - CT brain: Somewhat decreased flores matter-white matter differentiation diffusely. This finding can be seen with diffuse anoxic/hypoxic injury. - EEG: Moderate encephalopathy - Neuro is following Dr. Destin Thomas Act (filed by me, in patient's chart along with suicide note found next to patient) and psych consult - UDS + cocaine, cannabinoids, benzos Pulm: Acute Hypoxic and Hypercarbic Respiratory Failure - Extubated yesterday, pulmonary toilet CV: - keep on telemetry - goal map > 65 mmHg : - no active issues GI: Acute protein calorie malnutrition- moderate - Speech therapy eval, NGT if fails - daily bmp,mg,phos - On Pepcid for GI prophylaxis - Sodium 150 today, will start 1/2 NS at maintenance ID: Bacteremia Leukocytosis - BC 08/07: GPR-- bacillus, staph, corynebacterium, likely contaminants, negative repeat cultures from 08/08. Will d/c vanc today and observe off antibiotics - daily cbc Endo: Intentional long-acting insulin overdose Profound hypoglycemia- resolved - SSI with accuchecks, still hyperglycemic despite being on high algorithm correction. Will continue SSI for today as patient's nutrition status is still being determined, will add low-dose levemir if patient passes speech eval or if we restart TFs Heme: - Monitor CBC DVT GI prophylaxis -Teds SCDs -Subcu heparin -Pepcid Level 2 follow up To help prompt me to consider important information that might be impacting today's encounter and assessment, information from prior notes written by myself or my colleagues may have been "brought forward" into today's note. My signature on this note, however, is an attestation that I personally performed the exam, history, and/or decision-making noted today, and, unless otherwise indicated, the interactions with patient, family, and staff as well as the review of records all occurred today. I also attest that the listed assessment and stated plan reflect my best clinical judgment today based on the combination of historical information, prior notes, and today's exam/ interactions. Code Status: Full
[2018-08-12] MEDS: Chlorhexidine 0.12% Oral Kit 15 ML UDC OROPHARYNG SCH ×2 (08:24→20:03)
[2018-08-12] MEDS: Sodium Chloride 0.45 % Inj 1,000 ML IV.CONT SCH ×2 (08:24→20:02)
[2018-08-12] MEDS: Famotidine PF Inj 20 MG/2 ML Vial IV.PUSH SCH ×2 (08:25→20:03)
[2018-08-12] MEDS: Senna/Docusate Sodium 8.6/50 MG Tablet PO SCH ×2 (08:25→20:03)
[2018-08-12] MEDS: Labetalol HCl Inj 100 MG/20 ML Vial IV.PUSH PRN (16:41)
[2018-08-13] MEDS: Insulin NovoLIN Regular Correctional Sugar Inj SQ SCH ×4 (00:15→19:21)
[2018-08-13] MEDS: Oral Hygiene Kit OROPHARYNG SCH ×4 (00:15→16:01)
[2018-08-13] MEDS: hydrALAZINE HCl Inj 20 MG/ML Vial IV.PUSH PRN (00:15)
[2018-08-13] MEDS: Heparin - SQ 10,000 UNITS/ML Vial SQ SCH ×3 (05:12→21:50)
[2018-08-13 05:39] LABS: Baso % (Auto) 0.3 % (0.0-2.0); Eos % (Auto) 0.1 % (0.0-4.0); Hematocrit 37.1 % (39.0-51.0); Hemoglobin 12.7 gm/dL (13.0-17.0); Lymph # (Auto) 1.3 th/mm3 (1.0-4.8); Mean Corpuscular HGB Conc 34.2 % (32.0-36.0); Mean Corpuscular Hemoglobin 35.1 pg (27.0-34.0); Mean Corpuscular Volume 102.9 fL (80.0-100.0); Mean Platelet Volume 8.9 fL (7.0-11.0); Mono % (Auto) 10.9 % (0.0-8.0); Neut % (Auto) 74.7 % (16.0-70.0); Platelet Count 309 th/mm3 (150-450); Red Cell Distribution Width 12.9 % (11.6-17.2); White Blood Count 9.4 th/mm3 (4.0-11.0)
[2018-08-13 06:08] LABS: Albumin 2.6 g/dL (3.4-5.0); Anion Gap 14 meq/L (5-15); Aspartate Aminotransferase 21 U/L (15-37); Blood Urea Nitrogen 26 mg/dL (7-18); Calcium 9.4 mg/dL (8.5-10.1); Carbon Dioxide 23.3 meq/L (21.0-32.0); Chloride 111 meq/L (98-107); Glomerular Filtration Rate Greater Than 89 mL/min (>89); Glucose,Random 177 mg/dL (74-106); Magnesium 2.1 mg/dL (1.5-2.5); Potassium 3.6 meq/L (3.5-5.1); Sodium 148 meq/L (136-145)
[2018-08-13 06:09] LABS: Alanine Aminotransferase 24 U/L (12-78)
[2018-08-13 06:13] LABS: Alkaline Phosphatase 65 U/L (45-117); Total Protein 7.4 g/dL (6.4-8.2)
--- NOTE | 2018-08-13 07:18 | P.PNCC ---
Subjective Subjective Remarks/Hospital Course: Late 30s/early [id number] patient of unknown identity was brought in by EMS emergently. [place] him. Blood sugar was checked and it was 14. Patient was given 1 amp of D50 but did not wake up. He was given IV Narcan with no change. Patient was intubated at the scene by EMS for an airway protection. He was brought in being bagged by positive pressure ventilation. As per EMS patient never lost his pulse. Vital signs were otherwise stable. Upon arrival patient had no purposeful movement and was obviously no condition to give any meaningful history. Blood sugar upon arrival was 38. 08/08 Patient remains sedated and intubated. Afebrile. 08/09: neuro exam extremely poor. MRI suggestive of anoxic injury secondary to profound hypoglycemia. prognosis very poor for meaningful neurologic recovery. on precedex to facilitate vent synchrony. appears to posture with the upper extremities. blood sugar has now stabilized out. 08/10: Remains encephalopathic, no purposeful movements during my exam today but RN reports that the patient has spontaneously moved his legs earlier today. 08/11: Overnight, the patient appears to have had significant improvement in mental status. I was informed by the RN yesterday afternoon (after my morning exam) that the patient opened his eyes and tracked movements. Today, he opens his eyes to voice and follows simple commands. 08/12: Patient weaned off of sedation and tolerated PST yesterday, extubated. Failed bedside dysphagia screening. Remains encephalopathic and non-verbal but follows commands. 08/13: Stable overnight, passed swallow eval for honey thick/ pureed diet yesterday but had pooling of apple sauce in mouth when RN attempted to feed him dinner last night, may need NGT today. Accuchecks still very labile. Patient remains non-verbal and encephalopathic. Objective Vital Signs / I&O: Vital Signs 08/12/18 08:00 08/12/18 09:00 08/12/18 10:00 Temperature Pulse Rate 120 H 120 H 118 H Respiratory Rate 22 20 25 H Blood Pressure 150/77 H 146/74 H 158/80 H Pulse Oximetry 99 99 98 08/12/18 11:00 08/12/18 12:00 08/12/18 12:09 Temperature 97.2 F L Pulse Rate 117 H 118 H Respiratory Rate 22 20 Blood Pressure 161/84 H 172/83 H Pulse Oximetry 99 98 99 08/12/18 13:00 08/12/18 13:11 08/12/18 14:00 Temperature Pulse Rate 113 H 117 H 127 H Respiratory Rate 25 H 22 26 H Blood Pressure 176/84 H 170/82 H 174/88 H Pulse Oximetry 99 99 98 08/12/18 15:00 08/12/18 16:00 08/12/18 19:45 Temperature 98.4 F Pulse Rate 126 H 123 H Respiratory Rate 24 Blood Pressure 165/88 H 173/86 H Pulse Oximetry 97 97 98 08/12/18 20:00 08/13/18 00:00 08/13/18 04:00 Temperature 98.6 F 98.2 F Pulse Rate 107 H 118 H 130 H Respiratory Rate 27 H 16 19 Blood Pressure 183/90 H 177/89 H 138/61 Pulse Oximetry 98 98 97 Intake & Output 08/12/18 08/13/18 08/13/18 18:59 06:59 18:59 Intake Total 1000 / 1000 Output Total 1400 / 1400 1900 / 1900 Balance -1400 / -1400 -900 / -900 Weight 58 kg Intake: IV 1000 / 1000 1/2 Normal Saline Inj 1,000 ML 1000 / 1000 @ 84 mls/hr IV.CONT .[id number] [facility] Rx#:[id number] Oral 0 / 0 Output: Urine Amount (Catheter) 1400 / 1400 1900 / 1900 Straight 1400 / 1400 1900 / 1900 Other: Date of Last Bowel Movement 08/11/18 08/11/18 # Bowel Movements 0 Result Diagrams: 08/13/18 04:41 08/13/18 04:41 Objective Remarks: GENERAL: Awake and alert, non-verbal SKIN: Warm and dry. HEAD: NCAT EYES: Pupils 3 mm and reactive NECK: Trachea midline. CARDIOVASCULAR: Regular rate and rhythm RESPIRATORY: Clear to auscultation bilaterally GASTROINTESTINAL: Abdomen soft, non-tender, nondistended MUSCULOSKELETAL: No cyanosis, or edema. Neuro: Awake, makes good eye contact, follows commands but is non-verbal and does not nod or shake his head in response to questions, flattened facial expression Assessment and Plan - Assessment and Plan Plan: Assessment: 47yM s/p long-acting insulin overdose with encephalopathy, improving. Plan Neuro/ Psych: Hypoxic-Ischemic Encephalopathy Overdose of long-acting insulin Suicide Attempt Polysubstance abuse - Remains encephalopathic secondary to profound hypoglycemia/ hypoxia - MRI brain: Minimal increased signal in the flores matter of the cerebral cortex seen on the diffusion imaging could be subtle evidence for anoxia. - CT brain: Somewhat decreased flores matter-white matter differentiation diffusely. This finding can be seen with diffuse anoxic/hypoxic injury. - EEG: Moderate encephalopathy - Neuro is following Dr. Destin Thomas Act (filed by me, in patient's chart along with suicide note found next to patient) and psych consult - UDS + cocaine, cannabinoids, benzos Pulm: Acute Hypoxic and Hypercarbic Respiratory Failure-- resolved - Extubated 2 days ago, pulmonary toilet CV: - keep on telemetry - goal map > 65 mmHg : - no active issues GI: Acute protein calorie malnutrition- moderate - Dysphagia diet only when being fed by RN, high risk for aspiration. If patient continues to have pooling of secretions/ food in mouth, will place NGT. - daily bmp,mg,phos - On Pepcid for GI prophylaxis - Sodium 148 today, continue 1/2 NS at maintenance and 2 G sodium restriction orally ID: Bacteremia Leukocytosis - BC 08/07: GPR-- bacillus, staph, corynebacterium, likely contaminants, negative repeat cultures from 08/08. Will d/c vanc today and observe off antibiotics - daily cbc Endo: Intentional long-acting insulin overdose Profound hypoglycemia- resolved - SSI with accuchecks, will start 10U levemir qhs (FSBG still very labile) Heme: - Monitor CBC DVT GI prophylaxis -Teds SCDs -Subcu heparin -Pepcid Patient can transfer to hospitalist service in AM Level 2 follow up To help prompt me to consider important information that might be impacting today's encounter and assessment, information from prior notes written by myself or my colleagues may have been "brought forward" into today's note. My signature on this note, however, is an attestation that I personally performed the exam, history, and/or decision-making noted today, and, unless otherwise indicated, the interactions with patient, family, and staff as well as the review of records all occurred today. I also attest that the listed assessment and stated plan reflect my best clinical judgment today based on the combination of historical information, prior notes, and today's exam/ interactions. Code Status: Full
[2018-08-13] MEDS: Labetalol HCl Inj 100 MG/20 ML Vial IV.PUSH PRN ×3 (07:33→23:09)
[2018-08-13] MEDS: Sodium Chloride 0.45 % Inj 1,000 ML IV.CONT SCH ×2 (07:35→20:22)
[2018-08-13] MEDS: Chlorhexidine 0.12% Oral Kit 15 ML UDC OROPHARYNG SCH ×2 (07:37→20:22)
[2018-08-13] MEDS: Famotidine PF Inj 20 MG/2 ML Vial IV.PUSH SCH ×2 (09:32→20:22)
[2018-08-13] MEDS: Senna/Docusate Sodium 8.6/50 MG Tablet PO SCH ×2 (09:33→20:23)
--- NOTE | 2018-08-13 22:42 | P.CONPSY ---
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 Chart reviewed. Pt was admitted due to hypoxic -ischemic event secondary to intentional insulin overdose. [place] Review of chart shows that pt was recently extubated and awakened. He is unable to engage in any meaningful communication during interview. He is non-verbal and when given yes or no answers nods head yes, regardless of questions. He has very limited motion. kennel staff member report that pt has not been agitated and at times has pursed lips as if blowing a kiss. PMFSH - History History Provided By: Frame Fixer / EMT - Medical / Surgical Hx Neg / Unobtainable Medical Problems Denied: Unable to Obtain Surgical History: Unable to Obtain - Medical History Medical History: Medical History (Last Reviewed 08/13/18 @ 22:32 by Ester Hartman MD) Medical history unknown Surgical history unknown - Social History I have reviewed the patient's Social History: Yes - Tobacco History Smoking Status: Unknown if ever smoked - Alcohol History How Often Do You Have a Drink Containing Alcohol: Unable to Obtain - Substance Use History Substance History: Unable to Obtain - Travel History Recent Travel in the [place] Within the Last 8 Weeks: No Recent Travel Out of the Country Within the Last 8 Weeks: No - Immunization History Tetanus Immunization: Unable to Assess Medications and Allergies Active Medications: Active Medications Acetaminophen (Tylenol) 650 mg PO Q6H PRN PRN Reason: PAIN 1-10 AND/OR FEVER >101F Last Admin: 08/10/18 14:56 Dose: 650 mg Al Hydroxide/Mg Hydroxide (Milk Of Magnesia Liq) 30 ml PO Q12H PRN PRN Reason: Mild Constipation Albuterol (Duoneb Neb (Prn)) 1 ampul NEB Q2HR NEB PRN PRN Reason: WHEEZING Bisacodyl (Dulcolax Supp) 10 mg RECTAL DAILY PRN PRN Reason: SEVERE CONSITIPATION Chlorhexidine Gluconate (Peridex 0.12% Oral Kit) 15 ml OROPHARYNG BID@0800, 2000 MAGDA Last Admin: 08/13/18 20:22 Dose: Not Given Dextrose (D50w Vial) 50 ml IV.PUSH UNSCH PRN PRN Reason: PER HYPOGLYCEMIA PROTOCOL Famotidine (Pepcid Pf Inj) 20 mg IV.PUSH Q12HR [facility] Last Admin: 08/13/18 20:22 Dose: 20 mg Glucagon (Glucagon Inj) 1 mg OTHER PRN PRN PRN Reason: for Hypoglycemia Protocol Heparin Sodium (Porcine) (Heparin Inj) 5,000 units SQ Q8H [facility] Last Admin: 08/13/18 21:50 Dose: 5,000 units Hydralazine HCl (Apresoline Inj) 20 mg IV.PUSH Q4H PRN PRN Reason: SBP>160, DBP>90 Last Admin: 08/13/18 00:15 Dose: 20 mg Magnesium Sulfate 4 gm/ Sodium (Chloride) 100 mls @ 50 mls/hr IV.SIG UNSCH PRN PRN Reason: For Magnesium 0.9 - 1.1 mg/dL Magnesium Sulfate 2 gm/ Sodium (Chloride) 100 mls @ 50 mls/hr IV.SIG UNSCH PRN PRN Reason: For Magnesium 1.2 - 1.6 mg/dL Potassium Chloride (Kcl 40 Meq Premix Inj) 40 meq in 100 mls @ 25 mls/hr IV.SIG Q2H PRN PRN Reason: For Potassium 2.8 - 3.2 mEq/L Potassium Chloride (Kcl 20 Meq Premix Inj) 20 meq in 100 mls @ 50 mls/hr IV.SIG Q2H PRN PRN Reason: For Potassium 3.3 - 3.5 mEq/L Last Infusion: 08/12/18 01:30 Dose: Infused Potassium Chloride (Kcl 40 Meq Premix Inj) 40 meq in 100 mls @ 25 mls/hr IV.SIG UNSCH PRN PRN Reason: For Potassium 3.3 - 3.5 mEq/L Potassium Chloride (Kcl 20 Meq Premix Inj) 20 meq in 100 mls @ 50 mls/hr IV.SIG Q2H PRN PRN Reason: For Potassium 2.8 - 3.2 mEq/L Last Infusion: 08/08/18 05:26 Dose: Infused Potassium Phosphate 30 mmol/ (Sodium Chloride) 260 mls @ 42 mls/hr IV.SIG UNSCH PRN PRN Reason: SEE LABEL COMMENTS Sodium Phosphate 30 mmol/ (Sodium Chloride) 260 mls @ 42 mls/hr IV.SIG UNSCH PRN PRN Reason: For Phosphorus < 2.5 mg/dL Sodium Chloride (1/2 Normal Saline Inj) 1,000 mls @ 84 mls/hr IV.CONT .[id number] [facility] Last Admin: 08/13/18 20:22 Dose: 84 mls/hr Insulin Human Regular (Novolin R Correctional Sugar Inj) 0 units SQ Q6HR [facility]; Protocol Last Admin: 08/13/18 19:21 Dose: 10 units Labetalol HCl (Trandate Inj) 10 mg IV.PUSH Q4H PRN PRN Reason: SBP>180, DBP>100, HR>65 Last Admin: 08/13/18 20:21 Dose: 10 mg Lactulose (Lactulose Liq) 30 ml PO DAILY PRN PRN Reason: SEVERE CONSITIPATION Magnesium Oxide (Mag-Ox) 800 mg PO UNSCH PRN PRN Reason: For Magnesium 1.2 - 1.6 mg/dL Miscellaneous Medication () 1 each OROPHARYNG 0000,0400,1200,1600 [facility] Last Admin: 08/13/18 16:01 Dose: Not Given Ondansetron HCl (Zofran Inj) 4 mg IV.PUSH Q6H PRN PRN Reason: NAUSEA OR VOMITING Potassium Bicarb/Potassium Chloride (K-Lyte Cl Eff) 50 meq PO UNSCH PRN PRN Reason: For Potassium 3.3 - 3.5 mEq/L Potassium Phosphate (K-Phos Original) 2,000 mg PO Q4H PRN PRN Reason: Phosphorus Less Than 2.5 mg/dL Potassium Phosphate (K-Phos Original) 2,000 mg PO UNSCH PRN PRN Reason: SEE LABEL COMMENTS Senna/Docusate Sodium (Marleny-Colace) 1 tab PO BID [facility] Last Admin: 08/13/18 20:23 Dose: Not Given Sennosides (Senokot) 17.2 mg PO Q12H PRN PRN Reason: Moderate Constipation Sodium Chloride (Ns Flush) 2 ml IV.FLUSH BID [facility] Last Admin: 08/13/18 20:22 Dose: 2 ml Sodium Chloride (Ns Flush) 2 ml IV.FLUSH PRN PRN PRN Reason: FLUSH AFTER USING IV ACCESS Allergies Allergy/AdvReac Type Severity Reaction Status Date / Time No Known Allergies Allergy Verified 08/07/18 03:43 Home Medications Medication Instructions Recorded Confirmed Type Unable to Obtain Home Meds 08/07/18 08/07/18 History Exam Vital signs: Vital Signs 08/13/18 00:00 08/13/18 04:00 08/13/18 07:00 Temperature 98.2 F 98.4 F Pulse Rate 118 H 130 H 124 H Respiratory Rate 16 19 24 Blood Pressure 177/89 H 138/61 152/70 H Pulse Oximetry 98 97 98 08/13/18 08:00 08/13/18 09:00 08/13/18 10:00 Temperature Pulse Rate 107 H 106 H 109 H Respiratory Rate 20 19 18 Blood Pressure 163/86 H 168/92 H 169/82 H Pulse Oximetry 100 99 99 08/13/18 11:00 08/13/18 12:00 08/13/18 13:00 Temperature Pulse Rate 108 H 109 H 115 H Respiratory Rate 20 17 24 Blood Pressure 171/85 H 169/87 H 173/87 H Pulse Oximetry 99 99 99 08/13/18 14:00 08/13/18 15:00 08/13/18 16:00 Temperature Pulse Rate 126 H 125 H 126 H Respiratory Rate 21 23 18 Blood Pressure 158/82 H 143/67 H 152/78 H Pulse Oximetry 99 99 99 08/13/18 20:00 08/13/18 20:34 Temperature 98.4 F Pulse Rate 121 H Respiratory Rate 19 Blood Pressure 183/95 H Pulse Oximetry 99 100 Intake & Output 08/13/18 08/13/18 08/14/18 06:59 18:59 06:59 Intake Total 1000 / 1000 1000 / 1000 1000 / 1000 Output Total 1900 / 1900 700 / 700 Balance -900 / -900 300 / 300 1000 / 1000 Weight 58 kg Intake: IV 1000 / 1000 1000 / 1000 1000 / 1000 1/2 Normal Saline Inj 1,000 ML 1000 / 1000 1000 / 1000 1000 / 1000 @ 84 mls/hr IV.CONT .[id number] [facility] Rx#:[id number] Oral 0 / 0 Output: Urine Amount (Catheter) 1900 / 1900 700 / 700 Straight 1900 / 1900 700 / 700 Other: Date of Last Bowel Movement 08/11/18 08/11/18 08/11/18 # Bowel Movements 0 Mental Status Examination Appearance: Other (clean and appropriately dressed. Sitting up on pillows, mostly staring blankly. Occasionally seems to pay attention to TV which is on football. Unable to tell if pt is oriented at all) Consciousness: Alert Orientation: x4 Motor Activity: Other (very little motor movements, except nodding head slightly and moving eyes and facial movements.) Speech: Other (nonverbal) Language: Other (none, unclear if head movements are true communication) Attention and Concentration: Other (unable to assess) Affect: Blunt Thought Process & Associations: Other (unable to assess, 2uestion poverty of thought) Thought Content: Other (unable to assess) Hallucination Type: Other (unable to assess) Delusion Type: Other (unable to assess) Mental Status Exam Remarks: unable to assess for continued SI/HI due to inability to participate in interview or community. Assessment and Plan - Assessment (1) Major neurocognitive disorder due to another medical condition Code(s): F02.80 - Dementia in other diseases classified elsewhere without behavioral disturbance Status: Acute (2) Encephalopathy Code(s): G93.40 - Encephalopathy, unspecified Status: Acute - Plan Plan: Estimated LOS: [] days Pt unable to participate in interview due to continued encephalopathy. Psych service to f/u to see if pt improve and is able to participate. Justification for Continued Inpatient Stay: complicating medical conditions
[2018-08-14] MEDS: Insulin NovoLIN Regular Correctional Sugar Inj SQ SCH ×4 (00:15→19:08)
[2018-08-14] MEDS: Oral Hygiene Kit OROPHARYNG SCH ×4 (00:16→19:11)
[2018-08-14 05:33] LABS: Baso % (Auto) 0.4 % (0.0-2.0); Eos # (Auto) 0.1 th/mm3 (0.0-0.4); Eos % (Auto) 1.2 % (0.0-4.0); Hematocrit 37.6 % (39.0-51.0); Hemoglobin 12.4 gm/dL (13.0-17.0); Lymph # (Auto) 1.1 th/mm3 (1.0-4.8); Mean Corpuscular HGB Conc 32.9 % (32.0-36.0); Mean Corpuscular Hemoglobin 34.2 pg (27.0-34.0); Mean Corpuscular Volume 104.1 fL (80.0-100.0); Mean Platelet Volume 8.7 fL (7.0-11.0); Mono # (Auto) 0.9 th/mm3 (0.0-0.9); Mono % (Auto) 10.9 % (0.0-8.0); Neut # (Auto) 6.3 th/mm3 (1.8-7.7); Neut % (Auto) 74.5 % (16.0-70.0); Platelet Count 310 th/mm3 (150-450); Red Blood Count 3.61 mil/mm3 (4.50-5.90); Red Cell Distribution Width 12.4 % (11.6-17.2); White Blood Count 8.4 th/mm3 (4.0-11.0)
[2018-08-14] MEDS: Heparin - SQ 10,000 UNITS/ML Vial SQ SCH ×3 (05:46→23:07)
[2018-08-14 06:19] LABS: Alanine Aminotransferase 20 U/L (12-78); Albumin 2.6 g/dL (3.4-5.0); Alkaline Phosphatase 61 U/L (45-117); Anion Gap 15 meq/L (5-15); Aspartate Aminotransferase 15 U/L (15-37); Blood Urea Nitrogen 26 mg/dL (7-18); Calcium 8.8 mg/dL (8.5-10.1); Carbon Dioxide 22.3 meq/L (21.0-32.0); Chloride 109 meq/L (98-107); Glomerular Filtration Rate 72 mL/min (>89); Glucose,Random 374 mg/dL (74-106); Potassium 3.6 meq/L (3.5-5.1); Sodium 146 meq/L (136-145)
[2018-08-14] MEDS: Sodium Chloride 0.45 % Inj 1,000 ML IV.CONT SCH ×2 (07:18→23:05)
[2018-08-14] MEDS: Famotidine PF Inj 20 MG/2 ML Vial IV.PUSH SCH ×2 (09:07→23:06)
--- NOTE | 2018-08-14 11:53 | P.PN ---
Subjective Interval history: The patient is in bed still nonverbal. However he nods yes no. Follows some commands. Does not appear in distress. He appears sleepy however arousable. No chest pain no shortness of breath he is saturating well on nasal cannula. Moving legs spontaneously. Squeezing hands when asked to open his mouth and sticks his tongue out when he is asked to. No fever or chills. No nausea or vomiting. Not eating much. Physical Exam Vital signs: Vital Signs 08/13/18 12:00 08/13/18 13:00 08/13/18 14:00 Temperature Pulse Rate 109 H 115 H 126 H Respiratory Rate 17 24 21 Blood Pressure 169/87 H 173/87 H 158/82 H Pulse Oximetry 99 99 99 08/13/18 15:00 08/13/18 16:00 08/13/18 17:00 Temperature Pulse Rate 125 H 126 H 119 H Respiratory Rate 23 18 17 Blood Pressure 143/67 H 152/78 H 160/71 H Pulse Oximetry 99 99 99 08/13/18 18:00 08/13/18 19:00 08/13/18 20:00 Temperature 98.4 F Pulse Rate 116 H 120 H 121 H Respiratory Rate 17 20 19 Blood Pressure 151/78 H 161/82 H 183/95 H Pulse Oximetry 99 99 99 08/13/18 20:34 08/13/18 21:00 08/13/18 22:00 Temperature Pulse Rate 112 H 105 H Respiratory Rate 22 17 Blood Pressure 166/82 H 167/98 H Pulse Oximetry 100 99 100 08/13/18 23:00 08/13/18 23:02 08/13/18 23:03 Temperature Pulse Rate 106 H 128 H 119 H Respiratory Rate 19 25 H 21 Blood Pressure 177/104 H 232/118 H 237/111 H Pulse Oximetry 100 100 100 08/13/18 23:04 08/13/18 23:07 08/13/18 23:09 Temperature Pulse Rate 116 H 110 H 97 H Respiratory Rate 23 25 H 22 Blood Pressure 222/106 H 219/100 H 154/84 H Pulse Oximetry 100 100 100 08/13/18 23:15 08/13/18 23:30 08/13/18 23:45 Temperature Pulse Rate 93 H 94 H 94 H Respiratory Rate 19 17 16 Blood Pressure 143/95 H 152/91 H 141/85 H Pulse Oximetry 100 100 100 11/19/18 00:00 08/14/18 01:00 08/14/18 02:00 Temperature Pulse Rate 92 H 94 H 100 H Respiratory Rate 19 19 21 Blood Pressure 160/91 H 153/89 H 169/93 H Pulse Oximetry 100 100 100 08/14/18 02:43 08/14/18 03:00 08/14/18 04:00 Temperature Pulse Rate 98 H 96 H 98 H Respiratory Rate 17 19 21 Blood Pressure 166/92 H 152/86 H 154/82 H Pulse Oximetry 99 99 99 08/14/18 07:45 Temperature Pulse Rate Respiratory Rate Blood Pressure Pulse Oximetry 99 Intake & Output 08/13/18 08/14/18 08/14/18 18:59 06:59 18:59 Intake Total 1000 / 1000 1000 / 1000 1000 / 1000 Output Total 700 / 700 1400 / 1400 Balance 300 / 300 -400 / -400 1000 / 1000 Weight 58.8 kg Intake: IV 1000 / 1000 1000 / 1000 1000 / 1000 1/2 Normal Saline Inj 1,000 ML 1000 / 1000 1000 / 1000 1000 / 1000 @ 84 mls/hr IV.CONT .[id number] [facility] Rx#:[id number] Oral 0 / 0 Output: Urine Amount (Catheter) 700 / 700 1400 / 1400 Straight 700 / 700 1400 / 1400 Other: # Incontinent Voids 1 Date of Last Bowel Movement 08/11/18 08/11/18 # Bowel Movements 0 Narrative: GENERAL: Awake and alert, non-verbal, follows some commands. SKIN: Warm and dry. HEAD: NC/AT CARDIOVASCULAR: Regular rate and rhythm RESPIRATORY: Clear to auscultation bilaterally GASTROINTESTINAL: Abdomen soft, non-tender, nondistended MUSCULOSKELETAL: No cyanosis, or edema. Neuro: Awake, makes good eye contact, follows commands but is non-verbal, he does nod his head in response to questions, flattened facial expression - Urinary Catheter Management Indwelling Temp Sensing Catheter Cath placed during this visit: yes, but has since been removed by the nurse Reason for continuing: Not indwelling catheter Insertion date: 08/07/18 Insertion time: 03:02 Removal date: 08/11/18 Removal time: 15:30 Straight Cath placed during this visit: yes, but has since been removed by the nurse Reason for continuing: Not indwelling catheter Insertion date: 08/14/18 Insertion time: 06:30 Removal date: 08/14/18 Removal time: 06:35 Results - Labs CBC & Chem 7: 08/14/18 04:37 08/14/18 04:37 Laboratory Results - last 24 hr 08/13/18 08/13/18 08/13/18 13:16 16:22 23:26 WBC RBC Hgb Hct MCV MCH MCHC RDW Plt Count MPV Neut % (Auto) Lymph % (Auto) Waldo % (Auto) Eos % (Auto) Baso % (Auto) Neut # (Auto) Lymph # (Auto) Waldo # (Auto) Eos # (Auto) Baso # (Auto) WBC Differential Differential Comment Sodium Potassium Chloride Carbon Dioxide Anion Gap BUN Creatinine Estimated GFR POC Glucose 397 H 235 H 150 H Random Glucose Calcium Magnesium Total Bilirubin AST ALT Alkaline Phosphatase Total Protein Albumin 08/14/18 08/14/18 08/14/18 04:37 04:37 05:46 WBC 8.4 RBC 3.61 L Hgb 12.4 L Hct 37.6 L MCV 104.1 H MCH 34.2 H MCHC 32.9 RDW 12.4 Plt Count 310 MPV 8.7 Neut % (Auto) 74.5 H Lymph % (Auto) 13.0 Waldo % (Auto) 10.9 H Eos % (Auto) 1.2 Baso % (Auto) 0.4 Neut # (Auto) 6.3 Lymph # (Auto) 1.1 Waldo # (Auto) 0.9 Eos # (Auto) 0.1 Baso # (Auto) 0.0 WBC Differential . Differential Comment Auto diff final Sodium 146 H Potassium 3.6 Chloride 109 H Carbon Dioxide 22.3 Anion Gap 15 BUN 26 H Creatinine 1.09 Estimated GFR 72 L POC Glucose 397 H Random Glucose 374 H D Calcium 8.8 Magnesium 2.0 Total Bilirubin 0.5 AST 15 ALT 20 Alkaline Phosphatase 61 Total Protein 7.0 Albumin 2.6 L Microbiology 08/08/18 11:27 Blood - Peripheral Aerobic Blood Culture - Final No growth in 5 days 08/08/18 11:27 Blood - Peripheral Anaerobic Blood Culture - Final QNS - See aerobic report. 08/08/18 11:17 Blood - Peripheral Aerobic Blood Culture - Final No growth in 5 days 08/08/18 11:17 Blood - Peripheral Anaerobic Blood Culture - Final No growth in 5 days Assessment and Plan - Plan 47 yo M s/p long-acting insulin overdose with encephalopathy, improving. Neuro/ Psych: Hypoxic-Ischemic Encephalopathy Overdose of long-acting insulin Suicide Attempt Polysubstance abuse - Remains encephalopathic secondary to profound hypoglycemia/ hypoxia - MRI brain: Minimal increased signal in the flores matter of the cerebral cortex seen on the diffusion imaging could be subtle evidence for anoxia. - CT brain: Somewhat decreased flores matter-white matter differentiation diffusely. This finding can be seen with diffuse anoxic/hypoxic injury. - EEG: Moderate encephalopathy - Neuro is following Dr. Destin Thomas Act (filed by me, in patient's chart along with suicide note found next to patient) and psych consult - UDS + cocaine, cannabinoids, benzos Pulm: Acute Hypoxic and Hypercarbic Respiratory Failure-- resolved - Extubated 2 days ago, pulmonary toilet CV: - keep on telemetry - goal map > 65 mmHg : - no active issues GI: Acute protein calorie malnutrition- moderate - Dysphagia diet only when being fed by RN, high risk for aspiration. If patient continues to have pooling of secretions/ food in mouth, will place NGT. - daily bmp,mg,phos - On Pepcid for GI prophylaxis - Sodium elevated but improving, continue 1/2 NS at maintenance and 2 G sodium restriction orally ID: Bacteremia Leukocytosis - BC 08/07: GPR-- bacillus, staph, corynebacterium, likely contaminants, negative repeat cultures from 08/08. D/c vanc, observe off antibiotics - daily cbc Endo: Intentional long-acting insulin overdose Profound hypoglycemia- resolved - SSI with accuchecks, 10U levemir qhs (FSBG still very labile) Heme: - Monitor CBC DVT GI prophylaxis -Teds SCDs -Subcu heparin -Pepcid
--- NOTE | 2018-08-14 17:14 | P.PNPAL ---
Reason for Visit Reason for visit: a. To assist with evaluation and management of symptoms including: Encephalopathy, pain, dyspnea. b. To assist medical decision maker(s) with: better understanding of current medical conditions; weighing benefits/burdens of medical treatment options; making medical treatment decisions. Subjective Subjective/Interval History: Patient seen and examined in ICU. Discussed with Dr. Patten and nursing staff. Patient was medically extubated on 08/12/18. On 08/13/18 he passed swallow evaluation with recommendations for honey thick liquids and pureed diet. Nurse reports he did not eat this morning despite her efforts to feed him. She reports he would follow simple commands for her this morning, but will not open his eyes. Patient does not open eyes or follow commands for me. He appears comfortable and relaxed. Remains encephalopathic since extubation. Vital signs stable. On oxygen via NC, sats stable 99%. WBC 8.4. Creatinine 1.09. T. Bili 0.5. Glucose remains elevated ranging from 150-397. Recent blood cultures negative. Will attempt to update cousinAlberto in the coming day(s). . Family/Friend Interactions: No family at bedside. Advance Directives Health Care Surrogate Name and Number: At this time patient's cousin, Alberto Rey is the only identified family. Documented care wishes:: No known written advanced directives. Significant change in goals:: FULL CODE. Goals have remains aggressive. Objective Vital Signs: Vital Signs 08/13/18 18:00 08/13/18 19:00 08/13/18 20:00 Temperature 98.4 F Pulse Rate 116 H 120 H 121 H Respiratory Rate 17 20 19 Blood Pressure 151/78 H 161/82 H 183/95 H Pulse Oximetry 99 99 99 08/13/18 20:34 08/13/18 21:00 08/13/18 22:00 Temperature Pulse Rate 112 H 105 H Respiratory Rate 22 17 Blood Pressure 166/82 H 167/98 H Pulse Oximetry 100 99 100 08/13/18 23:00 08/13/18 23:02 08/13/18 23:03 Temperature Pulse Rate 106 H 128 H 119 H Respiratory Rate 19 25 H 21 Blood Pressure 177/104 H 232/118 H 237/111 H Pulse Oximetry 100 100 100 08/13/18 23:04 08/13/18 23:07 08/13/18 23:09 Temperature Pulse Rate 116 H 110 H 97 H Respiratory Rate 23 25 H 22 Blood Pressure 222/106 H 219/100 H 154/84 H Pulse Oximetry 100 100 100 08/13/18 23:15 08/13/18 23:30 08/13/18 23:45 Temperature Pulse Rate 93 H 94 H 94 H Respiratory Rate 19 17 16 Blood Pressure 143/95 H 152/91 H 141/85 H Pulse Oximetry 100 100 100 08/14/18 00:00 08/14/18 01:00 08/14/18 02:00 Temperature Pulse Rate 92 H 94 H 100 H Respiratory Rate 19 19 21 Blood Pressure 160/91 H 153/89 H 169/93 H Pulse Oximetry 100 100 100 08/14/18 02:43 08/14/18 03:00 08/14/18 04:00 Temperature Pulse Rate 98 H 96 H 98 H Respiratory Rate 17 19 21 Blood Pressure 166/92 H 152/86 H 154/82 H Pulse Oximetry 99 99 99 08/14/18 07:45 Temperature Pulse Rate Respiratory Rate Blood Pressure Pulse Oximetry 99 Intake & Output 08/13/18 08/14/18 08/14/18 18:59 06:59 18:59 Intake Total 1000 / 1000 1000 / 1000 1000 / 1000 Output Total 700 / 700 1400 / 1400 Balance 300 / 300 -400 / -400 1000 / 1000 Weight 58.8 kg Intake: IV 1000 / 1000 1000 / 1000 1000 / 1000 1/2 Normal Saline Inj 1,000 ML 1000 / 1000 1000 / 1000 1000 / 1000 @ 84 mls/hr IV.CONT .[id number] [facility] Rx#:[id number] Oral 0 / 0 Output: Urine Amount (Catheter) 700 / 700 1400 / 1400 Straight 700 / 700 1400 / 1400 Other: # Incontinent Voids 1 Date of Last Bowel Movement 08/11/18 08/11/18 # Bowel Movements 0 Physical Exam: CONSTITUTIONAL/GENERAL: This is an adequately nourished patient, intubated, off sedation, in mild distress. TUBES/LINES/DRAINS: PIVs, Caro, SKIN: No jaundice, rashes, or lesions. Ecchymoses on upper extremities. No wounds seen anteriorly. Skin temperature appropriate. Not diaphoretic. ENT: Hearing cannot be assessed. Nose without bleeding or purulent drainage. NECK: Trachea midline. CARDIOVASCULAR: S1, S2, tachycardic rate, regular rhythm without murmurs. RESPIRATORY/CHEST: Lung sounds with few scattered coarse breath sounds. GASTROINTESTINAL: Abdomen soft, nondistended. No guarding. Bowel sounds present. GENITOURINARY: Without palpable bladder distension. Caro catheter in place. MUSCULOSKELETAL: Extremities without clubbing, cyanosis, or edema. No mottling or clubbing. NEUROLOGICAL: Not following commands. Not opening eyes to voice, command or exam. PSYCHIATRIC: On Precedex for vent synchrony. . Diagnostic Tests Laboratory: Laboratory Results - last 72 hr 08/11/18 08/12/18 08/12/18 18:46 00:31 05:21 WBC 11.5 H RBC 3.70 L Hgb 13.0 Hct 37.6 L MCV 101.7 H MCH 35.1 H MCHC 34.5 RDW 12.9 Plt Count 264 MPV 9.2 Neut % (Auto) 81.4 H Lymph % (Auto) 9.5 Ulster % (Auto) 8.8 H Eos % (Auto) 0.1 Baso % (Auto) 0.2 Neut # (Auto) 9.4 H Lymph # (Auto) 1.1 Ulster # (Auto) 1.0 H Eos # (Auto) 0.0 Baso # (Auto) 0.0 WBC Differential . Differential Comment Auto diff final Sodium Potassium Chloride Carbon Dioxide Anion Gap BUN Creatinine Estimated GFR POC Glucose 201 H 369 H Random Glucose Calcium Magnesium Total Bilirubin AST ALT Alkaline Phosphatase Total Protein Albumin 08/12/18 08/12/18 08/12/18 05:21 06:13 12:52 WBC RBC Hgb Hct MCV MCH MCHC RDW Plt Count MPV Neut % (Auto) Lymph % (Auto) [place] % (Auto) Eos % (Auto) Baso % (Auto) Neut # (Auto) Lymph # (Auto) [place] # (Auto) Eos # (Auto) Baso # (Auto) WBC Differential Differential Comment Sodium 150 H Potassium 3.8 Chloride 111 H Carbon Dioxide 27.7 Anion Gap 11 BUN 29 H Creatinine 1.02 Estimated GFR 78 L POC Glucose 224 H 318 H Random Glucose 234 H Calcium 9.4 Magnesium 2.0 Total Bilirubin 0.5 AST 16 ALT 26 Alkaline Phosphatase 64 Total Protein 7.2 Albumin 2.5 L 08/12/18 08/12/18 08/13/18 16:39 23:37 04:41 WBC 9.4 RBC 3.60 L Hgb 12.7 L Hct 37.1 L MCV 102.9 H MCH 35.1 H MCHC 34.2 RDW 12.9 Plt Count 309 MPV 8.9 Neut % (Auto) 74.7 H Lymph % (Auto) 14.0 Ulster % (Auto) 10.9 H Eos % (Auto) 0.1 Baso % (Auto) 0.3 Neut # (Auto) 7.0 Lymph # (Auto) 1.3 Ulster # (Auto) 1.0 H Eos # (Auto) 0.0 Baso # (Auto) 0.0 WBC Differential . Differential Comment Auto diff final Sodium Potassium Chloride Carbon Dioxide Anion Gap BUN Creatinine Estimated GFR POC Glucose 176 H 390 H Random Glucose Calcium Magnesium Total Bilirubin AST ALT Alkaline Phosphatase Total Protein Albumin 08/13/18 08/13/18 08/13/18 04:41 05:09 13:16 WBC RBC Hgb Hct MCV MCH MCHC RDW Plt Count MPV Neut % (Auto) Lymph % (Auto) [place] % (Auto) Eos % (Auto) Baso % (Auto) Neut # (Auto) Lymph # (Auto) [place] # (Auto) Eos # (Auto) Baso # (Auto) WBC Differential Differential Comment Sodium 148 H Potassium 3.6 Chloride 111 H Carbon Dioxide 23.3 Anion Gap 14 BUN 26 H Creatinine 0.90 Estimated GFR Greater than 89 POC Glucose 175 H 397 H Random Glucose 177 H Calcium 9.4 Magnesium 2.1 Total Bilirubin 0.4 AST 21 ALT 24 Alkaline Phosphatase 65 Total Protein 7.4 Albumin 2.6 L 08/13/18 08/13/18 08/14/18 16:22 23:26 04:37 WBC 8.4 RBC 3.61 L Hgb 12.4 L Hct 37.6 L MCV 104.1 H MCH 34.2 H MCHC 32.9 RDW 12.4 Plt Count 310 MPV 8.7 Neut % (Auto) 74.5 H Lymph % (Auto) 13.0 [place] % (Auto) 10.9 H Eos % (Auto) 1.2 Baso % (Auto) 0.4 Neut # (Auto) 6.3 Lymph # (Auto) 1.1 [place] # (Auto) 0.9 Eos # (Auto) 0.1 Baso # (Auto) 0.0 WBC Differential . Differential Comment Auto diff final Sodium Potassium Chloride Carbon Dioxide Anion Gap BUN Creatinine Estimated GFR POC Glucose 235 H 150 H Random Glucose Calcium Magnesium Total Bilirubin AST ALT Alkaline Phosphatase Total Protein Albumin 08/14/18 08/14/18 08/14/18 04:37 05:46 13:57 WBC RBC Hgb Hct MCV MCH MCHC RDW Plt Count MPV Neut % (Auto) Lymph % (Auto) [place] % (Auto) Eos % (Auto) Baso % (Auto) Neut # (Auto) Lymph # (Auto) [place] # (Auto) Eos # (Auto) Baso # (Auto) WBC Differential Differential Comment Sodium 146 H Potassium 3.6 Chloride 109 H Carbon Dioxide 22.3 Anion Gap 15 BUN 26 H Creatinine 1.09 Estimated GFR 72 L POC Glucose 397 H 316 H Random Glucose 374 H D Calcium 8.8 Magnesium 2.0 Total Bilirubin 0.5 AST 15 ALT 20 Alkaline Phosphatase 61 Total Protein 7.0 Albumin 2.6 L 08/14/18 16:42 WBC RBC Hgb Hct MCV MCH MCHC RDW Plt Count MPV Neut % (Auto) Lymph % (Auto) [place] % (Auto) Eos % (Auto) Baso % (Auto) Neut # (Auto) Lymph # (Auto) [place] # (Auto) Eos # (Auto) Baso # (Auto) WBC Differential Differential Comment Sodium Potassium Chloride Carbon Dioxide Anion Gap BUN Creatinine Estimated GFR POC Glucose 294 H Random Glucose Calcium Magnesium Total Bilirubin AST ALT Alkaline Phosphatase Total Protein Albumin Result Diagrams: 08/14/18 04:37 08/14/18 04:37 Microbiology: Microbiology 08/08/18 11:27 Aerobic Blood Culture - Final Blood - Peripheral No growth in 5 days Anaerobic Blood Culture - Final QNS - See aerobic report. 08/08/18 11:17 Aerobic Blood Culture - Final Blood - Peripheral No growth in 5 days Anaerobic Blood Culture - Final No growth in 5 days 08/07/18 03:01 Aerobic Blood Culture - Final Blood - Peripheral Corynebacterium species Staphylococcus coag negative Anaerobic Blood Culture - Final No growth in 5 days 08/07/18 03:06 Aerobic Blood Culture - Final Blood - Peripheral Bacillus species not anthracis Anaerobic Blood Culture - Final No growth in 5 days Imaging: Head CT 08/07/18 02:56 CONCLUSION: 1. Somewhat decreased flores matter-white matter differentiation diffusely. This finding can be seen with diffuse anoxic/hypoxic injury. 2. Motion artifact. . Head MRI 08/07/18 09:53 CONCLUSION: 1. Minimal increased signal in the flores matter of the cerebral cortex seen on the diffusion imaging could be subtle evidence for anoxia. 2. No other significant amount is appreciated. Chest X-Ray 08/10/18 05:00 CONCLUSION: Stable appearance with no acute cardiopulmonary disease. Procedures: 08/07: Intubation in the field. . Assessment and Plan Pertinent Non-Medical Issues: Psychosocial: He was born in [place] but moved to [place] as a young child with his mother. He began attending college to earn his degree in [employer] , however never completed that. He has not been nor had any known children. Spiritual: Raised in the Protestant shyla but was exploring conversion to Catholicism at one time. Manager Asset available. Legal: No advance directive paperwork completed. Ethical issues impacting care: Patient's only known family is his cousin, who will serve as his decision maker, pending completion of other modalities to attempt to locate family. . Important Contacts: Cousin: Alberto Rey . Prognosis: Prognosis is guarded. This is a 47-year-[place] blood sugar of 14 and an insulin needle lying next to him. It appeared he had injected himself with an entire syringe of long-acting insulin which she had taken from his cousin. He had an unknown downtime. Urine toxicology was positive for benzodiazepines, cocaine and cannabinoids. His presenting blood sugar at the hospital was 38. He remains encephalopathic. Imaging studies are indicative of a possible anoxic brain injury. He is at elevated risk for continued complications and decline. . . Code Status: Full Code (By default) Plan: * Legal decision maker: The patient at this time is not capacitated for decision -making as he is unresponsive on a ventilator. [employer] has been initiated to try to locate his sister, who has been missing for at least 10 years, and his father, who has had no contact with the patient since he was a very young child. At this time his cousin, Alberto, is readily available and willing to serve and to his knowledge the only remaining family member. * Goals: FULL CODE. Goals remain aggressive at this time. * FULL CODE SYMPTOMS: * Encephalopathy: Multifactorial to include likely hypoxic and hypoglycemic injury, metabolic acidosis, extended downtime without cardiac arrest. Imaging studies initially indicate likely an anoxic/hypoxic brain injury. Attempted sedation vacation was unsuccessful due to patient agitation, tachycardia, tachypnea, thrashing and hypertension. we will continue to discuss goals of care with his cousin. * Pain: Multifactorial to include chronic disease, peripheral neuropathy, history of gastroparesis, previous injuries, bedbound status, invasive lines and tubes. * Dyspnea: on oxygen via NC, extubated 08/12. * Palliative care will continue to follow the patient during hospital course as condition evolves, to assist patient/decision-maker with understanding of their medical conditions, weighing benefits/burdens of treatment options, for clarification of goals of treatment. Additionally will assist with any symptoms of palliative concern. . Attestation Attestation: To help prompt me to consider important information that might be impacting today's encounter and assessment, information from prior notes written by myself or my colleagues may have been "brought forward" into today's note. My signature on this note, however, is an attestation that I personally performed the exam, history, and/or decision-making noted today, and, unless otherwise indicated, the interactions with patient, family, and staff as well as the review of records all occurred today. I also attest that the listed assessment and stated plan reflect my best clinical judgment today based on the combination of historical information, prior notes, and today's exam/ interactions. When time spent is documented, it refers only to time spent today by the signer, or if indicated, combined time spent today by collaborating physician/nurse practitioner.
[2018-08-14] MEDS: Senna/Docusate Sodium 8.6/50 MG Tablet PO SCH ×2 (19:07→23:06)
[2018-08-14] MEDS: Chlorhexidine 0.12% Oral Kit 15 ML UDC OROPHARYNG SCH ×2 (19:43→23:06)
[2018-08-15] MEDS: Insulin NovoLIN Regular Correctional Sugar Inj SQ SCH ×4 (05:11→19:28)
[2018-08-15] MEDS: Oral Hygiene Kit OROPHARYNG SCH ×3 (05:12→19:28)
[2018-08-15] MEDS: Heparin - SQ 10,000 UNITS/ML Vial SQ SCH ×3 (05:12→20:46)
[2018-08-15 06:12] LABS: Baso % (Auto) 0.5 % (0.0-2.0); Eos # (Auto) 0.1 th/mm3 (0.0-0.4); Eos % (Auto) 1.7 % (0.0-4.0); Hematocrit 36.6 % (39.0-51.0); Hemoglobin 12.1 gm/dL (13.0-17.0); Lymph # (Auto) 1.4 th/mm3 (1.0-4.8); Mean Corpuscular Hemoglobin 34.3 pg (27.0-34.0); Mean Corpuscular Volume 104.2 fL (80.0-100.0); Mean Platelet Volume 9.2 fL (7.0-11.0); Mono # (Auto) 0.8 th/mm3 (0.0-0.9); Mono % (Auto) 9.6 % (0.0-8.0); Neut # (Auto) 6.3 th/mm3 (1.8-7.7); Neut % (Auto) 72.2 % (16.0-70.0); Platelet Count 309 th/mm3 (150-450); Red Blood Count 3.51 mil/mm3 (4.50-5.90); Red Cell Distribution Width 12.4 % (11.6-17.2); White Blood Count 8.7 th/mm3 (4.0-11.0)
[2018-08-15 06:31] LABS: Albumin 2.6 g/dL (3.4-5.0); Anion Gap 15 meq/L (5-15); Aspartate Aminotransferase 18 U/L (15-37); Blood Urea Nitrogen 20 mg/dL (7-18); Calcium 8.8 mg/dL (8.5-10.1); Carbon Dioxide 23.2 meq/L (21.0-32.0); Chloride 103 meq/L (98-107); Glomerular Filtration Rate 87 mL/min (>89); Glucose,Random 367 mg/dL (74-106); Potassium 3.6 meq/L (3.5-5.1); Sodium 141 meq/L (136-145)
[2018-08-15 06:32] LABS: Alanine Aminotransferase 19 U/L (12-78)
[2018-08-15 06:34] LABS: Alkaline Phosphatase 59 U/L (45-117); Total Protein 6.7 g/dL (6.4-8.2)
--- NOTE | 2018-08-15 07:26 | P.PN ---
Subjective Interval history: He is more awake and alert. Speech therapy has seen the patient and diet is advanced. Patient knows his name only. Is moving arms and legs and following commands. Feels very weak. Denies having chest pain or shortness of breath at this time. He is saturating well on room air. No nausea or vomiting no diarrhea constipation. Less agitated off restraints at this time. Physical Exam Vital signs: Vital Signs 08/14/18 07:45 08/14/18 08:00 08/14/18 19:49 Temperature Pulse Rate 98 H Respiratory Rate Blood Pressure Pulse Oximetry 99 100 08/14/18 20:00 Temperature 99.2 F Pulse Rate 95 H Respiratory Rate 13 Blood Pressure 123/68 Pulse Oximetry 99 Intake & Output 08/14/18 08/15/18 08/15/18 18:59 06:59 18:59 Intake Total 1000 / 1000 1000 / 1000 Balance 1000 / 1000 1000 / 1000 Intake: IV 1000 / 1000 1000 / 1000 1/2 Normal Saline Inj 1,000 ML 1000 / 1000 1000 / 1000 @ 84 mls/hr IV.CONT .[id number] [facility] Rx#:[id number] Other: Date of Last Bowel Movement 08/11/18 08/11/18 Narrative: GENERAL: Patient is a 47-year-old male appearing older than the stated age, appears chloride chronically ill. Awake and alert, knows his name only, follows some commands. Off restraints. SKIN: Warm and dry. CARDIOVASCULAR: Regular rate and rhythm RESPIRATORY: Clear to auscultation bilaterally GASTROINTESTINAL: Abdomen soft, non-tender, nondistended MUSCULOSKELETAL: No cyanosis, or edema. Neuro: More alert and awake, makes good eye contact, follows commands, is able to state his name, answers to some questions. - Urinary Catheter Management Indwelling Temp Sensing Catheter Cath placed during this visit: yes, but has since been removed by the nurse Reason for continuing: Not indwelling catheter Insertion date: 08/07/18 Insertion time: 03:02 Removal date: 08/11/18 Removal time: 15:30 Straight Cath placed during this visit: yes, but has since been removed by the nurse Reason for continuing: Not indwelling catheter Insertion date: 08/14/18 Insertion time: 06:30 Removal date: 08/14/18 Removal time: 06:35 Results - Labs CBC & Chem 7: 08/15/18 04:25 08/15/18 04:25 Laboratory Results - last 24 hr 08/14/18 08/14/18 08/14/18 13:57 16:42 23:11 WBC RBC Hgb Hct MCV MCH MCHC RDW Plt Count MPV Neut % (Auto) Lymph % (Auto) Stevens % (Auto) Eos % (Auto) Baso % (Auto) Neut # (Auto) Lymph # (Auto) Stevens # (Auto) Eos # (Auto) Baso # (Auto) WBC Differential Differential Comment Sodium Potassium Chloride Carbon Dioxide Anion Gap BUN Creatinine Estimated GFR POC Glucose 316 H 294 H 188 H Random Glucose Calcium Magnesium Total Bilirubin AST ALT Alkaline Phosphatase Total Protein Albumin 08/15/18 08/15/18 08/15/18 04:25 04:25 05:05 WBC 8.7 RBC 3.51 L Hgb 12.1 L Hct 36.6 L MCV 104.2 H MCH 34.3 H MCHC 33.0 RDW 12.4 Plt Count 309 MPV 9.2 Neut % (Auto) 72.2 H Lymph % (Auto) 16.0 Stevens % (Auto) 9.6 H Eos % (Auto) 1.7 Baso % (Auto) 0.5 Neut # (Auto) 6.3 Lymph # (Auto) 1.4 Stevens # (Auto) 0.8 Eos # (Auto) 0.1 Baso # (Auto) 0.0 WBC Differential . Differential Comment Auto diff final Sodium 141 Potassium 3.6 Chloride 103 Carbon Dioxide 23.2 Anion Gap 15 BUN 20 H Creatinine 0.92 Estimated GFR 87 L POC Glucose 373 H Random Glucose 367 H Calcium 8.8 Magnesium 2.0 Total Bilirubin 0.4 AST 18 ALT 19 Alkaline Phosphatase 59 Total Protein 6.7 Albumin 2.6 L Assessment and Plan - Plan 47 yo M s/p long-acting insulin overdose with encephalopathy, improving. Neuro/ Psych: Hypoxic-Ischemic Encephalopathy. Improving Overdose of long-acting insulin Suicide Attempt Polysubstance abuse - Remains encephalopathic secondary to profound hypoglycemia/ hypoxia - MRI brain: Minimal increased signal in the flores matter of the cerebral cortex seen on the diffusion imaging could be subtle evidence for anoxia. - CT brain: Somewhat decreased flores matter-white matter differentiation diffusely. This finding can be seen with diffuse anoxic/hypoxic injury. - EEG: Moderate encephalopathy - Neuro is following Dr. Fulop - Thomas Act (filed by me, in patient's chart along with suicide note found next to patient) and psych consult - UDS + cocaine, cannabinoids, benzos Pulm: Acute Hypoxic and Hypercarbic Respiratory Failure-- resolved - Extubated 2 days ago, pulmonary toilet CV: - keep on telemetry - goal map > 65 mmHg : - no active issues GI: Acute protein calorie malnutrition- moderate - Dysphagia diet only when being fed by RN, high risk for aspiration. If patient continues to have pooling of secretions/ food in mouth, will place NGT. - daily bmp,mg,phos - On Pepcid for GI prophylaxis - Sodium elevated but improving, continue 1/2 NS at maintenance and 2 G sodium restriction orally ID: Bacteremia Leukocytosis - BC 08/07: GPR-- bacillus, staph, corynebacterium, likely contaminants, negative repeat cultures from 08/08. D/c vanc, observe off antibiotics - daily cbc Endo: Intentional long-acting insulin overdose Profound hypoglycemia- resolved - SSI with accuchecks, 10U levemir qhs (FSBG still very labile) Heme: - Monitor CBC DVT GI prophylaxis -Teds SCDs -Subcu heparin -Pepcid Patient improving. Will transfer to MedSurg floor. We will consult psychiatry for evaluation. Add PT/OT for evaluation patient can be out of bed with help
[2018-08-15] MEDS: Chlorhexidine 0.12% Oral Kit 15 ML UDC OROPHARYNG SCH ×2 (09:04→20:42)
[2018-08-15] MEDS: Famotidine PF Inj 20 MG/2 ML Vial IV.PUSH SCH ×2 (09:04→20:46)
[2018-08-15] MEDS: Senna/Docusate Sodium 8.6/50 MG Tablet PO SCH ×2 (09:04→20:45)
[2018-08-15] MEDS: Sodium Chloride 0.45 % Inj 1,000 ML IV.CONT SCH ×2 (09:05→20:55)
--- NOTE | 2018-08-15 16:20 | P.DIET ---
Nutritional Evaluation Type of nutrition evaluation: follow-up Nutrition consult regarding: Diet Evaluation Screening comments: 08/07 TF review Subjective Subjective Comments: Pt awake today, slightly confused. Objective - Diagnosis unresponsive, respiratory failure, hypoglycemia - Objective % IBW: 82 (IBW = 160lb) Body Weight Used for Calculations: Actual Energy Needs - Lower Range (kCal/kg): 30 Energy Needs - Upper Range (kCal/kg): 35 Lower Limit kCal/kg (kCals): 1,797 Upper Limit kCal/kg (kCals): 2,097 Lower Limit Protein Factor (Grams per Kg): 1.2 Upper Limit Protein Factor (Grams per Kg): 1.5 Lower Protein Needs (Protein): 72 Upper Protein Needs (Protein): 90 Dietitian Reviewed in Medical Record: Current diet, Curent medications, Intake & Output, Labs, Medical history Diet Order: NPO, TF Objective Comments: PMH: unknown Labs: BUN 20, POC glucose 188 373 230, random glucose 374 367 Assessment Assessment: Pt was awake today and confused w/ slurred speech. ST recs reviewed, pt is on a pureed, honey consistency thickened liquid diet. During RD visit, pt was trying to eat the food from the meal tray next to him. RD assisted in bringing the tray closer to pt and pt started eating. Pt will require feeding assistance. RD to also recommend Glucerna BID for pts PO supplement. Continue to monitor PO and supplement intake. Labs reviewed, dietitian following. Recommendations: 1. ST recs reviewed, pt is on a pureed, honey consistency thickened liquid diet 2. Pt will require feeding assistance 3. RD to also recommend Glucerna BID for pts PO supplement 4. Continue to monitor PO and supplement intake 5. Dietitian following Dietitian to Monitor: Lab values, Glucose level, Supplement acceptance, Intake & Output, Diet tolerance, PO Intake, Medical course
--- NOTE | 2018-08-15 16:48 | P.PNPAL ---
Reason for Visit Reason for visit: a. To assist with evaluation and management of symptoms including: Encephalopathy, pain, dyspnea. b. To assist medical decision maker(s) with: better understanding of current medical conditions; weighing benefits/burdens of medical treatment options; making medical treatment decisions. Subjective Subjective/Interval History: Patient seen and examined in ICU. Discussed with nursing staff. Patient was medically extubated on 08/12/18. Swallow eval today diet was advanced to soft diet and nectar thick liquids. He ate lunch today 100%. He is awake and alert today. Mouthing words softly, he does not know why he is in the hospital. He indicates he knows his cousin, Alberto. I attempted to talk to him about designating a health care surrogate, he says "fran" a few times. I cannot understand her name. I will continue to try to speak with him in the coming days. I do not think he has insight or judgement at this time. Will continue to follow. He is following commands. Brushing his teeth and washing his face today. Vital signs stable. On oxygen sats 98% on room air. WBC 8.7. Creatinine 0.92. T. Bili 0.4. Glucose remains elevated ranging from 188-373. Will attempt to update cousin, Alberto in the coming day(s). . Family/Friend Interactions: No family present. Advance Directives Living Will: Never completed Health Care Surrogate: Never completed Durable Power of Staff Development Manager: Never completed Health Care Surrogate Name and Number: At this time patient's cousin, Alberto Rey is the only identified family. Documented care wishes:: No known written advance directives. Significant change in goals:: FULL CODE. Goals remain aggressive. In the coming days I hope to be able to address goals of medical treatment and advance directives with patient. Objective Vital Signs: Vital Signs 08/14/18 17:00 08/14/18 18:00 08/14/18 19:00 Temperature Pulse Rate 101 H 97 H 92 H Respiratory Rate 19 22 16 Blood Pressure 147/90 H 146/73 H 139/91 H Pulse Oximetry 100 100 95 08/14/18 19:49 08/14/18 20:00 08/14/18 21:00 Temperature 99.2 F Pulse Rate 95 H 96 H Respiratory Rate 13 11 L Blood Pressure 123/68 150/87 H Pulse Oximetry 100 99 100 08/14/18 22:00 08/14/18 23:00 08/15/18 00:00 Temperature 98.5 F Pulse Rate 88 83 88 Respiratory Rate 18 21 13 Blood Pressure 132/85 145/84 H 141/88 H Pulse Oximetry 100 100 100 08/15/18 01:00 08/15/18 02:00 08/15/18 02:01 Temperature Pulse Rate 94 H 97 H 99 H Respiratory Rate 17 23 19 Blood Pressure 145/85 H 157/83 H Pulse Oximetry 100 97 99 08/15/18 03:00 08/15/18 04:00 08/15/18 05:00 Temperature 97.7 F Pulse Rate 99 H 86 85 Respiratory Rate 28 H 17 24 Blood Pressure 153/83 H 132/82 130/86 Pulse Oximetry 100 97 97 08/15/18 06:00 08/15/18 07:00 08/15/18 08:00 Temperature 98.4 F Pulse Rate 92 H 93 H 90 Respiratory Rate 2 L 10 L 4 L Blood Pressure 135/77 134/80 143/85 H Pulse Oximetry 97 97 96 08/15/18 09:00 08/15/18 09:36 08/15/18 10:00 Temperature Pulse Rate 97 H 95 H Respiratory Rate 13 30 H Blood Pressure 139/86 142/81 H Pulse Oximetry 97 97 95 08/15/18 11:00 08/15/18 12:00 08/15/18 13:00 Temperature 98 F Pulse Rate 88 87 78 Respiratory Rate 21 22 18 Blood Pressure 139/85 138/82 129/79 Pulse Oximetry 97 98 98 08/15/18 14:00 08/15/18 15:00 08/15/18 16:00 Temperature 98.4 F Pulse Rate 81 83 86 Respiratory Rate 14 27 H 15 Blood Pressure 147/89 H 152/93 H 160/90 H Pulse Oximetry 97 99 98 Intake & Output 08/14/18 08/15/18 08/15/18 18:59 06:59 18:59 Intake Total 1000 / 1000 2200 / 2200 1000 / 1000 Output Total 800 / 800 Balance 1000 / 1000 1400 / 1400 1000 / 1000 Weight 59.9 kg Intake: IV 1000 / 1000 1000 / 1000 1000 / 1000 1/2 Normal Saline Inj 1,000 ML 1000 / 1000 1000 / 1000 1000 / 1000 @ 84 mls/hr IV.CONT .[id number] [facility] Rx#:[id number] Oral 1200 / 1200 Tube Feeding 0 / 0 Tube Irrigant 0 / 0 Water Bolus Amount 0 / 0 Output: Urine 800 / 800 Stool 0 / 0 Urine/Stool Mix 0 / 0 Urine Amount (Catheter) 0 / 0 Straight 0 / 0 Gastric Drainage 0 / 0 Orogastric Tube 0 / 0 Other: # Incontinent Voids 0 Date of Last Bowel Movement 08/11/18 08/11/18 08/11/18 # Bowel Movements 0 # Incontinent Bowel Movements 0 Physical Exam: CONSTITUTIONAL/GENERAL: This is an adequately nourished patient, awake and alert. TUBES/LINES/DRAINS: PIVs, Caro,wrist restraints. SKIN: Ecchymoses on upper extremities. No wounds seen anteriorly. Skin temperature appropriate. Not diaphoretic. ENT: Hearing normal. Nose without bleeding or purulent drainage. NECK: Trachea midline. CARDIOVASCULAR: S1, S2, RRR without murmurs. RESPIRATORY/CHEST: Lung sounds clear. GASTROINTESTINAL: Abdomen soft, nondistended. No guarding. Bowel sounds present. GENITOURINARY: Without palpable bladder distension. Caro catheter in place. MUSCULOSKELETAL: Extremities without clubbing, cyanosis, or edema. No mottling or clubbing. NEUROLOGICAL: Awake and alert, following commands. Annswers simple questions with soft voice. PSYCHIATRIC: Awake and calm. . Diagnostic Tests Laboratory: Laboratory Results - last 72 hr 08/12/18 08/12/18 08/13/18 16:39 23:37 04:41 WBC 9.4 RBC 3.60 L Hgb 12.7 L Hct 37.1 L MCV 102.9 H MCH 35.1 H MCHC 34.2 RDW 12.9 Plt Count 309 MPV 8.9 Neut % (Auto) 74.7 H Lymph % (Auto) 14.0 [place] % (Auto) 10.9 H Eos % (Auto) 0.1 Baso % (Auto) 0.3 Neut # (Auto) 7.0 Lymph # (Auto) 1.3 [place] # (Auto) 1.0 H Eos # (Auto) 0.0 Baso # (Auto) 0.0 WBC Differential . Differential Comment Auto diff final Sodium Potassium Chloride Carbon Dioxide Anion Gap BUN Creatinine Estimated GFR POC Glucose 176 H 390 H Random Glucose Calcium Magnesium Total Bilirubin AST ALT Alkaline Phosphatase Total Protein Albumin 08/13/18 08/13/18 08/13/18 04:41 05:09 13:16 WBC RBC Hgb Hct MCV MCH MCHC RDW Plt Count MPV Neut % (Auto) Lymph % (Auto) [place] % (Auto) Eos % (Auto) Baso % (Auto) Neut # (Auto) Lymph # (Auto) [place] # (Auto) Eos # (Auto) Baso # (Auto) WBC Differential Differential Comment Sodium 148 H Potassium 3.6 Chloride 111 H Carbon Dioxide 23.3 Anion Gap 14 BUN 26 H Creatinine 0.90 Estimated GFR Greater than 89 POC Glucose 175 H 397 H Random Glucose 177 H Calcium 9.4 Magnesium 2.1 Total Bilirubin 0.4 AST 21 ALT 24 Alkaline Phosphatase 65 Total Protein 7.4 Albumin 2.6 L 08/13/18 08/13/18 08/14/18 16:22 23:26 04:37 WBC 8.4 RBC 3.61 L Hgb 12.4 L Hct 37.6 L MCV 104.1 H MCH 34.2 H MCHC 32.9 RDW 12.4 Plt Count 310 MPV 8.7 Neut % (Auto) 74.5 H Lymph % (Auto) 13.0 [place] % (Auto) 10.9 H Eos % (Auto) 1.2 Baso % (Auto) 0.4 Neut # (Auto) 6.3 Lymph # (Auto) 1.1 [place] # (Auto) 0.9 Eos # (Auto) 0.1 Baso # (Auto) 0.0 WBC Differential . Differential Comment Auto diff final Sodium Potassium Chloride Carbon Dioxide Anion Gap BUN Creatinine Estimated GFR POC Glucose 235 H 150 H Random Glucose Calcium Magnesium Total Bilirubin AST ALT Alkaline Phosphatase Total Protein Albumin 08/14/18 08/14/18 08/14/18 04:37 05:46 13:57 WBC RBC Hgb Hct MCV MCH MCHC RDW Plt Count MPV Neut % (Auto) Lymph % (Auto) [place] % (Auto) Eos % (Auto) Baso % (Auto) Neut # (Auto) Lymph # (Auto) [place] # (Auto) Eos # (Auto) Baso # (Auto) WBC Differential Differential Comment Sodium 146 H Potassium 3.6 Chloride 109 H Carbon Dioxide 22.3 Anion Gap 15 BUN 26 H Creatinine 1.09 Estimated GFR 72 L POC Glucose 397 H 316 H Random Glucose 374 H D Calcium 8.8 Magnesium 2.0 Total Bilirubin 0.5 AST 15 ALT 20 Alkaline Phosphatase 61 Total Protein 7.0 Albumin 2.6 L 08/14/18 08/14/18 08/15/18 16:42 23:11 04:25 WBC 8.7 RBC 3.51 L Hgb 12.1 L Hct 36.6 L MCV 104.2 H MCH 34.3 H MCHC 33.0 RDW 12.4 Plt Count 309 MPV 9.2 Neut % (Auto) 72.2 H Lymph % (Auto) 16.0 [place] % (Auto) 9.6 H Eos % (Auto) 1.7 Baso % (Auto) 0.5 Neut # (Auto) 6.3 Lymph # (Auto) 1.4 [place] # (Auto) 0.8 Eos # (Auto) 0.1 Baso # (Auto) 0.0 WBC Differential . Differential Comment Auto diff final Sodium Potassium Chloride Carbon Dioxide Anion Gap BUN Creatinine Estimated GFR POC Glucose 294 H 188 H Random Glucose Calcium Magnesium Total Bilirubin AST ALT Alkaline Phosphatase Total Protein Albumin 08/15/18 08/15/18 08/15/18 04:25 05:05 12:02 WBC RBC Hgb Hct MCV MCH MCHC RDW Plt Count MPV Neut % (Auto) Lymph % (Auto) [place] % (Auto) Eos % (Auto) Baso % (Auto) Neut # (Auto) Lymph # (Auto) [place] # (Auto) Eos # (Auto) Baso # (Auto) WBC Differential Differential Comment Sodium 141 Potassium 3.6 Chloride 103 Carbon Dioxide 23.2 Anion Gap 15 BUN 20 H Creatinine 0.92 Estimated GFR 87 L POC Glucose 373 H 230 H Random Glucose 367 H Calcium 8.8 Magnesium 2.0 Total Bilirubin 0.4 AST 18 ALT 19 Alkaline Phosphatase 59 Total Protein 6.7 Albumin 2.6 L Result Diagrams: 08/15/18 04:25 08/15/18 04:25 Microbiology: Microbiology 08/08/18 11:27 Aerobic Blood Culture - Final Blood - Peripheral No growth in 5 days Anaerobic Blood Culture - Final QNS - See aerobic report. 08/08/18 11:17 Aerobic Blood Culture - Final Blood - Peripheral No growth in 5 days Anaerobic Blood Culture - Final No growth in 5 days Imaging: Head CT 08/07/18 02:56 CONCLUSION: 1. Somewhat decreased flores matter-white matter differentiation diffusely. This finding can be seen with diffuse anoxic/hypoxic injury. 2. Motion artifact. . Head MRI 08/07/18 09:53 CONCLUSION: 1. Minimal increased signal in the flores matter of the cerebral cortex seen on the diffusion imaging could be subtle evidence for anoxia. 2. No other significant amount is appreciated. Chest X-Ray 08/10/18 05:00 CONCLUSION: Stable appearance with no acute cardiopulmonary disease. Procedures: * 08/12/18 - extubated. * 08/07/18 - Intubation in the field. . Assessment and Plan Pertinent Non-Medical Issues: Psychosocial: He was born in [place] but moved to [place] as a young child with his mother. He began attending college to earn his degree in [employer] , however never completed that. He has not been nor had any known children. Spiritual: Raised in the [employer] but was exploring conversion to [employer]ism at one time. 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 Legal: No advance directive paperwork completed. Ethical issues impacting care: Patient's only known family is his cousin, who will serve as his decision maker, pending completion of other modalities to attempt to locate family. . Important Contacts: Cousin: Alberto Rey . Prognosis: Prognosis is guarded. This is a 47-year-[place] blood sugar of 14 and an insulin needle lying next to him. It appeared he had injected himself with an entire syringe of long-acting insulin which she had taken from his cousin. He had an unknown downtime. Urine toxicology was positive for benzodiazepines, cocaine and cannabinoids. His presenting blood sugar at the hospital was 38. He remains encephalopathic. Imaging studies are indicative of a possible anoxic brain injury. He is at elevated risk for continued complications and decline. . . Code Status: Full Code Plan: * Legal decision maker: The patient at this time is not capacitated for decision -making as he is unresponsive on a ventilator. Accurints did not identify other family. At this time his cousin, Alberto, is readily available and willing to serve and to his knowledge the only remaining family member. * Goals: FULL CODE. Goals remain aggressive at this time. * FULL CODE SYMPTOMS: * Encephalopathy: Multifactorial to include likely hypoxic and hypoglycemic injury, metabolic acidosis, extended downtime without cardiac arrest. Imaging studies initially indicate likely an anoxic/hypoxic brain injury. Improving, though he does not have insight or judgement today, will continue to follow in hopes he will regain capacity and can participate in completion of advance directives and goals of medical treatment. * Palliative care will continue to follow the patient during hospital course as condition evolves, to assist patient/decision-maker with understanding of their medical conditions, weighing benefits/burdens of treatment options, for clarification of goals of treatment. Additionally will assist with any symptoms of palliative concern. . Attestation Attestation: To help prompt me to consider important information that might be impacting today's encounter and assessment, information from prior notes written by myself or my colleagues may have been "brought forward" into today's note. My signature on this note, however, is an attestation that I personally performed the exam, history, and/or decision-making noted today, and, unless otherwise indicated, the interactions with patient, family, and staff as well as the review of records all occurred today. I also attest that the listed assessment and stated plan reflect my best clinical judgment today based on the combination of historical information, prior notes, and today's exam/ interactions. When time spent is documented, it refers only to time spent today by the signer, or if indicated, combined time spent today by collaborating physician/nurse practitioner.
[2018-08-16] MEDS: Insulin NovoLIN Regular Correctional Sugar Inj SQ SCH ×4 (01:00→18:17)
[2018-08-16] MEDS: Oral Hygiene Kit OROPHARYNG SCH ×4 (01:01→18:10)
[2018-08-16 05:42] LABS: Baso % (Auto) 0.4 % (0.0-2.0); Eos # (Auto) 0.3 th/mm3 (0.0-0.4); Eos % (Auto) 3.6 % (0.0-4.0); Hemoglobin 12.6 gm/dL (13.0-17.0); Lymph % (Auto) 22.9 % (9.0-44.0); Mean Corpuscular HGB Conc 35.1 % (32.0-36.0); Mean Corpuscular Hemoglobin 34.9 pg (27.0-34.0); Mean Corpuscular Volume 99.5 fL (80.0-100.0); Mean Platelet Volume 8.3 fL (7.0-11.0); Mono # (Auto) 0.6 th/mm3 (0.0-0.9); Neut # (Auto) 5.8 th/mm3 (1.8-7.7); Neut % (Auto) 66.1 % (16.0-70.0); Platelet Count 308 th/mm3 (150-450); Red Blood Count 3.62 mil/mm3 (4.50-5.90); Red Cell Distribution Width 12.3 % (11.6-17.2); White Blood Count 8.8 th/mm3 (4.0-11.0)
[2018-08-16] MEDS: Heparin - SQ 10,000 UNITS/ML Vial SQ SCH ×3 (05:57→21:18)
[2018-08-16 06:00] LABS: Albumin 2.2 g/dL (3.4-5.0); Anion Gap 10 meq/L (5-15); Aspartate Aminotransferase 19 U/L (15-37); Blood Urea Nitrogen 13 mg/dL (7-18); Calcium 8.2 mg/dL (8.5-10.1); Carbon Dioxide 27.4 meq/L (21.0-32.0); Chloride 99 meq/L (98-107); Glomerular Filtration Rate Greater Than 89 mL/min (>89); Glucose,Random 328 mg/dL (74-106); Magnesium 1.6 mg/dL (1.5-2.5); Potassium 3.2 meq/L (3.5-5.1); Sodium 136 meq/L (136-145)
[2018-08-16 06:03] LABS: Alanine Aminotransferase 19 U/L (12-78); Alkaline Phosphatase 51 U/L (45-117); Total Protein 5.9 g/dL (6.4-8.2)
[2018-08-16] MEDS: Senna/Docusate Sodium 8.6/50 MG Tablet PO SCH ×2 (08:32→21:24)
[2018-08-16] MEDS: Sodium Chloride 0.45 % Inj 1,000 ML IV.CONT SCH ×2 (09:35→20:50)
[2018-08-16] MEDS: Famotidine PF Inj 20 MG/2 ML Vial IV.PUSH SCH ×2 (11:21→21:17)
[2018-08-16] MEDS: Chlorhexidine 0.12% Oral Kit 15 ML UDC OROPHARYNG SCH ×2 (11:22→20:45)
--- NOTE | 2018-08-16 14:39 | P.PNIM ---
Subjective Interval history: Follow up hypoxic-ischemic encephalopathy secondary to overdose of long acting insulin, protein calorie malnutrition Patient was seen and examined in his room. 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 Patient recently finished using the bedside commode. Staff reports patient became agitated when being asked to wait for assistance prior to getting up by himself. At time of evaluation patient is resting with eyes closed. Even rise and fall of the chest noted. No respiratory distress. Patient does not open eyes to repeated verbal stimuli and gentle touch. Sitter states this is how patient normally acts when sleeping. Physical Exam Vital signs: Last Vital Signs Temp 99.3 F 08/16/18 12:00 Pulse 106 H 08/16/18 12:00 Resp 18 08/16/18 12:00 BP 111/54 L 08/16/18 12:00 Pulse Ox 94 L 08/16/18 12:00 Intake & Output 08/14/18 08/15/18 08/16/18 08/17/18 06:59 06:59 06:59 06:59 Intake Total 2000 / 2000 3200 / 3200 3270 / 3270 1000 / 1000 Output Total 2100 / 2100 800 / 800 1101 / 1101 Balance -100 / -100 2400 / 2400 2169 / 2169 1000 / 1000 Weight 58.8 kg 59.9 kg 59.9 kg Urinary Catheter Management Indwelling Temp Sensing Catheter: Cath placed during this visit: yes, but has since been removed by the nurse Insertion date: 08/07/18 Insertion time: 03:02 Removal date: 08/11/18 Removal time: 15:30 Straight: Cath placed during this visit: yes, but has since been removed by the nurse Insertion date: 08/14/18 Insertion time: 06:30 Removal date: 08/14/18 Removal time: 06:35 Results Labs CBC & Chem 7: 08/16/18 05:21 08/16/18 05:21 Assessment and Plan Plan 47 yo M s/p long-acting insulin overdose with encephalopathy, improving. Neuro/ Psych: reviewed 08/16/18 Hypoxic-Ischemic Encephalopathy. Improving Overdose of long-acting insulin Suicide Attempt Polysubstance abuse - Remains encephalopathic secondary to profound hypoglycemia/ hypoxia - MRI brain: Minimal increased signal in the flores matter of the cerebral cortex seen on the diffusion imaging could be subtle evidence for anoxia. - CT brain: Somewhat decreased flores matter-white matter differentiation diffusely. This finding can be seen with diffuse anoxic/hypoxic injury. - EEG: Moderate encephalopathy - Neuro is following Dr. Weir - William Act (filed by me, in patient's chart along with suicide note found next to patient) and psych consult - UDS + cocaine, cannabinoids, benzos Pulm: reviewed 08/16/18 Acute Hypoxic and Hypercarbic Respiratory Failure-- resolved - Extubated 2 days ago, pulmonary toilet CV: reviewed 08/16/18 - keep on telemetry - goal map > 65 mmHg : reviewed 08/16/18 - no active issues GI: reviewed 08/16/18 Acute protein calorie malnutrition- moderate - Dysphagia diet only when being fed by RN, high risk for aspiration. If patient continues to have pooling of secretions/ food in mouth, will place NGT. - daily bmp,mg,phos - On Pepcid for GI prophylaxis - Sodium elevated but improving, continue 1/2 NS at maintenance and 2 G sodium restriction orally ID: reviewed 08/16/18 Bacteremia Leukocytosis - BC 08/07: GPR-- bacillus, staph, corynebacterium, likely contaminants, negative repeat cultures from 08/08. D/c vanc, observe off antibiotics - daily cbc Endo: Intentional long-acting insulin overdose Profound hypoglycemia- resolved - SSI with accuchecks, 10U levemir qhs (FSBG still very labile) Heme: - Monitor CBC DVT GI prophylaxis -Teds SCDs -Subcu heparin -Pepcid Progress Note: Quality VTE Deep Vein Thrombosis/Pulmonary Embolism Present on Admission: No
[2018-08-17] MEDS: Sodium Chloride 0.45 % Inj 1,000 ML IV.CONT SCH ×3 (00:14→20:49)
[2018-08-17] MEDS: Oral Hygiene Kit OROPHARYNG SCH ×4 (00:15→18:10)
[2018-08-17] MEDS: Insulin NovoLIN Regular Correctional Sugar Inj SQ SCH ×4 (00:34→18:07)
[2018-08-17] MEDS: Heparin - SQ 10,000 UNITS/ML Vial SQ SCH ×3 (05:39→20:45)
[2018-08-17] MEDS: Famotidine PF Inj 20 MG/2 ML Vial IV.PUSH SCH ×2 (08:30→20:45)
[2018-08-17] MEDS: Chlorhexidine 0.12% Oral Kit 15 ML UDC OROPHARYNG SCH ×2 (08:31→20:46)
[2018-08-17] MEDS: Senna/Docusate Sodium 8.6/50 MG Tablet PO SCH ×2 (11:26→20:45)
--- NOTE | 2018-08-17 13:22 | P.PNIM ---
Subjective Interval history: Follow up hypoxic-ischemic encephalopathy secondary to overdose of long acting insulin, protein calorie malnutrition, chest pain RN reports that patient was complaining of chest pain. At time of evaluation he is resting in bed with his eyes closed. He awakens to repeated verbal stimuli and gentle touch. Once awake patient states he is having chest pain. When asked to point to the location he is unable to point. He is noted to be belching. STAT troponin and EKG have been ordered. Denies shortness of breath. No LE edema /pain/redness noted. Physical Exam Vital signs: Last Vital Signs Temp 97.6 F 08/17/18 12:00 Pulse 89 08/17/18 12:00 Resp 16 08/17/18 12:00 BP 158/97 H 08/17/18 12:00 Pulse Ox 97 08/17/18 12:00 Intake & Output 08/15/18 08/16/18 08/17/18 08/18/18 06:59 06:59 06:59 06:59 Intake Total 3200 / 3200 3270 / 3270 2000 / 2000 1000 / 1000 Output Total 800 / 800 1101 / 1101 1250 / 1250 Balance 2400 / 2400 2169 / 2169 750 / 750 1000 / 1000 Weight 59.9 kg 59.9 kg 60.5 kg Narrative: GENERAL: Patient is a 47-year-old male appearing older than the stated age, appears chloride chronically ill. Awake and alert, knows his name only, follows some commands. Off restraints. SKIN: Warm and dry. CARDIOVASCULAR: Regular rate and rhythm RESPIRATORY: Clear to auscultation bilaterally GASTROINTESTINAL: Abdomen soft, non-tender, nondistended MUSCULOSKELETAL: No cyanosis, or edema. Neuro: answers to some questions, follows some commands Urinary Catheter Management Indwelling Temp Sensing Catheter: Cath placed during this visit: yes, but has since been removed by the nurse Insertion date: 08/07/18 Insertion time: 03:02 Removal date: 08/11/18 Removal time: 15:30 Straight: Cath placed during this visit: yes, but has since been removed by the nurse Insertion date: 08/14/18 Insertion time: 06:30 Removal date: 08/14/18 Removal time: 06:35 Results Labs CBC & Chem 7: 08/16/18 05:21 08/16/18 05:21 Assessment and Plan Plan 47 yo M s/p long-acting insulin overdose with encephalopathy, improving. Neuro/ Psych: reviewed 08/17/18 Hypoxic-Ischemic Encephalopathy. Improving Overdose of long-acting insulin Suicide Attempt Polysubstance abuse - Remains encephalopathic secondary to profound hypoglycemia/ hypoxia - MRI brain: Minimal increased signal in the flores matter of the cerebral cortex seen on the diffusion imaging could be subtle evidence for anoxia. - CT brain: Somewhat decreased flores matter-white matter differentiation diffusely. This finding can be seen with diffuse anoxic/hypoxic injury. - EEG: Moderate encephalopathy - Neuro is following Dr. Destin Thomas Act (filed by me, in patient's chart along with suicide note found next to patient) and psych consult - UDS + cocaine, cannabinoids, benzos Pulm: reviewed 08/17/18 Acute Hypoxic and Hypercarbic Respiratory Failure-- resolved - now extubated, breathing on room air. No distress noted. CV: Chest pain, unspecified - reviewed 08/17/18 - check STAT EKG and troponin I level - B/P control, added Vasotec PRN - keep on telemetry - goal map > 65 mmHg : reviewed 08/17/18 - unremarkable GI: reviewed 08/17/18 Acute protein calorie malnutrition- moderate - Dysphagia diet only when being fed by RN, high risk for aspiration. If patient continues to have pooling of secretions/ food in mouth, will place NGT. - daily bmp,mg,phos - On Pepcid for GI prophylaxis - Sodium elevated but improving, continue 1/2 NS at maintenance and 2 G sodium restriction orally ID: reviewed 08/16/18 Bacteremia - resolved Leukocytosis - resolved - BC 08/07: GPR-- bacillus, staph, corynebacterium, likely contaminants, negative repeat cultures from 08/08. D/c vanc, observe off antibiotics - daily cbc Endo: Intentional long-acting insulin overdose Profound hypoglycemia- resolved - SSI with accuchecks, 10U levemir qhs (FSBG still very labile) Heme: - Monitor CBC DVT GI prophylaxis -Teds SCDs -Subcu heparin -Pepcid Progress Note: Quality VTE Deep Vein Thrombosis/Pulmonary Embolism Present on Admission: No
[2018-08-18] MEDS: Insulin NovoLIN Regular Correctional Sugar Inj SQ SCH ×5 (00:49→21:46)
[2018-08-18] MEDS: Oral Hygiene Kit OROPHARYNG SCH ×4 (00:49→17:21)
[2018-08-18 05:47] LABS: Baso # (Auto) 0.1 th/mm3 (0.0-0.2); Baso % (Auto) 1.1 % (0.0-2.0); Eos # (Auto) 0.2 th/mm3 (0.0-0.4); Eos % (Auto) 2.8 % (0.0-4.0); Hematocrit 37.7 % (39.0-51.0); Lymph # (Auto) 2.1 th/mm3 (1.0-4.8); Lymph % (Auto) 27.1 % (9.0-44.0); Mean Corpuscular HGB Conc 34.6 % (32.0-36.0); Mean Corpuscular Hemoglobin 34.7 pg (27.0-34.0); Mean Corpuscular Volume 100.1 fL (80.0-100.0); Mean Platelet Volume 8.8 fL (7.0-11.0); Mono # (Auto) 0.7 th/mm3 (0.0-0.9); Mono % (Auto) 8.8 % (0.0-8.0); Neut # (Auto) 4.6 th/mm3 (1.8-7.7); Neut % (Auto) 60.2 % (16.0-70.0); Platelet Count 322 th/mm3 (150-450); Red Blood Count 3.76 mil/mm3 (4.50-5.90); Red Cell Distribution Width 12.3 % (11.6-17.2); White Blood Count 7.6 th/mm3 (4.0-11.0)
[2018-08-18 05:58] LABS: Anion Gap 7 meq/L (5-15); Blood Urea Nitrogen 10 mg/dL (7-18); Calcium 8.7 mg/dL (8.5-10.1); Chloride 104 meq/L (98-107); Glomerular Filtration Rate Greater Than 89 mL/min (>89); Glucose,Random 128 mg/dL (74-106); Sodium 140 meq/L (136-145)
[2018-08-18] MEDS: Heparin - SQ 10,000 UNITS/ML Vial SQ SCH ×3 (06:19→21:00)
[2018-08-18] MEDS: Senna/Docusate Sodium 8.6/50 MG Tablet PO SCH ×2 (08:31→20:14)
[2018-08-18] MEDS: Famotidine PF Inj 20 MG/2 ML Vial IV.PUSH SCH ×2 (08:31→20:14)
[2018-08-18] MEDS ORDERED: Simethicone 80 MG Chew Tablet PO PRN (08:33)
[2018-08-18] MEDS: Chlorhexidine 0.12% Oral Kit 15 ML UDC OROPHARYNG SCH ×2 (09:35→20:14)
[2018-08-18] MEDS: Sodium Chloride 0.45 % Inj 1,000 ML IV.CONT SCH ×2 (09:35→21:46)
--- NOTE | 2018-08-18 09:44 | XR ---
EXAM DATE: 08/18/2018 9:41 AM EST AGE/SEX: 47 years / Male INDICATIONS: cough CLINICAL DATA: This is the patient's initial encounter. Patient reports that signs and symptoms have been present for 3 days and indicates a pain score of 0/10. MEDICAL/SURGICAL HISTORY: Diabetes mellitus type II. None. COMPARISON: [facility] – [place]ST 1V SINGLE AP, 08/10/2018. . FINDINGS: No significant new focal pleural or parenchymal opacities. The cardiomediastinal contours are unremar kable. Osseous structures are intact. CONCLUSION: 1. No acute cardiopulmonary disease. Electronically signed by: James Barry MD 08/18/2018 9:43 AM EST
--- NOTE | 2018-08-18 09:50 | P.PNIM ---
Subjective Interval history: Follow up chest pain, hypoxic-ischemic encephalopathy secondary to overdose of long acting insulin, protein calorie malnutrition Patient is sitting up in bed. His right hand is placed over his left anterior chest wall and he complains of sharp chest pain. Patient appears to be in pain when asked to take deep breaths to auscultate for lung sounds. He is a poor historian secondary to his recent hypoxic-ischemic encephalopathy. When asked if he is experiencing shortness of breath he states "yes." We will check a STAT CXR, EKG and troponin level. Physical Exam Vital signs: Last Vital Signs Temp 98.1 F 08/18/18 00:00 Pulse 85 08/18/18 00:00 Resp 18 08/18/18 02:02 BP 140/75 08/18/18 00:00 Pulse Ox 97 08/18/18 00:00 Intake & Output 08/16/18 08/17/18 08/18/18 08/19/18 06:59 06:59 06:59 06:59 Intake Total 3270 / 3270 1999 / 1999 1000 / 1000 Output Total 1101 / 1101 1250 / 1250 2925 / 2925 Balance 2169 / 2169 750 / 750 -925 / -925 1000 / 1000 Weight 59.9 kg 60.5 kg Narrative: GENERAL: chronically ill. Awake and alert, knows his name only, follows some commands. Off restraints. SKIN: warm and dry, no rash CARDIOVASCULAR: Regular rate and rhythm, S1 S2 RESPIRATORY: Clear to auscultation bilaterally, no accessory muscle use noted GASTROINTESTINAL: Abdomen soft, non-tender, nondistended MUSCULOSKELETAL: No cyanosis, or edema. Neuro: answers to some questions, follows some commands Urinary Catheter Management Indwelling Temp Sensing Catheter: Cath placed during this visit: yes, but has since been removed by the nurse Insertion date: 08/07/18 Insertion time: 03:02 Removal date: 08/11/18 Removal time: 15:30 Straight: Cath placed during this visit: yes, but has since been removed by the nurse Insertion date: 08/14/18 Insertion time: 06:30 Removal date: 08/14/18 Removal time: 06:35 Results Labs CBC & Chem 7: 08/18/18 04:15 08/18/18 04:15 Imaging Imaging: Impressions Chest X-Ray 08/18/18 08:42 CONCLUSION: 1. No acute cardiopulmonary disease. Assessment and Plan Plan 47 yo M s/p long-acting insulin overdose with encephalopathy, improving. CV: Chest pain, unspecified - reviewed 08/18/18 - check STAT CXR, EKG and troponin level. CXR shows no acute cardiopulmonary process, EKG w/ no evidence of ischemia, troponin level pending. - B/P controlled, added Vasotec PRN - keep on telemetry - goal map > 65 mmHg Neuro/ Psych: reviewed 08/18/18 Hypoxic-Ischemic Encephalopathy. Improving Overdose of long-acting insulin Suicide Attempt Polysubstance abuse - Remains encephalopathic secondary to profound hypoglycemia/ hypoxia - MRI brain: Minimal increased signal in the flores matter of the cerebral cortex seen on the diffusion imaging could be subtle evidence for anoxia. - CT brain: Somewhat decreased flores matter-white matter differentiation diffusely. This finding can be seen with diffuse anoxic/hypoxic injury. - EEG: Moderate encephalopathy - Neuro is following Dr. Destin Thomas Act (in patient's chart along with suicide note found next to patient) and psych consult - UDS + cocaine, cannabinoids, benzos Pulm: reviewed 08/18/18 Acute Hypoxic and Hypercarbic Respiratory Failure-- resolved - now extubated, breathing on room air. No distress noted. : reviewed 08/18/18 - unremarkable GI: reviewed 08/18/18 Acute protein calorie malnutrition- moderate - Dysphagia diet only when being fed by RN, high risk for aspiration. If patient continues to have pooling of secretions/ food in mouth, will place NGT. - On Pepcid for GI prophylaxis ID: reviewed 08/18/18 Bacteremia - resolved Leukocytosis - resolved - BC 08/07: GPR-- bacillus, staph, corynebacterium, likely contaminants, negative repeat cultures from 08/08. D/c vanc, observe off antibiotics - daily cbc Endo: Intentional long-acting insulin overdose Profound hypoglycemia- resolved - SSI with accuchecks, 10U levemir qhs (FSBG still very labile) Heme: - Monitor CBC DVT GI prophylaxis -Teds SCDs -Subcu heparin -Pepcid Progress Note: Quality VTE Deep Vein Thrombosis/Pulmonary Embolism Present on Admission: No
[2018-08-18] MEDS ORDERED: Potassium Bicarbonate 25 MEQ Effervescent Tablet PO ONE (11:30)
--- NOTE | 2018-08-18 17:31 | ECG ---
Date Performed: 08/18/2018 Time Performed: 09:21:33 PTAGE: 47 years EKG: Sinus rhythm LEFT ANTERIOR FASCICULAR BLOCK ABNORMAL ECG PREVIOUS TRACING : 08/17/2018 12.14 Since the previous tracing, no significant change noted DOCTOR: Fercho Clement Interpretating Date/Time 08/18/2018 17:30:07
--- NOTE | 2018-08-18 17:32 | ECG ---
Date Performed: 08/17/2018 Time Performed: 12:14:10 PTAGE: 47 years EKG: Sinus rhythm LEFT ANTERIOR FASCICULAR BLOCK NONSPECIFIC T-WAVE ABNORMALITY ABNORMAL ECG PREVIOUS TRACING : 08/07/2018 12.20 Since the previous tracing, no significant change noted DOCTOR: Fercho Clement Interpretating Date/Time 08/18/2018 17:30:26
[2018-08-19] MEDS: Oral Hygiene Kit OROPHARYNG SCH ×4 (00:37→17:27)
[2018-08-19] MEDS: Heparin - SQ 10,000 UNITS/ML Vial SQ SCH ×3 (05:15→20:59)
[2018-08-19] MEDS: Senna/Docusate Sodium 8.6/50 MG Tablet PO SCH ×2 (10:51→20:58)
[2018-08-19] MEDS: Insulin NovoLIN Regular Correctional Sugar Inj SQ SCH ×4 (10:52→20:59)
[2018-08-19] MEDS: Chlorhexidine 0.12% Oral Kit 15 ML UDC OROPHARYNG SCH ×2 (10:53→20:51)
[2018-08-19] MEDS: Famotidine PF Inj 20 MG/2 ML Vial IV.PUSH SCH ×2 (10:54→20:58)
[2018-08-19] MEDS: Sodium Chloride 0.45 % Inj 1,000 ML IV.CONT SCH ×2 (10:58→23:00)
--- NOTE | 2018-08-19 13:05 | P.PNIM ---
Subjective Interval history: Follow up chest pain, hypoxic-ischemic encephalopathy secondary to overdose of long acting insulin, protein calorie malnutrition Patient resting in bed with his eyes closed. He awakens to verbal stimuli. assessment clinician remains at bedside. No chest pain, shortness of breath, or palpitations. Tolerating PO intake. Patient with 2 bowel movements today per safety engineer pressure vessels. Physical Exam Vital signs: Last Vital Signs Temp 97.7 F 08/19/18 04:00 Pulse 82 08/19/18 04:00 Resp 17 08/19/18 04:00 BP 141/84 H 08/19/18 04:00 Pulse Ox 98 08/19/18 04:00 Intake & Output 08/17/18 08/18/18 08/19/18 08/20/18 06:59 06:59 06:59 06:59 Intake Total 1999 1000 / 1000 Output Total 1250 / 1250 2925 / 2925 525 / 525 Balance 750 / 750 -925 / -925 1475 / 1475 1000 / 1000 Weight 60.5 kg 60.8 kg Narrative: GENERAL: chronically ill. Awake and alert, knows his name only, follows some commands. Off restraints. SKIN: warm and dry, no rash CARDIOVASCULAR: Regular rate and rhythm, S1 S2 RESPIRATORY: Clear to auscultation bilaterally, no accessory muscle use noted GASTROINTESTINAL: Abdomen soft, non-tender, nondistended MUSCULOSKELETAL: No cyanosis, or edema. Neuro: follows some commands, moves all extremities Urinary Catheter Management Indwelling Temp Sensing Catheter: Cath placed during this visit: yes, but has since been removed by the nurse Insertion date: 08/07/18 Insertion time: 03:02 Removal date: 08/11/18 Removal time: 15:30 Straight: Cath placed during this visit: yes, but has since been removed by the nurse Insertion date: 08/14/18 Insertion time: 06:30 Removal date: 08/14/18 Removal time: 06:35 Results Labs CBC & Chem 7: 08/18/18 04:15 08/18/18 16:28 Assessment and Plan Plan 47 yo M s/p long-acting insulin overdose with encephalopathy, improving. CV: Chest pain, unspecified - reviewed 08/19/18, resolved - CXR shows no acute cardiopulmonary process, EKG w/ no evidence of ischemia, troponin level WNL - B/P controlled, added Vasotec PRN - keep on telemetry - goal map > 65 mmHg Neuro/ Psych: reviewed 08/18/18 Hypoxic-Ischemic Encephalopathy. Improving Overdose of long-acting insulin Suicide Attempt Polysubstance abuse - Remains encephalopathic secondary to profound hypoglycemia/ hypoxia - MRI brain: Minimal increased signal in the flores matter of the cerebral cortex seen on the diffusion imaging could be subtle evidence for anoxia. - CT brain: Somewhat decreased flores matter-white matter differentiation diffusely. This finding can be seen with diffuse anoxic/hypoxic injury. - EEG: Moderate encephalopathy - Neuro is following Dr. Destin Thomas Act (in patient's chart along with suicide note found next to patient) and psych consult - UDS + cocaine, cannabinoids, benzos Pulm: reviewed 08/18/18 Acute Hypoxic and Hypercarbic Respiratory Failure-- resolved - now extubated, breathing on room air. No distress noted. : reviewed 08/19/18 - unremarkable GI: reviewed 08/19/18 Acute protein calorie malnutrition- moderate - repeat speech eval 08/18/18 w/ recommendation for regular diet with thin liquids, patient tolerating well - On Pepcid for GI prophylaxis ID: reviewed 08/18/18 Bacteremia - resolved Leukocytosis - resolved - BC 08/07: GPR-- bacillus, staph, corynebacterium, likely contaminants, negative repeat cultures from 08/08. D/c vanc, observe off antibiotics - daily cbc Endo: Intentional long-acting insulin overdose Profound hypoglycemia- resolved Diabetes mellitus - reviewed 08/19/18, uncontrolled with blood sugars > 250 - SSI with accuchecks, 10U levemir qhs (FSBG still very labile) Heme: - Monitor CBC DVT GI prophylaxis -Teds SCDs -Subcu heparin -Pepcid Progress Note: Quality VTE Deep Vein Thrombosis/Pulmonary Embolism Present on Admission: No
[2018-08-20] MEDS: Oral Hygiene Kit OROPHARYNG SCH ×4 (00:14→19:11)
[2018-08-20] MEDS: Heparin - SQ 10,000 UNITS/ML Vial SQ SCH ×3 (06:28→20:53)
[2018-08-20] MEDS: Famotidine PF Inj 20 MG/2 ML Vial IV.PUSH SCH ×2 (08:42→20:52)
[2018-08-20] MEDS: Senna/Docusate Sodium 8.6/50 MG Tablet PO SCH ×2 (08:43→20:52)
[2018-08-20] MEDS: Insulin NovoLIN Regular Correctional Sugar Inj SQ SCH ×4 (08:53→20:51)
[2018-08-20] MEDS: Chlorhexidine 0.12% Oral Kit 15 ML UDC OROPHARYNG SCH ×2 (08:54→20:52)
[2018-08-20] MEDS: Sodium Chloride 0.45 % Inj 1,000 ML IV.CONT SCH ×2 (09:04→20:58)
[2018-08-20] MEDS: Acetaminophen 325 MG Tablet PO PRN (09:39)
--- NOTE | 2018-08-20 17:05 | P.PNIM ---
Subjective Interval history: Follow up chest pain, hypoxic-ischemic encephalopathy secondary to overdose of long acting insulin, protein calorie malnutrition Patient seen and examined while resting in bed. He appears to be in a good mood. Nods yes or no appropriately. Denies chest pain, shortness of breath, cough, fever or chills. Patient tolerating regular diet. Physical Exam Vital signs: Last Vital Signs Temp 98.9 F 08/20/18 12:00 Pulse 97 H 08/20/18 12:00 Resp 16 08/20/18 12:00 BP 126/80 08/20/18 12:00 Pulse Ox 98 08/20/18 12:00 Intake & Output 08/18/18 08/19/18 08/20/18 08/21/18 06:59 06:59 06:59 06:59 Intake Total 1999 1000 / 1000 Output Total 2925 / 2925 525 / 525 850 / 850 Balance -925 / -925 1475 / 1475 1150 / 1150 1000 / 1000 Weight 60.8 kg Narrative: GENERAL: chronically ill. Awake and alert, nods yes or no appropriately, non verbal, follows commands. Off restraints. SKIN: warm and dry, no rash CARDIOVASCULAR: Regular rate and rhythm, S1 S2 RESPIRATORY: Clear to auscultation bilaterally, no accessory muscle use noted GASTROINTESTINAL: Abdomen soft, non-tender, nondistended MUSCULOSKELETAL: No cyanosis, or edema. Neuro: follows commands, moves all extremities Urinary Catheter Management Indwelling Temp Sensing Catheter: Cath placed during this visit: yes, but has since been removed by the nurse Insertion date: 08/07/18 Insertion time: 03:02 Removal date: 08/11/18 Removal time: 15:30 Straight: Cath placed during this visit: yes, but has since been removed by the nurse Insertion date: 08/14/18 Insertion time: 06:30 Removal date: 08/14/18 Removal time: 06:35 Results Labs CBC & Chem 7: 08/18/18 04:15 08/18/18 16:28 Assessment and Plan Plan 47 yo M s/p long-acting insulin overdose with encephalopathy, improving. Diabetes mellitus - reviewed 08/19/18, uncontrolled with blood sugars > 250 -SSI with accuchecks (FSBG still very labile) -ADA diet -restart Levemir at low dose of 5 units subcu QHS, slowly titrate if indicated Chest pain, unspecified - reviewed 08/20/18, resolved - CXR shows no acute cardiopulmonary process, EKG w/ no evidence of ischemia, troponin level WNL - B/P controlled, added Vasotec PRN - keep on telemetry - goal map > 65 mmHg Hypoxic-Ischemic Encephalopathy, improving - MRI brain: Minimal increased signal in the flores matter of the cerebral cortex seen on the diffusion imaging could be subtle evidence for anoxia. - CT brain: Somewhat decreased flores matter-white matter differentiation diffusely. This finding can be seen with diffuse anoxic/hypoxic injury. - EEG: Moderate encephalopathy - Neuro is following Dr. Weir Suicide Attempt - evaluated 08/20/18 -Overdose of long-acting insulin -Thomas Act (in patient's chart along with suicide note found next to patient) and psych consult -re-consult psych to assess for discontinuation of Thomas Act and product safety consultant vs continuing since mental status improved Polysubstance abuse - UDS + cocaine, cannabinoids, benzos Acute Hypoxic and Hypercarbic Respiratory Failure-- resolved - now extubated, breathing on room air. No distress noted. Acute protein calorie malnutrition- moderate - repeat speech eval 08/18/18 w/ recommendation for regular diet with thin liquids, patient tolerating well - On Pepcid for GI prophylaxis Bacteremia - resolved Leukocytosis - resolved - BC 08/07: GPR-- bacillus, staph, corynebacterium, likely contaminants, negative repeat cultures from 08/08. D/c vanc, observe off antibiotics Profound hypoglycemia- resolved DVT GI prophylaxis -Teds SCDs -Subcu heparin -Pepcid Progress Note: Quality VTE Deep Vein Thrombosis/Pulmonary Embolism Present on Admission: No
[2018-08-20] MEDS: Insulin Detemir Inj 1,000 UNIT/10 ML Vial SQ SCH (20:52)
[2018-08-21] MEDS: Oral Hygiene Kit OROPHARYNG SCH ×2 (03:17→04:48)
[2018-08-21] MEDS: Heparin - SQ 10,000 UNITS/ML Vial SQ SCH ×3 (05:55→21:09)
[2018-08-21] MEDS: Famotidine PF Inj 20 MG/2 ML Vial IV.PUSH SCH ×2 (08:54→21:10)
[2018-08-21] MEDS: Senna/Docusate Sodium 8.6/50 MG Tablet PO SCH ×2 (08:54→21:10)
[2018-08-21] MEDS: Sodium Chloride 0.45 % Inj 1,000 ML IV.CONT SCH (08:55)
[2018-08-21] MEDS: Chlorhexidine 0.12% Oral Kit 15 ML UDC OROPHARYNG SCH (09:08)
[2018-08-21] MEDS: Insulin NovoLIN Regular Correctional Sugar Inj SQ SCH ×4 (09:39→22:38)
--- NOTE | 2018-08-21 11:22 | P.PNPSY ---
Subjective Remarks: Patient is seen today for psychiatry reevaluation. the case case widely discussed with nursing staff. Patient is found in his bed, distant, minimally cooperative. He is still seem to be confused. reports feeing better, but still depressed. stating he does not really want to talk about recent suicidal attempt. He has a marked delay speech, fragmented thought, seems to be somewhat amotivated and anhedonic. At some point he tells me he is in [facility], but later demonstrate he is fully oriented. Mental Status Examination Appearance: Appropriate Consciousness: Alert Orientation: x4 Motor Activity: Other (very little motor movements, except nodding head slightly and moving eyes and facial movements.) Speech: Other (nonverbal) Language: Other (low tone and volume) Fund of Knowledge: Adequate Memory: Impaired Affect: Blunt Thought Process & Associations: Intact Thought Content: Thought blocking Hallucination Type: Other (unable to assess) Delusion Type: None Suicidal Ideation: Yes Suicidal Plan: No Suicidal Intention: No Homicidal Ideation: No Homicidal Plan: No Homicidal Intention: No Insight: Poor Judgment: Poor Assessment and Plan - Assessment (1) Major neurocognitive disorder due to another medical condition Code(s): F02.80 - Dementia in other diseases classified elsewhere without behavioral disturbance Status: Acute (2) Encephalopathy Code(s): G93.40 - Encephalopathy, unspecified Status: Acute (3) Major depress dis, severe Code(s): F32.2 - Major depressive disorder, single episode, severe without psychotic features Status: Acute - Plan Plan: Patient seems to be objectively depressed, with marked lack of motivation psychomotor retardation and anhedonia. Will start Celexa 10 mg. Patient will be transfer to [facility] once medically appropriate. Continue 1:1 in medical floor. support and psychoeducation provided. Justification for Continued Inpatient Stay: to be transfer to Psychiatry
--- NOTE | 2018-08-21 12:06 | P.DS ---
Date of admission: 08/07/18 04:11 Primary care physician: UNKNOWN Brief History from admission: Late 30s/early [id number] patient of unknown identity was brought in by EMS emergently. [place]. Blood sugar was checked and it was 14. Patient was given 1 amp of D50 but did not wake up. He was given IV Narcan with no change. Patient was intubated at the scene by EMS for an airway protection. He was brought in being bagged by positive pressure ventilation. As per EMS patient never lost his pulse. Vital signs were otherwise stable. Upon arrival patient had no purposeful movement and was obviously no condition to give any meaningful history. Blood sugar upon arrival was 38. DS: Medications - Discharge Medications Prescriptions: insulin detemir U-100 [Levemir U-100 Insulin] 5 unit SUBCUT HS #15 ml insulin regular human [Novolin R Regular U-100 Insuln] 0 units SUBCUT ACHS #15 ml DS: Summary Hospital Course: 47-year-old male who presented to the emergency department via EMS on 08/07 after he was found unresponsive with insulin syringe next to him. Blood sugar on field was 14 and patient was provided 1 amp of D50 as well as IV Narcan with no change. He was intubated on scene for airway protection. Patient was also placed under Thomas act due to suicide attempt with the use of insulin. Patient was also evaluated by neurology services who recommended checking EEG as well as head CT and MRI, no epileptic drugs unless seizure activity was seen. Head CT showed somewhat decreased matterwhite matter differentiation diffusely. Had MRI with minimal increase signal in the flores matter of the cerebral cortex seen on the diffusion imaging could be subtle evidence of anoxia. EEG showed moderate encephalopathy with frontal myogenic artifact. During patient's hospitalization he also had positive blood cultures which were likely contaminated. His blood sugars were stabilized and patient was extubated on . Patient's mentation did improve although his blood sugars have been somewhat labile. He was started on Accu-Cheks with insulin sliding scale and his Levemir resumed once again last night. He did have an episode of hypoglycemia overnight with blood sugar dropping to 49 with this recent change. Discussed making changes regarding bedtime coverage of insulin with Accu- Cheks to a maximum coverage dose of 15. Continue Levemir dose at 5 units. He is seen and evaluated today sitting up in bed in no acute distress. He is awake , alert, and oriented to self, place, and time. Denies any fevers, chills, nausea, vomiting, diarrhea, shortness of breath or chest pain. Patient was also reevaluated once again by psychiatry who recommends admission to medical psychiatry unit. - Time Spent with Patient Total time spent providing and/or coordinating discharge services: Less than 30 minutes - Quality: VTE Deep Vein Thrombosis/Pulmonary Embolism Present on Admission: No Exam Vital signs: Vital Signs 08/20/18 12:00 08/20/18 16:00 08/20/18 19:50 Temperature 98.9 F 98.2 F 97.5 F L Pulse Rate 97 H 87 78 Respiratory Rate 16 16 20 Blood Pressure 126/80 108/66 129/74 Pulse Oximetry 98 98 96 08/20/18 20:00 08/20/18 23:45 08/21/18 00:00 Temperature 98.6 F Pulse Rate 92 H 90 95 H Respiratory Rate 19 Blood Pressure 114/66 Pulse Oximetry 96 08/21/18 03:40 08/21/18 08:00 Temperature 97.8 F 98.3 F Pulse Rate 73 83 Respiratory Rate 19 16 Blood Pressure 145/90 H 118/75 Pulse Oximetry 97 97 Intake & Output 08/20/18 08/21/18 08/21/18 18:59 06:59 18:59 Intake Total 1500 / 1500 960 / 960 1000 / 1000 Balance 1500 / 1500 960 / 960 1000 / 1000 Weight 60.6 kg Intake: IV 1000 / 1000 1000 / 1000 1/2 Normal Saline Inj 1,000 ML 1000 / 1000 1000 / 1000 @ 84 mls/hr IV.CONT .[id number] [facility] Rx#:[id number] Oral 500 / 500 960 / 960 Other: # Voids 5 Date of Last Bowel Movement 08/19/18 # Bowel Movements 3 Narrative: GENERAL: Well-developed, well-nourished male in no acute distress. SKIN: Warm and dry. HEAD: Atraumatic. Normocephalic. EYES: Pupils equal and round. No scleral icterus. No injection or drainage. ENT: No nasal bleeding or discharge. Mucous membranes moist and pink. NECK: Trachea midline. CARDIOVASCULAR: Regular rate and rhythm. RESPIRATORY: No accessory muscle use. Clear to auscultation. Breath sounds equal bilaterally. GASTROINTESTINAL: Abdomen soft, non-tender, nondistended. + Bowel sounds MUSCULOSKELETAL: Extremities without clubbing, cyanosis, or edema. No obvious deformities. NEUROLOGICAL: Awake, alert, oriented x3. No obvious cranial nerve deficits. Motor grossly within normal limits. Five out of 5 muscle strength in the arms and legs. Normal speech. PSYCHIATRIC: Appears somewhat paranoid. Results Procedures completed during hospitalization: None Labs on day of discharge: Labs from last 24 hours 08/21/18 08/21/18 08/21/18 08:53 04:19 03:54 POC Glucose 291 H 161 H 72 08/21/18 08/21/18 08/20/18 03:32 03:08 20:47 POC Glucose 57 L 49 L* 358 H 08/20/18 12:11 POC Glucose 164 H - Impressions ITS Impressions Head CT 08/07/18 02:56 CONCLUSION: 1. Somewhat decreased flores matter-white matter differentiation diffusely. This finding can be seen with diffuse anoxic/hypoxic injury. 2. Motion artifact. . Head MRI 08/07/18 09:53 CONCLUSION: 1. Minimal increased signal in the flores matter of the cerebral cortex seen on the diffusion imaging could be subtle evidence for anoxia. 2. No other significant amount is appreciated. Chest X-Ray 08/18/18 08:42 CONCLUSION: 1. No acute cardiopulmonary disease. Discharge Plan - Discharge Disposition Patient Disposition: 63 Disc To [facility] Facility - Discharge Condition Condition: Fair - Discharge Order Discharge Orders: Discharge Order (Routine); Ordered 08/21/18 Ordered By: Luke Encinas - Physicians Team Primary Care Provider: UNKNOWN, Attending Provider: Charmaine Castañeda Other Providers: Anita Weir MD ; Debora Zamudio MD ; Ester Hartman MD ; Hua Torres MD
--- NOTE | 2018-08-21 13:20 | P.PNPAL ---
Palliative care continues to follow along with Mr. Murrieta. In review of notes, per CM, patient still possibly under a Thomas Act and further clarification needed from psychiatry. Unable to address goals of medical treatment without capacity and thomas act determination. Spoke with psychiatry medical receptionist assistant and clinical coordinator Js Collier [facility] Psychiatry to reassess patient and determine need for psychiatry admission.
[2018-08-21] MEDS: Citalopram 20 MG Tablet PO SCH (13:37)
--- NOTE | 2018-08-21 15:46 | P.DIET ---
Nutritional Evaluation Type of nutrition evaluation: follow-up Nutrition consult regarding: Diet Evaluation Screening comments: 08/07 TF review Objective - Diagnosis unresponsive, respiratory failure, hypoglycemia - Objective % IBW: 82 (IBW = 160lb) Body Weight Used for Calculations: Actual Energy Needs - Lower Range (kCal/kg): 30 Energy Needs - Upper Range (kCal/kg): 35 Lower Limit kCal/kg (kCals): 1,797 Upper Limit kCal/kg (kCals): 2,097 Lower Limit Protein Factor (Grams per Kg): 1.2 Upper Limit Protein Factor (Grams per Kg): 1.5 Lower Protein Needs (Protein): 72 Upper Protein Needs (Protein): 90 Dietitian Reviewed in Medical Record: Current diet, Curent medications, Intake & Output, Labs, Medical history Diet Order: renal 2gNa, cardiac, 1800 ADA DM Oral Diet Intake Amount: Good 75-90% Objective Comments: PMH: unknown Labs: POC glucose [phone] Assessment Assessment: Pt was awake today. ST recs reviewed, pt is able to consume a regular, thin liquid diet and tolerating well. Per chart, pt is able to eat independently. Pt eating around 50-100% of most trays. Pt to be transferred to [facility] per psych note. Continue to monitor PO and supplement intake. Labs reviewed, dietitian following. Recommendations: 1. ST recs reviewed, pt now on regular, thin liquid diet 3. Continue Glucerna BID as PO supplement 4. Continue to monitor PO and supplement intake 4. Dietitian following Dietitian to Monitor: Lab values, Glucose level, Supplement acceptance, Intake & Output, PO Intake, Medical course
[2018-08-21] MEDS: Insulin Detemir Inj 1,000 UNIT/10 ML Vial SQ SCH (21:11)
[2018-08-22] MEDS: Insulin NovoLOG Aspart Correctional Sugar Inj SQ SCH ×3 (03:26→12:35)
[2018-08-22] MEDS: Heparin - SQ 10,000 UNITS/ML Vial SQ SCH ×2 (04:49→12:35)
[2018-08-22] MEDS: Famotidine PF Inj 20 MG/2 ML Vial IV.PUSH SCH (09:54)
[2018-08-22] MEDS: Senna/Docusate Sodium 8.6/50 MG Tablet PO SCH (09:54)
[2018-08-22] MEDS: Citalopram 20 MG Tablet PO SCH (09:54)
[2018-08-22 12:44] VITALS: BP 114/72; PULSE 91; RESP 16; TEMP 97.8; O2SAT 99
--- NOTE | 2018-08-22 13:33 | P.PNADD ---
Addendum to Inpatient Note Reason for Addendum: Additional Documentation Additional information: Patient medically stable, no hypoglycemic episodes overnight. Nurse does not report any acute events overnight or this morning. He is seen resting in bed comfortably in no acute distress. Denies any fevers, chills, nausea, vomiting or diarrhea.
--- NOTE | 2018-08-22 13:47 | P.PN ---
Subjective Interval history: Follow-up for encephalopathy and hypoglycemia. Patient is seen and examined resting in bed in no acute distress. He denies any fevers, chills, nausea, vomiting, cough, SOB. Eating and drinking with no issues. Nurse does not report any events overnight or today. Plans for patient to be transferred to medical psych unit. Physical Exam Vital signs: Vital Signs 08/21/18 20:36 08/21/18 21:14 08/22/18 00:01 Temperature 97.8 F Pulse Rate 81 90 79 Respiratory Rate 18 Blood Pressure 114/73 Pulse Oximetry 96 08/22/18 00:59 08/22/18 01:37 08/22/18 04:03 Temperature 97.7 F Pulse Rate 81 68 Respiratory Rate 18 18 Blood Pressure 118/69 Pulse Oximetry 97 08/22/18 04:40 08/22/18 06:10 08/22/18 08:00 Temperature 98.3 F Pulse Rate 85 71 Respiratory Rate 18 17 20 Blood Pressure 118/75 Pulse Oximetry 96 08/22/18 09:06 08/22/18 12:43 Temperature 98.2 F 97.8 F Pulse Rate 80 91 H Respiratory Rate 18 16 Blood Pressure 114/75 114/72 Pulse Oximetry 97 99 Intake & Output 08/21/18 08/22/18 08/22/18 18:59 06:59 18:59 Intake Total 2100 / 2100 480 / 480 Balance 2100 / 2100 480 / 480 Intake: IV 1000 / 1000 1/2 Normal Saline Inj 1,000 ML 1000 / 1000 @ 84 mls/hr IV.CONT .[id number] [facility] Rx#:[id number] Oral 1100 / 1100 480 / 480 Other: # Voids 6 3 Date of Last Bowel Movement 08/19/18 08/22/18 08/21/18 # Bowel Movements 0 1 Narrative: GENERAL: Well-developed, well-nourished male in no acute distress. SKIN: Warm and dry. EYES: Pupils equal and round. No scleral icterus. No injection or drainage. NECK: Trachea midline. CARDIOVASCULAR: Regular rate and rhythm. RESPIRATORY: No accessory muscle use. Clear to auscultation. Breath sounds equal bilaterally. GASTROINTESTINAL: Abdomen soft, non-tender, nondistended. + Bowel sounds MUSCULOSKELETAL: Extremities without clubbing, cyanosis, or edema. No obvious deformities. NEUROLOGICAL: Awake, alert, oriented x3. No obvious cranial nerve deficits. Motor grossly within normal limits. Normal speech. PSYCHIATRIC: Calm and cooperative. - Urinary Catheter Management Indwelling Temp Sensing Catheter Cath placed during this visit: yes, but has since been removed by the nurse Reason for continuing: Not indwelling catheter Insertion date: 08/07/18 Insertion time: 03:02 Removal date: 08/11/18 Removal time: 15:30 Straight Cath placed during this visit: yes, but has since been removed by the nurse Reason for continuing: Not indwelling catheter Insertion date: 08/14/18 Insertion time: 06:30 Removal date: 08/14/18 Removal time: 06:35 Results - Labs CBC & Chem 7: 08/18/18 04:15 08/18/18 16:28 Laboratory Results - last 24 hr 08/21/18 08/21/18 08/22/18 18:12 20:22 03:06 POC Glucose 258 H 208 H 160 H 08/22/18 08/22/18 08:09 12:28 POC Glucose 284 H 323 H - Procedures None Assessment and Plan - Plan 47 yo M s/p long-acting insulin overdose with encephalopathy, improving. Diabetes mellitus, brittle diabetic -SSI with accuchecks (FSBG still very labile) -ADA diet -Continue Accu-Cheks every 6 hours with coverage before meals at bedtime, insulin sliding scale medium dose -Blood sugar this morning elevated, increase Levemir dose to 8 units at bedtime. Chest pain, unspecified - reviewed 08/20/18, resolved - CXR shows no acute cardiopulmonary process, EKG w/ no evidence of ischemia, troponin level WNL - B/P controlled, added Vasotec PRN - keep on telemetry - goal map > 65 mmHg -No chest pain complaints today. Hypoxic-Ischemic Encephalopathy, improving - MRI brain: Minimal increased signal in the flores matter of the cerebral cortex seen on the diffusion imaging could be subtle evidence for anoxia. - CT brain: Somewhat decreased flores matter-white matter differentiation diffusely. This finding can be seen with diffuse anoxic/hypoxic injury. - EEG: Moderate encephalopathy -Mentation significantly improved. Suicide Attempt - evaluated 08/20/18 -Overdose of long-acting insulin -Thomas Act (in patient's chart along with suicide note found next to patient) and psych consult -Psychiatry reconsulted and recommends admission to medical psychiatric unit if medically stable. Polysubstance abuse - UDS + cocaine, cannabinoids, benzos Acute protein calorie malnutrition- moderate - repeat speech eval 08/18/18 w/ recommendation for regular diet with thin liquids, patient tolerating well - On Pepcid for GI prophylaxis DVT prophylaxisambulation Patient medically clear and will be discharged to medical psychiatric department. Medical team to be consulted when transferred. Discussed Condition With: Patient and RN
[2018-08-22] MEDS ORDERED: Insulin Detemir Inj 1,000 UNIT/10 ML Vial SQ SCH (14:00)
== END 2018-08-22 13:42 ==
LOC: NEPC 02:50 → NEDA 04:11 → EDBD 04:11 → HIMC 06:00 → N06 08-15 19:23
PROVIDERS: ADMIT Hospitalist; ATTEND Hospitalist

== ENCOUNTER 2018-08-21 13:03 | Inpatient (IN) ==
[2018-08-22] MEDS ORDERED: Acetaminophen 325 MG Tablet PO PRN (14:44)
[2018-08-22] MEDS ORDERED: Aluminum/Magnesium/Simethacone Susp 30 ML UDC PO PRN (14:44)
[2018-08-22] MEDS ORDERED: Influenza (Quadrivalent) Vaccine 0.5 ML Syringe IM ONE (15:00)
[2018-08-22] MEDS ORDERED: Dextrose 50% in Water 50 ML Vial IV.PUSH PRN (17:13)
[2018-08-22] MEDS: Insulin NovoLOG Aspart Correctional Sugar Inj SQ SCH ×2 (17:25→21:05)
[2018-08-22] MEDS: Insulin Detemir Inj 1,000 UNIT/10 ML Vial SQ SCH (18:28)
[2018-08-23] MEDS: Insulin NovoLOG Aspart Correctional Sugar Inj SQ SCH ×5 (03:17→20:14)
--- NOTE | 2018-08-23 08:07 | P.CON ---
History of Present Illness Service: [facility] Consult date: 08/22/18 Requesting Physician: Corey Bauer Reason for Consult: Medical management Primary Care Provider: UNKNOWN Chief Complaint: Suicide attempt History of Present Illness: 47-year-old male who presented to the emergency department via EMS on 08/07 after he was found unresponsive with insulin syringe next to him. Blood sugar on field was 14 and patient was provided 1 amp of D50 as well as IV Narcan with no change. He was intubated on scene for airway protection. Patient was also placed under Thomas act due to suicide attempt with the use of insulin. Patient was also evaluated by neurology services who recommended checking EEG as well as head CT and MRI, no epileptic drugs unless seizure activity was seen. Head CT showed somewhat decreased matterwhite matter differentiation diffusely. Had MRI with minimal increase signal in the flores matter of the cerebral cortex seen on the diffusion imaging could be subtle evidence of anoxia. EEG showed moderate encephalopathy with frontal myogenic artifact. During patient's hospitalization he also had positive blood cultures which were likely contaminated. His blood sugars were stabilized and patient was extubated on . Patient's mentation improve although his blood sugars remained somewhat labile. Patient's blood sugars were stable and he was cleared medically for discharge and admission to inpatient psychiatry. [facility] consulted to assist with ongoing management of diabetes. Spoke with nurse who reports no acute events, BS stable overnight. Patient is seen and examined resting in be in no acute distress. Denies any fevers, chills , N/V/D. PMFSH - History History Provided By: Patient - Medical History Medical History: Medical History (Last Reviewed 08/23/18 @ 14:01 by Luke Encinas) Diabetes Medical history unknown Surgical history unknown - Social History I have reviewed the patient's Social History: Yes - Tobacco History Second Hand Smoke Exposure: Yes Tobacco Use In Past 30 Days: Yes Smoking Status: Current every day smoker Tobacco Type: Cigarettes - Alcohol History How Often Do You Have a Drink Containing Alcohol: 4 or more times a week - Substance Use History Substance History: Active Abuse - Substance Use Type Marijuana Status: Active Route Used: Inhalation Frequency: 1-2 times a week Reason for Use: Calm Down - Immunization History Tetanus Immunization: >5 Years Hx Influenza Vaccine This Season: No Medications and Allergies Active Medications: Active Medications Acetaminophen (Tylenol) 650 mg PO Q4H PRN PRN Reason: Pain 1-5 or Temp >101F Al Hydrox/Mg Hydrox/Simethicone (Mag-Al Plus Susp Liq) 30 ml PO Q6H PRN PRN Reason: DYSPEPSIA Al Hydroxide/Mg Hydroxide (Milk Of Magnesia Liq) 30 ml PO Q12H PRN PRN Reason: Mild Constipation Dextrose (D50w Vial) 50 ml IV.PUSH UNSCH PRN PRN Reason: PER HYPOGLYCEMIA PROTOCOL Diphenhydramine HCl (Benadryl) 50 mg PO HS PRN PRN Reason: INSOMNIA Glucagon (Glucagon Inj) 1 mg OTHER PRN PRN PRN Reason: for Hypoglycemia Protocol Hydroxyzine HCl (Atarax) 50 mg PO Q6H PRN PRN Reason: ANXIETY Insulin Aspart (Novolog Insulin Correctional Sugar Inj) 0 unit SQ ACHS AND 3AM MAGDA; Protocol Last Admin: 08/23/18 07:12 Dose: 2 unit Insulin Detemir (Levemir Inj) 8 unit SQ QPM MAGDA Last Admin: 08/22/18 18:28 Dose: 8 unit Allergies Allergy/AdvReac Type Severity Reaction Status Date / Time No Known Allergies Allergy Verified 08/07/18 03:43 Physical Exam Vital signs: Vital Signs 08/22/18 14:30 08/23/18 06:00 Temperature 96.8 F L 97.6 F Pulse Rate 87 86 Respiratory Rate 17 17 Blood Pressure 115/77 102/62 Pulse Oximetry 98 97 Intake & Output 08/22/18 08/23/18 08/23/18 18:59 06:59 18:59 Intake Total 360 / 360 340 / 340 Balance 360 / 360 340 / 340 Weight 54.3 kg 55 kg Intake: Oral 360 / 360 240 / 240 Oral Supplement 100 / 100 Other: # Voids 1 1 Weight On Admission 54.3 kg Narrative: GENERAL: Well-developed, well-nourished male in no acute distress. SKIN: Warm and dry. HEAD: Atraumatic. Normocephalic. EYES: Pupils equal and round. No scleral icterus. No injection or drainage. ENT: No nasal bleeding or discharge. Mucous membranes moist and pink. NECK: Trachea midline. CARDIOVASCULAR: Regular rate and rhythm. RESPIRATORY: No accessory muscle use. Clear to auscultation. Breath sounds equal bilaterally. GASTROINTESTINAL: Abdomen soft, non-tender, nondistended. + Bowel sounds MUSCULOSKELETAL: Extremities without clubbing, cyanosis, or edema. No obvious deformities. NEUROLOGICAL: Awake, alert, oriented x3. No obvious cranial nerve deficits. Motor grossly within normal limits. Five out of 5 muscle strength in the arms and legs. Normal speech. PSYCHIATRIC: Calm and cooperative. Results - Labs Labs: Laboratory Results - last 24 hr 08/22/18 08/22/18 08/23/18 16:39 20:01 03:13 POC Glucose 285 H 227 H 159 H 08/23/18 07:05 POC Glucose 154 H Assessment and Plan - Plan 47 yo M s/p long-acting insulin overdose with encephalopathy, encephalopathy improved, BS improved. Admitted to inpatient medical psychiatry unit, [facility] consulted to assist with ongoing medical management. Diabetes mellitus, BS stable -SSI with accuchecks -ADA diet -Continue Levemir dose to 8 units at bedtime. - Continue trending BS and adjust accordingly. Hypoxic-Ischemic Encephalopathy, resolved Suicide Attempt - evaluated 08/20/18 -Overdose of long-acting insulin -Admitted to medical psych unit. Polysubstance abuse - UDS + cocaine, cannabinoids, benzos DVT prophylaxisambulation Thank you Dr. Bauer for this consultation. We will continue to follow along. Discussed Condition With: Patient and RN.
--- NOTE | 2018-08-23 14:26 | P.HPPSY ---
Provisional Diagnosis Admission Date: August 22, 2018 13:56 Onida I.: Major depressive disorder, polysubstance use disorder Competence Certification of Person's Competence To Provide Express and Informed Consent I have personally examined Jeremy Murrieta, a person being served at [facility] on, August 23, 2018 1412. Express and informed consent means consent voluntarily given in writing, by a competent person, after sufficient explanation and disclosure of the subject matter involved to enable the person to make a knowing and willful decision without any element of force, fraud, deceit, duress, or other form of constraint or coercion. This person is 18 years of age or older, is not now known to be incompetent to consent to treatment with a guardian advocate, and does not have a health care surrogate or proxy currently making medical treatment decisions. I have found this person to be one of the following: [xxx] Competent to provide express and informed consent, as defined above, for voluntary admission to this facility and is competent to provide express and informed consent for treatment. He/she has the consistent capacity to make well reasoned, willful, and knowing decisions concerning his or her medical or mental health treatment. The person fully and consistently understands the purpose of the admission for examination/placement and is fully capable of personally exercising all rights assured [place] [] Incompetent to provide express and informed consent to voluntary admission, and this is incompetent to provide express and informed consent to treatment. The person must be transferred to involuntary status and a petition for a guardian advocate filed with the Circuit Court. [] Refusing to provide express and informed consent to voluntary admission but is competent to provide express and informed consent for treatment. The person must be discharged or transferred to involuntary status. Form shall be completed within 24 hours of a person's arrival at the receiving facility and filed in the clinical record of each person: 1. Admitted on a voluntary basis 2. Permitted to provide express and informed consent to his/her own treatment 3. Allowed to transfer from involuntary to voluntary status 4. Prior to permitting a person to consent to his or her own treatment after having been previously found incompetent to consent to treatment. History of Present Illness Capacity: Has capacity History of Present Illness: Patient is a 47-year-old man, single, unemployed, domiciled with a cousin, with a past psychiatric no depression anxiety, no previous psychiatric admissions, no previous suicide attempts of interest behavior with a substance use history significant for polysubstance use including alcohol, cocaine, benzo , marijuana which patient was admitted initially to the medical service due to unresponsiveness status post insulin overdose in a suicide attempt which patient was noted to have hypoxic ischemic event secondary to the overdose which he required intubation and upon extubation patient was recommended for psychiatric inpatient admission after evaluation by psychiatry consult team and requiring inpatient stabilization for safety. As per chart patient urine toxicology positive for cocaine, marijuana and benzo. Patient had required intubation during medical stabilization as well as hypoxic/ischemic event secondary to intentional insulin overdose. In review of records patient was seen in January 2018 under Thomas act which patient had endorsed attempting to jump off the bridge while intoxicated with alcohol and history of noncompliance with treatment which patient at that time did not require inpatient psychiatric admission as it was believed his symptoms at that time was substance-induced. Patient was found lying hospital bed noted B, cooperative. Patient states that he had been feeling depressed for the past couple weeks was unable to identify any triggering event leading up to his depression and also endorsing suicide ideation for 2 weeks. He reports not having any specific plan as well as aware of his recent suicide attempt recently but was unable to provide any details as to what had occurred during the overdose. Patient also had written a suicide note which was on his person the patient denies recalling having written this note. He reports no changes in sleep appetite energy concentration denies any perceptional disturbances or delusions and denies any manic or psychotic symptoms at this time. When asked about stressors that may be contributing to his recent depression he states "I do not remember", "I just woke up here". Patient was described events of his suicide attempt states "that strange". Patient at this time denies any suicide ideation stating that he was simply overwhelmed yet patient previously mentioning not recalling attempted to end his life. Family psychiatric history: Mother with bipolar disorder , Sister with bipolar disorder, no suicides in the family. Past psychiatric history: Previous psychiatric diagnoses depression anxiety, no previous psychiatric admissions, no previous suicide attempt or self-injurious behavior. No history of abuse. Patient with no outpatient mental health follow -up reports having seen a psychiatrist years ago but was able to recall treatment at that time. Substance use history: Polysubstance use including alcohol cocaine benzo marijuana, tobacco use, alcohol use 2-3 drinks per night last time being 1 week ago, cocaine use 1 use every 2 weeks last time being 3 weeks ago, marijuana use daily, denies any benzodiazepine use, patient denies any detox or rehabs in the past. Past medical history: Insulin-dependent diabetes, hep C, GERD, hypertension, recurrent DKA Allergies: NKDA Social history: Previously living with cousin Alberto, single, no children, and education some college, unemployed, no background or access to firearms. - Inpatient Certification I certify that the inpatient services were ordered in accordance with Medicare regulations governing the order. This includes certification that hospital inpatient services are reasonable and necessary and in the case of services not specified as inpatient-only under 42 CFR 419.22(n), that they are appropriately provided as inpatient services in accordance to with the 2-midnight benchmark under 43 CFR 412.3(e) I certify that inpatient psychiatric hospital services are medically necessary. Evaluation and treatment and/or diagnostic testing are expected to improve the patient's condition. The patient needs on a daily basis, active treatment furnished directly by or requiring the supervision of inpatient psychiatric facility personnel. Estimated Total Length of Stay (Days): 5 Plans for Post Hospital Care: Not yet determined Review of Systems All other systems reviewed negative except as stated in HPI PMFSH - History History Provided By: Patient, Medical Record - Medical History Medical History: Medical History (Last Reviewed 08/23/18 @ 14:01 by Luke Encinas) Diabetes Medical history unknown Surgical history unknown - Tobacco History Second Hand Smoke Exposure: Yes Tobacco Use In Past 30 Days: Yes Smoking Status: Current every day smoker Tobacco Type: Cigarettes - Alcohol History How Often Do You Have a Drink Containing Alcohol: 4 or more times a week - Substance Use History Substance History: Active Abuse - Substance Use Type Marijuana Status: Active Route Used: Inhalation Frequency: 1-2 times a week Reason for Use: Calm Down - Immunization History Tetanus Immunization: >5 Years Hx Influenza Vaccine This Season: No Quality Measures - Psychiatric History Psychological trauma history: denies Violence risk to others in the last 6 months: low Violence risk to self in the last 6 months: elevated due to recent suicide attempt - Substance Abuse History Drug or alcohol use in the past 12 months: see HPI - Patient Strengths Patient's strengths (minimum of 2): verbal and communicative Medications and Allergies Active Medications: Active Medications Acetaminophen (Tylenol) 650 mg PO Q4H PRN PRN Reason: Pain 1-5 or Temp >101F Al Hydrox/Mg Hydrox/Simethicone (Mag-Al Plus Susp Liq) 30 ml PO Q6H PRN PRN Reason: DYSPEPSIA Al Hydroxide/Mg Hydroxide (Milk Of Magnesia Liq) 30 ml PO Q12H PRN PRN Reason: Mild Constipation Dextrose (D50w Vial) 50 ml IV.PUSH UNSCH PRN PRN Reason: PER HYPOGLYCEMIA PROTOCOL Diphenhydramine HCl (Benadryl) 50 mg PO HS PRN PRN Reason: INSOMNIA Duloxetine HCl (Cymbalta) 20 mg PO BID MAGDA Glucagon (Glucagon Inj) 1 mg OTHER PRN PRN PRN Reason: for Hypoglycemia Protocol Hydroxyzine HCl (Atarax) 50 mg PO Q6H PRN PRN Reason: ANXIETY Insulin Aspart (Novolog Insulin Correctional Sugar Inj) 0 unit SQ ACHS AND 3AM MAGDA; Protocol Last Admin: 08/23/18 11:21 Dose: 7 unit Insulin Detemir (Levemir Inj) 8 unit SQ QPM MAGDA Last Admin: 08/22/18 18:28 Dose: 8 unit Allergies Allergy/AdvReac Type Severity Reaction Status Date / Time No Known Allergies Allergy Verified 08/07/18 03:43 Results - Labs Labs: Laboratory Results - last 24 hr 08/22/18 08/22/18 08/23/18 16:39 20:01 03:13 POC Glucose 285 H 227 H 159 H 08/23/18 08/23/18 07:05 11:13 POC Glucose 154 H 284 H Exam Vital signs: Vital Signs 08/22/18 14:30 08/23/18 06:00 Temperature 96.8 F L 97.6 F Pulse Rate 87 86 Respiratory Rate 17 17 Blood Pressure 115/77 102/62 Pulse Oximetry 98 97 Intake & Output 08/22/18 08/23/18 08/23/18 18:59 06:59 18:59 Intake Total 360 / 360 340 / 340 720 / 720 Balance 360 / 360 340 / 340 720 / 720 Weight 54.3 kg 55 kg Intake: Oral 360 / 360 240 / 240 720 / 720 Oral Supplement 100 / 100 Other: # Voids 1 1 Weight On Admission 54.3 kg Narrative: Patient noted to be in acute distress, no gross motor of maladies, no signs of tremor or EPS, no psychomotor agitation or retardation. - Constitutional no acute distress, disheveled, cooperative Mental Status Examination Appearance: Disheveled Consciousness: Alert Orientation: Person, Place, Date/Time (year only) Speech: Unremarkable Language: Adequate Fund of Knowledge: Inadequate Attention and Concentration: Easily distracted Memory: Impaired Mood: Sad Affect: Sad Thought Process & Associations: Linear, Other (concrete) Thought Content: Other (noted with poor recall of recent events) Hallucination Type: None Delusion Type: None Suicidal Ideation: Yes (denies but unreliable to contract for safety.) Suicidal Plan: No Suicidal Intention: No Homicidal Ideation: No Homicidal Plan: No Homicidal Intention: No Insight: Poor Judgment: Poor Assessment and Plan - Assessment (1) Major depress dis, severe Code(s): F32.2 - Major depressive disorder, single episode, severe without psychotic features Status: Acute - Plan Plan: Estimated LOS: [] days Patient is a 47-year-old man, single, unemployed, domiciled with a cousin, with a past psychiatric no depression anxiety, no previous psychiatric admissions, no previous suicide attempts of interest behavior with a substance use history significant for polysubstance use including alcohol, cocaine, benzo , marijuana which patient was admitted initially to the medical service due to unresponsiveness status post insulin overdose in a suicide attempt which patient was noted to have hypoxic ischemic event secondary to the overdose which he required intubation and upon extubation patient was recommended for psychiatric inpatient admission after evaluation by psychiatry consult team and requiring inpatient stabilization for safety. Patient this time endorsing depressive symptoms prior to suicide attempt although patient appears not forthcoming with history regarding this suicide attempt he states he has poor memory and unable to recall details. Patient was also found a suicide note. We will start patient on duloxetine 20 mg p.o. twice daily for depression, patient agrees to voluntary admission and consents for treatment. Collateral admission pending. Social work intervention for psychosocial assessment. We will continue to monitor mood and behavior. Hospitalist input appreciated. Discharge planning in progress. Justification for Continued Inpatient Stay: At risk for further decompensation at lower level of care.
[2018-08-23] MEDS: Insulin Detemir Inj 1,000 UNIT/10 ML Vial SQ SCH (17:56)
[2018-08-24] MEDS: Insulin NovoLOG Aspart Correctional Sugar Inj SQ SCH ×5 (03:32→20:53)
[2018-08-24] MEDS: glipiZIDE 5 MG Tablet PO SCH ×2 (09:32→17:17)
--- NOTE | 2018-08-24 16:12 | P.PNPSY ---
Subjective Remarks: Patient seen for follow-up, chart reviewed. Discussion with nursing staff reported that patient cooperative, no behavioral disturbances continues to be isolative and guarded. Patient was found lying hospital bed noted with low volume and tone state he is feeling "good" although he denies feeling depressed patient noted to be tearful at times during interview when speaking about recent events contributing to his suicide attempt. Patient continues to deny recalling suicide attempt or having work written a suicide note. Patient appearing to minimize and refusing to recognize his recent attempt. He mentions having spoken to his cousin 2 days ago and that he was able to recall having fight with his cousin prior to suicide attempt and believes that he may have caused him to act on the suicidal ideation. He states that he plans on returning back to his cousin's home. He reports feeling ashamed from his suicide attempt and that he is glad he is alive. Patient has been mostly seclusive to room continues with poor hygiene and no participation in groups and activities. Review of Systems All other systems reviewed negative except as stated in HPI Mental Status Examination Appearance: Disheveled Consciousness: Alert Orientation: Person, Place, Date/Time (year only) Speech: Unremarkable Language: Adequate Fund of Knowledge: Inadequate Attention and Concentration: Easily distracted Memory: Impaired Mood: Sad Affect: Sad, Other (Tearful at times) Thought Process & Associations: Linear, Other (concrete) Thought Content: Other (noted with poor recall of recent events) Hallucination Type: None Delusion Type: None Suicidal Ideation: Yes (denies but unreliable to contract for safety.) Suicidal Plan: No Suicidal Intention: No Homicidal Ideation: No Homicidal Plan: No Homicidal Intention: No Insight: Poor Judgment: Poor Assessment and Plan - Assessment (1) Major depress dis, severe Code(s): F32.2 - Major depressive disorder, single episode, severe without psychotic features Status: Acute - Plan Plan: Patient this time continues with dysphoric affect, tearful at times during interview, although denying depressed mood or suicide ideation patient on arrival to contract for safety and appears to be guarded and not forthcoming with his recent depressive symptoms and suicide attempt. We will continue current treatment. Continue to encourage patient to participate in groups and activities and maintain personal hygiene. We will continue to monitor mood and behavior. Discharge planning in progress. Justification for Continued Inpatient Stay: At risk of further decompensation at lower level care.
--- NOTE | 2018-08-24 17:36 | P.PN ---
Subjective Interval history: Follow-up visit for diabetes mellitus. Patient seen and examined ambulating the monteiro in no acute distress. Denies any fevers, chills, nausea, vomiting or diarrhea. Nurse reports blood sugars this morning in the 300s, did not receive morning dose of glipizide. Patient has been eating all of his meals without any issues. Discussed bedtime snack. Physical Exam Vital signs: Vital Signs 08/23/18 18:28 08/24/18 06:03 Temperature 97.9 F 97.9 F Pulse Rate 81 80 Respiratory Rate 18 17 Blood Pressure 120/78 106/61 Pulse Oximetry 97 96 Intake & Output 08/23/18 08/24/18 08/24/18 18:59 06:59 18:59 Intake Total 1200 / 1200 480 / 480 Balance 1200 / 1200 480 / 480 Intake: Oral 1200 / 1200 480 / 480 Narrative: GENERAL: Well-developed, well-nourished male in no acute distress. SKIN: Warm and dry. HEAD: Atraumatic. Normocephalic. EYES: No scleral icterus. No injection or drainage. ENT: No nasal bleeding or discharge. Mucous membranes moist and pink. NECK: Trachea midline. CARDIOVASCULAR: Regular rate and rhythm. RESPIRATORY: No accessory muscle use. Clear to auscultation. Breath sounds equal bilaterally. GASTROINTESTINAL: Abdomen soft, non-tender, nondistended. + Bowel sounds MUSCULOSKELETAL: Extremities without clubbing, cyanosis, or edema. No obvious deformities. NEUROLOGICAL: Awake, alert, oriented x3. No obvious cranial nerve deficits. Motor grossly within normal limits. Normal speech. PSYCHIATRIC: Calm and cooperative. Results - Labs Laboratory Results - last 24 hr 08/23/18 08/24/18 08/24/18 19:42 03:27 09:34 POC Glucose 223 H 166 H 363 H 08/24/18 08/24/18 14:00 17:12 POC Glucose 309 H 95 Assessment and Plan - Plan 47 yo M s/p long-acting insulin overdose with encephalopathy, encephalopathy improved, BS improved. Admitted to inpatient medical psychiatry unit, [facility] consulted to assist with ongoing medical management. Diabetes mellitus, BS stable -SSI with accuchecks -ADA diet -Continue Levemir dose to 8 units at bedtime. -Blood sugars high in the 300s. Start glipizide 2.5 mg twice daily with meals. Hypoxic-Ischemic Encephalopathy, resolved Suicide Attempt - evaluated 08/20/18 -Overdose of long-acting insulin -Admitted to medical psych unit. Polysubstance abuse - UDS + cocaine, cannabinoids, benzos DVT prophylaxisambulation Discussed Condition With: Patient and RN
[2018-08-24] MEDS: Insulin Detemir Inj 1,000 UNIT/10 ML Vial SQ SCH (19:30)
[2018-08-25] MEDS: Insulin NovoLOG Aspart Correctional Sugar Inj SQ SCH ×5 (03:03→20:51)
[2018-08-25] MEDS: glipiZIDE 5 MG Tablet PO SCH ×2 (08:52→17:32)
--- NOTE | 2018-08-25 15:31 | P.PNPSY ---
Subjective Remarks: Patient seen for follow-up, chart reviewed. Discussion with nursing staff reported that patient mostly in bed, has not showered, he continues to appear with flat affect. Patient was found lying hospital bed noted B, cooperative. Patient was asleep was able to wake up for interview today. Patient reports feeling "good", denies having attended any groups inside having showered for the past 2 days. Patient states that he is feeling less depressed and when attempted to recall day of suicide he states "I cannot remember that day". Patient states that having spoken to his cousin her mother since admission. Patient was encouraged to maintain personal hygiene and participate more groups and activities which she agreed. Patient at this time denies any suicide ideation continues to be noted with dysphoric affect. Review of Systems All other systems reviewed negative except as stated in HPI Mental Status Examination Appearance: Disheveled Consciousness: Alert Orientation: Person, Place, Date/Time (year only) Speech: Unremarkable Language: Adequate Fund of Knowledge: Inadequate Attention and Concentration: Easily distracted Memory: Impaired Mood: Good Affect: Sad, Other (incongruent with mood, dysphoric) Thought Process & Associations: Linear, Other (concrete) Thought Content: Other (noted with poor recall of recent events) Hallucination Type: None Delusion Type: None Suicidal Ideation: Yes (denies but unreliable to contract for safety.) Suicidal Plan: No Suicidal Intention: No Homicidal Ideation: No Homicidal Plan: No Homicidal Intention: No Insight: Poor Judgment: Poor Assessment and Plan - Assessment (1) Major depress dis, severe Code(s): F32.2 - Major depressive disorder, single episode, severe without psychotic features Status: Acute - Plan Plan: Patient continues to be noted with flat affect, dysphoric, not showering not take care of ADLs and participating groups and activities. We will increase duloxetine to 30 mg p.o. twice daily for depression, continue rest of medications. Continue to monitor mood and behavior. Discharge planning a progress. Justification for Continued Inpatient Stay: At risk of further decompensation at lower level care.
--- NOTE | 2018-08-25 17:57 | P.PN ---
Subjective Interval history: Follow-up visit for DM. Patient seen and examined resting in bed in no acute distress. He denies any fever, chill, N/V/D, cough or SOB. BS still on the high side. Physical Exam Vital signs: Vital Signs 08/24/18 18:09 08/25/18 05:57 Temperature 98.2 F 99.3 F Pulse Rate 92 H 89 Respiratory Rate 16 17 Blood Pressure 114/70 111/76 Pulse Oximetry 98 96 Intake & Output 08/24/18 08/25/18 08/25/18 18:59 06:59 18:59 Intake Total 240 / 240 Balance 240 / 240 Intake: Oral 240 / 240 Other: # Voids 1 # Bowel Movements 1 Narrative: GENERAL: Well-developed, well-nourished male in no acute distress. SKIN: Warm and dry. HEAD: Atraumatic. Normocephalic. CARDIOVASCULAR: Regular rate and rhythm. RESPIRATORY: No accessory muscle use. Clear to auscultation. Breath sounds equal bilaterally. GASTROINTESTINAL: Abdomen soft, non-tender, nondistended. + Bowel sounds MUSCULOSKELETAL: Extremities without clubbing, cyanosis, or edema. No obvious deformities. NEUROLOGICAL: Awake, alert, oriented x3. No obvious cranial nerve deficits. Motor grossly within normal limits. Normal speech. PSYCHIATRIC: Calm and cooperative. Results - Labs Laboratory Results - last 24 hr 08/24/18 08/25/18 08/25/18 19:03 03:01 09:00 POC Glucose 272 H 216 H 290 H 08/25/18 08/25/18 11:22 17:26 POC Glucose 152 H 438 H Assessment and Plan - Plan 47 yo M s/p long-acting insulin overdose with encephalopathy, encephalopathy improved, BS improved. Admitted to inpatient medical psychiatry unit, [facility] consulted to assist with ongoing medical management. Diabetes mellitus, BS stable -SSI with accuchecks -ADA diet -BS high increase Levemir to 10units HS, Glipizide 5mg BID tomorrow Hypoxic-Ischemic Encephalopathy, resolved Suicide Attempt - evaluated 08/20/18 -Overdose of long-acting insulin -Admitted to medical psych unit. Polysubstance abuse - UDS + cocaine, cannabinoids, benzos DVT prophylaxisambulation Discussed Condition With: Patient and RN
[2018-08-25] MEDS: Insulin Detemir Inj 1,000 UNIT/10 ML Vial SQ SCH (18:50)
[2018-08-26] MEDS: Insulin NovoLOG Aspart Correctional Sugar Inj SQ SCH ×5 (04:25→21:01)
[2018-08-26] MEDS: glipiZIDE 5 MG Tablet PO SCH ×2 (08:15→17:36)
--- NOTE | 2018-08-26 14:06 | P.PNPSY ---
Subjective Remarks: Patient is seen and case discussed with nursing. Patient admits to being under the influence of multiple substances during a suicide attempt. He claims he does not remember that attempt or the reasons for his actions. He is guarded, somewhat evasive, denies any recent stressors of depressed mood. Behaving well on the unit. Compliant with medication Mental Status Examination Appearance: Disheveled Consciousness: Alert Orientation: Person, Place, Date/Time (year only) Speech: Unremarkable Language: Adequate Fund of Knowledge: Inadequate Attention and Concentration: Easily distracted Memory: Impaired Mood: Good Affect: Sad, Other (incongruent with mood, dysphoric) Thought Process & Associations: Linear, Other (concrete) Thought Content: Other (noted with poor recall of recent events) Hallucination Type: None Delusion Type: None Suicidal Ideation: Yes (denies but unreliable to contract for safety.) Suicidal Plan: No Suicidal Intention: No Homicidal Ideation: No Homicidal Plan: No Homicidal Intention: No Insight: Poor Judgment: Poor Assessment and Plan - Assessment (1) Major depress dis, severe Code(s): F32.2 - Major depressive disorder, single episode, severe without psychotic features Status: Acute - Plan Plan: Continue current treatment plan Justification for Continued Inpatient Stay: Patient would decompensate in a less restrictive setting
[2018-08-26] MEDS: Insulin Detemir Inj 1,000 UNIT/10 ML Vial SQ SCH (17:41)
--- NOTE | 2018-08-26 18:41 | P.PN ---
Subjective Interval history: Follow-up visit for diabetes mellitus. Nurse does not report any events overnight or today. Patient seen and examined resting bed comfortably with visitors at bedside. He denies any fevers, chills, nausea, vomiting, diarrhea, cough, shortness of breath or chest pain. Blood sugars have improved. Physical Exam Vital signs: Vital Signs 08/25/18 20:00 08/26/18 06:07 Temperature 98.2 F 98.0 F Pulse Rate 95 H 88 Respiratory Rate 17 Blood Pressure 112/71 106/67 Pulse Oximetry 95 96 Intake & Output 08/25/18 08/26/18 08/26/18 18:59 06:59 18:59 Intake Total 600 / 600 240 / 240 Balance 600 / 600 240 / 240 Intake: Oral 600 / 600 240 / 240 Other: # Voids 2 Narrative: GENERAL: Well-developed, well-nourished male in no acute distress. SKIN: Warm and dry. HEAD: Atraumatic. Normocephalic. CARDIOVASCULAR: Regular rate and rhythm. RESPIRATORY: No accessory muscle use. Clear to auscultation. Breath sounds equal bilaterally. GASTROINTESTINAL: Abdomen soft, non-tender, nondistended. + Bowel sounds MUSCULOSKELETAL: Extremities without clubbing, cyanosis, or edema. No obvious deformities. NEUROLOGICAL: Awake, alert, oriented x3. No obvious cranial nerve deficits. Motor grossly within normal limits. Normal speech. PSYCHIATRIC: Calm and cooperative. Results - Labs Laboratory Results - last 24 hr 08/25/18 08/26/18 08/26/18 20:37 04:24 06:29 POC Glucose 209 H 86 137 H 08/26/18 08/26/18 08/26/18 07:31 11:17 16:51 POC Glucose 170 H 236 H 304 H Assessment and Plan - Plan 47 yo M s/p long-acting insulin overdose with encephalopathy, encephalopathy improved, BS improved. Admitted to inpatient medical psychiatry unit, [facility] consulted to assist with ongoing medical management. Diabetes mellitus, BS stable -SSI with accuchecks -ADA diet - Levemir to 10units HS, Glipizide 5mg BID. -Blood sugars improved, continue to trend. Hypoxic-Ischemic Encephalopathy, resolved Suicide Attempt - evaluated 08/20/18 -Overdose of long-acting insulin -Admitted to medical psych unit. Polysubstance abuse - UDS + cocaine, cannabinoids, benzos DVT prophylaxisambulation Discussed Condition With: Patient and RN
[2018-08-27] MEDS: Insulin NovoLOG Aspart Correctional Sugar Inj SQ SCH ×6 (02:40→22:09)
[2018-08-27] MEDS: glipiZIDE 5 MG Tablet PO SCH ×2 (09:08→17:17)
[2018-08-27] MEDS: Insulin Detemir Inj 1,000 UNIT/10 ML Vial SQ SCH ×2 (09:09→20:41)
--- NOTE | 2018-08-27 12:32 | P.PN ---
Subjective Interval history: Follow up on patient with DM. Patient seen and examined. Patient says he fells well. He denies any fever or chills. He denies any chest pain or dyspnea. He denies any N/V or abdominal pain. He is noted to have hypophonia which he states is improving. He denies any pain or difficulty swallowing, choking or coughing while eating or issues with sensation of something sticking in his throat. Physical Exam Vital signs: Vital Signs 08/26/18 18:42 08/27/18 06:00 Temperature 98.2 F 97.6 F Pulse Rate 98 H 96 H Respiratory Rate 16 16 Blood Pressure 135/69 Pulse Oximetry 95 96 Intake & Output 08/26/18 08/27/18 08/27/18 18:59 06:59 18:59 Intake Total 720 / 720 720 / 720 Balance 720 / 720 720 / 720 Intake: Oral 720 / 720 720 / 720 Other: # Voids 0 Narrative: GENERAL: Thin well developed middle aged patient, INAD. Awake and alert. SKIN: Warm and dry. HEAD: Atraumatic. Normocephalic. EYES: EOMI. No scleral icterus. No injection or drainage. ENT: No nasal bleeding or discharge. Mucous membranes pink and moist. Poor dentition. NECK: Trachea midline. CARDIOVASCULAR: Regular rate and rhythm. RESPIRATORY: No accessory muscle use. Clear to auscultation. Breath sounds equal bilaterally. GASTROINTESTINAL: Abdomen soft, non-tender, nondistended. +BS. MUSCULOSKELETAL: Extremities without clubbing, cyanosis, or edema. No obvious deformities. NEUROLOGICAL: Awake and alert. No obvious cranial nerve deficits. Motor grossly within normal limits. Hypophonic speech. PSYCHIATRIC: Calm and cooperative. Insight and judgment poor. Results - Labs Laboratory Results - last 24 hr 08/26/18 08/26/18 08/27/18 16:51 20:15 02:36 POC Glucose 304 H 162 H 70 08/27/18 08/27/18 06:08 11:34 POC Glucose 91 337 H Assessment and Plan - Plan 47 yo M s/p long-acting insulin overdose with encephalopathy, encephalopathy improved, BS improved. Admitted to inpatient medical psychiatry unit, [facility] consulted to assist with ongoing medical management. Diabetes mellitus, BS labile BS ranging from 70 to 337 -change to Levemir 5u BID. Add preprandial insulin 3u TID AC. Continue on Glipizide 5mg BID. -continue on SSI with accuchecks -continue to monitor trend and adjust insulin regimen accordingly -recommend patient follow up with applications project manager as outpatient Hypoxic-Ischemic Encephalopathy secondary to overdose, improved Suicide Attempt Thomas Act -Overdose of long-acting insulin -management per psychiatric team Polysubstance abuse - UDS + cocaine, cannabinoids, benzos - patient counselled on cessation Hypophonia, improving per patient report no s/sxs dysphagia suspect related to recent intubation for acute hypoxic respiratory failure now resolved - cleared by speech for regular diet with thin liquids - Monitor for improvement DVT prophylaxisambulation Code Status: Full Discussed Condition With: patient, nursing staff
--- NOTE | 2018-08-27 14:16 | P.PNPSY ---
Subjective Remarks: Patient was seen and case discussed with nursing. Patient continues to state he does not remember his overdose. He is pleasant but blunted. Minimizes suicide attempts. Compliant with his medications. Continues to say he is doing "okay." He denies suicidal or homicidal ideation intent or plan. Mental Status Examination Appearance: Disheveled Consciousness: Alert Orientation: Person, Place, Date/Time (year only) Speech: Unremarkable Language: Adequate Fund of Knowledge: Inadequate Attention and Concentration: Easily distracted Memory: Impaired Mood: Good Affect: Sad, Other (incongruent with mood, dysphoric) Thought Process & Associations: Linear, Other (concrete) Thought Content: Other (noted with poor recall of recent events) Hallucination Type: None Delusion Type: None Suicidal Ideation: Yes (denies but unreliable to contract for safety.) Suicidal Plan: No Suicidal Intention: No Homicidal Ideation: No Homicidal Plan: No Homicidal Intention: No Insight: Poor Judgment: Poor Assessment and Plan - Assessment (1) Major depress dis, severe Code(s): F32.2 - Major depressive disorder, single episode, severe without psychotic features Status: Acute - Plan Plan: Continue current treatment plan Justification for Continued Inpatient Stay: Patient would decompensate in a less restrictive setting
[2018-08-28] MEDS: Insulin NovoLOG Aspart Correctional Sugar Inj SQ SCH ×5 (03:22→20:45)
[2018-08-28] MEDS: glipiZIDE 5 MG Tablet PO SCH (08:17)
[2018-08-28] MEDS: Insulin Detemir Inj 1,000 UNIT/10 ML Vial SQ SCH ×2 (08:23→20:45)
--- NOTE | 2018-08-28 10:33 | P.PN ---
Subjective Interval history: Follow up on patient with DM. Patient seen and examined. Patient with hypoglycemic episode overnight. Blood sugar better today. Patient denies any other acute medical complaints or concerns. Reports that his voice is improving. Physical Exam Vital signs: Vital Signs 08/27/18 17:01 08/28/18 06:20 Temperature 98.1 F 98.2 F Pulse Rate 101 H 103 H Respiratory Rate 17 20 Blood Pressure 108/76 112/67 Pulse Oximetry 95 96 Intake & Output 08/27/18 08/28/18 08/28/18 18:59 06:59 18:59 Intake Total 1200 / 1200 240 / 240 240 / 240 Balance 1200 / 1200 240 / 240 240 / 240 Weight 53.4 kg Intake: Oral 1200 / 1200 240 / 240 240 / 240 Other: # Voids 3 2 Narrative: GENERAL: Thin well developed middle aged patient, INAD. Awake and alert. Appears comfortable lying in bed watching TV. SKIN: Warm and dry. HEENT: Atraumatic. Normocephalic. EOMI. No scleral icterus. No injection or drainage. No nasal bleeding or discharge. Mucous membranes pink and moist. Poor dentition. NECK: Trachea midline. CARDIOVASCULAR: Regular rate and rhythm. RESPIRATORY: No accessory muscle use. Clear to auscultation. Breath sounds equal bilaterally. GASTROINTESTINAL: Abdomen soft, non-tender, nondistended. +BS. MUSCULOSKELETAL: Extremities without clubbing, cyanosis, or edema. No obvious deformities. NEUROLOGICAL: Awake and alert. No obvious cranial nerve deficits. Motor grossly within normal limits. Hypophonic speech, improving. PSYCHIATRIC: Calm and cooperative. Insight and judgment poor. Results - Labs Laboratory Results - last 24 hr 08/27/18 08/27/18 08/27/18 11:34 16:47 22:07 POC Glucose 337 H 106 362 H 08/28/18 08/28/18 08/28/18 03:18 03:43 04:10 POC Glucose 64 L 48 L* 154 H 08/28/18 06:49 POC Glucose 186 H Assessment and Plan - Plan 47 yo M s/p long-acting insulin overdose with encephalopathy, encephalopathy improved, BS improved. Admitted to inpatient medical psychiatry unit, [facility] consulted to assist with ongoing medical management. Diabetes mellitus, BS labile Hypoglycemic episode last night -patient received 12u at 2209 for BS of 362, BS at 318 was 64 and was 48 at 343. -continue on Levemir 5u BID. Hold preprandial insulin 3u TIDAC and Glipizide 5mg BID. Continue to monitor blood sugar closely. -continue on accucheks. Change to low dose ISS. -recommend patient follow up with engagement quality consultant as outpatient -hypoglycemic protocol Hypoxic-Ischemic Encephalopathy secondary to overdose, improved Suicide Attempt Thomas Act -Overdose of long-acting insulin -management per psychiatric team Polysubstance abuse - UDS + cocaine, cannabinoids, benzos - patient counselled on cessation Hypophonia, improving no s/sxs dysphagia suspect related to recent intubation for acute hypoxic respiratory failure now resolved - cleared by speech for regular diet with thin liquids - Monitor for improvement DVT prophylaxisambulation Code Status: Full Discussed Condition With: patient, nursing staff
--- NOTE | 2018-08-28 14:56 | P.PNPSY ---
Subjective Remarks: Patient seen for follow-up, chart reviewed. Discussion with nursing staff reported that patient ate breakfast and seclusive to his room since admission. Patient was found lying hospital bed noted B, cooperative. Patient continues to be noted with blunted affect, poor motivation, has not been out of bed during most of his admission with occasional walking to the nurses station asking for urmila george. Patient states that his weekend went "okay" stating that no one had come to visit him although contrary to nursing report which patient had several visitors. Patient later was able to state that he did remember having seen his ex-girlfriend along with other friends but was unable to elaborate on the visit. He states his mood has been "good" continues to deny feeling depressed and continues to minimize recent suicide attempt and continues to state he does not recall having written a suicide note nor circumstances surrounding his suicide attempt. He denies any suicide ideation at this time. Patient noted to have difficulty with memory. Nursing staff reported that 1 of his visitors stated this is the longest period of time patient has remained sober in the past 10 years. Review of Systems All other systems reviewed negative except as stated in HPI Mental Status Examination Appearance: Disheveled Consciousness: Alert Orientation: Person, Place, Date/Time (year only) Speech: Unremarkable Language: Adequate Fund of Knowledge: Inadequate Attention and Concentration: Easily distracted Memory: Impaired Mood: Good Affect: Flat Thought Process & Associations: Linear, Other (concrete) Thought Content: Other (noted with poor recall of recent events) Hallucination Type: None Delusion Type: None Suicidal Ideation: Yes (denies but unreliable to contract for safety.) Suicidal Plan: No Suicidal Intention: No Homicidal Ideation: No Homicidal Plan: No Homicidal Intention: No Insight: Poor Judgment: Poor Assessment and Plan - Assessment (1) Major depress dis, severe Code(s): F32.2 - Major depressive disorder, single episode, severe without psychotic features Status: Acute - Plan Plan: Patient continues to be noted with flat affect, continues denying suicide attempt or at least acknowledging remembering this events. He appears to have probable cognitive impairment this patient is unable to recall recent events. We will request neuropsychological testing to assess degree of cognitive Perative present or if patient is consciously minimizing recalling recent suicide attempt and stressors related to this event. We will continue current treatment. We will continue to monitor mood and behavior. Patient continues to be noted very seclusive to his room and not participating in any groups or activities with minimal participation personal hygiene. Discharge planning in progress. Justification for Continued Inpatient Stay: At risk of further decompensation at lower level care.
[2018-08-29] MEDS: Insulin NovoLOG Aspart Correctional Sugar Inj SQ SCH ×5 (05:29→21:34)
--- NOTE | 2018-08-29 08:41 | P.PNPSY ---
Subjective Remarks: Patient seen for follow-up, chart reviewed. Discussion with nursing staff reported that patient was noted to have spoke with son on the phone yesterday, continues to be isolative and in bed mostly but eating and drinking. Patient was found lying hospital and noted to be disheveled with poor hygiene. Patient agrees to take a shower today with encouragement but states he is able to walk to the to the bathroom and has not participated in any groups and activities or ambulating on the unit. When asked about any recent contact with family or friends he states that he had not spoken to anyone in several days but later when the nurse reminded him of a phone call he had yesterday he was able to state that he did remember speaking to his friend Elbert. He states that he has not spoken to his mother or his cousin Cosme but states he is planning to live with his mother upon discharge. Patient was encouraged to reach out to his family to be able to have appropriate disposition upon discharge. He denies any suicide ideations denies feeling depressed but noted with flat affect and poor motivation. Patient appears to have neurocognitive deficits which may be likely to the encephalopathy from insulin overdose recently. Neuropsychological testing pending. Review of Systems All other systems reviewed negative except as stated in HPI Mental Status Examination Appearance: Dirty, Disheveled Consciousness: Alert Orientation: Person, Place, Date/Time (year only) Speech: Unremarkable Language: Adequate Fund of Knowledge: Inadequate Attention and Concentration: Easily distracted Memory: Impaired Mood: Good Affect: Flat Thought Process & Associations: Linear, Other (concrete) Thought Content: Other (noted with poor recall of recent events) Hallucination Type: None Delusion Type: None Suicidal Ideation: Yes (denies but unreliable to contract for safety.) Suicidal Plan: No Suicidal Intention: No Homicidal Ideation: No Homicidal Plan: No Homicidal Intention: No Insight: Poor Judgment: Poor Assessment and Plan - Assessment (1) Major depress dis, severe Code(s): F32.2 - Major depressive disorder, single episode, severe without psychotic features Status: Acute - Plan Plan: Patient appears to have degree of neurocognitive deficits, unclear whether this continues to be from recent encephalopathy from insulin overdose or sequelae from the same. Patient with poor recall and memory, poor motivation, poor hygiene and requires encouragement for the same. Collateral admission pending from patient's family as patient has not spoken to his mother or his cousin since admission. Neuropsychological testing pending. We will continue to monitor mood and behavior. Discharge planning a progress. Justification for Continued Inpatient Stay: At risk of further decompensation at lower level care.
[2018-08-29] MEDS: Insulin Detemir Inj 1,000 UNIT/10 ML Vial SQ SCH ×2 (08:58→21:34)
--- NOTE | 2018-08-29 11:24 | P.TTN ---
- Patient Problems Problems: 1. Discharge planning 2. Medication compliance 3. Knowledge deficit 4. Lack of coping skills - Progress Toward Goals Provider Present: Dr. Alex Bauer Provider Input: 08/28/2018; per doctor, patient is denying suicide ideations and depression with poor motivation. Patient does appear to have neurocognitive deficits: Neuropsychological testing pending. Nurse(s) Present: RN Nurse Input: 08/28/2018; per RN patient is confused and very disorganized, requires coaching and prompting with care Psychiatric Counselors Present: Jackie Wiggins [facility] Psychiatric Therapist Input: 08/28/2018; patient will be dc back to the home of Alberto Gould his cousin when stable Group Spec/RT/OT/LABOY Present: Aleksander Freeman OT Group Spec/RT/OT/LABOY Input: 08/28/2018; patient has not attended groups or activities - Documentation Teaching Recipient: Patient
--- NOTE | 2018-08-29 13:14 | P.PN ---
Subjective Interval history: Follow up on patient with DM. Patient seen and examined. Patient's blood sugars are more stable. Patient witnessed ambulating around the unit. He denies any acute medical complaints. Discussed with nursing staff, no adverse events noted overnight. Physical Exam Vital signs: Vital Signs 08/28/18 16:05 08/29/18 06:00 Temperature 98.5 F 99.1 F Pulse Rate 94 H 88 Respiratory Rate 16 17 Blood Pressure 121/77 112/76 Pulse Oximetry 96 96 Intake & Output 08/28/18 08/29/18 08/29/18 18:59 06:59 18:59 Intake Total 1200 / 1200 1200 / 1200 Balance 1200 / 1200 1200 / 1200 Intake: Oral 1200 / 1200 1200 / 1200 Other: # Voids 3 2 Narrative: GENERAL: Thin well developed middle aged patient, INAD. Patient is disheveled, he has not taken a shower since admission. Awake and alert. Ambulating unassisted around the unit. SKIN: Warm and dry. HEENT: Atraumatic. Normocephalic. EOMI. No scleral icterus. No injection or drainage. No nasal bleeding or discharge. Mucous membranes pink and moist. Poor dentition. NECK: Trachea midline. CARDIOVASCULAR: Regular rate and rhythm. RESPIRATORY: No accessory muscle use. Clear to auscultation. Breath sounds equal bilaterally. GASTROINTESTINAL: Abdomen soft, non-tender, nondistended. +BS. MUSCULOSKELETAL: Extremities without clubbing, cyanosis, or edema. No obvious deformities. NEUROLOGICAL: Awake and alert. No obvious cranial nerve deficits. Motor grossly within normal limits. Hypophonic speech, improving. PSYCHIATRIC: Calm and cooperative. Flat affect. Insight and judgment poor. Results - Labs Laboratory Results - last 24 hr 08/28/18 08/28/18 08/29/18 17:03 19:29 04:47 POC Glucose 189 H 305 H 137 H 08/29/18 08/29/18 08:57 11:45 POC Glucose 280 H 129 H Assessment and Plan - Plan 47 yo M s/p long-acting insulin overdose with encephalopathy, encephalopathy improved, BS improved. Admitted to inpatient medical psychiatry unit, [facility] consulted to assist with ongoing medical management. Diabetes mellitus, BS labile Hypoglycemic episode - oral agent discontinued - continue on Levemir 5u BID. Resume preprandial insulin 3u TIDAC. Continue to monitor blood sugar closely. - continue on accucheks. Changed to low dose ISS. 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, improved - Concern for ongoing neurocognitive deficits secondary to hypoxic encephalopathy from insulin overdose - Neuropsychology consulted, awaiting assessment/recommendations Suicide Attempt Thomas Act - Overdose of long-acting insulin - management per psychiatric team Polysubstance abuse - UDS + cocaine, cannabinoids, benzos - patient counselled on cessation Hypophonia, improving no s/sxs dysphagia suspect related to recent intubation for acute hypoxic respiratory failure now resolved - cleared by speech for regular diet with thin liquids - Monitor for improvement DVT prophylaxisambulation Code Status: Full Discussed Condition With: patient, nursing staff
[2018-08-30] MEDS: Insulin NovoLOG Aspart Correctional Sugar Inj SQ SCH ×5 (03:40→20:36)
[2018-08-30] MEDS: Insulin Detemir Inj 1,000 UNIT/10 ML Vial SQ SCH ×2 (09:47→20:36)
--- NOTE | 2018-08-30 10:32 | P.PN ---
Subjective Interval history: Follow up on patient with DM. Patient seen and examined. Patient's blood sugars remain adequately controlled. Patient does not voice any acute medical complaints or concerns. Discussed with nursing staff, no adverse events noted overnight. Physical Exam Vital signs: Vital Signs 08/29/18 18:25 08/30/18 06:00 Temperature 97.9 F 98.7 F Pulse Rate 91 H 80 Respiratory Rate 18 15 Blood Pressure 113/75 127/86 Pulse Oximetry 96 97 Intake & Output 08/29/18 08/30/18 08/30/18 18:59 06:59 18:59 Intake Total 360 / 360 720 / 720 Balance 360 / 360 720 / 720 Intake: Oral 360 / 360 720 / 720 Other: # Voids 4 1 Narrative: GENERAL: Thin well developed middle aged patient, INAD. Patient is disheveled. Awake and alert. Oriented. SKIN: Warm and dry. HEENT: Atraumatic. Normocephalic. EOMI. No scleral icterus. No injection or drainage. No nasal bleeding or discharge. Mucous membranes pink and moist. Poor dentition. NECK: Trachea midline. CARDIOVASCULAR: Regular rate and rhythm. RESPIRATORY: No accessory muscle use. Clear to auscultation. Breath sounds equal bilaterally. GASTROINTESTINAL: Abdomen soft, non-tender, nondistended. +BS. MUSCULOSKELETAL: Extremities without clubbing, cyanosis, or edema. No obvious deformities. NEUROLOGICAL: Awake and alert. No obvious cranial nerve deficits. Motor grossly within normal limits. Hypophonic speech, improving. Mildly delayed but appropriate responses. PSYCHIATRIC: Calm and cooperative. Flat affect. Insight and judgment poor. Results - Labs Laboratory Results - last 24 hr 08/29/18 08/29/18 08/29/18 11:45 16:33 19:40 POC Glucose 129 H 135 H 229 H 08/30/18 08:16 POC Glucose 264 H Assessment and Plan - Plan 47 yo M s/p long-acting insulin overdose with encephalopathy, encephalopathy improved, BS improved. Admitted to inpatient medical psychiatry unit, [facility] consulted to assist with ongoing medical management. Diabetes mellitus, BS labile Hypoglycemic episode - oral agent discontinued - continue on Levemir 5u BID and preprandial insulin 3u TIDAC. Continue to monitor blood sugar closely. - continue on accucheks and low dose ISS. 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, improved - Concern for ongoing neurocognitive deficits secondary to hypoxic encephalopathy from insulin overdose - Neuropsychology consulted, awaiting assessment/recommendations Suicide Attempt Thomas Act - Overdose of long-acting insulin - management per psychiatric team Polysubstance abuse - UDS + cocaine, cannabinoids, benzos - patient counselled on cessation Hypophonia, improving no s/sxs dysphagia suspect related to recent intubation for acute hypoxic respiratory failure now resolved - cleared by speech for regular diet with thin liquids - Monitor for improvement DVT prophylaxisambulation Code Status: Full Discussed Condition With: patient, nursing staff
--- NOTE | 2018-08-30 13:13 | P.PNPSY ---
Subjective Remarks: Patient seen for follow-up, chart reviewed. Discussion with nursing staff reported that patient has been calm and cooperative. Patient was found lying in hospital bed noted to not having showered recently. Patient was encouraged to do so which he states he will do. Patient also not attending more groups today but was noted to have attended. Patient continues with poor memory. Collateral information from patient's cousin stated that his mother. Yesterday patient had 4 years ago and patient continues to endorse having lived with his mother prior to staying with his cousin for a year. When asked about his recollection of his last experience or interaction with his mother he was very vague but could not recall further details. He states having seen her several months ago. We will await for cousin to visit with patient to assess patient's baseline as well as pending neuropsychological testing due to noted cognitive deficits with apparent memory impairment. Review of Systems All other systems reviewed negative except as stated in HPI Mental Status Examination Appearance: Dirty, Disheveled Consciousness: Alert Orientation: Person, Place, Date/Time (year only) Speech: Unremarkable Language: Adequate Fund of Knowledge: Inadequate Attention and Concentration: Easily distracted Memory: Impaired Mood: Good Affect: Flat Thought Process & Associations: Linear, Other (concrete) Thought Content: Other (noted with poor recall of recent events) Hallucination Type: None Delusion Type: None Suicidal Ideation: Yes (denies but unreliable to contract for safety.) Suicidal Plan: No Suicidal Intention: No Homicidal Ideation: No Homicidal Plan: No Homicidal Intention: No Insight: Poor Judgment: Poor Assessment and Plan - Assessment (1) Major depress dis, severe Code(s): F32.2 - Major depressive disorder, single episode, severe without psychotic features Status: Acute - Plan Plan: Patient continues with blunted affect, continues to have no recollection of events prior to his suicide also denying recalling suicide attempt. Patient no behavioral disturbances but has poor motivation for participation in groups and activities, also has not been able to keep so adequate hygiene. We will continue current treatment. Neuropsychological testing pending. We will wait for cousin to visit patient to assess baseline. Discharge planning in progress. Justification for Continued Inpatient Stay: At risk of further decompensation at lower level care.
[2018-08-31] MEDS: Insulin NovoLOG Aspart Correctional Sugar Inj SQ SCH ×5 (02:54→21:13)
[2018-08-31 05:38] VITALS: RESP 16; O2SAT 98
[2018-08-31] MEDS: Insulin Detemir Inj 1,000 UNIT/10 ML Vial SQ SCH ×2 (08:04→21:12)
--- NOTE | 2018-08-31 10:25 | P.PN ---
Subjective Interval history: Follow up on patient with DM. Patient seen and examined. Patient appears very disheveled, does not appear to have showered since he has been here. He wants to know when can he be discharged. He does not voice any acute medical complaints or concerns. Discussed with nursing staff, no adverse events noted overnight. Physical Exam Vital signs: Vital Signs 08/30/18 17:45 08/31/18 05:37 Temperature 97.3 F L 97.6 F Pulse Rate 104 H 84 Respiratory Rate 18 16 Blood Pressure 114/80 104/65 Pulse Oximetry 99 98 Intake & Output 08/30/18 08/31/18 08/31/18 18:59 06:59 18:59 Weight 52.8 kg Narrative: GENERAL: Thin well developed disheveled middle aged patient, INAD. Awake and alert. Oriented. SKIN: Warm and dry. No obvious rash. HEENT: Atraumatic. Normocephalic. EOMI. No scleral icterus. No injection or drainage. No nasal bleeding or discharge. Mucous membranes pink and moist. Poor dentition. NECK: Trachea midline. CARDIOVASCULAR: Regular rate and rhythm. RESPIRATORY: No accessory muscle use. Clear to auscultation. Breath sounds equal bilaterally. GASTROINTESTINAL: Abdomen soft, non-tender, nondistended. +BS. MUSCULOSKELETAL: Extremities without clubbing, cyanosis, or edema. No obvious deformities. NEUROLOGICAL: Awake and alert. No obvious cranial nerve deficits. Motor grossly within normal limits. Hypophonic speech, improving. Mildly delayed but appropriate responses. PSYCHIATRIC: Calm and cooperative. Flat affect. Insight and judgment poor. Results - Labs Laboratory Results - last 24 hr 08/30/18 08/30/18 08/30/18 11:45 16:35 19:52 POC Glucose 170 H 165 H 182 H 08/31/18 08/31/18 02:52 07:13 POC Glucose 160 H 221 H Assessment and Plan - Plan 47 yo M s/p long-acting insulin overdose with encephalopathy, encephalopathy improved, BS improved. Admitted to inpatient medical psychiatry unit, [facility] consulted to assist with ongoing medical management. Diabetes mellitus, BS labile Hypoglycemic episode - BS improved since oral agent discontinued - continue on Levemir 5u BID and preprandial insulin 3u TIDAC. Continue to monitor blood sugar closely. - continue on accucheks and low dose ISS. - recommend patient follow up with project program manager as outpatient - hypoglycemic protocol Hypoxic-Ischemic Encephalopathy secondary to overdose, improved - Concern for ongoing neurocognitive deficits secondary to hypoxic encephalopathy from insulin overdose - Neuropsychology consulted, awaiting assessment/recommendations Suicide Attempt Thomas Act - Overdose of long-acting insulin - management per psychiatric team Polysubstance abuse - UDS + cocaine, cannabinoids, benzos - patient counselled on cessation Hypophonia, improving no s/sxs dysphagia suspect related to recent intubation for acute hypoxic respiratory failure now resolved - cleared by speech for regular diet with thin liquids - Monitor for improvement DVT prophylaxisambulation Patient appears stable from hospitalist standpoint. [facility] will sign off. Please reconsult if needed. Code Status: Full Discussed Condition With: patient, nursing staff Discharge Planning: discharge disposition per primary team
--- NOTE | 2018-08-31 11:57 | P.DIET ---
Nutritional Evaluation Type of nutrition evaluation: initial Nutrition screening: [facility] Screening comments: 08/28/18 [facility] Diet Education-poorly controlled diabetes, labile BG Subjective Subjective Comments: Pt visited in the dayroom before lunch today. Pt provided w/diet Education for 1800ADA Consistent CHO diet. Pt w/poor dentition-missing and cracked teeth; however, pt denies any problem chewing. Objective - Diagnosis Major Depressive DO - Objective % IBW: 79 Body Weight Used for Calculations: Actual (55 kg) Energy Needs - Lower Range (kCal/kg): 35 Energy Needs - Upper Range (kCal/kg): 40 Lower Limit kCal/kg (kCals): 1,925 Upper Limit kCal/kg (kCals): 2,200 Lower Limit Protein Factor (Grams per Kg): 1.2 Upper Limit Protein Factor (Grams per Kg): 1.5 Lower Protein Needs (Protein): 66 Upper Protein Needs (Protein): 83 Dietitian Reviewed in Medical Record: Current diet, Curent medications, Intake & Output, Labs, Medical history Diet Order: 1800ADA Oral Diet Intake Amount: Good 75-90% Objective Comments: PMH includes : DM POC Glucose 270 Novolog, Levemir Assessment Assessment: Pt is at nutritional risk r/t low BMI 17.7. Adequate po intake greater than 50% for meals here. Rec 2000ADA diet to meet needs. Send Glucerna Shakes w/meals(= 220 kcal and 10g protein per serving). Pt provided w/diet education for 1800ADA Consistent CHO diet. Pt receptive to all information provided. Pt has no questions at time of this visit. Labs reviewed. Dietitian will follow for supplement acceptance and additional questions as needed. Recommendations: 1. Rec 2000ADA diet to meet needs 2. Send Glucerna Shakes w/meals 3. Pt provided w/diet education for 1800ADA Consistent CHO diet 4. Dietitian will follow for supplement acceptance and additional questions as needed
--- NOTE | 2018-08-31 12:36 | P.NPEVAL ---
Disclaimer Patient was given an explanation of the nature and purpose of the evaluation. Patient agreed to proceed with the evaluation and treatment plan. History - Reason for Referral The patient is a 47 year old right handed man who was admitted to the Psychiatry Unit of [facility] on 08/22/2018 secondary to insulin overdose and becoming unresponsive with possible hypoxia requiring intubation. His tox screen was positive for cocaine, THC and benzos. The patient was Thomas Acted in January of 2018 following another suicide attempt. Since his admission, he has been confused and disheveled, reporting that on discharge he can return to live with his mother, although she has been for several years. 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 He is single, never , and has no children. He is referred for baseline neuropsychological evaluation to assess cognitive, behavioral and emotional aspects of his clinical presentation and provide treatment recommendations. 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 [employer] Dominance: Right PMFSH - History History Provided By: Patient, Medical Record - Medical History Medical History: Medical History (Last Reviewed 08/23/18 @ 14:01 by Luke Encinas) Diabetes Medical history unknown Surgical history unknown - Tobacco History Second Hand Smoke Exposure: Yes Tobacco Use In Past 30 Days: Yes Smoking Status: Current every day smoker Tobacco Type: Cigarettes - Alcohol History How Often Do You Have a Drink Containing Alcohol: 4 or more times a week - Substance Use History Substance History: Active Abuse - Substance Use Type Marijuana Status: Active Route Used: Inhalation Frequency: 1-2 times a week Reason for Use: Calm Down Comment: Although patient was positive for substance he denies using; however he reports a history of marijuana use which he states was a year ago. - Immunization History Tetanus Immunization: >5 Years Hx Influenza Vaccine This Season: No Medications Active Medications Acetaminophen (Tylenol) 650 mg PO Q4H PRN PRN Reason: Pain 1-5 or Temp >101F Al Hydrox/Mg Hydrox/Simethicone (Mag-Al Plus Susp Liq) 30 ml PO Q6H PRN PRN Reason: DYSPEPSIA Al Hydroxide/Mg Hydroxide (Milk Of Magnesia Liq) 30 ml PO Q12H PRN PRN Reason: Mild Constipation Dextrose (D50w Vial) 50 ml IV.PUSH UNSCH PRN PRN Reason: PER HYPOGLYCEMIA PROTOCOL Diphenhydramine HCl (Benadryl) 50 mg PO HS PRN PRN Reason: INSOMNIA Duloxetine HCl (Cymbalta) 30 mg PO BID [facility] Last Admin: 08/31/18 08:04 Dose: 30 mg Glucagon (Glucagon Inj) 1 mg OTHER PRN PRN PRN Reason: for Hypoglycemia Protocol Last Admin: 08/28/18 04:02 Dose: 1 mg Hydroxyzine HCl (Atarax) 50 mg PO Q6H PRN PRN Reason: ANXIETY Last Admin: 08/27/18 21:05 Dose: 50 mg Insulin Aspart (Novolog Insulin Correctional Sugar Inj) 0 unit SQ ACHS AND 3AM MAGDA; Protocol Last Admin: 08/31/18 11:24 Dose: 5 unit Insulin Aspart (Novolog Inj) 3 units SQ TIDAC [facility] Last Admin: 08/31/18 11:24 Dose: 3 units Insulin Detemir (Levemir Inj) 5 unit SQ BID [facility] Last Admin: 08/31/18 08:04 Dose: 5 unit Mental Status Assessment - Mental Status Orientation: oriented to: Self, Place, disoriented to: Time, Situation Mental Status: WFL: Attention, Impaired: Thought processing, Language/ interactions, Learning/memory, Problem-solving Absent: Hallucinations, Delusions Adjustment/Coping Assessment - Adjustment/Coping Adjustment/Coping: Severe: Awareness, Insight - Observation In terms of emotional functioning, the patient demonstrated challenges. This patient demonstrated no signs of agitation, impulsivity or disinhibition, nor was there remarkable evidence of a formal thought disorder or psychosis. There was no evidence of depression or anxiety. The Geriatric Depression Scale-Short Form was administered given the ease to which it is administered to persons with known neurological pathology, and the patient endorsed only 3 of 15 symptoms, which falls within the non depressed range. Thought content was free from suicidal, homicidal or paranoid ideation, and thought processes were blunted, somewhat tangential and concrete]. The patients mood was guarded, and his affect was flat. The patient appears to possess poor insight and awareness into their situation and within the limits of this brief evaluation, poor judgment. Effort Effort: Average Cognition Assessment - Attention/Processing Speed Rating: WFL: Visual perception, Spatial judgment, Variable: Attention/processing , Impaired: Language, Immediate & delayed memory, Executive, Awareness - insight adjustment Observation: The patient was alert and oriented to person, place, time and circumstances surrounding the recent hospitalization. The Mini-Mental State Exam was administered, and the patient obtained a score of 27 out of 30 points, which falls in the [] range. However, on further evaluation, specific deficits were identified. In terms of attention skills, the patient exhibited normal abilities . The patient was able to remain on task and remember basic and most complex verbal instructions. This patient was able to spell the word WORLD backwards and to recite back lists of words. In terms of memory functioning, the patient exhibited significant challenges. The patients initial registration of verbal information was borderline, and the patient was unable to improve their memory with repetition. 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 More specifically, on the Luria Memory Words Test-Short Form, the patients trial one performance was 2 of 7 words, trial five performance was 3 of 7 words, the patients Total Learning score was 13 ( well below cut-off), and the patients Delayed recall score was 0 of 7 words (well below cut-off). The patients ability to recall verbal information in a paragraph format was considered quite impaired, as he was unable to recall any of this contextual information after even five minutes and with cueing. In terms of speech and language skills, the patient demonstrated challenges. The patients initiated spontaneous conversation throughout the assessment. However, speech was characterized by limited prosody, poor grammar, poor articulation (due to poor dentition), diminished volume and variable rate. However, no remarkable dysnomic or paraphasic errors were noted either during conversational speech or on confrontation naming tasks. Reading recognition skills were adequate, as were writing skills. He earned a standard score of 80 (percentile rank of 9) on the reading subtest of the WRAT-4, which provides an estimate of his baseline intellectual abilities. The patients comprehension for basic one- and two- stage commands was adequate. In terms of problem-solving skills, the patient exhibited challenges. The patients ability to understand abstraction reasoning was quite abnormal, as reflected in his inability to abstract essential shared characteristics of objects and concepts. Mathematical reasoning skills were also abnormal. Speed of information processing, as evaluated by both the Letter and Category Fluency Tests was abnormal. However, in terms of visuospatial/ constructional abilities, the patient was able to reproduce various designs without issue, and finally, there was no evidence of ideomotor apraxia during this brief evaluation. Summary/Diagnosis - Summary/Impressions Summary: Evaluation results reveal a dense memory consolidation disorder and complex problem solving and reasoning deficits that are greater than would be expected with either his low average to borderline intellectual functioning, the normal aging process or emotional distress. 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 In my experience , persons with these deficits from this cause have limited improvement going forward, and this essentially explains his inability to remember what is being told to him including his belief that his mother remains alive. Recommendations Recommendations: Given this extent of this patient's neurocognitive deficits, he will require a trusted individual to care for him following his discharge, as not only does he require assistance, but he is not able to understand that he needs assistance. Notably, during the evaluation, he denied having any memory problems which stands in tellez contrast to his neuropsychological results. Thus, he demonstrates impaired insight, awareness and judgment. Continued psychiatric evaluation and treatment is recommended, both as an inpatient and as an outpatient. Complete cessation from all impairing substances is obviously recommended, as such continued use/abuse will exacerbate his neurocognitive deficits.
--- NOTE | 2018-08-31 13:08 | P.PNPSY ---
Subjective Remarks: Patient seen for follow-up, chart reviewed. Discussion with nursing staff reported that patient was able to come out for meals, shower today and more visible. Patient was found lying in hospital bed noted B, cooperative. Patient stated he discharge today and was able to come out for meals but has not attended any groups thus far. He states that he plans on staying with his cousin when asked why he no longer wanted to stay with his brother he states that there was a lot of conflict. Patient had psychological testing performed today which showed significant neurocognitive deficits likely secondary to the anoxic injury from the overdose. Patient continues with memory deficits related to his suicide attempt and states that he is not feeling depressed not having suicide ideations and staying with a friend of his whom he states his girlfriend. Patient's cousin was to visit patient yesterday evening although patient denies having been seen by the cousins as of yet. We will attempt to contact patient's cousin Cosme to verify whether he is able to stay with him and assist with supervision of his needs. Review of Systems All other systems reviewed negative except as stated in HPI Mental Status Examination Appearance: Disheveled Consciousness: Alert Orientation: Person, Place, Date/Time (year only) Speech: Unremarkable Language: Adequate Fund of Knowledge: Inadequate Attention and Concentration: Easily distracted Memory: Impaired Mood: Good Affect: Blunt (Slightly more affect today) Thought Process & Associations: Linear, Other (concrete) Thought Content: Other (noted with poor recall of recent events) Hallucination Type: None Delusion Type: None Suicidal Ideation: Yes (Denies today) Suicidal Plan: No Suicidal Intention: No Homicidal Ideation: No Homicidal Plan: No Homicidal Intention: No Insight: Poor Judgment: Poor Assessment and Plan - Assessment (1) Major depress dis, severe Code(s): F32.2 - Major depressive disorder, single episode, severe without psychotic features Status: Acute - Plan Plan: To have significant memory deficits as well as significant cognitive deficits as determined through neuropsychological testing, neuropsychology consult input appreciated. Patient will require supervision due to his deficits noted. We will continue current treatment. Continue to monitor with behavior. Collateral information pending from patient's cousin. Discharge planning in progress. Justification for Continued Inpatient Stay: At risk of further decompensation at lower level care.
[2018-08-31 20:00] VITALS: BP 117/71; PULSE 102; TEMP 98.2
[2018-09-01] MEDS: Insulin NovoLOG Aspart Correctional Sugar Inj SQ SCH ×3 (03:44→11:31)
[2018-09-01] MEDS: Insulin Detemir Inj 1,000 UNIT/10 ML Vial SQ SCH (08:31)
--- NOTE | 2018-09-01 10:43 | P.DSPSY ---
Psychiatry Discharge Summary Inpatient Psychiatric care?: Yes Advance Directives: No Reason for Unknown:: Other Other Reason for Unknown: doesnt have Mental Health Advance Directive: No Health Care Proxy: No - Admission Admission Date: August 22, 2018 13:56 - Admission Diagnosis (1) Major depress dis, severe Code(s): F32.2 - Major depressive disorder, single episode, severe without psychotic features Brief History: Patient is a 47-year-old man, single, unemployed, domiciled with a cousin, with a past psychiatric no depression anxiety, no previous psychiatric admissions, no previous suicide attempts of interest behavior with a substance use history significant for polysubstance use including alcohol, cocaine, benzo , marijuana which patient was admitted initially to the medical service due to unresponsiveness status post insulin overdose in a suicide attempt which patient was noted to have hypoxic ischemic event secondary to the overdose which he required intubation and upon extubation patient was recommended for psychiatric inpatient admission after evaluation by psychiatry consult team and requiring inpatient stabilization for safety. As per chart patient urine toxicology positive for cocaine, marijuana and benzo. Patient had required intubation during medical stabilization as well as hypoxic/ischemic event secondary to intentional insulin overdose. In review of records patient was seen in January 2018 under Thomas act which patient had endorsed attempting to jump off the bridge while intoxicated with alcohol and history of noncompliance with treatment which patient at that time did not require inpatient psychiatric admission as it was believed his symptoms at that time was substance-induced. Patient was found lying hospital bed noted B, cooperative. Patient states that he had been feeling depressed for the past couple weeks was unable to identify any triggering event leading up to his depression and also endorsing suicide ideation for 2 weeks. He reports not having any specific plan as well as aware of his recent suicide attempt recently but was unable to provide any details as to what had occurred during the overdose. Patient also had written a suicide note which was on his person the patient denies recalling having written this note. He reports no changes in sleep appetite energy concentration denies any perceptional disturbances or delusions and denies any manic or psychotic symptoms at this time. When asked about stressors that may be contributing to his recent depression he states "I do not remember", "I just woke up here". Patient was described events of his suicide attempt states "that strange". Patient at this time denies any suicide ideation stating that he was simply overwhelmed yet patient previously mentioning not recalling attempted to end his life. Family psychiatric history: Mother with bipolar disorder , Sister with bipolar disorder, no suicides in the family. Past psychiatric history: Previous psychiatric diagnoses depression anxiety, no previous psychiatric admissions, no previous suicide attempt or self-injurious behavior. No history of abuse. Patient with no outpatient mental health follow -up reports having seen a psychiatrist years ago but was able to recall treatment at that time. Substance use history: Polysubstance use including alcohol cocaine benzo marijuana, tobacco use, alcohol use 2-3 drinks per night last time being 1 week ago, cocaine use 1 use every 2 weeks last time being 3 weeks ago, marijuana use daily, denies any benzodiazepine use, patient denies any detox or rehabs in the past. Past medical history: Insulin-dependent diabetes, hep C, GERD, hypertension, recurrent DKA Allergies: NKDA Social history: Previously living with cousin Alberto, single, no children, and education some college, unemployed, no background or access to firearms. Tobacco Use In Past 30 Days: Yes How Often Do You Have a Drink Containing Alcohol: 4 or more times a week Hospital Course: Patient is a 47-year-old man, single, unemployed, domiciled with a cousin, with a past psychiatric no depression anxiety, no previous psychiatric admissions, no previous suicide attempts of interest behavior with a substance use history significant for polysubstance use including alcohol, cocaine, benzo , marijuana which patient was admitted initially to the medical service due to unresponsiveness status post insulin overdose in a suicide attempt which patient was noted to have hypoxic ischemic event secondary to the overdose which he required intubation and upon extubation patient was recommended for psychiatric inpatient admission after evaluation by psychiatry consult team and requiring inpatient stabilization for safety. Patient was admitted to a locked , inpatient psychiatric unit. Appropriate precautions were in place throughout patient's hospital stay. Patient was seen and examined on the unit by psychiatry. Psychotropic medications were started and adjusted. There was no evidence of any suicidality or homicidality on the inpatient unit. Patient's mood improved with the benefit of psychopharmacological treatment and had no behavioral disturbance since admission. Patient was noted to have reached stable mood, noted to participate and engage in treatment and interact with staff adequately. Patient was also noted with apparent neurocognitive impairments which was confirmed through neuropsychological testing and likely secondary to anoxia from recent insulin overdose resulting in hypoxic ischemic event. Patient noted to be future oriented with plans to continue treatment and outpatient follow-up appointments for continuity of care. Counselor has arranged discharge plan with patient's cousin whom will be overseeing patient's care and provide support for continued outpatient treatment. On the day of discharge: Patient seen and examined; chart reviewed. Case discussed with nurse and counselor. No behavioral issues overnight. On my examination today, the patient denies any suicidal homicidal ideation, intent or plan on direct questioning and contracts for safety. Patient denies any perceptional disturbances and no delusional material verbalized today. Patient denies any side effects from medication and has understanding of medication regimen and education. No physical complaints. Suicide and violence risk assessment on day of discharge both suggest lower imminent risk, and the patient's level of function is adequate for plan level of outpatient care. Patient has maximized benefit from this inpatient psychiatric hospital stay and will be discharged with discharge plan as arranged by counselor. Patient advised to return to psychiatric emergency room for any concerning psychiatric symptoms. Patient agrees with plan. - Discharge Discharge Date: 09/01/18 - Discharge Diagnosis (1) Major depress dis, severe Code(s): F32.2 - Major depressive disorder, single episode, severe without psychotic features Status: Acute (2) Dementia associated with cerebral anoxia Code(s): G93.1 - Anoxic brain damage, not elsewhere classified; F02.80 - Dementia in other diseases classified elsewhere without behavioral disturbance Status: Acute Discharge Disposition: Home - Discharge Instructions Discharge Diet: Heart Healthy Diet Activities You Can Perform: Regular- No Restrictions - Discharge Time > 30 minutes Mental Status Examination Appearance: Appropriate Consciousness: Alert Orientation: Person, Place, Date/Time (year only) Speech: Unremarkable Language: Adequate Fund of Knowledge: Inadequate Attention and Concentration: Easily distracted Memory: Impaired Mood: Good Affect: Appropriate Thought Process & Associations: Intact, Linear, Other (concrete) Thought Content: Other (noted with poor recall of recent events) Hallucination Type: None Delusion Type: None Suicidal Ideation: No Suicidal Plan: No Suicidal Intention: No Homicidal Ideation: No Homicidal Plan: No Homicidal Intention: No Insight: Fair Judgment: Impulsive Discharge/Advance Care Plan - Results Vital Signs: Last Vital Signs Temp 98.2 F 08/31/18 06:00 Pulse 102 H 08/31/18 06:00 Resp 16 08/31/18 06:00 BP 117/71 08/31/18 06:00 Pulse Ox 98 08/31/18 06:00 Lab Results: Abnormal Lab Results 08/31/18 08/31/18 08/31/18 11:16 16:16 19:47 POC Glucose 270 H 171 H 166 H 09/01/18 09/01/18 03:41 06:05 POC Glucose 153 H 155 H Summary of Procedures: none Pending Results: None - Medications Number of antipsychotic medications at discharge: 0 - Discharge Care Plan Goals to Promote Your Health: * To prevent worsening of your condition and complications * To maintain your health at the optimal level Directions to Meet Your Goals: Take your medications as prescribed Follow your dietary instruction Follow activity as directed Keep your appointments as scheduled Take your immunizations and boosters as scheduled If your symptoms worsen call your PCP, if no PCP go to Urgent Care Center or Emergency Room For 18/04 questions related to your inpatient stay or results of tests pending at discharge, please contact Dr. Corey Bauer MD at Smoking is Dangerous to Your Health. Avoid second hand smoking
== END 2018-09-01 12:45 | disposition home or self-care (01) ==
LOC: H4EA 08-22 13:56 → H260 08-30 14:44
PROVIDERS: ADMIT Student in an Organized Health Care Education/Training Program; ATTEND Student in an Organized Health Care Education/Training Program